=== PATIENT | male | born 1995 | race Caucasian/White ===

== ENCOUNTER → 2017-10-24 14:24 | Outpatient (CLI) | payer BC, SELFPAY ==
[2017-10-24 14:33] LABS: Bacteria 0 SEEN /hpf (None Seen); Mucous, Urine 0 SEEN /hpf (<or=2+); Red Blood Cells-Urine 0 SEEN /hpf (0-5); Squamous Epithelial Cells - UA 0 SEEN /hpf (0-5); White Blood Cells 0 SEEN /hpf (0-5)
[2017-10-24 17:11] LABS: Absolute Lymphocyte Count 1.43 X10^3/ul (0.83-4.51); Absolute Neutrophil Count 3.8 X10^3/uL (2.0-7.7); Basophil# 0.03 X10^3/uL; Basophil% 0.5 % (0-1); Eosinophils% 1.7 % (0-5); Hematocrit 48.6 % (40-54); Hemoglobin 16.6 g/dl (13.0-16.5); Lymphocyte # 1.43 X10^3/ul (4.0); Lymphocyte % 24.2 % (19-41); Mean Corp Hgb Conc 34.2 g/gl (32-36); Mean Corpuscular Hgb 29.8 pg (27.0-32.0); Mean Corpuscular Volume 87.3 fL (80-94); Mean Platelet Vol. 10.4 fl (6.2-12.0); Monocyte# 0.59 X10^3/uL; Neutrophil # 3.75 X10^3/uL (2.7-7.7); Neutrophil % 63.3 % (47-70); Platelet Count 262 K/mm3 (150-450); RBC Distribution Width CV 12.7 % (11.6-14.6); RBC Distribution Width SD 40.6 fl (35.1-43.9); Red Blood Count 5.57 M/mm3 (4.6-6.2); White Blood Count 5.9 K/mm3 (4.4-11.0)
[2017-10-24 17:15] LABS: POSITIVE COUNT NO; POSITIVE DIFFERENTIAL NO; POSITIVE MORPHOLOGY NO
[2017-10-24 17:33] LABS: Color, Urine Yellow (Yellow); Glucose, Dipstick Normal (Normal); Ketone-Dipstick Negative (Negative); Leukocyte Esterase-Dipstick Negative /ul (Negative); Nitrite-Dipstick Negative (Negative); Occult Blood-Urine Negative /ul (Negative); Protein-Dipstick Negative (Negative); Urine Bilirubin Dipstick Negative (Negative); Urine Clarity Clear (Clear); Urine Urobilinogen Normal (Normal); Urine pH 6.5 (5.0 - 8.0)
[2017-10-24 17:44] LABS: Urine Sodium 29 mmol/L (Not Establ.)
[2017-10-24 18:02] LABS: Anion Gap 8 (5-15); BUN 12 mg/dL (7-18); BUN/Creat Ratio 14.4 RATIO (10-20); Calcium,Total 8.9 mg/dL (8.5-10.1); Chloride 105 mmol/L (98-107); Creatinine, Serum 0.84 mg/dL (0.70-1.30); EST Glomerular Filtration Rate 125 mL/min (>60); Est Glom Filt Rate - Afr Amer 151 mL/min (>60); Glucose 103 mg/dL (74-106); Potassium 3.9 mmol/L (3.5-5.1); Sodium Level 141 mmol/L (136-145); Thyroid Stim Hormone (TSH) 1.31 uIU/mL (0.358-3.74)
[2017-10-24 18:09] LABS: Osmolality, Urine 181 mOsm/KG
== END ==
PROVIDERS: Family Provider Family Medicine; PCP Family Medicine; Visit Provider Family Medicine
DX: R35.8 Other polyuria (principal); R63.1 Polydipsia; R55 Syncope and collapse; R00.2 Palpitations
CPT/HCPCS: 36415; 80048; 81001; 83935; 84300; 84443; 85025

== ENCOUNTER 2018-03-03 18:08 | Emergency (ER) | payer BC, SELFPAY ==
[2018-03-03 18:09] VITALS: BP 108/72; PULSE 93; RESP 16; TEMP 36.4; O2SAT 99; BMI 25.2
--- NOTE | 2018-03-03 18:44 | ED.VISSUMM ---
- ER Visit Summary Date of Service: 03/03/18 Chief Complaint: Right index finger laceration History of Present Illness: The patient is a 22 M that is right hand dominant. Tetanus up-to-date. He was working on sheet metal and actually cut the dorsal side of his right index finger between his PIP and DIP joints. No other injuries. Physical Examination: Vital signs stable afebrile. Young male no acute distress. HEENT, heart, lungs, abdomen and neurologic exam normal. Right hand: Right index finger there is a 2 cm laceration between the DIP and PIP joints. He has full flexion-extension. Normal sensation. No foreign body. Clean wound. No bony deformity. Test Results: None Emergency Department Course and Treatment: Right index finger laceration with ER repair. Local anesthetic with lidocaine. Cleaned with Shur-Clens and irrigated. Explored. Closed using 2 5-0 Ethilon simple sutures. Proper hemostasis wound closure obtained. Patient instructed on wound care. Treatment Plan: Wound care and sutures out in 10 days. Disposition: Discharge Impression: Acute right index finger laceration with ER repair of 2 cm This note was generated with [employer] dictation software. It may contain incorrect words, spelling, and punctuation that were not noted in review of the chart prior to signing ED Disposition - Plan for ED Patient: Chief Complaint: Laceration Referrals: Joseluis Watson DO [Primary Care Provider] -
--- NOTE | 2018-03-03 18:47 | ED.DCSUM_ITS ---
- ER Visit Summary Date of Service: 03/03/18 Chief Complaint: Right index finger laceration History of Present Illness: The patient is a 22 M that is right hand dominant. Tetanus up-to-date. He was working on sheet metal and actually cut the dorsal side of his right index finger between his PIP and DIP joints. No other injuries. Physical Examination: Vital signs stable afebrile. Young male no acute distress. HEENT, heart, lungs, abdomen and neurologic exam normal. Right hand : Right index finger there is a 2 cm laceration between the DIP and PIP joints. He has full flexion-extension. Normal sensation. No foreign body. Clean wound. No bony deformity. Test Results: None Emergency Department Course and Treatment: Right index finger laceration with ER repair. Local anesthetic with lidocaine. Cleaned with Shur-Clens and irrigated. Explored. Closed using 2 5-0 Ethilon simple sutures. Proper hemostasis wound closure obtained. Patient instructed on wound care. Treatment Plan: Wound care and sutures out in 10 days. Disposition: Discharge Impression: Acute right index finger laceration with ER repair of 2 cm This note was generated with [employer] dictation software. It may contain incorrect words, spelling, and punctuation that were not noted in review of the chart prior to signing ED Disposition - Plan for ED Patient: Chief Complaint: Laceration Referrals: Joseluis Watson DO [Primary Care Provider] -
--- NOTE | 2018-03-03 18:47 | ED.DEP ---
ED Disposition - Plan for ED Patient: Disposition: Home or Assisted Living Chief Complaint: Laceration Instructions: ED Laceration Hand Referrals: Joseluis Watson DO [Primary Care Provider] - 10 Day for suture removal Additional Instructions: Keep wound clean. Dry thoroughly if gets wet. Apply antibiotic ointment daily. Tylenol and/or Motrin for pain. Stitches out in 10 days.
== END 2018-03-03 19:11 | disposition home or self-care (01) ==
PROVIDERS: Emergency Provider Emergency Medicine; Family Provider Family Medicine; PCP Family Medicine
DX: S61.210A Laceration without foreign body of right index finger without damage to nail, initial encounter (principal); W45.8XXA Other foreign body or object entering through skin, initial encounter; Y93.9 Activity, unspecified; Y92.89 Other specified places as the place of occurrence of the external cause; Y99.9 Unspecified external cause status
CPT/HCPCS: 12001; 99283

== ENCOUNTER → 2018-11-14 10:59 | Outpatient (CLI) | payer BC, SELFPAY ==
--- NOTE | 2018-11-14 11:11 | MRI_ITS ---
STUDY: MRI BRAIN WITH AND WITHOUT CONTRAST REASON FOR EXAM: Male, 23 years old. Migraine headaches with vision loss TECHNIQUE: Standardized multiplanar fat and water weighted pulse sequences were obtained. 18 IV Dotarem was administered for the contrast portion of the examination. COMPARISON: None. FINDINGS: The pituitary and pineal regions are normal. The brainstem is normal. The corpus callosum is normal. The 7th and 8th nerve complexes are normal. Both cerebellopontine angles are clear. The cerebellar vermis and lobes are normal. The ventricles, basal cisterns and cortical sulci are normal with no midline shift and no intra or extra-axial hemorrhage or tumor mass. There is no acute infarction. The calvarium is intact. There are no scalp swelling. The vessels at the base of the brain are normal. The orbits, paranasal sinuses and mastoid air cells are normal.. MRI/Brain W/WO Contrast IMPRESSION: Normal unenhanced and enhanced MRI of the brain. No evidence of a demyelinating disease. No acute findings Electronically Signed: Jeremy Jefferson MD at 5:34 EDT Tel , Service support ,
== END ==
PROVIDERS: Family Provider Family Medicine; PCP Family Medicine; Referring Provider Family Medicine; Visit Provider Family Medicine
DX: H53.129 Transient visual loss, unspecified eye (principal); R51 Headache
CPT/HCPCS: 70553; A9575

== ENCOUNTER → 2020-08-10 09:14 | Outpatient (CLI) | payer BC, SELFPAY ==
--- NOTE | 2020-08-10 09:18 | US_ITS ---
STUDY: SCROTUM ULTRASOUND REASON FOR EXAM: Male, 24 years old. TESTICULAR PAIN BILATERAL TECHNIQUE: Ultrasound evaluation of the scrotum was performed with color Doppler and static de la vega-scale imaging. COMPARISON: None. FINDINGS: RIGHT TESTICLE INTRATESTICULAR: There is a normal size of the right testicle. The right testicle measures 4.6 cm x 3.2 cm x 2.3 cm. There is a homogenous echotexture. There is normal arterial and normal venous vascularity. There is no demonstrated right testicular mass or cyst. EXTRATESTICULAR: The epididymis is normal in size. The epididymis head measures 0.9 cm x 1 cm x 0.9 cm. There is normal vascularity of the epididymis. There is no demonstrated epididymal cystic structure. There is no demonstrated hydrocele. There is no demonstrated varicocele. There is no demonstrated extratesticular mass or cyst. LEFT TESTICLE INTRATESTICULAR: There is a normal size of the left testicle. The left testicle measures 4.5 cm x 3.2 cm x 2.8 cm. There is a homogenous echotexture. There is normal arterial and normal venous vascularity. There is no demonstrated left testicular mass or cyst. EXTRATESTICULAR: The epididymis is normal in size. The epididymis head measures 1 cm x 1.2 cm x 0.8 cm. There is normal vascularity of the epididymis. There is no demonstrated epididymal cystic structure. There is no demonstrated hydrocele. There is no demonstrated varicocele. There is no demonstrated extratesticular mass or cyst. US/Testicular with Arterial Flow IMPRESSION: Normal bilateral testicles. Electronically Signed: Antony Rivero, at 11:01 EST , Service support ,
== END ==
PROVIDERS: PCP Family Medicine; Referring Provider Family Medicine; Visit Provider Family Medicine
DX: N50.82 Scrotal pain (principal)
CPT/HCPCS: 76870; 93976

== ENCOUNTER → 2021-01-15 15:34 | Outpatient (CLI) | payer BC, SELFPAY | PROVIDERS: PCP Family Medicine; Visit Provider Family Medicine | DX: Z20.828 Contact with and (suspected) exposure to other viral communicable diseases (principal) | CPT/HCPCS: 87635; U0005; U0003 ==

== ENCOUNTER → 2021-12-30 | Outpatient (CLI) | payer BC, SELFPAY | END | disposition home or self-care (01) | LOC: LABSPEC 15:10 | PROVIDERS: PCP Family Medicine; Visit Provider Family Medicine | DX: J02.9 Acute pharyngitis, unspecified (principal); R05.9 Cough, unspecified; J34.89 Other specified disorders of nose and nasal sinuses | CPT/HCPCS: 87635; U0003; U0005 ==

== ENCOUNTER 2024-12-21 16:01 | Emergency (ER) | payer BC, SELFPAY ==
[2024-12-21] VITALS (20 sets, daily range): BP systolic 122–176; BP diastolic 58–164; PULSE 61–76; RESP 9–26; TEMP 36.9; O2SAT 96–99; BMI 25.6
--- NOTE | 2024-12-21 16:12 | CT_ITS ---
PROCEDURE: ABDOMEN/PELVIS W IV CONT ONLY 12/21/2024 REASON FOR EXAM: LUQ PAIN TECHNIQUE: Abdomen and pelvis CT with intravenous contrast. Coronal and Sagittal reconstruction series were provided. PATIENT PREPARATION: Per protocol ORAL CONTRAST TYPE: None. AMOUNT: mL CONTRAST: Omnipaque 350 VOLUME: 100 mL Not Provided Gauge IV One or more dose reduction techniques were used (e.g., Automated exposure control, adjustment of the mA and/or kV according to patient size, use of iterative reconstruction technique. COMPARISON: None FINDINGS: Lung bases: Unremarkable. Liver: Normal size. No mass. Gallbladder: No ductal dilation. No cholelithiasis or abnormal wall thickening. Spleen: No splenomegaly. Diffuse multifocal wedge-shaped areas of hypoattenuation, concerning for sequela of splenic infarct. Pancreas: Normal size without evidence of mass surrounding inflammation or ductal dilation. Adrenals: Unremarkable. Kidneys: Normal renal sizes. No hydronephrosis. Bladder: Urinary bladder is unremarkable. Reproductive Organs: Normal uterine size and contour. Ovaries are unremarkable. Bowel: Stomach is unremarkable. No bowel dilation or significant wall thickening. Moderate colonic stool. Appendix: Normal appendix. Lymph nodes: No suspicious adenopathy. Vasculature: The abdominal aorta and IVC are normal. Peritoneum / Retroperitoneum: No pneumoperitoneum. No ascites. Bones: No suspicious osseous lesions. Soft tissues: Unremarkable. CT/Abdomen/Pelvis W IV Cont ONLY IMPRESSION: Multifocal hypoenhancing foci within the spleen, concerning for sequela of sple jaiden infarcts, especially given reported history of left upper quadrant pain. Although this appears quite similar to the tigroid t ype/inhomogeneous enhancement seen within the spleen on the arterial/early portal venous phase, sequela of splenic infarct is considered more likely. For confirmation, follow up CT of the abdomen and pelvis in 6-12 hours or MRI of the abdomen may be con sidered. Reading Location: [facility]
--- NOTE | 2024-12-21 16:18 | EDS_ITS ---
HPI History of Present Illness Chief Complaint: Flank Pain Informant: patient and spouse/S.O. Narrative Narrative: 29-year-old male presenting to the emergency room with left flank and left upper quadrant pain. Patient states that he went to [facility] this morning. He does not recall any particular injury. By time he got home this morning he noticed some discomfort left upper quadrant into the left flank. Nothing seems to make it better or worse. He states that it is intermittently more intense than others. He did eat lunch but notes that he was not feeling particularly hungry but still was able to eat. He denies any urinary or bowel symptoms. No rep orted fevers. He notes he is otherwise a very healthy individual. He denies any prior DVT or PE risk factors. He denies any IV drug use. He is not having any [facility] Home Medications ?Medication ?Instructions ?Recorded ?Last Taken ?Type hydrocodone-acetaminophen 5-325mg 1 tab PO Q6H PRN PRN Pain 3 days 12/21/24 Unknown Rx 5mg-325mg #10 TABLETS rivaroxaban 15 mg (42)-20 mg (9) See Rx Instructions P O .COMPLEX 12/21/24 Unknown Rx tablets in a starter pack (Xarelto #51 tabs DVT-PE Treatment 30-Day Starter) triamcinolone acetonide 0.1 % 1 applic topical BID PRN rash 12/21/24 12/20/24 History lotion Allergy/AdvReac Type Severity Reaction Status Date / Time sulfamethoxazole (From Allergy Hives Verified 12/21/24 16:02 Bactrim) trimethoprim (From Bactrim) Allergy Hives Verified 12/21/24 16:02 Surgical History S/P tonsillectomy and adenoidectomy Social History Smoking Status: Never smoker ROS ROS ED Constitutional Constitutional ED: Denies chills, fever(s) or weight loss Eyes Eyes: Denies change in vision or diplopia ENT ENT ED: Denies ear pain, rhinorrhea or sore throat Cardiovascular Cardiovascular: Denies chest pain, orthopnea, palpitations or racing heartbeat Respiratory/Chest Respiratory/Chest: Denies cough, dyspnea or orthopnea Gastrointestinal Gastrointestinal: Reports abdominal pain; Denies diarrhea, nausea or vomiting Genitourinary Genitourinary ED: Reports other Details: Patient denies testicular pain ; Denies dysuria, hematuria or urinary frequency Musculoskeletal Musculoskeletal: Reports back pain; Denies arthralgias, myalgias or neck pain Integumentary Denies abscess, Abrasions or rash Neurologic Neurologic: Denies headache(s), paresthesias or weakness Psychiatric Psychiatric: Denies anxiety, depression, suicidal ideation or suicidal thoughts Endocrine Endocrinology: Denies polydipsia, polyphagia or polyuria Allergic/Immunologic Allergic/Immunologic ED: Denies mouth swelling, tongue swelling or urticaria EXAM Physical Exam Const Vital Signs: 12/21/24 16:02 12/21/24 18:32 12/21/24 18:34 Temperature 98.4 F Temperature Source Oral Pulse Rate 74 61 67 Respiratory Rate 18 20 H 15 Blood Pressure 131/105 H 132/83 H 132/83 H Blood Pressure Mean 113 96 99 Pulse Ox 98 98 97 Oxygen Delivery Method Room Air Room Air 12/21/24 18:45 12/21/24 19:00 12/21/24 19:15 Temperature Temperature Source Pulse Rate 62 67 Respiratory Rate 13 9 L Blood Pressure 127/70 H 142/84 H 132/70 H Blood Pressure Mean 85 98 84 Pulse Ox 99 99 Oxygen Delivery Method 12/21/24 19:30 12/21/24 19:45 12/21/24 19:46 Temperature Temperature Source Pulse Rate 66 66 66 Respiratory Rate 17 26 H 10 L Blood Pressure 122/78 H 138/73 H Blood Pressure Mean 92 88 Pulse Ox 97 98 97 Oxygen Delivery Method 12/21/24 20:00 12/21/24 20:00 12/21/24 20:15 Temperature Temperature Source Pulse Rate 63 70 72 Respiratory Rate 11 L 16 15 Blood Pressure 142/67 H 142/67 H 133/91 H Blood Pressure Mean 92 89 101 Pulse Ox 97 96 97 Oxygen Delivery Method 12/21/24 20:33 12/21/24 20:45 12/21/24 21:00 Temperature Temperature Source Pulse Rate 65 69 66 Respiratory Rate 16 18 16 Blood Pressure 176/164 H 126/65 H Blood Pressure Mean 171 83 Pulse Ox 97 97 97 Oxygen Delivery Method 12/21/24 21:15 12/21/24 21:30 12/21/24 21:45 Temperature Temperature Source Pulse Rate 75 71 76 Respiratory Rate 17 18 17 Blood Pressure 131/67 H 134/67 H 128/58 H Blood Pressure Mean 82 83 73 Pulse Ox 97 98 96 Oxygen Delivery Method 12/21/24 22:00 12/21/24 22:01 Temperature Temperature Source Pulse Rate 76 74 Respiratory Rate 17 14 Blood Pressure 131/71 H Blood Pressure Mean 91 Pulse Ox 96 97 Oxygen Delivery Method Positive well nourished and well developed General Appearance ED: well developed and NAD HEENT Reports normocephalic, head/scalp atraumatic and moist mucous membranes Eyes PERRL and EOMs intact bilaterally Neck no lymphadenopathy, supple and no JVD Chest Wall Chest Narrative: Patient notes some tenderness to palpation along the lower posterior ear left ribs extending towards the mid axillary line. I do not appreciate any ecchymosis. Resp normal respiratory effort and clear to auscultation bilaterally Cardio regular rate, regular rhythm and no murmurs GI Inspection: Negative for abdominal distention Auscultation: normoactive bowel sounds Palpation: soft and tender LUQ; Negative for guarding or rebound tenderness present Back/Spine normal ROM Back/Spine Narrative: I do not appreciate any midline thoracic or lumbar tenderness. Extremity normal to inspection General Extremety ED: Negative for edema General Extremity: Negative for edema Neuro oriented x3 and CN's II-XII intact bilaterally Sensorium / Orientation: alert Motor Exam: strength 5/5 throughout Psych mental status grossly normal Mood & Affect: Negative for depressed or tearful Skin no rashes or lesions noted and no wounds MDM MDM MDM Narrative Medical decision making narrative: Differential diagnosis includes UTI kidney stone rib injury muscular strain splenic rupture splenic infarct renal infarct Patient is PERC negative. EKG shows a normal sinus rhythm at a rate of 66 bpm. White count is nonspecifically elevated 11.4 hemoglobin of 16.4 platelet count of 359. Normal coags. Glucose of 107 creatinine is 0.88 with a BUN of 21. Liver enzymes show an AST of 47 ALT of 47 lipase 22. Urinalysis shows no overt infection. There is 3+ bacteria noted 0 squamous cells 0 white cells or red cells. CT abdomen pelvis with IV contrast was obtained. This is concerning for areas of splenic infarct. A similar appearance can be seen with inhomogeneous mixing of the contrast however radiology feels that this is more consistent with splenic infarct. Last comparison film I would have to review this with his from 2006. I spoke with the patient and spouse at length. He has no familial history of clotting disorders or known malignancy. He denies any known trauma that he felt this morning while at [facility]. He has not had any recent infections sore throat fevers. I spoke with the patient regarding the possibility of splenic infarcts. I do not have a readily accessible MRI test to offer him. Using shared decision making we placed him on a heparin drip however going to repeat the CT at about the 6-hour simeon. After Toradol the patient states he is really not having any pain but will notify us if the pain returns. In speaking with the patient has his pain is controlled he is hemodynamically stable and his blood work is rather unremarkable. If the CT is consistent with chronic infarct we can start him on Xarelto And follow-up with hematology and primary care. History & Record Review Discussion w/independent historian: Patient Additional record(s) reviewed:: Prior ED visit Lab Data Attestation: I reviewed the patient's lab results. Labs: Laboratory Results - last 24 hr 12/21/24 12/21/24 16:09 16:35 WBC 11.4 H RBC 5.61 Hgb 16.4 Hct 45.9 MCV 81.8 MCH 29.2 MCHC 35.7 RDW Std Deviation 40.2 RDW Coeff of Mame 13.6 Plt Count 359 MPV 9.1 Immature Gran % (Auto) 0.300 Neut % (Auto) 74.8 H Lymph % (Auto) 14.7 L [place]ble % (Auto) 8.0 Eos % (Auto) 1.5 Baso % (Auto) 0.7 Absolute Neuts (auto) 8.5 H Absolute Lymphs (auto) 1.67 Nucleated RBC % 0 PT 14.0 INR 1.1 APTT 31.2 Sodium 139 Potassium 4.2 Chloride 103 Carbon Dioxide 25.0 Anion Gap 11 BUN 21 H Creatinine 0.88 Estim Creat Clear Calc 138.40 Est GFR (MDRD) Non-Af 121 BUN/Creatinine Ratio 24.2 H Glucose 107 H Calcium 9.6 Total Bilirubin 0.43 Direct Bilirubin 0.19 AST 47 H ALT 47 Alkaline Phosphatase 39 L Total Protein 7.5 Albumin 4.8 Globulin 2.8 Lipase 22 Urine Color Straw Urine Clarity Sl. Cloudy Urine pH 7.0 Ur Specific Vance 1.010 Urine Protein 15 H Urine Glucose (UA) Normal Urine Ketones Negative Urine Occult Blood Negative Urine Nitrite Negative Urine Bilirubin Negative Urine Urobilinogen Normal Ur Leukocyte Esterase Negative Urine RBC 0 SEEN Urine WBC 0 SEEN Ur Squamous Epith Cells 0 SEEN Amorphous Sediment 1+ Urine Bacteria 3+ Urine Mucus 0 SEEN Radiography Diagnostic Testing: Clinical Impression(s) from Imaging Studies Abdomen/Pelvis CT 12/21/24 16:12 IMPRESSION: Multifocal hypoenhancing foci within the spleen, concerning for sequela of splenic infarcts, especially given reported history of left upper quadrant pain. Although this appears quite similar to the tigroid type/inhomogeneous enhancement seen within the spleen on the arterial/early portal venous phase, sequela of splenic infarct is considered more likely. For confirmation, follow up CT of the abdomen and pelvis in 6-12 hours or MRI of the abdomen may be considered. Reading Location: [facility] EK Initial EKG: Attestation: I personally reviewed and interpreted this EKG as follows: Comments: Normal sinus rhythm ventricular to 66 bpm Management Discussion w/another healthcare provider: Hospitalist Discharge Plan Triage Chief Complaint: Flank Pain ED Provider: Michael Oakley Dx/Rx/DC Orders Clinical Impression: Abdominal pain, Splenic infarct Prescriptions: New Xarelto DVT-PE Treat 30d Start 15 mg (42)- 20 mg (9) tablets,dose pack See Rx Instructions .ROUTE .COMPLEX Qty: 51 0RF Rx Instructions: take one-15 mg tablet twice daily for 21 days, then one-20 mg tablet once daily; must take with meal/food hydrocodone-acetaminophen 5-325 mg tablet 1 tab PO Q6H PRN PRN (Reason: Pain) 3 Days Qty: 10 0RF No Action triamcinolone acetonide 0.1 % lotion 1 applic topical BID PRN (Reason: rash) Primary Care Provider: Simeon Watson Referrals: iSmeon Watson DO [Primary Care Provider] - As soon as possible Prabhu Metz DO [Med Staff - Active Staff] - As soon as possible (for hematology) Print Language: Amharic
[2024-12-21 16:29] LABS: White Blood Cells 0 SEEN /hpf (0-5)
[2024-12-21 16:30] LABS: Color, Urine Straw (Yellow); Glucose, Dipstick Normal (Normal); Ketone-Dipstick Negative (Negative); Leukocyte Esterase-Dipstick Negative /ul (Negative); Mucous, Urine 0 SEEN /hpf (<or=2+); Nitrite-Dipstick Negative (Negative); Occult Blood-Urine Negative /ul (Negative); Protein-Dipstick 15 mg/dl (Negative); Red Blood Cells-Urine 0 SEEN /hpf (0-5); Squamous Epithelial Cells - UA 0 SEEN /hpf (0-5); Urine Bilirubin Dipstick Negative (Negative); Urine Clarity Sl. Cloudy (Clear); Urine Urobilinogen Normal (Normal)
[2024-12-21] MEDS: Ketorolac 30 MG/ML Syringe IV (16:33)
[2024-12-21] MEDS: 0.9% Normal Saline (1000mL) 1,000 ML 999 ML IV (16:33)
[2024-12-21 16:37] LABS: Amorphous Sediment 1+; Bacteria 3+ /hpf (None Seen)
[2024-12-21 16:47] LABS: Absolute Lymphocyte Count 1.67 X10^3/uL (0.83-4.51); Absolute Neutrophil Count 8.5 X10^3/uL (2.0-7.7); Basophil# 0.08 X10^3/uL; Basophil% 0.7 % (0-1); Eosinophil# 0.17 X10^3/uL; Eosinophils% 1.5 % (0-5); Hematocrit 45.9 % (40-54); Hemoglobin 16.4 g/dL (13.0-16.5); Lymphocyte # 1.67 X10^3/ul (0.83-4.51); Lymphocyte % 14.7 % (19-41); Mean Corp Hgb Conc 35.7 g/dL (32-36); Mean Corpuscular Hgb 29.2 pg (27.0-32.0); Mean Corpuscular Volume 81.8 fL (80-94); Mean Platelet Vol. 9.1 fl (6.2-12.0); Monocyte# 0.91 X10^3/uL; NRBC Flagged by Analyzer 0 % (0-5); Neutrophil # 8.53 X10^3/uL (2.7-7.7); Neutrophil % 74.8 % (47-70); Platelet Count 359 K/mm3 (150-450); RBC Distribution Width CV 13.6 % (11.6-14.6); RBC Distribution Width SD 40.2 fl (35.1-43.9); Red Blood Count 5.61 M/mm3 (4.6-6.2); White Blood Count 11.4 K/mm3 (4.4-11.0)
[2024-12-21 17:23] LABS: AST(SGOT) 47 U/L (<=37); Alanine Aminotransfer ALT/SGPT 47 U/L (<=46); Albumin, Serum 4.8 g/dL (3.5-5.0); Alkaline Phosphatase 39 U/L (40-129); Anion Gap 11 (5-15); BUN 21 mg/dL (4-19); BUN/Creat Ratio 24.2 RATIO (10-20); Bilirubin, Direct 0.19 mg/dL (0.00-0.30); Calcium,Total 9.6 mg/dL (7.6-11.0); Chloride 103 mmol/L (98-108); Creatinine, Serum 0.88 mg/dL (0.70-1.20); EST Glomerular Filtration Rate 121 (>60); Globulin 2.8 g/dL (2.2-4.2); Glucose 107 mg/dL (70-99); Lipase 22 U/L (13-75); Potassium 4.2 mmol/L (3.3-5.1); Protein, Total 7.5 g/dL (5.9-8.4); Sodium Level 139 mmol/L (133-145); Total Bilirubin 0.43 mg/dL (0.00-1.30)
--- NOTE | 2024-12-21 18:19 | EKG12_ITS ---
Test Reason : DYSRHYTHMIA Blood Pressure : */* mmHG Vent. Rate : 66 BPM Atrial Rate : 66 BPM P-R Int : 146 ms QRS Dur : 102 ms QT Int : 406 ms P-R-T Axes : 60 93 28 degrees QTcB Int : 425 ms Normal sinus rhythm Rightward axis Probably normal Confirmed by Damian Hernandez ([id number]), photo editor DANYEL MONTGOMERY ([id number]) on 12/27/2024 1:00:32 PM Referred By: RADHA Confirmed By: Damian Hernandez
[2024-12-21 18:36] LABS: International Normalized Ratio 1.1
[2024-12-21 18:37] LABS: Partial Thromboplast Time 31.2 Seconds (24.1-36.2)
[2024-12-21] MEDS: HEPARIN/D5w 25,000 UNITS 25,000 UNITS/250 ML IV.SOLN. 12 UNITS CONT INF (18:42)
[2024-12-21] MEDS: Heparin Injection (Vial) 5,000 UNIT/ML VIAL 6000 UNIT IV (18:42)
--- NOTE | 2024-12-21 20:29 | CT_ITS ---
PROCEDURE: ABDOMEN/PELVIS W IV CONT ONLY 12/21/2024 REASON FOR EXAM: SPLENIC infarct TECHNIQUE: Abdomen and pelvis CT with intravenous contrast. Coronal and Sagittal reconstruction series were provided. PATIENT PREPARATION: Per protocol ORAL CONTRAST TYPE: None. AMOUNT: mL CONTRAST: Omnipaque 350 VOLUME: 100 mL Not Provided Gauge IV One or more dose reduction techniques were used (e.g., Automated exposure control, adjustment of the mA and/or kV according to patient size, use of iterative reconstruction technique. COMPARISON: CT abdomen and pelvis 12/21/2024 FINDINGS: Lung bases: Mild dependent atelectasis Liver: Normal size. No mass. Gallbladder: No ductal dilation. Gallbladder is collapsed. No cholelithiasis or wall thickening. Spleen: Redemonstration heterogenous enhancement with multifocal areas of hypoattenuation throughout the spleen compatible with splenic infarct, unchanged since the CT from earlier today. No splenomegaly. Pancreas: Normal size without evidence of mass surrounding inflammation or ductal dilation. Adrenals: Unremarkable Kidneys: Normal renal sizes. No hydronephrosis. Contrast within the collecting system, from recent CT. Bladder: Contrast filled urinary bladder. No abnormal wall thickening. Reproductive Organs: No pelvic mass. Bowel: Stomach is moderately distended. No bowel dilation or wall thickening. Large colonic stool. Appendix: Normal appendix. Lymph nodes: Unremarkable. Vasculature: The abdominal aorta and IVC are normal. Peritoneum / Retroperitoneum: No ascites. No pneumoperitoneum. Bones: Unremarkable. Soft tissue: Unremarkable. CT/Abdomen/Pelvis W IV Cont ONLY IMPRESSION: Redemonstration multifocal splenic hypoenhancing foci, compatible with sequela of splenic infarcts. Reading Location: [facility]
[2024-12-22 00:19] VITALS: BP 129/57; PULSE 68; RESP 18; TEMP 36.8; O2SAT 96
== END 2024-12-22 00:21 | disposition home or self-care (01) ==
PROVIDERS: Emergency Provider Emergency Medicine; PCP Family Medicine; Visit Provider Emergency Medicine
DX: R10.9 Unspecified abdominal pain (principal); D73.5 Infarction of spleen
CPT/HCPCS: 74177; 80048; 80076; 81001; 83690; 85025; 85610; 85730; 93005; 96361; 96365; 96366; 96375; 96376; 99285; Q9967; A4216

== ENCOUNTER → 2024-12-25 | Outpatient (CLI) | payer BC, SELFPAY ==
[2024-12-25 12:03] LABS: Erythrocyte Sedimentation Rate 3 mm/hr (0-20)
[2024-12-25 12:38] LABS: CRP < 3.00 mg/L (0.0-3.0)
[2024-12-31 18:08] LABS: CMV Acute Antibody IgM < 30.0 AU/mL (0.0-29.9); Cytoplasmic Ab (C-ANCA) <1:20 titer (Neg:<1:20); EBV Acute VCA IgM < 36.0 U/mL (0.0-35.9); Perinuclear Ab (P-ANCA) <1:20 titer (Neg:<1:20); Protein C, Functional 131 % (73-180); Protein S, Funtional 90 % (63-140)
== END | disposition home or self-care (01) ==
LOC: LAB 10:49
PROVIDERS: PCP Family Medicine; Referring Provider Family Medicine; Visit Provider Family Medicine
DX: D73.5 Infarction of spleen (principal); R21 Rash and other nonspecific skin eruption
CPT/HCPCS: 36415; 81240; 81241; 85303; 85306; 85652; 86037; 86140; 86645; 86665

== ENCOUNTER 2025-01-14 21:03 | Emergency (ER) | payer BC, SELFPAY ==
[2025-01-14 21:05] VITALS: BP 126/90; PULSE 67; RESP 18; TEMP 36.1; O2SAT 99; BMI 26.0
--- NOTE | 2025-01-14 22:19 | EDS_ITS ---
HPI History of Present Illness Chief Complaint: Other, Pain/Inj PFSH PFSH Medical History Splenic infarct Normal colonoscopy GERD (gastroesophageal reflux disease) IBS (irritable bowel syndrome) Migraines Seasonal allergies Home Medications ?Medication ?Instructions ?Recorded ?Last Taken ?Type apixaban 5 mg tablet (Eliquis) 5 mg PO BID 01/08/25 Un known History lactobacillus combination no.9 4 PO 01/08/25 Unknown H istory billion cell capsule (Adult 50 Plus Probiotic) magnesium 200 mg tablet 200 mg PO QDAY 01/08/25 Unkn own History multivitamin 1 tab PO QAM 01/08/25 Unknow n History psyllium husk 0.4 gram capsule 0.4 g PO ONCE 01/08/25 Unknown History (Daily Fiber) Allergy/AdvReac Type Severity Reaction Status Date / Time sulfamethoxazole (From Allergy Hives Verified 01/14/25 21:05 Bactrim) trimethoprim (From Bactrim) Allergy Hives Verified 01/14/25 21:05 Family History (Updated 01/08/25 @ 10:10 by Shreya Mcmillan) Grandfather Myocardial infarction, Onset Age: 50 Cancer Hypertension Hyperlipidemia Grandmother Breast cancer CVA (cerebral vascular accident) Father Mitral valve prolapse Surgical History Hx of wisdom tooth extraction S/P tonsillectomy and adenoidectomy Social History (Updated 01/08/25 @ 10:12 by Shreya Mcmillan) Smoking Status: Never smoker alcohol intake: current alcohol intake frequency: a few times a month Alcohol type: beer substance use type: does not use what type of physical activity do you participate in: running, weight training and other details: martial arts training frequency: daily EXAM Physical Exam Const Vital Signs: 01/14/25 21:05 01/14/25 22:11 01/14/25 23:26 Temperature 97 F L Temperature Source Temporal Pulse Rate 67 85 Respiratory Rate 18 18 Respiratory Pattern Normal Blood Pressure 126/90 H 120/87 H Blood Pressure Mean 102 98 Pulse Ox 99 98 Oxygen Delivery Method Room Air Room Air MDM MDM MDM Narrative Medical decision making narrative: HISTORY OF PRESENT ILLNESS: Chief complaint: Left flank pain/abdominal pain 29-year-old male history of splenic infarct presents with left flank and abdominal pain. States this began this morning the pain is mild described as discomfort in the left flank/left upper quadrant. No trauma. No vomiting. No fever. Notes compliance with Eliquis. Denies trouble with bowel movements. Denies any testicular pain or trouble urinating. Denies chest pain or palpitations. REVIEW OF SYSTEMS: Pertinent positives: Abdominal/flank pain Pertinent negatives: As per [facility] PHYSICAL EXAM: Nursing triage notes reviewed, Vital signs reviewed Constitutional: please see [facility] HENT: MMM Eyes: Pupils equal round and reactive to light, Extraocular muscles intact Neck: No stridor, no JVD, full neck ROM Lungs: Clear to auscultation, No wheezing or rales. No increased work of breathing, no conversational dyspnea, no accessory muscle use, no nasal flaring. No respiratory distress noted Heart: Regular rate and rhythm, No murmurs, No rubs and No gallops, 2+ distal pulses (radial, femoral, posterior tibial) in all extremities Abdomen: Soft, there is no tenderness, rigidity, rebound or guarding, no obvious peritoneal signs, no palpable pulsatile abdominal masses, no auscultated abdominal bruit : No CVAT Extremities: No edema Neuro: No new focal neurological deficits, cranial nerves II through XII intact, 5/5 strength in all present extremities. Intact sensation to light touch in all present extremities, 2+ reflexes bilateral patella tendons. Skin: No rash or lesions noted MEDICAL DECISION MAKING: Chief Complaint: please see HPI External records reviewed: Reviewed prior imaging studies: Reviewed CT scan Of the abdomen pelvis from 12/21/2024 which showed multifocal splenic hypoenhancing foci compatible with sequela of splenic infarct Factors affecting care: Splenic infarct Social determinants of health: Denies drug use History obtained from others: none Consults: Radiology (Dr. Casey) noted no significant abnormalities, no progression of infarct, no dissection arterial or venous abnormalities noted in the left upper quadrant spleen [facility] Narrative: The patient was initially hemodynamically stable, afebrile and nontoxic- appearing. Abdominal exam was overall benign with very mild subjective tenderness to the left upper extremity. No CVA tenderness. No peritoneal signs. I considered the following differential diagnosis: Sequela splenic infarct, recurrence with acute infarct, arrhythmia, anemia, nephrolithiasis, pyelonephritis. I obtained a broad lab and imaging workup to further elucidate etiology of the patient's complaints. ALL IMAGES (IF OBTAINED) HAVE BEEN PERSONALLY REVIEWED AND INTERPRETED BY MYSELF. CBC without leukocytosis, severe anemia, no thrombocytopenia. Lactate is wnl indicating no end-organ hypoperfusion and/or hypoxia. CMP without evidence of acute kidney injury, significant electrolyte abnormality, anion gap to suggest end organ hypo-perfusion, no evidence of metabolic acidosis with a normal bicarbonate, no evidence of hepatobiliary obstructive pathology. Lipase is wnl indicating no pancreatic inflammation. Urinalysis shows no evidence of urinary inflammation suggestive of UTI CTA of the abdomen pelvis showed no evidence of vessel normality or new splenic infarct The etiology of patient's complaint remains uncertain however it is unlikely be life-threatening. Will encourage continued anticoagulation follow-up with PCP/prescribing physician. The patient and/or family, caregivers express understanding. The patient and/or family, caregivers agrees with the plan. Shared decision making: I will have a discussion with the patient and or visitors regarding risk/benefits of further testing or admission. They will be made aware of of the risk/benefits inherent in this decision they will be given the opportunity to voice understanding. Total critical care time today provided was at least 0 minutes. This excludes separately billable procedures. Critical care time (if documented) is secondary to the patient having high probability of clinically significant/life threatening deterioration in the patient's condition which required my urgent intervention. Impression: 1. Acute left upper quad abdominal pain 2. Left leg pain Dispo: Discharge home This note was generated with Headplay dictation software. It may contain incorrect words, spelling, and punctuation that were not noted in review of the chart prior to signing. Lab Data Labs: Laboratory Results - last 24 hr 01/14/25 01/14/25 22:40 23:23 WBC 8.7 RBC 5.63 Hgb 16.3 Hct 46.1 MCV 81.9 MCH 29.0 MCHC 35.4 RDW Std Deviation 39.9 RDW Coeff of Mame 13.6 Plt Count 337 MPV 9.0 Immature Gran % (Auto) 0.300 Neut % (Auto) 62.7 Lymph % (Auto) 25.5 [place]er % (Auto) 7.2 Eos % (Auto) 3.6 Baso % (Auto) 0.7 Absolute Neuts (auto) 5.4 Absolute Lymphs (auto) 2.21 Nucleated RBC % 0 Sodium 139 Potassium 4.0 Chloride 101 Carbon Dioxide 24.7 Anion Gap 13 BUN 28 H Creatinine 1.13 Estim Creat Clear Calc 107.78 Est GFR (MDRD) Non-Af 91 BUN/Creatinine Ratio 25.1 H Glucose 90 Lactic Acid 1.0 Calcium 9.5 Total Bilirubin 0.39 AST 28 ALT 41 Alkaline Phosphatase 37 L Total Protein 7.3 Albumin 4.8 Globulin 2.5 Albumin/Globulin Ratio 1.9 Lipase 28 Urine Color Straw Urine Clarity Clear Urine pH 6.5 Ur Specific [place] 1.010 Urine Protein 15 H Urine Glucose (UA) Normal Urine Ketones Negative Urine Occult Blood Negative Urine Nitrite Negative Urine Bilirubin Negative Urine Urobilinogen Normal Ur Leukocyte Esterase Negative Urine RBC 0 SEEN Urine WBC 0 SEEN Ur Squamous Epith Cells 0-5 SEEN Urine Bacteria 0 SEEN Urine Mucus 0 SEEN Radiography Diagnostic Testing: Clinical Impression(s) from Imaging Studies Abdomen/Pelvis CTA 01/14/25 22:32 IMPRESSION: No abdominal aortic aneurysm or dissection. Heterogeneous appearance of the spleen due to phase of contrast, limiting evaluation. OVERALL FINAL ASSESSMENT: . LI-RADS is not meant to be used in patients <18 years or patients with cirrhosis due to congenital hepatic fibrosis or due to vascular disorders, because these patients have a lower chance of developing HC C. Reading Location: [facility] Discharge Plan Triage Chief Complaint: Other, Pain/Inj ED Provider: José Miguel Darby Dx/Rx/DC Orders Instructions: Abdominal Pain Prescriptions: No Action Eliquis 5 mg tablet 5 mg PO BID Adult 50 Plus Probiotic 4 billion cell capsule PO psyllium husk [Daily Fiber] 0.4 gram capsule 0.4 g PO ONCE magnesium 200 mg tablet 200 mg PO QDAY multivitamin Tablet 1 tab PO QAM Primary Care Provider: Joseluis Watson Referrals: Joseluis Watson DO [Primary Care Provider] - Activity Restrictions/Additional Instructions: Thank you for trusting us with your care today! Your CT showed no evidence of new or worsening spleen pathology. Your abdominal blood vessels are open and do not appear to be abnormal. Please take Tylenol (2 pills, 650 mg) every 6 hours as needed for pain and fever control. Please return to the emergency department if your symptoms change or worsen. Please follow with your primary care physician for further outpatient evaluation and management. Print Language: Ukrainian Disposition Disposition: Home, Self Care
--- NOTE | 2025-01-14 22:32 | CT_ITS ---
PROCEDURE: CTA ABD/PELVIS W/WO CONTRAST 01/14/2025 REASON FOR EXAM: LEFT FLANK PAIN, HX OF SPLENIC INFARCT TECHNIQUE: CTA imaging of the abdomen and pelvis with intravenous contrast. Multiplanar and multisequence images were obtained. 3D post processing was performed CONTRAST: Isovue 370 VOLUME: 100 mL Not Provided Gauge IV One or more dose reduction techniques were used (e.g., Automated exposure control, adjustment of the mA and/or kV according to patient size, use of iterative reconstruction technique). RADIATION DOSE SUMMARY: CTDlvol: 55 mGy DLP: 716 mGycm COMPARISON: CT of the abdomen and pelvis dated 12/21/2024 FINDINGS: Aorta: Abdominal aorta is normal in size. No significant atherosclerotic plaque. No evidence of aneurysm or dissection. Iliac Arteries: Iliac arteries are normal in size with no significant plaque or stenosis. Celiac: Normal. SMA: Normal. SHENG : Normal. Right Renal: Normal Left Renal: Normal. Other Findings: Heterogeneous appearance of the spleen secondary to phase of contrast. This limits evaluation. The gallbladder is decompressed. The liver, pancreas, adrenal glands, kidneys, urinary bladder and bowel loops are grossly unremarkable the osseous structures are grossly unremarkable. CT/CTA Abd/Pelvis W/WO Contrast IMPRESSION: No abdominal aortic aneurysm or dissection. Heterogeneous appearance of the spleen due to phase of contrast, limiting evalu ation. OVERALL FINAL ASSESSMENT: . LI-RADS is not meant to be used in patients <18 years or patients with cirrhosi s due to congenital hepatic fibrosis or due to vascular disorders, because these patients have a lower chance of developing HC C. Reading Location: [facility]
--- NOTE | 2025-01-14 22:33 | EKG12_ITS ---
Test Reason : Blood Pressure : */* mmHG Vent. Rate : 56 BPM Atrial Rate : 56 BPM P-R Int : 162 ms QRS Dur : 110 ms QT Int : 426 ms P-R-T Axes : 71 92 22 degrees QTcB Int : 411 ms Sinus bradycardia Rightward axis Borderline ECG Confirmed by JOSE GANN ([id number]), technical editor DANYEL MONTGOMERY ([id number]) on 01/20/2025 8:10:14 AM Referred By: Confirmed By: JOSE GANN
[2025-01-14 22:54] LABS: Absolute Lymphocyte Count 2.21 X10^3/uL (0.83-4.51); Absolute Neutrophil Count 5.4 X10^3/uL (2.0-7.7); Basophil# 0.06 X10^3/uL; Basophil% 0.7 % (0-1); Eosinophil# 0.31 X10^3/uL; Eosinophils% 3.6 % (0-5); Hematocrit 46.1 % (40-54); Hemoglobin 16.3 g/dL (13.0-16.5); Lymphocyte # 2.21 X10^3/ul (0.83-4.51); Lymphocyte % 25.5 % (19-41); Mean Corp Hgb Conc 35.4 g/dL (32-36); Mean Corpuscular Volume 81.9 fL (80-94); Monocyte# 0.62 X10^3/uL; Monocyte% 7.2 % (0-10); NRBC Flagged by Analyzer 0 % (0-5); Neutrophil # 5.42 X10^3/uL (2.7-7.7); Neutrophil % 62.7 % (47-70); Platelet Count 337 K/mm3 (150-450); RBC Distribution Width CV 13.6 % (11.6-14.6); RBC Distribution Width SD 39.9 fl (35.1-43.9); Red Blood Count 5.63 M/mm3 (4.6-6.2); White Blood Count 8.7 K/mm3 (4.4-11.0)
[2025-01-14 23:14] LABS: ALB/GLOB Ratio 1.9 RATIO (0.9-2.4); AST(SGOT) 28 U/L (<=37); Alanine Aminotransfer ALT/SGPT 41 U/L (<=46); Albumin, Serum 4.8 g/dL (3.5-5.0); Alkaline Phosphatase 37 U/L (40-129); Anion Gap 13 (5-15); BUN 28 mg/dL (4-19); BUN/Creat Ratio 25.1 RATIO (10-20); Calcium,Total 9.5 mg/dL (7.6-11.0); Carbon Dioxide 24.7 mmol/L (21.0-32.0); Chloride 101 mmol/L (98-108); Creatinine, Serum 1.13 mg/dL (0.70-1.20); EST Glomerular Filtration Rate 91 (>60); Estimated Creatinine Clearance 107.78 ml/min (50-250); Globulin 2.5 g/dL (2.2-4.2); Glucose 90 mg/dL (70-99); Lipase 28 U/L (13-75); Protein, Total 7.3 g/dL (5.9-8.4); Sodium Level 139 mmol/L (133-145); Total Bilirubin 0.39 mg/dL (0.00-1.30)
[2025-01-14 23:26] VITALS: BP 120/87; PULSE 85; RESP 18; O2SAT 98
[2025-01-14 23:31] LABS: Bacteria 0 SEEN /hpf (None Seen); Mucous, Urine 0 SEEN /hpf (<or=2+); Red Blood Cells-Urine 0 SEEN /hpf (0-5); White Blood Cells 0 SEEN /hpf (0-5)
[2025-01-14 23:33] LABS: Glucose, Dipstick Normal (Normal); Ketone-Dipstick Negative (Negative); Leukocyte Esterase-Dipstick Negative /ul (Negative); Nitrite-Dipstick Negative (Negative); Occult Blood-Urine Negative /ul (Negative); Protein-Dipstick 15 mg/dl (Negative); Urine Bilirubin Dipstick Negative (Negative); Urine Urobilinogen Normal (Normal); Urine pH 6.5 (5.0 - 8.0)
[2025-01-14 23:44] LABS: Color, Urine Straw (Yellow); Urine Clarity Clear (Clear)
[2025-01-15 00:02] LABS: Squamous Epithelial Cells - UA 0-5 SEEN /hpf (0-5)
[2025-01-15 00:52] VITALS: PULSE 78; RESP 18; O2SAT 98
== END 2025-01-15 00:52 | disposition home or self-care (01) ==
PROVIDERS: Emergency Provider Emergency Medicine; PCP Family Medicine; Visit Provider Emergency Medicine
DX: R10.12 Left upper quadrant pain (principal); M79.605 Pain in left leg; K21.9 Gastro-esophageal reflux disease without esophagitis
CPT/HCPCS: 74174; 80053; 81001; 83605; 83690; 85025; 93005; 99284; Q9967; A4216

== ENCOUNTER → 2025-02-04 | Outpatient (CLI) | payer BC, SELFPAY ==
--- OUTSIDE RECORDS SUMMARY | 2025-02-04 07:11 | XMS RPT_ITS | CCD ---
Author Organization [facility] Care Team Providers Care Columnist Name Role Phone TONY ARIAS Unavailable Unavailable TONY ARIAS Unavailable Unavailable SELF, REFERRED Unavailable Unavailable SELF, REFERRED Unavailable Unavailable Salud Watson Primary Care Provider MILKA CAMARILLO Attending Unavailable SALUD WATSON Primary Care Unavailable Dr. Salud Watson DO Primary Care Provider Dr. Michael Oakley DO Attending Provider Dr. Michael Oakley DO Emergency Provider Dr. Salud Watson DO Attending Provider Dr. Salud Watson DO Referring Provider Shreya Mcmillan Attending Provider Unavailable Dr. Patrice Patel MD Attending Provider Dr. Patrice Patel MD Referring Provider Dr. José Miguel Darby DO Emergency Provider Dr. Gabrielle Pérez MD Attending Provider Salud Watson Primary Care Unavailable BetoGabrielle Attending Unavailable Salud Watson Referring Unavailable Salud Watson Primary Care Unavailable BetoGabrielle Attending Unavailable BetoGabrielle Referring Unavailable Salud Watson Primary Care Unavailable BetoGabrielle Attending Unavailable Gabrielle Pérez Referring Unavailable Patrice Patel Attending Unavailable Patrice Patel Referring Unavailable Salud Watson Primary Care Unavailable Salud Watson Primary Care Unavailable Salud Watson Attending Unavailable Salud Watson Referring Unavailable Michael Oakley Attending Unavailable Salud Watson Primary Care Unavailable ShirleySalud núñez Primary Care Unavailable José Miguel Darby Attending Unavailable Gabrielle Pérez Attending Unavailable Gabrielle Pérez Referring Unavailable Shirley, Salud Primary Care Unavailable Shirley, Salud Primary Care Unavailable ShirleySalud Tate Referring Unavailable ShirleySalud núñez Attending Unavailable Shreya Mcmillan Attending Unavailable Salud Watson Primary Care Unavailable Patrice Patel Attending Unavailable Salud Watson Primary Care Unavailable Salud Watson Referring Unavailable Allergies Allergy Classification Reported Allergen(s) Allergy Type Date of Onset Reaction(s) Facility Sulfamethoxazole / Trimethoprim (1 source) Sulfamethoxazole / Trimethoprim Drug Allergy 1 [facility] (5 sources) Sulfamethoxazole Drug Allergy 5 [facility] (5 sources) Trimethoprim Drug Allergy 5 [facility] (1 source) Sulfamethoxazole Drug Allergy 5 [facility] (1 source) Trimethoprim Drug Allergy 5 [facility] Medications Current Medications Medication Drug Class(es) Dates Sig (Normalized) Sig (Original) apixaban 5 mg oral tablet (11 sources) Factor Xa Inhibitor Start: 12-22-2024 End: 01-08-2025 take 1 tablet by mouth twice daily Apixaban (Eliquis) 5 mg tablet Active 5 mg PO TWICE A DAY January 08, 2025 10:06am Start: 12-22-2024 End: 01-08-2025 take 2 tablets by mouth twice daily, then take 1 tablet by mouth twice daily Apixaban (Eliquis) 5 mg tablet Discontinued 10 mg PO TWICE A DAY 17 03December 22, 2024 12:00am January 08, 2025 10:08am 10 mg twice a day for the first week. Then 5 mg twice a day. Lactobacillus Combination No.9 (Adult 50 Plus Probiotic) 4 billion cell capsule (3 sources) Start: 01-08-2025 Lactobacillus Combination No.9 (Adult 50 Plus Probiotic) 4 billion cell capsule Active PO January 08, 2025 12:00am loratadine 10 mg oral capsule (1 source) take 1 capsule by mouth once daily loratadine (CLARITIN) 10 MG capsule Take 10 mg by mouth daily 0 Active Magnesium (3 sources) Start: 01-08-2025 take 1 tablet by mouth once daily Magnesium 200 mg tablet Active 200 mg PO daily January 08, 2025 12:00am Multivitamin tablet (3 sources) Start: 01-08-2025 Multivitamin t ablet Active 1 {tbl} PO EVERY MORNING January 08, 2025 12:00am psyllium 400 mg oral capsule (3 sources) Start: 01-08-2025 Psyllium Husk (Daily Fiber) 0.4 gram capsule Active 0.4 g PO ONCE January 08, 2025 12:00am Completed/Discontinued Medications Medication Drug Class(es) Dates Sig (Normalized) Sig (Original) acetaminophen 325 mg / HYDROcodone bitartrate 5 mg oral tablet (4 sources) Opioid Agonist Start: 12-21-2024 End: 01-08-2025 Hydrocodone-Acetam inophen 5-325 mg tablet Discontinued 1 {tbl} PO EVERY 6 HOURS NEEDED as needed for Pain 10 December 21, 2024 January 08, 2025 10:07am bacitracin zinc 0.5 unt/mg topical ointment (1 source) Start: 03-06-2021 End: 03-06-2021 bacitracin ointment cephalexin 500 mg oral capsule (2 sources) Cephalosporin Antibacterial Start: 03-06-2021 End: 03-11-2021 cephALEXin (KEFLEX) capsule 500 mg FIBER COMPLETE PO (1 source) take 1 tablet by mouth once daily FIBER COMPLETE PO Take 1 tablet by mouth daily 0 Active ibuprofen 200 mg oral tablet (1 source) Nonsteroidal Anti-inflammatory Drug Start: 03-06-2021 End: 03-06-2021 ibuprofen (ADVIL;MOTRIN) tablet 600 mg 10 ml lidocaine hydrochloride 10 mg/ml injection (1 source) Antiarrhythmic, Amide Local Anesthetic Start: 03-06-2021 End: 03-06-2021 lidocaine 1 % injection 10 mL rivaroxaban 20 mg oral tablet (4 sources) Factor Xa Inhibitor Start: 12-21-2024 End: 01-08-2025 take 1 tablet by mouth twice daily at mealtime Rivaroxaban (Xarelto Dvt-Pe Treat 30d Start) 15 mg (42)- 20 mg (9) tablets,dose pack Discontinued 0 PO .COMPLEX 51 December 21, 2024 12:00am January 08, 2025 10:07am take one-15 mg tablet twice daily for 21 days, then one-20 mg tablet once daily; must take with meal/food triamcinolone acetonide 1 mg/ml topical lotion (4 sources) Corticosteroid Start: 12-21-2024 End: 01-08-2025 Triamcinolone Acetonide 0.1 % lotion Discontinued 1 NMA TOPICAL TWICE A DAY as needed for rash December 21, 2024 12:00am January 08, 2025 10:07am Problems Active Problems Problem Classification Problem Date Documented Da te Episodic/Chronic Abdominal pain (6 sources) Abdominal pain; Translations: [Unspecified abdominal pain] Onset: 12-26-2024 12-30-2024 Episodic Cardiac dysrhythmias (1 source) Cardiac arrhythmia, unspecified; Translations: [Cardiac arrhythmia, unspecified] Onset: 01-30-2025 Chronic Cardiac dysrhythmias (3 sources) Palpitations; Translations: [Palpitations] Onset: 01-20-2025 01-20-2025 Episodic Essential hypertension (1 source) Essential hypertension; Translations: [Essential (primary) hypertension] Chronic Open wounds of extremities (1 source) Laceration of left foot; Translations: [Laceration without foreign body, left foot, initial encounter] Episodic Other gastrointestinal disorders (2 sources) History of irritable bowel syndrome; Translations: [Personal history of other diseases of the digestive system] 01-20-2025 Episodic Other gastrointestinal disorders (1 source) Personal history of other diseases of the digestive system; Translations: [Personal history of other diseases of the digestive system] Onset: 01-20-2025 Episodic Other hematologic conditions (7 sources) Splenic infarction; Translations: [Infarction of spleen] 12-30-2024 Episodic Other hematologic conditions (2 sources) Infarction of spleen; Translations: [Infarction of spleen] Onset: 01-20-2025 Episodic Residual codes; unclassified (2 sources) History of palpitations; Translations: [Personal history of other specified conditions] 01-20-2025 Episodic Residual codes; unclassified (2 sources) Personal history of other specified conditions; Translations: [Personal history of other specified conditions] Onset: 01-20-2025 Episodic Unclassified (4 sources) for hematology Past or Other Problems Problem Classification Problem Date Documented Da te Episodic/Chronic Unclassified (4 sources) Other general symptoms and signs; Translations: [OTHER GENERAL SYMPTOMS AND SIGNS] Onset: 09-08-2017 Episodic Results Test Name Value Interpretation Reference Range Facility [id number] 01-22-2025 [facility] [place] COM[place] Normal . [facility] Comment on above: Order Comment: [id number] 0ANTIPHOSPHOLIPID SYNDROME Result Comment: Test Ordered: [id number] Antiphospholipid Syndrome Comp Specimen Comment: A courtesy copy of this report has been sent to [phone] APTT 30.1 sec UY Reference Range: . This test has not been validated for monitoring unfractionated heparin therapy. aPTT-based therapeutic ranges for unfractionated heparin therapy have not been established. Consider ordering Heparin anti-Xa (unfractionated). Reference Range: 18 years and older: 22.9 - 30.2 APTT 1:1 LASER SYSTEMS ENGINEER sec UY Reference Range: . Testing Not Indicated This test was developed and its performance characteristics determined by [facility]. It has not been cleared or approved by the [place] Food and Drug Administration. APTT 1:1 Saline sec UY Reference Range: . Testing Not Indicated This test was developed and its performance characteristics determined by [facility]. It has not been cleared or approved by the [place] Food and Drug Administration. DRVVT Screen Seconds 37.4 sec UY Reference Range: . Reference Range: <= 47.0 DRVVT Confirm Seconds sec UY Reference Range: . Testing Not Indicated DRVVT Ratio ratio UY Reference Range: . Testing Not Indicated Hexagonal Phospholipid Neutral 5 sec UY Reference Range: . This value is NEGATIVE. This is a qualitative assay and is therefore reported as positive for lupus anticoagulant or negative. The quantitative value is provided as an aid in diagnosis. Reference Range: 0 - 11 Platelet Neutralization 1.6 sec UY Reference Range: . Reference Range: 0.0 - 3.0 This test was developed and its performance characteristics determined by [facility]. It has not been cleared or approved by the Food and Drug Administration. Anticardiolipin Ab, IgG <10 GPL UY Reference Range: . Reference Range: Negative: <15 Indeterminate: 15 - 20 Low to medium positive: >20 - 80 High positive: >80 Anticardiolipin Ab, IgM <10 MPL UY Reference Range: . Reference Range: Negative: <13 Indeterminate: 13 - 20 Low to medium positive: >20 - 80 High positive: >80 Anticardiolipin Ab, IgA <10 APL UY Reference Range: . Reference Range: Negative: <12 Indeterminate: 12 - 20 Low to medium positive: >20 - 80 High positive: >80 Beta-2 Glycoprotein I, IgG <10 SGU UY Reference Range: . The reference interval reflects a 3SD or 99th percentile interval. Reference Range: Negative: <21 Beta-2 Glycoprotein I, IgM <10 SMU UY Reference Range: . The reference interval reflects a 3SD or 99th percentile interval. Reference Range: Negative: <33 Beta-2 Glycoprotein I, IgA <10 UMA UY Reference Range: . The reference interval reflects a 3SD or 99th percentile interval. Reference Range: Negative: <26 Antiphosphatidylserine IgG 0 GPS UY Reference Range: . Reference Range: Negative: <16 Low Positive: 16 - 30 Moderate Positive: 31 - 50 High Positive: >50 Antiphosphatidylserine IgM 2 MPS UY Reference Range: . Reference Range: Negative: <22 Low Positive: 22 - 35 Moderate Positive: 36 - 50 High Positive: >50 Antiprothrombin Antibody, IgG 3 G units UY Reference Range: . Reference Range: Negative: <21 LAC Interpretation Comment UY Reference Range: . A lupus anticoagulant is not detected. All antiphospholipid antibodies evaluated are normal. As antibody titers may fluctuate with time, repeat testing may be indicated. Please contact [facility] if further clarification is needed. Performed at: [facility] [address] [id number] Ob/Gyn: Anthony Contreras MD, Phone: [phone] Performed at: [address] [id number] Ob/Gyn: Sudhir Gonzalez PhD, Phone: [phone] Performed By: #### L 101.9900, L4500.5000, L3100.7250, L3400.1500, L4500.2000, L3100.7325, L3100.5900, L501.6710, L3410.9992, L3300.1200 #### [facility] [address] [place], [place], [id number] Cardiology Visit Reporton Cardiology Visit Report [facility] [address] [place] [address] OFFICE VISIT Date of Service: 01/20/25 MR#: [id number] Acct: [id number] Name: JOSE M CORRAL Rep #: [id number] : 1995 Provider: Dr. Gabrielle Pérez MD Age/Sex: 29/M Location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 He was started on anticoagulation. Since, he has been evaluated by hematology for hypercoagulable workup. The workup has been negative. He has been referred to us for evaluation for cardiac source of emboli. Patient denies any previous history of heart disease. 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 At that time, workup was done which was all negative per him. Denies any chest pains or shortness of breath either at rest or with exertion. Occasional skipped beat. No orthopnea. No PND. No ankle edema. No syncope or presyncope. Father has history of mitral valve prolapse. Intake Vital Signs 01/08/25 10:16 01/08/25 16:04 01/14/25 21:05 01/20/25 08:06 Height 6 ft 6 ft 6 ft 6 ft Weight: 199 lb BMI 26.9 BP 119/70 Blood Pressure Location Lt brachial Position Sitting Respiration 16 Pulse 79 Pulse Source NIBP Intake Visit Reasons: SPLENIC INFRACTION Spiritual Care Coordinator Required: No Accompanied by: Is patient in pain?: No Allergies sulfamethoxazole (From Bactrim) Allergy (Verified 01/20/25 08:33) Hives trimethoprim (From Bactrim) Allergy (Verified 01/20/25 08:33) Hives Medications ???Medication ???Instructions ???Recorded ???Confirmed ???Type apixaban 5 mg tablet (Eliquis) 5 mg PO BID 01/08/25 01/20/25 Hist ory lactobacillus combination no.9 4 PO 01/08/25 01/20/25 History billion cell capsule (Adult 50 Plus Probiotic) magnesium 200 mg tablet 200 mg PO QDAY 01/08/25 01/20/25 H istory multivitamin 1 tab PO QAM 01/08/25 01/20/25 His tory psyllium husk 0.4 gram capsule 0.4 g PO ONCE 01/08/25 01/20/25 Hi story (Daily Fiber) Have you fallen in the past year?: No PFSH Medical History GERD (gastroesophageal reflux disease) IBS (irritable bowel syndrome) Migraines Normal colonoscopy Palpitations Seasonal allergies Splenic infarct Surgical History History of colonoscopy Hx of wisdom tooth extraction S/P tonsillectomy and adenoidectomy Family History Grandfather Myocardial infarction, Onset Age: 50 Cancer Hypertension Hyperlipidemia Grandmother Breast cancer CVA (cerebral vascular accident) Hypertension Father Mitral valve prolapse Social History Smoking Status: Never smoker alcohol intake: current alcohol intake frequency: a few times a month Alcohol type: beer substance use type: does not use what type of physical activity do you participate in: running, weight training and other details: martial arts training frequency: daily ROS Const Const: Positive for headache(s) (new; could be related to allergies per pt; posterior; peripheral vision los); Negative for fatigue, weakness or weight gain ENT ENT: Positive for headache(s) (new; could be related to allergies per pt; posterior; peripheral vision los) and dizziness (new onset s/p splenic infarct); Negative for Nosebleed/epistaxis or balance problems Cardio Chest Pain: No Palpitations: Yes (remote from HS; new recurrence in past 2 weeks) feels like its: fast and skipping Edema: None Muscle aches with walking: None Resp Respiratory: Negative for SOB with activity, SOB at rest or SOB orthopnea SOB lying down GI GI: Positive for nausea (with splenic infarct; occasional); Negative vomiting or heartburn Musc Musc: Negative for muscle aches/ myalgia, muscle weakness, joint pain or balance problems Neuro Neuro: Positive for dizziness (new onset s/p splenic infarct), lightheadedness and headache(s) (new; could be related to allergies per pt; posterior; peripheral vision los); Negative for near syncope, syncope or weakness Endo Endo: Negative for fatigue Cardiology Exam Const Appearance: comfortable and no acute distress Nutritional Appearance: well nourished Neck Neck: no JVD Carotids: Negative bruit Chest Auscultation: Bilateral: Clear to Auscultation Cardio Rate: regular rate Rhythm: regular rhythm Heart sounds: S1 normal and S2 normal Neuro General: patient alert, patient awake and patient oriented x3 Extremities Lower Extremity Edema: None: Bilateral Supplemental Info Supplem (more content not included)... Normal [facility] Urinalysis, Completeon 01-15 EPI,SQUAMOUS 0-5 SEEN Normal 0-5 [facility] Comment on above: Order Comment: CLEAN CATCH Performed By: #### L 101.9900, L4500.5000, L3100.7250, L3400.1500, L4500.2000, L3100.7325, L3100.5900, L501.6710, L3410.9992, L3300.1200 #### [facility] [address] [place], [address] 12 Lead EKGon 01-14-2025 [address] [facility] Services [address] [place] [address] 12 Lead EKG 01/14/25 2318 MR#: [id number] Acct: [id number] Name: JOSE M CORRAL Rep #: [id number] : 1995 29 From: Jose Bowling MD Attending Dr: Status: DEP ER Ordering Dr: José Miguel Darby DO Date: 01/14/25 Location: ED Sex: M C Admitted: Test Reason : Blood Pressure : */* mmHG Vent. Rate : 56 BPM Atrial Rate : 56 BPM P-R Int : 162 ms QRS Dur : 110 ms QT Int : 426 ms P-R-T Axes : 71 92 22 degrees QTcB Int : 411 ms Sinus bradycardia Rightward axis Borderline ECG Confirmed by JOSE BOWLING ([id number]), managing editor DANYEL MONTGOMERY ([id number]) on 01/20/2025 8:10:14 AM Referred By: Confirmed By: JOSE BOWLING 01/20/25 0810 Date Jose Bowling MD CC: Dr. Salud Watson, ; Dr. José Miguel Darby DO Signed Normal [facility] Absolute lymphocyte countOrd ered By: José Miguel Darby on 01-14-2025 Lymphocytes Auto (Unsp spec) [#/Vol] 2.21 10*3/uL 0.83-4.51 [facility] Absolute neutrophil countOrd ered By: José Miguel Darby on 01-14-2025 Neutrophils (Bld) [#/Vol] 5.4 10*3/uL 2.0-7.7 [facility] Anion gap in Serum or Plasma Ordered By: José Miguel Darby on 01-14-2025 Anion gap [Moles/Vol] 13 mmol/L 5-15 [facility] Automated lymphocyte count a s percentage of total leukocytesOrdered By: José Miguel Darby on 01-14-2025 Lymphocytes/100 WBC Auto (Unsp spec) 25.5 % 19-41 [facility] BUN/creatinine ratioOrdered By: José Miguel Darby on 01-14-2025 Urea nitrogen/Creatinine [Mass ratio] 25.1 mg/mg High 10-20 [facility] Basophil percentageOrdered B y: José Miguel Darby on 01-14-2025 Basophils/100 WBC (Bld) 0.7 % 0-1 [facility] Bilirubin Test strip Ql (U)O rdered By: José Miguel Darby on 01-14-2025 Bilirubin Ql (U) Negative Negative [facility] Bilirubin, totalOrdered By: José Miguel Darby on 01-14-2025 Bilirubin [Mass/Vol] 0.39 mg/dL 0.00-1.30 [facility] CBC W/Diff, Automatedon 12-20 Absolute Lymph 2.21 X10 3/uL Normal 0.83-4.51 [facility] Comment on above: Performed By: #### L 100.0100 ####[facility] [address] [place], [address] Absolute Neut 5.4 X10 3/uL Normal 2.0-7.7 [facility] Comment on above: Performed By: #### L 100.0100 ####[facility] [address] [place], [address] Basophils/100 WBC (Bld) 0.7 % Normal 0-1 [facility] Comment on above: Performed By: #### L 100.0100 ####[facility] [address] [place], [address] Eosinophils/100 WBC (Bld) 3.6 % Normal 0-5 [facility] Comment on above: Performed By: #### L 100.0100 ####[facility] [address] [place], [address] Erythrocyte distribution width (RBC) [Ratio] 13.6 % Normal 11.6-14.6 [facility] Comment on above: Performed By: #### L 100.0100 ####[facility] [address] [place], [address] Hematocrit (Bld) [Volume fraction] 46.1 % Normal 40-54 [facility] Comment on above: Performed By: #### L 100.0100 ####[facility] [address] [place], [address] Hemoglobin (Bld) [Mass/Vol] 16.3 g/dL Normal 13.0-16.5 [facility] Comment on above: Performed By: #### L 100.0100 ####[facility] [address] [place], [address] IG% 0.300 Normal 0.0-0.9 [facility] Comment on above: Result Comment: IG% - Immature Granulocytes (promyelocytes, myelocytes and metamyelocytes) > 1% indicates that a LEFT SHIFT is Present. Performed By: #### L 100.0100 ####[facility] [address] [place], [address] Lymphocytes/100 WBC (Bld) 25.5 % Normal 19-41 [facility] Comment on above: Performed By: #### L 100.0100 ####[facility] [address] [place], [address] MCH (RBC) [Entitic mass] 29.0 pg Normal 27.0-32.0 [facility] Comment on above: Performed By: #### L 100.0100 ####[facility] [address] [place], [address] MCHC (RBC) [Mass/Vol] 35.4 g/dL Normal 32-36 [facility] Comment on above: Performed By: #### L 100.0100 ####[facility] [address] [place], [address] MCV (RBC) [Entitic vol] 81.9 fL Normal 80-94 [facility] Comment on above: Performed By: #### L 100.0100 ####[facility] [address] [place], [address] Monocytes/100 WBC (Bld) 7.2 % Normal 0-10 [facility] Comment on above: Performed By: #### L 100.0100 ####[facility] [address] [place], [address] Neutrophils/100 WBC (Bld) 62.7 % Normal 47-70 [facility] Comment on above: Performed By: #### L 100.0100 ####[facility] [address] [place], [address] Nucleated RBC (Bld) [#/Vol] 0 10*3/uL Normal 0-5 [facility] Comment on above: Performed By: #### L 100.0100 ####[facility] [address] [place], [address] Platelet mean volume (Bld) [Entitic vol] 9.0 fL Normal 6.2-12.0 [facility] Comment on above: Performed By: #### L 100.0100 ####[facility] [address] [place], [address] Platelets (Bld) [#/Vol] 337 10*3/uL Normal 150-450 [facility] Comment on above: Performed By: #### L 100.0100 ####[facility] [address] [place], [address] RBC (Bld) [#/Vol] 5.63 10*6/uL Normal 4.6-6.2 [facility] Comment on above: Performed By: #### L 100.0100 ####[facility] [address] [place], [address] RDW SD 39.9 fl Normal 35.1-43.9 [facility] Comment on above: Performed By: #### L 100.0100 ####[facility] [address] [place], [address] WBC (Bld) [#/Vol] 8.7 10*3/uL Normal 4.4-11.0 [facility] Comment on above: Performed By: #### L 100.0100 ####[facility] [address] [place], [address] CTA Abd/Pelvis W/WO Contrast on 01-14-2025 CTA Abd/Pelvis W/WO Contrast [facility] Imaging Services [address] [place] [address] CTA Abd/Pelvis W/WO Contrast MR#: [id number] Acct: [id number] Name: JOSE M CORRAL Rep #: [id number] : 1995 M 29 From: Kel Dyer DO PCP: Dr. Salud Watson, DO Status: REG ER Study: CTA Abd/Pelvis W/WO Contrast Date of Exam: Exam# [id number] Ordering Dr: José Miguel Darby DO PROCEDURE: CTA ABD/PELVIS W/WO CONTRAST 01/14/2025 REASON FOR EXAM: LEFT FLANK PAIN, HX OF SPLENIC INFARCT TECHNIQUE: CTA imaging of the abdomen and pelvis with intravenous contrast. Multiplanar and multisequence images were obtained. 3D post processing was performed CONTRAST: Isovue 370 VOLUME: 100 mL Not Provided Gauge IV One or more dose reduction techniques were used (e.g., Automated exposure control, adjustment of the mA and/or kV according to patient size, use of iterative reconstruction technique). RADIATION DOSE SUMMARY: CTDlvol: 55 mGy DLP: 716 mGycm COMPARISON: CT of the abdomen and pelvis dated 12/21/2024 FINDINGS: Aorta: Abdominal aorta is normal in size. No significant atherosclerotic plaque. No evidence of aneurysm or dissection. Iliac Arteries: Iliac arteries are normal in size with no significant plaque or stenosis. Celiac: Normal. SMA: Normal. SHENG : Normal. Right Renal: Normal Left Renal: Normal. Other Findings: Heterogeneous appearance of the spleen secondary to phase of contrast. This limits evaluation. The gallbladder is decompressed. The liver, pancreas, adrenal glands, kidneys, urinary bladder and bowel loops are grossly unremarkable the osseous structures are grossly unremarkable. CT/CTA Abd/Pelvis W/WO Contrast IMPRESSION: No abdominal aortic aneurysm or dissection. Heterogeneous appearance of the spleen due to phase of contrast, limiting evaluation. OVERALL FINAL ASSESSMENT: . LI-RADS is not meant to be used in patients <18 years or patients with cirrhosis due to congenital hepatic fibrosis or due to vascular disorders, because these patients have a lower chance of developing HCC. Reading Location: [facility] CC: Dr. Salud Watson DO; Dr. 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 Normal [facility] Carbon dioxide, total [Moles /volume] in Central venous bloodOrdered By: José Miguel Darby on 01-14-2025 CO2 [Moles/Vol] 24.7 mmol/L 21.0-32.0 [facility] Chloride assayOrdered By: Anabel Darby on 01-14-2025 Chloride [Moles/Vol] 101 mmol/L 98-108 [facility] Comprehensive Metabolic Prof ilon 01-14-2025 Albumin [Mass/Vol] 4.8 g/dL Normal 3.5-5.0 [facility] Comment on above: Performed By: #### L 101.9900, L4500.5000, L3100.7250, L3400.1500, L4500.2000, L3100.7325, L3100.5900, L501.6710, L3410.9992, L3300.1200 #### [facility] [address] [place], [address] Albumin/Globulin [Mass ratio] 1.9 {ratio} Normal 0.9-2.4 [facility] Comment on above: Performed By: #### L 101.9900, L4500.5000, L3100.7250, L3400.1500, L4500.2000, L3100.7325, L3100.5900, L501.6710, L3410.9992, L3300.1200 #### [facility] [address] [place], [address] ALK PHOS 37 U/L Low 40-129 [facility] Comment on above: Performed By: #### L 101.9900, L4500.5000, L3100.7250, L3400.1500, L4500.2000, L3100.7325, L3100.5900, L501.6710, L3410.9992, L3300.1200 #### [facility] [address] [place], [address] ALT [Catalytic activity/Vol] 41 U/L Normal <=46 [facility] Comment on above: Performed By: #### L 101.9900, L4500.5000, L3100.7250, L3400.1500, L4500.2000, L3100.7325, L3100.5900, L501.6710, L3410.9992, L3300.1200 #### [facility] [address] [place], [address] AST [Catalytic activity/Vol] 28 U/L Normal <=37 [facility] Comment on above: Performed By: #### L 101.9900, L4500.5000, L3100.7250, L3400.1500, L4500.2000, L3100.7325, L3100.5900, L501.6710, L3410.9992, L3300.1200 #### [facility] [address] [place], [address] Bilirubin [Mass/Vol] 0.39 mg/dL Normal 0.00-1.30 [facility] Comment on above: Performed By: #### L 101.9900, L4500.5000, L3100.7250, L3400.1500, L4500.2000, L3100.7325, L3100.5900, L501.6710, L3410.9992, L3300.1200 #### [facility] [address] [place], [address] BUN/CRE 25.1 RATIO High 10-20 [facility] Comment on above: Performed By: #### L 101.9900, L4500.5000, L3100.7250, L3400.1500, L4500.2000, L3100.7325, L3100.5900, L501.6710, L3410.9992, L3300.1200 #### [facility] [address] [place], [address] Calcium [Mass/Vol] 9.5 mg/dL Normal 7.6-11.0 [facility] Comment on above: Performed By: #### L 101.9900, L4500.5000, L3100.7250, L3400.1500, L4500.2000, L3100.7325, L3100.5900, L501.6710, L3410.9992, L3300.1200 #### [facility] [address] [place], [address] Chloride [Moles/Vol] 101 mmol/L Normal 98-108 [facility] Comment on above: Performed By: #### L 101.9900, L4500.5000, L3100.7250, L3400.1500, L4500.2000, L3100.7325, L3100.5900, L501.6710, L3410.9992, L3300.1200 #### [facility] [address] [place], [address] CO2 [Moles/Vol] 24.7 mmol/L Normal 21.0-32.0 [facility] Comment on above: Performed By: #### L 101.9900, L4500.5000, L3100.7250, L3400.1500, L4500.2000, L3100.7325, L3100.5900, L501.6710, L3410.9992, L3300.1200 #### [facility] [address] [place], [place], [id number] (223) Creatinine [Mass/Vol] 1.13 mg/dL Normal 0.70-1.20 [facility] Comment on above: Performed By: #### L 101.9900, L4500.5000, L3100.7250, L3400.1500, L4500.2000, L3100.7325, L3100.5900, L501.6710, L3410.9992, L3300.1200 #### [facility] [address] [place], [place], [address] (324) ECRCL 107.78 ml/min Normal 50-250 [facility] Comment on above: Performed By: #### L 101.9900, L4500.5000, L3100.7250, L3400.1500, L4500.2000, L3100.7325, L3100.5900, L501.6710, L3410.9992, L3300.1200 #### [facility] [address] [place], [address] GAP 13 Normal 5-15 [facility] Comment on above: Performed By: #### L 101.9900, L4500.5000, L3100.7250, L3400.1500, L4500.2000, L3100.7325, L3100.5900, L501.6710, L3410.9992, L3300.1200 #### [facility] [address] [place], [address] GFR/1.73 sq M.predicted among non-blacks MDRD (S/P/Bld) [Vol rate/Area] 91 mL/min/{1.73_m2} Normal >60 [facility] Comment on above: Result Comment: mL/m in/1.73m2 CKD-EPI Creatinine Equation (2020) Performed By: #### L 101.9900, L4500.5000, L3100.7250, L3400.1500, L4500.2000, L3100.7325, L3100.5900, L501.6710, L3410.9992, L3300.1200 #### [facility] [address] [place], [address] Globulin (S) [Mass/Vol] 2.5 g/dL Normal 2.2-4.2 [facility] Comment on above: Performed By: #### L 101.9900, L4500.5000, L3100.7250, L3400.1500, L4500.2000, L3100.7325, L3100.5900, L501.6710, L3410.9992, L3300.1200 #### [facility] [address] [place], [address] Glucose [Mass/Vol] 90 mg/dL Normal 70-99 [facility] Comment on above: Performed By: #### L 101.9900, L4500.5000, L3100.7250, L3400.1500, L4500.2000, L3100.7325, L3100.5900, L501.6710, L3410.9992, L3300.1200 #### [facility] [address] [place], [address] Potassium [Moles/Vol] 4.0 mmol/L Normal 3.3-5.1 [facility] Comment on above: Performed By: #### L 101.9900, L4500.5000, L3100.7250, L3400.1500, L4500.2000, L3100.7325, L3100.5900, L501.6710, L3410.9992, L3300.1200 #### [facility] [address] [place], [address] Sodium [Moles/Vol] 139 mmol/L Normal 133-145 [facility] Comment on above: Performed By: #### L 101.9900, L4500.5000, L3100.7250, L3400.1500, L4500.2000, L3100.7325, L3100.5900, L501.6710, L3410.9992, L3300.1200 #### [facility] [address] [place], [place], [id number] T PROT 7.3 g/dL Normal 5.9-8.4 [facility] Comment on above: Performed By: #### L 101.9900, L4500.5000, L3100.7250, L3400.1500, L4500.2000, L3100.7325, L3100.5900, L501.6710, L3410.9992, L3300.1200 #### [facility] [address] [place], [address] Urea nitrogen [Mass/Vol] 28 mg/dL High 4-19 [facility] Comment on above: Performed By: #### L 101.9900, L4500.5000, L3100.7250, L3400.1500, L4500.2000, L3100.7325, L3100.5900, L501.6710, L3410.9992, L3300.1200 #### [facility] [address] [place], [address] Emergency Department Summary on 01-14-2025 Emergency Department Summary [facility] Medical Records Department [address] [place] [address] Emergency Department Summary 01/14/25 MR#: [id number] Acct: [id number] Name: JOSE M CORRAL Rep #: [id number] : 1995 29 From: José Miguel Darby DO PCP: Dr. Salud Watson, DO Status:REG ER Location: ED HPI History of Present Illness Chief Complaint: Other, Pain/Inj PFSH PFSH Medical History Splenic infarct Normal colonoscopy GERD (gastroesophageal reflux disease) IBS (irritable bowel syndrome) Migraines Seasonal allergies Home Medications ???Medication ???Instructions ???Recorded ???Last Taken ???Type apixaban 5 mg tablet (Eliquis) 5 mg PO BID 01/08/25 Unknown Histo ry lactobacillus combination no.9 4 PO 01/08/25 Unknown History billion cell capsule (Adult 50 Plus Probiotic) magnesium 200 mg tablet 200 mg PO QDAY 01/08/25 Unknown Hi story multivitamin 1 tab PO QAM 01/08/25 Unknown Hist ory psyllium husk 0.4 gram capsule 0.4 g PO ONCE 01/08/25 Unknown His tory (Daily Fiber) Allergy/AdvReac Type Severity Reaction Status Date / Time sulfamethoxazole (From Allergy Hives Verified 01/14/25 21:05 Bactrim) trimethoprim (From Bactrim) Allergy Hives Verified 01/14/25 21:05 Family History (Updated 01/08/25 @ 10:10 by Shreya Mcmillan) Grandfather Myocardial infarction, Onset Age: 50 Cancer Hypertension Hyperlipidemia Grandmother Breast cancer CVA (cerebral vascular accident) Father Mitral valve prolapse Surgical History Hx of wisdom tooth extraction S/P tonsillectomy and adenoidectomy Social History (Updated 01/08/25 @ 10:12 by Shreya Mcmillan) Smoking Status: Never smoker alcohol intake: current alcohol intake frequency: a few times a month Alcohol type: beer substance use type: does not use what type of physical activity do you participate in: running, weight training and other details: martial arts training frequency: daily EXAM Physical Exam Const Vital Signs: 01/14/25 21:05 01/14/25 22:11 01/14/25 23:26 Temperature 97 F L Temperature Source Temporal Pulse Rate 67 85 Respiratory Rate 18 18 Respiratory Pattern Normal Blood Pressure 126/90 H 120/87 H Blood Pressure Mean 102 98 Pulse Ox 99 98 Oxygen Delivery Method Room Air Room Air [facility] Narrative Medical decision making narrative: HISTORY OF PRESENT ILLNESS: Chief complaint: Left flank pain/abdominal pain 29-year-old male history of splenic infarct presents with left flank and abdominal pain. States this began this morning the pain is mild described as discomfort in the left flank/left upper quadrant. No trauma. No vomiting. No fever. Notes compliance with Eliquis. Denies trouble with bowel movements. Denies any testicular pain or trouble urinating. Denies chest pain or palpitations. REVIEW OF SYSTEMS: Pertinent positives: Abdominal/flank pain Pertinent negatives: As per HPI PHYSICAL EXAM: Nursing triage notes reviewed, Vital signs reviewed Constitutional: please see [facility] HENT: MMM Eyes: Pupils equal round and reactive to light, Extraocular muscles intact Neck: No stridor, no JVD, full neck ROM Lungs: Clear to auscultation, No wheezing or rales. No increased work of breathing, no conversational dyspnea, no accessory muscle use, no nasal flaring. No respiratory distress noted Heart: Regular rate and rhythm, No murmurs, No rubs and No gallops, 2+ distal pulses (radial, femoral, posterior tibial) in all extremities Abdomen: Soft, there is no tenderness, rigidity, rebound or guarding, no obvious peritoneal signs, no palpable pulsatile abdominal masses, no auscultated abdominal bruit : No CVAT Extremities: No edema Neuro: No new focal neurological deficits, cranial nerves II through XII intact, 5/5 strength in all present extremities. Intact sensation to light touch in all present extremities, 2+ reflexes bilateral patella tendons. Skin: No rash or lesions noted MEDICAL DECISION MAKING: Chief Complaint: please see [facility] External records reviewed: Reviewed prior imaging studies: Reviewed CT scan Of the abdomen pelvis from 12/21/2024 which showed multifocal splenic hypoenhancing foci compatible with sequela of splenic infarct Factors affecting care: Splenic infarct Social determinants of health: Denies drug use History obtained from others: none Consults: Radiology (Dr. Casey) noted no significant abnormalities, no progression of infarct, no dissection arterial or venous abnormalities noted in the left upper quadrant spleen [facility] Narrative: The patient was initially hemodynamically stable, afebrile and nontoxic-appearing. Abdominal exam was overall benign with very mild subjectiv (more content not included)... Normal [facility] Eosinophil percentageOrdered By: José Miguel Darby on 01-14-2025 Eosinophils/100 WBC (Bld) 3.6 % 0-5 [facility] Erythrocyte distribution wid th ratioOrdered By: José Miguel Darby on 01-14-2025 Erythrocyte distribution width (RBC) [Ratio] 13.6 % 11.6-14.6 [facility] Erythrocyte distribution wid th standard deviationOrdered By: José Miguel Darby on 01-14-2025 Erythrocyte distribution width (RBC) [Ratio] 39.9 fl 35.1-43.9 [facility] Glomerular filtration rate ( GFR) estimation/1.73 sq m using serum, plasma, or whole bOrdered By: José Miguel Darby on 01-14-2025 GFR/1.73 sq M.predicted among non-blacks MDRD (S/P/Bld) [Vol rate/Area] 91 mL/min/{1.73_m2} >60 [facility] Comment on above: mL/min/1.73m2 CKD-EP I Creatinine Equation (2020) Hematocrit Auto (Bld) [Volum e fraction]Ordered By: José Miguel Darby on 01-14-2025 Hematocrit (Bld) [Volume fraction] 46.1 % 40-54 [facility] Hemoglobin measurementOrdere d By: José Miguel Darby on 01-14-2025 Hemoglobin (Bld) [Mass/Vol] 16.3 g/dL 13.0-16.5 [facility] Immature granulocytes/100 WB C Auto (Bld)Ordered By: José Miguel Darby on 01-14-2025 Immature granulocytes/100 WBC (Bld) 0.300 % 0.0-0.9 [facility] Comment on above: IG% - Immature Granu locytes (promyelocytes, myelocytes and metamyelocytes) > 1% indicates that a LEFT SHIFT is Present. Ketones Test strip Ql (U)Ord ered By: José Miguel Darby on 01-14-2025 Ketones Ql (U) Negative Negative [facility] Laboratory - Chemistry and C hemistry - challengeOrdered By: José Miguel Darby on 01-14-2025 AST [Catalytic activity/Vol] 28 U/L <38 [facility] Lactic Acidon 01-14-2025 Lactate [Moles/Vol] 1.0 mmol/L Normal 0.0-2.0 [facility] Comment on above: Order Comment: Y Performed By: #### L 101.9900, L4500.5000, L3100.7250, L3400.1500, L4500.2000, L3100.7325, L3100.5900, L501.6710, L3410.9992, L3300.1200 #### [facility] [address] [place], [address] Lactic acid measurementOrder ed By: José Miguel Darby on 01-14-2025 Lactate [Moles/Vol] 1.0 mmol/L 0.0-2.0 [facility] Lipaseon 01-14-2025 Lipase [Catalytic activity/Vol] 28 U/L Normal - [facility] Comment on above: Result Comment: Eliu gutierrez note: LIPASE revised reference range effective 22. New Lipase methodology. Expected to produce lower values than the previous assay method. NEW Reference Range: 13 - 75 U/L Performed By: #### L 101.9900, L4500.5000, L3100.7250, L3400.1500, L4500.2000, L3100.7325, L3100.5900, L501.6710, L3410.9992, L3300.1200 #### [facility] [address] [place], [address] Lipase measurementOrdered By : José Miguel Darby on 01-14-2025 Lipase [Catalytic activity/Vol] 28 U/L 13-75 [facility] Comment on above: Please note:LIPASE r evised reference range effective 22. New Lipase methodology. Expected to produce lower values than the previous assay method. NEW Reference Range: 13 - 75 U/L MCV (mean corpuscular volume ) determinationOrdered By: José Miguel Darby on 01-14-2025 MCV (RBC) [Entitic vol] 81.9 fL 80-94 [facility] Mean corpuscular hemoglobin (MCH) determinationOrdered By: José Miguel Darby on 01-14-2025 MCH (RBC) [Entitic mass] 29.0 pg 27.0-32.0 [facility] Mean corpuscular hemoglobin concentration (MCHC) determinationOrdered By: José Miguel Darby on 01-14-2025 MCHC (RBC) [Mass/Vol] 35.4 g/dL 32-36 [facility] Mean platelet volume determi nationOrdered By: José Miguel Darby on 01-14-2025 Platelet mean volume (Bld) [Entitic vol] 9.0 fL 6.2-12.0 [facility] Microscopic analysis of urin e for red blood cells (RBC)Ordered By: José Miguel Darby on 01-14-2025 Microscopic analysis of urine for red blood cells (RBC) 0 SEEN /hpf 0-5 [facility] Monocyte percentageOrdered B y: José Miguel Darby on 01-14-2025 Monocytes/100 WBC (Bld) 7.2 % 0-10 [facility] Mucus LM Ql (Urine sed)Order ed By: José Miguel Darby on 01-14-2025 Mucus Ql (Urine sed) 0 SEEN /hpf [facility] Neutrophil percentageOrdered By: José Miguel Darby on 01-14-2025 Neutrophils/100 WBC (Bld) 62.7 % 47-70 [facility] Nitrite Test strip Ql (U)Ord ered By: José Miguel Darby on 01-14-2025 Nitrite Ql (U) Negative Negative [facility] Nucleated red blood cell per centageOrdered By: José Miguel Darby on 01-14-2025 Nucleated RBC/100 WBC (Bld) [Ratio] 0 % 0-5 [facility] Platelet countOrdered By: Anabel Darby on 01-14-2025 Platelets (Bld) [#/Vol] 337 10*3/uL 150-450 [facility] Potassium measurement (mass/ volume)Ordered By: José Miguel Darby on 01-14-2025 Potassium (Unsp spec) [Mass/Vol] 4.0 mmol/L 3.3-5.1 [facility] Protein Test strip Ql (U)Ord ered By: José Miguel Darby on 01-14-2025 Protein Ql (U) 15 mg/dl High Negative [facility] RBC Auto (Bld) [#/Vol]Ordere d By: José Miguel Darby on 01-14-2025 RBC (Bld) [#/Vol] 5.63 10*6/uL 4.6-6.2 [facility] Serum creatinine measurement (mass/volume)Ordered By: José Miguel aDrby on 01-14-2025 Creatinine [Mass/Vol] 1.13 mg/dL 0.70-1.20 [facility] Serum globulin measurementOr dered By: José Miguel Darby on 01-14-2025 Globulin (S) [Mass/Vol] 2.5 g/dL 2.2-4.2 [facility] Serum glucose measurement (m ass/volume)Ordered By: José Miguel Darby on 01-14-2025 Glucose [Mass/Vol] 90 mg/dL 70-99 [facility] Serum or plasma alanine real otransferase (ALT) measurementOrdered By: José Miguel Darby on 01-14-2025 ALT [Catalytic activity/Vol] 41 U/L <47 [facility] Serum or plasma albumin bimal urement (mass/volume)Ordered By: José Miguel Darby on 01-14-2025 Albumin [Mass/Vol] 4.8 g/dL 3.5-5.0 [facility] Serum or plasma albumin/glob ulin mass ratioOrdered By: José Miguel Darby on 01-14-2025 Albumin/Globulin [Mass ratio] 1.9 {ratio} 0.9-2.4 [facility] Serum or plasma alkaline amado sphatase measurementOrdered By: José Miguel Darby on 01-14-2025 ALP [Catalytic activity/Vol] 37 U/L Low 40-129 [facility] Serum or plasma calcium bimal urement (mass/volume)Ordered By: José Miguel Darby on 01-14-2025 Calcium [Mass/Vol] 9.5 mg/dL 7.6-11.0 [facility] Serum or plasma urea nitroge n measurement (mass/volume)Ordered By: José Miguel Darby on 01-14-2025 Urea nitrogen [Mass/Vol] 28 mg/dL High 4-19 [facility] Sodium levelOrdered By: Violeta lois Darby on 01-14-2025 Sodium [Moles/Vol] 139 mmol/L 133-145 [facility] Squamous epithelial cells de tection in urine sediment by light microscopyOrdered By: José Miguel Darby on 01-14-2025 Epithelial cells.squamous LM Ql (Urine sed) 0-5 SEEN /hpf 0-5 [facility] Total proteinOrdered By: Mario bonilla Wilner on 01-14-2025 Protein [Mass/Vol] 7.3 g/dL 5.9-8.4 [facility] Urinalysis, Completeon 01-14 Clarity (U) Clear Normal Clear [facility] Comment on above: Order Comment: CLEAN CATCH Performed By: #### L 101.9900, L4500.5000, L3100.7250, L3400.1500, L4500.2000, L3100.7325, L3100.5900, L501.6710, L3410.9992, L3300.1200 #### [facility] [address] [place], [place], [id number] Color (U) Straw Normal Yellow [facility] Comment on above: Order Comment: CLEAN CATCH Performed By: #### L 101.9900, L4500.5000, L3100.7250, L3400.1500, L4500.2000, L3100.7325, L3100.5900, L501.6710, L3410.9992, L3300.1200 #### [facility] [address] [place], [address] BILIRUBIN URINE Negative Normal Negative [facility] Comment on above: Order Comment: CLEAN CATCH Performed By: #### L 101.9900, L4500.5000, L3100.7250, L3400.1500, L4500.2000, L3100.7325, L3100.5900, L501.6710, L3410.9992, L3300.1200 #### [facility] [address] [place], [place], [id number] GLUCOSE, UR Normal Normal Normal [facility] Comment on above: Order Comment: CLEAN CATCH Performed By: #### L 101.9900, L4500.5000, L3100.7250, L3400.1500, L4500.2000, L3100.7325, L3100.5900, L501.6710, L3410.9992, L3300.1200 #### [facility] [address] [place], [place], [address] KETONE UR Negative Normal Negative [facility] Comment on above: Order Comment: CLEAN CATCH Performed By: #### L 101.9900, L4500.5000, L3100.7250, L3400.1500, L4500.2000, L3100.7325, L3100.5900, L501.6710, L3410.9992, L3300.1200 #### [facility] [address] [place], [place], [id number] LEUK ESTERASE Negative Normal Negative [facility] Comment on above: Order Comment: CLEAN CATCH Performed By: #### L 101.9900, L4500.5000, L3100.7250, L3400.1500, L4500.2000, L3100.7325, L3100.5900, L501.6710, L3410.9992, L3300.1200 #### [facility] [address] [facility] [place], [address] Nitrite Ql (U) Negative Normal Negative [facility] Comment on above: Order Comment: CLEAN CATCH Performed By: #### L 101.9900, L4500.5000, L3100.7250, L3400.1500, L4500.2000, L3100.7325, L3100.5900, L501.6710, L3410.9992, L3300.1200 #### [facility] [address] [place], [address] OCCULT BLOOD-UR Negative Normal Negative [facility] Comment on above: Order Comment: CLEAN CATCH Performed By: #### L 101.9900, L4500.5000, L3100.7250, L3400.1500, L4500.2000, L3100.7325, L3100.5900, L501.6710, L3410.9992, L3300.1200 #### [facility] [address] [place], [address] pH UR 6.5 Normal 5.0 - 8.0 [facility] Comment on above: Order Comment: CLEAN CATCH Performed By: #### L 101.9900, L4500.5000, L3100.7250, L3400.1500, L4500.2000, L3100.7325, L3100.5900, L501.6710, L3410.9992, L3300.1200 #### [facility] [address] [address] [place], [address] PROT DIPSTX 15 mg/dl Abnormal Negative [facility] Comment on above: Order Comment: CLEAN CATCH Performed By: #### L 101.9900, L4500.5000, L3100.7250, L3400.1500, L4500.2000, L3100.7325, L3100.5900, L501.6710, L3410.9992, L3300.1200 #### [facility] [address] [place], [address] SP.GR. DIPSTX 1.010 Normal 1.002-1.03 0 [facility] Comment on above: Order Comment: CLEAN CATCH Performed By: #### L 101.9900, L4500.5000, L3100.7250, L3400.1500, L4500.2000, L3100.7325, L3100.5900, L501.6710, L3410.9992, L3300.1200 #### [facility] [address] [place], [address] UROBILI Normal Normal Normal [facility] Comment on above: Order Comment: CLEAN CATCH Performed By: #### L 101.9900, L4500.5000, L3100.7250, L3400.1500, L4500.2000, L3100.7325, L3100.5900, L501.6710, L3410.9992, L3300.1200 #### [facility] [address] [place], [address] BACTERIA 0 SEEN Normal None Seen [facility] Comment on above: Order Comment: CLEAN CATCH Performed By: #### L 101.9900, L4500.5000, L3100.7250, L3400.1500, L4500.2000, L3100.7325, L3100.5900, L501.6710, L3410.9992, L3300.1200 #### [facility] [address] [place], [address] Mucus Ql (Urine sed) 0 SEEN Normal [facility] Comment on above: Order Comment: CLEAN CATCH Performed By: #### L 101.9900, L4500.5000, L3100.7250, L3400.1500, L4500.2000, L3100.7325, L3100.5900, L501.6710, L3410.9992, L3300.1200 #### [facility] [address] [place], [address] RBC 0 SEEN Normal 0-5 [facility] Comment on above: Order Comment: CLEAN CATCH Performed By: #### L 101.9900, L4500.5000, L3100.7250, L3400.1500, L4500.2000, L3100.7325, L3100.5900, L501.6710, L3410.9992, L3300.1200 #### [facility] [address] [place], [address] WBC 0 SEEN Normal 0-5 [facility] Comment on above: Order Comment: CLEAN CATCH Performed By: #### L 101.9900, L4500.5000, L3100.7250, L3400.1500, L4500.2000, L3100.7325, L3100.5900, L501.6710, L3410.9992, L3300.1200 #### [facility] [address] [place], [address] Urine clarityOrdered By: Naty Darby on 01-14-2025 Clarity (U) Clear Clear [facility] Urine color determinationOrd ered By: José Miguel Darby on 01-14-2025 Color (U) Straw Yellow [facility] Urine glucose detectionOrder ed By: José Miguel Darby on 01-14-2025 Glucose Ql (U) Normal mg/dl Normal [facility] Urine leukocyte esterase det ection by dipstickOrdered By: José Miguel Darby on 01-14-2025 Leukocyte esterase Test strip Ql (U) Negative Negative [facility] Urine pHOrdered By: José Miguel warren on 01-14-2025 pH (U) 6.5 [pH] 5.0 - 8.0 [facility] Urine sediment bacteria coun t by microscopy (number/high power field)Ordered By: José Miguel Darby on 01-14-2025 Bacteria LM.HPF (Urine sed) [#/Area] 0 /[HPF] None Seen [facility] Urine specific gravity measu rementOrdered By: José Miguel Darby on 01-14-2025 Specific gravity (U) [Rel density] 1.010 1.002-1.03 0 [facility] Urine urobilinogen measureme ntOrdered By: José Miguel Darby on 01-14-2025 Urobilinogen Ql (U) Normal mg/dl Normal [facility] White blood cell (WBC) count Ordered By: José Miguel Darby on 01-14-2025 WBC (Bld) [#/Vol] 8.7 10*3/uL 4.4-11.0 [facility] White blood cell countOrdere d By: José Miguel Darby on 01-14-2025 White blood cell count 0 SEEN /hpf 0-5 [facility] L3410.9992on 01-10-2025 [facility] Misc. COMMENT Normal . [facility] Comment on above: Order Comment: [id number] 0AT- PLASMA - BLUE TOP - FROZEN Result Comment: Test Ordered: [id number] Antithrombin Activity Antithrombin Activity 100 % Reference Range: 75-135 Direct Xa inhibitor anticoagulants such as rivaroxaban, apixaban and edoxaban will lead to spuriously elevated antithrombin activity levels possibly masking a deficiency. Performed at: - [facility] [id number] Ob/Gyn: Arie Murillo MD, Phone: [phone] Performed at: [facility] [id number] Ob/Gyn: Sudhir Gonzalez PhD, Phone: [phone] Performed By: #### L 3410.9992 ####[facility] [address] [place], [address] Oncology Visit Reporton 12-20 Oncology Visit Report [facility] [address] [place] [address] OFFICE VISIT Date of Service: 01/08/25 1005 MR#: [id number] Acct: [id number] Name: JOSE M CORRAL Rep #: [id number] : 1995 From: Patrice Patel MD Age/Sex: 29/M Location: [facility] [place] Status: Signed with Addenda ADDENDUM by Dr. Patrice Patel MD on 01/08/25 at 1043 Subjective Chief Complaint Splenic infarct History of Present Illness 29-year-old male, who presented with abdominal pain and was found to have splenic infarct. There is no family history of venous thromboembolic disease. He was started on oral anticoagulation which she has tolerated without bleeding complications. A hypercoagulability panel that included protein C, protein S, factor V Leiden gene mutation and prothrombin gene mutation came back normal. His CBC is unremarkable with minimal mature neutrophilic leukocytosis consistent with an acute phase reaction. Has a past history of migraine headaches with visual auras but these have become less frequent and history of palpitations when he was an child but he outgrew that. Interval History 29-year-old male, who presented with abdominal pain and was found to have splenic infarct. There is no family history of venous thromboembolic disease. He was started on oral anticoagulation which she has tolerated without bleeding complications. A hypercoagulability panel that included protein C, protein S, factor V Leiden gene mutation and prothrombin gene mutation came back normal. His CBC is unremarkable with minimal mature neutrophilic leukocytosis consistent with an acute phase reaction. Has a past history of migraine headaches with visual auras but these have become less frequent and history of palpitations when he was an child but he outgrew that. Assessment and Plan Assessment and Plan (1) Splenic infarct: Status: Acute Orders: Orders [facility] [place]. Today Medications: Discontinued rivaroxaban (Xarelto DVT-PE Treatment 30-Day Starter) Discontinued Reason: Pt no longer taking take one-15 mg tablet twice daily for 21 days, then one-20 mg tablet once daily; must take with meal/food 51 tabs 0RF hydrocodone-acetaminophen 5-325 mg Discontinued Reason: Pt no longer taking 1 TAB PO Q6H PRN 3 days PRN 10 TABLETS 0RF Pain D73.5 - Infarction of spleen apixaban (Eliquis) Discontinued Reason: Pt no longer taking 5 mg PO BID 21 days 42 tabs 0RF 01/08/25 1043 Date Patrice Patel MD cc: Dr. 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 There is no family history of venous thromboembolic disease. He was started on oral anticoagulation which she has tolerated without bleeding complications. A hypercoagulability panel that included protein C, protein S, factor V Leiden gene mutation and prothrombin gene mutation came back normal. His CBC is unremarkable with minimal mature neutrophilic leukocytosis consistent with an acute phase reaction. Has a past history of migraine headaches with visual auras but these have become less frequent and history of palpitations when he was an child but he outgrew that. [facility] Medical History (Updated 01/08/25 @ 10:[address] Patrice Patel MD) Splenic infarct Normal colonoscopy GERD (gastroesophageal reflux disease) IBS (irritable bowel syndrome) Migraines Seasonal allergies Surgical History Hx of wisdom tooth extraction S/P tonsillectomy and adenoidectomy Family History (Updated 01/08/25 @ 10:10 by Shreya Mcmillan) Grandfather Myocardial infarction, Onset Age: 50 Cancer Hypertension Hyperlipidemia Grandmother Breast cancer CVA (cerebral vascular accident) Father Mitral valve prolapse Social History (Updated 01/08/25 @ 10:12 by Shreya Mcmillan) Smoking Status: Never smoker alcohol intake: current alcohol intake frequency: a few times a month Alcohol type: beer substance use type: does not use what type of physical activity do you participate in: running, weight training and other details: [employer] training frequency: daily ROS Constitutional Constitutional: Reports systems reviewed and no addt'l complaints, except as documented Eyes Eyes: Reports systems reviewed and no addt'l complaints, except as documented ENT HEENT: Reports systems reviewed and no addt'l complaints, except as documented Cardiovascular Cardiovascular: Reports systems reviewed and no addt'l complaints, except as documented; Denies chest pain with activity, edema or palpitations Respiratory/Chest Respiratory/ (more content not included)... Normal [facility] ANCAon 12-31-2024 Atypical pANCA <1:20 Normal Neg:<1:20 [facility] Comment on above: Result Comment: The atypical pANCA pattern has been observed in a significant percentage of patients with ulcerative colitis, primary sclerosing cholangitis and autoimmune hepatitis. Performed By: #### L 101.9900, L4500.5000, L3100.7250, L3400.1500, L4500.2000, L3100.7325, L3100.5900, L501.6710, L3410.9992, L3300.1200 #### [facility] [address] [place], [place], [id number] Cytoplasmic Ab <1:20 Normal Neg:<1:20 [facility] Comment on above: Performed By: #### L 101.9900, L4500.5000, L3100.7250, L3400.1500, L4500.2000, L3100.7325, L3100.5900, L501.6710, L3410.9992, L3300.1200 #### [facility] [address] [place], [place], [id number] Perinuclear Ab. <1:20 Normal Neg:<1:20 [facility] Comment on above: Result Comment: The presence of positive fluorescence exhibiting P-ANCA or C-ANCA patterns alone is not specific for the diagnosis of Anamaria's Granulomatosis (WG) or microscopic polyangiitis. Decisions about treatment should not be based solely on ANCA IFA results. The International ANCA [employer] Consensus recommends follow up testing of positive sera with both FL- 3 and MPO-ANCA enzyme immunoassays. As many as 5% serum samples are positive only by EIA. Ref. AM J Clin Pathol 1999;111:507-513. Performed By: #### L 101.9900, L4500.5000, L3100.7250, L3400.1500, L4500.2000, L3100.7325, L3100.5900, L501.6710, L3410.9992, L3300.1200 #### [facility] [address] [place], [address] CMV Acute Antibody IgMon CMV Ab, IgM < 30.0 Normal 0.0-29.9 [facility] Comment on above: Result Comment: Nega tive <30.0 Equivocal 30.0 - 34.9 Positive >34.9 A positive result is generally indicative of acute infection, reactivation or persistent IgM production. Performed By: #### L 101.9900, L4500.5000, L3100.7250, L3400.1500, L4500.2000, L3100.7325, L3100.5900, L501.6710, L3410.9992, L3300.1200 #### [facility] [address] [place], [address] EBV Acute VCA IgMon 01-01-20 EBV Ab VCA, IgM < 36.0 Normal 0.0-35.9 [facility] Comment on above: Result Comment: Nega tive <36.0 Equivocal 36.0 - 43.9 Positive >43.9 Performed By: #### L 101.9900, L4500.5000, L3100.7250, L3400.1500, L4500.2000, L3100.7325, L3100.5900, L501.6710, L3410.9992, L3300.1200 #### [facility] [address] [place], [address] Fact V Leiden Mutationon FACTOR V LEIDEN Comment Normal . [facility] Comment on above: Result Comment: Resu lt: c.1601G>A (p.Fni408Out) - Not Detected This result is not associated with an increased risk for venous thromboembolism. See Additional Clinical Information and Comments. Additional Clinical Information: Venous thromboembolism is a multifactorial disease influenced by genetic, environmental, and circumstantial risk factors. The c.1601G>A (p. [id number]) variant in the F5 gene, commonly referred to as Factor V Leiden, is a genetic risk factor for venous thromboembolism. Heterozygous carriers of this variant have a 6- to 8-fold increased risk for venous thromboembolism. Individuals homozygous for this variant (ie, with a copy of the variant on each chromosome) have an approximately 80-fold increased risk for venous thromboembolism. Individuals who carry both a c.*97G>A variant in the F2 gene and Factor V Leiden have an approximately 20-fold increased risk for venous thromboembolism. Risks are likely to be even higher in more complex genotype combinations involving the F2 c.*97G>A variant and Factor V Leiden (PMID: 14496317). Additional risk factors include but are not limited to: deficiency of protein C, protein S, or antithrombin III, age, male sex, personal or family history of deep vein thromboembolism, smoking, surgery, prolonged immobilization, malignant neoplasm, tamoxifen treatment, raloxifene treatment, oral contraceptive use, hormone replacement therapy, and . Management of thrombotic risk and thrombotic events should follow established guidelines and fit the clinical circumstance. This result cannot predict the occurrence or recurrence of a thrombotic event. Comment: Genetic counseling is recommended to discuss the potential clinical implications of positive results, as well as recommendations for testing family members. Genetic Coordinators are available for health care providers to discuss results at [phone] Test Details: Variant Analyzed: c.1601G>A (p. [id number]), referred to as Factor V Leiden Methods/Limitations: DNA analysis of the F5 gene (NM_000130.5) was performed by PCR amplification followed by restriction enzyme analysis. The diagnostic sensitivity is >99%. Results must be combined with clinical information for the most accurate interpretation. Molecular-based testing is highly accurate, but as in any laboratory test, diagnostic errors may occur. False positive or false negative results may occur for reasons that include genetic variants, blood transfusions, bone marrow transplantation, somatic or tissue-specific mosaicism, mislabeled samples, or erroneous representation of family relationships. This test was developed and its performance characteristics determined by [employer]. It has not been cleared or approved by the Food and Drug Administration. References: Savage S, Cecelia PEDRO, Galen R, Vanita WW, Aaron JH; [employer] Professional Practice and Guidelines Committee. Addendum: [employer] consensus statement on factor V Leiden mutation testing. [employer]. 2020Oct 23. doi: 10.1038/a86844-988-68134-d. PMID: 82928345. Hannah CONTRERAS. Factor V Leiden Thrombophilia. 1998January 01 (Updated 2017Aug 24). In: Carlitos MP, Vipin HH, Jake RA, et al., editors. George(R) (Internet). [place] ([place]): [facility]; 8424-6404. Available from: https://www.ncbi.nlm.nih.gov/books/JOV9466/ Chris S, Cecelia PEDRO, Kole X, Price B, Cresencio EB, Aleah P, Abimbola CS; [employer] Laboratory Vocational Rehab Consultant Committee. Venous thromboembolism laboratory testing (factor V Leiden and factor II c.*97G>A), 2018 update: a technical standard of the [employer] and [employer] (ACMG). [employer]. 2018 Jul;20(12):6607-8573. doi: 10.1038/[id number]-v. Epub 2017May 25. PMID: 97735003. Performed By: #### L 101.9900, L4500.5000, L3100.7250, L3400.1500, L4500.2000, L3100.7325, L3100.5900, L501.6710, L3410.9992, L3300.1200 ####[facility] [address] [place], [place], [address] Reviewed By Comment Normal . [facility] Comment on above: Result Comment: Tech nical Component performed at [facility] [place] Professional Component performed by: Blade Alves, PhD, [facility] BPTGD4, [facility], [address] [place] [address] Performed By: #### L 101.9900, L4500.5000, L3100.7250, L3400.1500, L4500.2000, L3100.7325, L3100.5900, L501.6710, L3410.9992, L3300.1200 ####[facility] [address] [place], [address] Factor II, DNA Analysison FACTOR II, DNA Comment Normal . [facility] Comment on above: Result Comment: Resu lt: c.*97G>A - Not Detected This result is not associated with an increased risk for venous thromboembolism. See Additional Clinical Information and Comments. Additional Clinical Information: Venous thromboembolism is a multifactorial disease influenced by genetic, environmental, and circumstantial risk factors. The c.*97G>A variant in the F2 gene is a genetic risk factor for venous thromboembolism. Heterozygous carriers have a 2- to 4-fold increased risk for venous thromboembolism. Homozygotes for the c.*97G>A variant are rare. The annual risk of VTE in homozygotes has been reported to be 1.1%/year. Individuals who carry both a c.*97G>A variant in the F2 gene and a c.1601G>A (p. [id number]) variant in the F5 gene (commonly referred to as Factor V Leiden) have an approximately 20- fold increased risk for venous thromboembolism. Risks are likely to be even higher in more complex genotype combinations involving the F2 c.*97G>A variant and Factor V Leiden (PMID: 42879421). Additional risk factors include but are not limited to: deficiency of protein C, protein S, or antithrombin III, age, male sex, personal or family history of deep vein thromboembolism, smoking, surgery, prolonged immobilization, malignant neoplasm, tamoxifen treatment, raloxifene treatment, oral contraceptive use, hormone replacement therapy, and . Management of thrombotic risk and thrombotic events should follow established guidelines and fit the clinical circumstance. This result cannot predict the occurrence or recurrence of a thrombotic event. Comments: Genetic counseling is recommended to discuss the potential clinical implications of positive results, as well as recommendations for testing family members. Genetic Coordinators are available for health care providers to discuss results at [phone] ([phone]). Test Details: Variant analyzed: c.*97G>A, previously referred to as [id number] Methods/Limitations: DNA analysis of the F2 gene (NM_000506.5) was performed by PCR amplification followed by restriction enzyme analysis. The diagnostic sensitivity is >99%. Results must be combined with clinical information for the most accurate interpretation. Molecular-based testing is highly accurate, but as in any laboratory test, diagnostic errors may occur. False positive or false negative results may occur for reasons that include genetic variants, blood transfusions, bone marrow transplantation, somatic or tissue-specific mosaicism, mislabeled samples, or erroneous representation of family relationships. This test was developed and its performance characteristics determined by [employer]. It has not been cleared or approved by the Food and Drug Administration. References: Savage Bennett, Cecelia PEDRO, Galen R, Vanita WW, Aaron JH; [employer] Professional Practice and Guidelines Committee. Addendum: [employer] consensus statement on factor V Leiden mutation testing. [employer]. 2020Oct 23. doi: 10.1038/[id number]-x. PMID: 27285847. Hannah CONTRERAS. Prothrombin Thrombophilia. 2005Mar 14 [Updated 2020Sep 24]. In: Carlitos MP, Vipin HH, Jake RA, et al., editors. George(R) [Internet]. [place] ([place]): [facility]; 6443-1811. Available from: https://www.ncbi.nlm.nih.gov/books/DGR2478/ Chris Bennett, Cecelia PEDRO, Kole X, Price B, Cresencio EB, Aleah P, Abimbola CS; [employer] Laboratory Vocational Rehab Consultant Committee. Venous thromboembolism laboratory testing (factor V Leiden and factor II c.*97G>A), 2018 update: a technical standard of the [employer] (ACMG). [employer]. 2018 Jul;20(12):2508-2759. doi: 10.1038/[id number]-g. Epub 2017May 25. PMID: 66592855. Performed By: #### L 101.9900, L4500.5000, L3100.7250, L3400.1500, L4500.2000, L3100.7325, L3100.5900, L501.6710, L3410.9992, L3300.1200 #### [facility] [address] [place], [address] L3410.9992on 12-31-2024 [facility] Normal . [facility] Comment on above: Order Comment: [id number] 5SERUM RF TICKBORNE AB Result Comment: Test Ordered: [id number] Tick-borne Disease Ab Profile Test(s) 429235-Czepbln microti IgG was developed and its performance characteristics determined by [facility]. It has not been cleared or approved by the Food and Drug Administration. Lyme Total Antibody TERRIE Negative CB Reference Range: Negative Lyme antibodies not detected. Reflex testing is not indicated. No laboratory evidence of infection with B. burgdorferi (Lyme disease). Negative results may occur in patients recently infected (less than or equal to 14 days) with B. burgdorferi. If recent infection is suspected, repeat testing on a new sample collected in 7 to 14 days is recommended. Babesia microti IgG <1:10 Reference Range: Neg:<1:10 E. chaffeensis IgG Negative BN Reference Range: Neg:<1:64 A. phagocytophilum IgG Negative BN Reference Range: Neg:<1:64 Result Comments: Comment BN Reference Range: . Antibody titers may be negative in the first 7-10 days of illness. A four-fold rise in IgG antibody titers for Babesia microti, Anaplasma phagocytophilum, and/or Ehrlichia chaffeensis in paired samples (acute and convalescent) supports the diagnosis of babesiosis, anaplasmosis, and/or ehrlichiosis, respectively. Performed at: [address] [id number] Ob/Gyn: Sudhir Gonzalez PhD, Phone: [phone] Performed at: [address] [id number] Ob/Gyn: Arie Murillo MD, Phone: [phone] Performed By: #### L 101.9900, L4500.5000, L3100.7250, L3400.1500, L4500.2000, L3100.7325, L3100.5900, L501.6710, L3410.9992, L3300.1200 ####[facility] [address] [place], [place], [phone]) Protein C, Functionalon 12-19 PROTEIN C,FUNC 131 Normal 73-180 [facility] Comment on above: Result Comment: Perf ormed at: CB - [facility] [address] [place], [place] [id number] Ob/Gyn: Sudhir Gonzalez PhD, Phone: [phone] Performed at: - [facility] [address] [place], [place] [id number] Ob/Gyn: Monie Riddle [facility], Phone: [phone] Performed at: - [facility] [address] [id number] Ob/Gyn: Arie Murillo MD, Phone: [phone] Performed By: #### L 101.9900, L4500.5000, L3100.7250, L3400.1500, L4500.2000, L3100.7325, L3100.5900, L501.6710, L3410.9992, L3300.1200 #### [facility] [address] [place], [place], [phone] ([phone]) Protein S, Functionalon 12-19 PROTEIN S, FUNC 90 Normal 63-140 [facility] Comment on above: Result Comment: Prot ein S activity may be falsely increased (masking an abnormal, low result) in patients receiving direct Xa inhibitor (e.g., rivaroxaban, apixaban, edoxaban) or a direct thrombin inhibitor (e.g., dabigatran) anticoagulant treatment due to assay interference by these drugs. Performed By: #### L 101.9900, L4500.5000, L3100.7250, L3400.1500, L4500.2000, L3100.7325, L3100.5900, L501.6710, L3410.9992, L3300.1200 #### [facility] [place], [address] Blood or tissue coagulation factor II targeted mutation analysis by molecular geneticOrdered By: Salud Watson on 12-25-2024 F2 gene targeted mutation analysis [employer] (Bld/Tiss) Comment . [facility] Comment on above: Result: c.*97G>A - N ot DetectedThis result is not associated with an increased risk for venousthromboembolism. See Additional Clinical Information andComments.Additional Clinical Information:Venous thromboembolism is a multifactorial disease influenced bygenetic, environmental, and circumstantial risk factors. The c.*97G>Avariant in the F2 gene is a genetic risk factor for venousthromboembolism. Heterozygous carriers have a 2- to 4-fold increasedrisk for venous thromboembolism. Homozygotes for the c.*97G>A variantare rare. The annual risk of VTE in homozygotes has been reported keith 1.1%/year. Individuals who carry both a c.*97G>A variant in theF2 gene and a c.1601G>A (p. [id number]) variant in the F5 gene(commonly referred to as Factor V Leiden) have an approximately 20-fold increased risk for venous thromboembolism. Risks are likely keith even higher in more complex genotype combinations involving theF2 c.*97G>A variant and Factor V Leiden (PMID: 37094529). Additionalrisk factors include but are not limited to: deficiency of protein C,protein S, or antithrombin III, age, male sex, personal or familyhistory of deep vein thromboembolism, smoking, surgery, prolongedimmobilization, malignant neoplasm, tamoxifen treatment, raloxifenetreatment, oral contraceptive use, hormone replacement therapy, andpregnancy. Management of thrombotic risk and thrombotic events shouldfollow established guidelines and fit the clinical circumstance. Thisresult cannot predict the occurrence or recurrence of a thromboticevent.Comments:Genetic counseling is recommended to discuss the potential clinicalimplications of positive results, as well as recommendations fortesting family members.Genetic Coordinators are available for health care providers to discussresults at [phone] Details:Variant analyzed: c.*97G>A, previously referred to as [id number]/Limitations:DNA analysis of the F2 gene (NM_000506.5) was performed by PCRamplification followed by restriction enzyme analysis. The diagnosticsensitivity is >99%. Results must be combined with clinicalinformation for the most accurate interpretation. Molecular-basedtesting is highly accurate, but as in any laboratory test, diagnosticerrors may occur. False positive or false negative results may occurfor reasons that include genetic variants, blood transfusions, bonemarrow transplantation, somatic or tissue-specific mosaicism,mislabeled samples, or erroneous representation of familyrelationships.This test was developed and its performance characteristics determinedby [employer]. It has not been cleared or approved by the Food and DrugAdministration.References:Savage S, Cecelia PEDRO, Galen R, Vanita WW, Aaron JH; [facility] ProfessionalPractice and Guidelines Committee. Addendum: [employer] consensus statement on factor V Leiden mutationtesting. [employer]. 2020Oct 23. doi: 10.1038/k47451-466-91004-m.PMID: 48250687.Hannah CONTRERAS. Prothrombin Thrombophilia. 2005Mar 14[Updated 2020Sep 24]. In: Carlitos MP, Vipin HH, Jake RA, et al.,editors. George(R) [Internet]. [place] ([place]): [facility]; 3498-6878. Available from:https://www.ncbi.nlm.nih.gov/books/SRR7875/Chris Bennett, Cecelia PEDRO, Kole X, Price B, Cresencio EB, Aleah P, Abimbola CS;[facility] Laboratory Vocational Rehab Consultant Committee. Venous thromboembolismlaboratory testing (factor V Leiden and factor II c.*97G>A),2018 update: a technical standard of the [employer] and [employer] ([employer]). [employer]. 2017;20(12):0913-0005.doi: 10.1038/c61819-031-3492-q. Epub 2017May 25. PMID: 23374269. CRPon 12-25-2024 C-REACTIVE PROT < 3.00 Normal 0.0-3.0 [facility] Comment on above: Performed By: #### L 101.9900, L4500.5000, L3100.7250, L3400.1500, L4500.2000, L3100.7325, L3100.5900, L501.6710, L3410.9992, L3300.1200 #### [facility] Laboratory [address] [place], [place], [id number] Erythrocyte Sed Rateon 12-25 SED RATE 3 mm/hr Normal 0-20 [facility] Comment on above: Performed By: #### L 101.9900, L4500.5000, L3100.7250, L3400.1500, L4500.2000, L3100.7325, L3100.5900, L501.6710, L3410.9992, L3300.1200 #### [facility] [address] [place], [place], [id number] Erythrocyte sedimentation ra teOrdered By: Salud Watson on 12-25-2024 ESR (Bld) [Velocity] 3 mm/h 0-20 [facility] Functional protein C measure mentOrdered By: Salud Watson on 12-25-2024 Protein C actual/normal Chromogenic method (PPP) [Rel catalytic activity/Vol] 131 % 73-180 [facility] Comment on above: Performed at: [address] [id number] Director: Sudhir Gonzalez PhD, Phone: [phone] at: TG - [facility] [id number] [place], [place] [id number] Director: Monie Riddle [facility], Phone: [phone] at: BN - [facility] [address] [id number] Director: Arie Murillo MD, Phone: [phone] Platelet poor plasma protein S actual/normal ratio (relative time)Ordered By: Salud Watson on 12-25-2024 Protein S actual/normal Coag (PPP) [Relative time] 90 % 63-140 [facility] Comment on above: Protein S activity m ay be falsely increased (masking anabnormal, low result) in patients receiving direct Xainhibitor (e.g., rivaroxaban, apixaban, edoxaban) or adirect thrombin inhibitor (e.g., dabigatran) anticoagulanttreatment due to assay interference by these drugs. Serum Conrado Chauhan virus cap luann IgM antibody assay (units/volume)Ordered By: Salud Watson on 12-25-2024 EBV capsid IgM Qn (S) [arb'U]/mL 0.0-35.9 [facility] Comment on above: Negative <36.0 Equiv ocal 36.0 - 43.9 Positive >43.9 Serum classic neutrophil cyt oplasmic antibody assay (units/volume)Ordered By: Salud Watson on 12-25-2024 Neutrophil cytoplasmic Ab.classic Qn (S) <1:20 titer Neg:<1:20 [facility] Serum or plasma C reactive p rotein measurement (mass/volume)Ordered By: Salud Watson on 12-25-2024 CRP [Mass/Vol] mg/L 0.0-3.0 [facility] Serum or plasma cytomegalovi sophie (CMV) IgM antibody assay (units/volume)Ordered By: Salud Watson on 12-25-2024 CMV IgM Qn < 30.0 AU/mL 0.0-29.9 [facility] Comment on above: Negative <30.0 Equiv ocal 30.0 - 34.9 Positive >34.9A positive result is generally indicative of acuteinfection, reactivation or persistent IgM production. Serum perinuclear neutrophil cytoplasmic antibody titer by immunofluorescenceOrdered By: Salud Watson on 12-25-2024 Neutrophil cytoplasmic Ab.perinuclear IF (S) [Titer] <1:20 titer Neg:<1:20 [facility] Comment on above: The presence of posi tive fluorescence exhibiting P-ANCA orC-ANCA patterns alone is not specific for the diagnosis ofWegener's Granulomatosis (WG) or microscopic polyangiitis.Decisions about treatment should not be based solely onANCA IFA results. The International ANCA Group Consensusrecommends follow up testing of positive sera with both FL-3 and MPO-ANCA enzyme immunoassays. As many as 5% serumsamples are positive only by EIA. Ref. AM J Clin Pobnic3159;111:507-513. 12 Lead EKGon 12-21-[address] [facility] Cardiovascular Services [address] [place] [address] 12 Lead EKG 12/21/24 1850 MR#: [id number] Acct: [id number] Name: JOSE M CORRAL Rep #: [id number] : 1995 29 From: Damian Hernandez MD Attending Dr: Dr. Michael Oakley DO Status: DEP ER Ordering Dr: Michael Oakley DO Date: 12/21/24 Location: ED Sex: M C Admitted: Test Reason : DYSRHYTHMIA Blood Pressure : */* mmHG Vent. Rate : 66 BPM Atrial Rate : 66 BPM P-R Int : 146 ms QRS Dur : 102 ms QT Int : 406 ms P-R-T Axes : 60 93 28 degrees QTcB Int : 425 ms Normal sinus rhythm Rightward axis Probably normal Confirmed by Daiman Hernandez ([id number]), managing editor DANYEL MONTGOMERY ([id number]) on 12/27/2024 1:00:32 PM Referred By: RADHA Confirmed By: Damian Hernandez 12/27/24 1300 Date Damian Hernandez MD CC: Dr. Michael Oakley DO; Dr. Salud Watson DO Signed Normal [facility] Abdomen/Pelvis W IV Cont ONL Yon 12-21-2024 Abdomen/Pelvis W IV Cont ONLY [facility] Imaging Services [address] [place] [address] Abdomen/Pelvis W IV Cont ONLY MR#: [id number] Acct: [id number] Name: JOSE M CORRAL Rep #: [id number] : 1995 M 29 From: Meño antonio MD PCP: Dr. Salud Watson DO Status: REG ER Study: Abdomen/Pelvis W IV Cont ONLY Date of Exam: Exam# [id number] Ordering Dr: Michael Oakley DO PROCEDURE: ABDOMEN/PELVIS W IV CONT ONLY 12/21/2024 REASON FOR EXAM: SPLENIC infarct TECHNIQUE: Abdomen and pelvis CT with intravenous contrast. Coronal and Sagittal reconstruction series were provided. PATIENT PREPARATION: Per protocol ORAL CONTRAST TYPE: None. AMOUNT: mL CONTRAST: Omnipaque 350 VOLUME: 100 mL Not Provided Gauge IV One or more dose reduction techniques were used (e.g., Automated exposure control, adjustment of the mA and/or kV according to patient size, use of iterative reconstruction technique. COMPARISON: CT abdomen and pelvis 12/21/2024 FINDINGS: Lung bases: Mild dependent atelectasis Liver: Normal size. No mass. Gallbladder: No ductal dilation. Gallbladder is collapsed. No cholelithiasis or wall thickening. Spleen: Redemonstration heterogenous enhancement with multifocal areas of hypoattenuation throughout the spleen compatible with splenic infarct, unchanged since the CT from earlier today. No splenomegaly. Pancreas: Normal size without evidence of mass surrounding inflammation or ductal dilation. Adrenals: Unremarkable Kidneys: Normal renal sizes. No hydronephrosis. Contrast within the collecting system, from recent CT. Bladder: Contrast filled urinary bladder. No abnormal wall thickening. Reproductive Organs: No pelvic mass. Bowel: Stomach is moderately distended. No bowel dilation or wall thickening. Large colonic stool. Appendix: Normal appendix. Lymph nodes: Unremarkable. Vasculature: The abdominal aorta and IVC are normal. Peritoneum / Retroperitoneum: No ascites. No pneumoperitoneum. Bones: Unremarkable. Soft tissue: Unremarkable. CT/Abdomen/Pelvis W IV Cont ONLY IMPRESSION: Redemonstration multifocal splenic hypoenhancing foci, compatible with sequela of splenic infarcts. [facility] CC: Dr. Michael Oakley DO; Dr. Salud Watson DO Cooling Tower Operator: Signed Normal [facility] Abdomen/Pelvis W IV Cont ONLY [facility] Imaging Services [address] [place] [address] Abdomen/Pelvis W IV Cont ONLY MR#: [id number] Acct: [id number] Name: JOSE M CORRAL Rep #: [id number] : 1995 M 29 From: Meño antonio MD PCP: Dr. Salud Watson DO Status: REG ER Study: Abdomen/Pelvis W IV Cont ONLY Date of Exam: Exam# [id number] Ordering Dr: Michael Oakley DO PROCEDURE: ABDOMEN/PELVIS W IV CONT ONLY 12/21/2024 REASON FOR EXAM: LUQ PAIN TECHNIQUE: Abdomen and pelvis CT with intravenous contrast. Coronal and Sagittal reconstruction series were provided. PATIENT PREPARATION: Per protocol ORAL CONTRAST TYPE: None. AMOUNT: mL CONTRAST: Omnipaque 350 VOLUME: 100 mL Not Provided Gauge IV One or more dose reduction techniques were used (e.g., Automated exposure control, adjustment of the mA and/or kV according to patient size, use of iterative reconstruction technique. COMPARISON: None FINDINGS: Lung bases: Unremarkable. Liver: Normal size. No mass. Gallbladder: No ductal dilation. No cholelithiasis or abnormal wall thickening. Spleen: No splenomegaly. Diffuse multifocal wedge-shaped areas of hypoattenuation, concerning for sequela of splenic infarct. Pancreas: Normal size without evidence of mass surrounding inflammation or ductal dilation. Adrenals: Unremarkable. Kidneys: Normal renal sizes. No hydronephrosis. Bladder: Urinary bladder is unremarkable. Reproductive Organs: Normal uterine size and contour. Ovaries are unremarkable. Bowel: Stomach is unremarkable. No bowel dilation or significant wall thickening. Moderate colonic stool. Appendix: Normal appendix. Lymph nodes: No suspicious adenopathy. Vasculature: The abdominal aorta and IVC are normal. Peritoneum / Retroperitoneum: No pneumoperitoneum. No ascites. Bones: No suspicious osseous lesions. Soft tissues: Unremarkable. CT/Abdomen/Pelvis W IV Cont ONLY IMPRESSION: Multifocal hypoenhancing foci within the spleen, concerning for sequela of splenic infarcts, especially given reported history of left upper quadrant pain. Although this appears quite similar to the tigroid type/inhomogeneous enhancement seen within the spleen on the arterial/early portal venous phase, sequela of splenic infarct is considered more likely. For confirmation, follow up CT of the abdomen and pelvis in 6-12 hours or MRI of the abdomen may be considered. Reading [facility] CC: Dr. Michael Oakley DO; Dr. Salud Watson DO Cooling Tower Operator: Signed Normal [facility] Absolute lymphocyte countOrd ered By: Michael Oakley on 12-21-2024 Lymphocytes Auto (Unsp spec) [#/Vol] 1.67 10*3/uL 0.83-4.51 [facility] Absolute neutrophil countOrd ered By: Michael Oakley on 12-21-2024 Neutrophils (Bld) [#/Vol] 8.5 10*3/uL High 2.0-7.7 [facility] Activated partial thrombopla stin time (aPTT) in platelet poor plasma by coagulation aOrdered By: Michael Oakley on 12-21-2024 aPTT Coag (PPP) [Time] 31.2 s 24.1-36.2 [facility] Amorphous sediment detection in urine sediment by light microscopyOrdered By: Michael Oakley on 12-21-2024 Amorphous sediment LM Ql (Urine sed) 1+ [facility] Anion gap in Serum or Plasma Ordered By: Michael Oakley on 12-21-2024 Anion gap [Moles/Vol] 11 mmol/L 5-15 [facility] Automated lymphocyte count a s percentage of total leukocytesOrdered By: Michael Oakley on 12-21-2024 Lymphocytes/100 WBC Auto (Unsp spec) 14.7 % Low 19-41 [facility] BUN/creatinine ratioOrdered By: Michael Oakley on 12-21-2024 Urea nitrogen/Creatinine [Mass ratio] 24.2 mg/mg High 10-20 [facility] Basic Metabolic Profile (BMP )on 12-21-2024 BUN/CRE 24.2 RATIO High 10-20 [facility] Comment on above: Performed By: #### L 501.2450, L500.3400, L500.2500, L100.0100 ####[facility] [address] [place], [address] Calcium [Mass/Vol] 9.6 mg/dL Normal 7.6-11.0 [facility] Comment on above: Performed By: #### L 501.2450, L500.3400, L500.2500, L100.0100 ####[facility] [address] [place], [address] Chloride [Moles/Vol] 103 mmol/L Normal 98-108 [facility] Comment on above: Performed By: #### L 501.2450, L500.3400, L500.2500, L100.0100 ####[facility] [address] [place], [address] CO2 [Moles/Vol] 25.0 mmol/L Normal 21.0-32.0 [facility] Comment on above: Performed By: #### L 501.2450, L500.3400, L500.2500, L100.0100 ####[facility] [address] [place], [address] Creatinine [Mass/Vol] 0.88 mg/dL Normal 0.70-1.20 [facility] Comment on above: Performed By: #### L 501.2450, L500.3400, L500.2500, L100.0100 ####[facility] [address] [place], [address] ECRCL 138.40 ml/min Normal 50-250 [facility] Comment on above: Performed By: #### L 501.2450, L500.3400, L500.2500, L100.0100 ####[facility] [address] [place], [address] GAP 11 Normal 5-15 [facility] Comment on above: Performed By: #### L 501.2450, L500.3400, L500.2500, L100.0100 ####[facility] [address] [place], [address] GFR/1.73 sq M.predicted among non-blacks MDRD (S/P/Bld) [Vol rate/Area] 121 mL/min/{1.73_m2} Normal >60 [facility] Comment on above: Result Comment: mL/m in/1.73m2 CKD-EPI Creatinine Equation (2020) Performed By: #### L 501.2450, L500.3400, L500.2500, L100.0100 ####[facility] [address] [place], [address] Glucose [Mass/Vol] 107 mg/dL High 70-99 [facility] Comment on above: Performed By: #### L 501.2450, L500.3400, L500.2500, L100.0100 ####[facility] [address] [place], [address] Potassium [Moles/Vol] 4.2 mmol/L Normal 3.3-5.1 [facility] Comment on above: Performed By: #### L 501.2450, L500.3400, L500.2500, L100.0100 ####[facility] [address] [place], [address] Sodium [Moles/Vol] 139 mmol/L Normal 133-145 [facility] Comment on above: Performed By: #### L 501.2450, L500.3400, L500.2500, L100.0100 ####[facility] [address] [place], [address] Urea nitrogen [Mass/Vol] 21 mg/dL High 4-19 [facility] Comment on above: Performed By: #### L 501.2450, L500.3400, L500.2500, L100.0100 ####[facility] [address] [place], [address] Basophil percentageOrdered B y: Michael Oakley on 12-21-2024 Basophils/100 WBC (Bld) 0.7 % 0-1 [facility] Bilirubin Test strip Ql (U)O rdered By: Michael Oakley on 12-21-2024 Bilirubin Ql (U) Negative Negative [facility] Bilirubin directOrdered By: Michael Oakley on 12-21-2024 Bilirubin.direct [Mass/Vol] 0.19 mg/dL 0.00-0.30 [facility] Bilirubin, totalOrdered By: Michael Oakley on 12-21-2024 Bilirubin [Mass/Vol] 0.43 mg/dL 0.00-1.30 [facility] CBC W/Diff, Automatedon Absolute Lymph 1.67 X10 3/uL Normal 0.83-4.51 [facility] Comment on above: Performed By: #### L 501.2450, L500.3400, L500.2500, L100.0100 ####[facility] [address] [place], [address] Absolute Neut 8.5 X10 3/uL High 2.0-7.7 [facility] Comment on above: Performed By: #### L 501.2450, L500.3400, L500.2500, L100.0100 ####[facility] [address] [place], [address] Basophils/100 WBC (Bld) 0.7 % Normal 0-1 [facility] Comment on above: Performed By: #### L 501.2450, L500.3400, L500.2500, L100.0100 ####[facility] [address] [place], [address] Eosinophils/100 WBC (Bld) 1.5 % Normal 0-5 [facility] Comment on above: Performed By: #### L 501.2450, L500.3400, L500.2500, L100.0100 ####[facility] [address] [place], [address] Erythrocyte distribution width (RBC) [Ratio] 13.6 % Normal 11.6-14.6 [facility] Comment on above: Performed By: #### L 501.2450, L500.3400, L500.2500, L100.0100 ####[facility] [address] [place], [address] Hematocrit (Bld) [Volume fraction] 45.9 % Normal 40-54 [facility] Comment on above: Performed By: #### L 501.2450, L500.3400, L500.2500, L100.0100 ####[facility] [address] [place], [address] Hemoglobin (Bld) [Mass/Vol] 16.4 g/dL Normal 13.0-16.5 [facility] Comment on above: Performed By: #### L 501.2450, L500.3400, L500.2500, L100.0100 ####[facility] [address] [place], [address] IG% 0.300 Normal 0.0-0.9 [facility] Comment on above: Result Comment: IG% - Immature Granulocytes (promyelocytes, myelocytes and metamyelocytes) > 1% indicates that a LEFT SHIFT is Present. Performed By: #### L 501.2450, L500.3400, L500.2500, L100.0100 ####[facility] [address] [place], [address] Lymphocytes/100 WBC (Bld) 14.7 % Low 19-41 [facility] Comment on above: Performed By: #### L 501.2450, L500.3400, L500.2500, L100.0100 ####[facility] [address] [place], [address] MCH (RBC) [Entitic mass] 29.2 pg Normal 27.0-32.0 [facility] Comment on above: Performed By: #### L 501.2450, L500.3400, L500.2500, L100.0100 ####[facility] [address] [place], [address] MCHC (RBC) [Mass/Vol] 35.7 g/dL Normal 32-36 [facility] Comment on above: Performed By: #### L 501.2450, L500.3400, L500.2500, L100.0100 ####[facility] [address] [place], [address] MCV (RBC) [Entitic vol] 81.8 fL Normal 80-94 [facility] Comment on above: Performed By: #### L 501.2450, L500.3400, L500.2500, L100.0100 ####[facility] [address] [place], [address] Monocytes/100 WBC (Bld) 8.0 % Normal 0-10 [facility] Comment on above: Performed By: #### L 501.2450, L500.3400, L500.2500, L100.0100 ####[facility] [address] [place], [address] Neutrophils/100 WBC (Bld) 74.8 % High 47-70 [facility] Comment on above: Performed By: #### L 501.2450, L500.3400, L500.2500, L100.0100 ####[facility] [address] [place], [address] Nucleated RBC (Bld) [#/Vol] 0 10*3/uL Normal 0-5 [facility] Comment on above: Performed By: #### L 501.2450, L500.3400, L500.2500, L100.0100 ####[facility] [address] [place], [address] Platelet mean volume (Bld) [Entitic vol] 9.1 fL Normal 6.2-12.0 [facility] Comment on above: Performed By: #### L 501.2450, L500.3400, L500.2500, L100.0100 ####[facility] [address] [place], [address] Platelets (Bld) [#/Vol] 359 10*3/uL Normal 150-450 [facility] Comment on above: Performed By: #### L 501.2450, L500.3400, L500.2500, L100.0100 ####[facility] [address] [place], [address] RBC (Bld) [#/Vol] 5.61 10*6/uL Normal 4.6-6.2 [facility] Comment on above: Performed By: #### L 501.2450, L500.3400, L500.2500, L100.0100 ####[facility] [address] [place], [address] RDW SD 40.2 fl Normal 35.1-43.9 [facility] Comment on above: Performed By: #### L 501.2450, L500.3400, L500.2500, L100.0100 ####[facility] [address] [place], [address] WBC (Bld) [#/Vol] 11.4 10*3/uL High 4.4-11.0 [facility] Comment on above: Performed By: #### L 501.2450, L500.3400, L500.2500, L100.0100 ####[facility] [address] [place], [address] Carbon dioxide, total [Moles /volume] in Central venous bloodOrdered By: Michael Oakley on 12-21-2024 CO2 [Moles/Vol] 25.0 mmol/L 21.0-32.0 [facility] Chloride assayOrdered By: Remington Oakley on 12-21-2024 Chloride [Moles/Vol] 103 mmol/L 98-108 [facility] Emergency Department Summary on 12-21-2024 Emergency Department Summary [facility] Medical Records Department [address] [place] [address] Emergency Department Summary 12/21/24 MR#: [id number] Acct: [id number] Name: JOSE M CORRAL Rep #: [id number] : 1995 29 From: Michael Oakley DO PCP: Dr. Salud Watson DO Status:REG ER Location: ED ADDENDUM by Dr. Ted Ramirez DO on 12/22/24 at 0010 Patient was signed out to me by day provider. At the time of signout his CT abdomen pelvis results were pending. CT abdomen pelvis showed redemonstration of multifocal splenic hypoenhancing foci, compatible with sequelae of splenic infarcts. Per previous provider, plan was to discharge the patient home on Xarelto with follow-up with hematology and PCP. Given these findings, I did call general surgery Dr. Ortez, states this is not something he is familiar with treating and therefore recommended discussion with the medical service. I spoke with Dr. Serrano, she states that she agrees with the plan for discharge home and follow-up outpatient on blood thinner. Patient was updated about the results and the plan. He confirmed understanding. He was given precautions with blood thinners. Return precautions explained. 12/22/24 0010 Cosigner Signature (if applicable): cc: Dr. Salud Watson, * Signed HPI History of Present Illness Chief Complaint: Flank Pain Informant: patient and spouse/S.O. Narrative Narrative: 29-year-old male presenting to the emergency room with left flank and left upper quadrant pain. Patient states that he went to [facility] this morning. He does not recall any particular injury. By time he got home this morning he noticed some discomfort left upper quadrant into the left flank. Nothing seems to make it better or worse. He states that it is intermittently more intense than others. He did eat lunch but notes that he was not feeling particularly hungry but still was able to eat. He denies any urinary or bowel symptoms. No reported fevers. He notes he is otherwise a very healthy individual. He denies any prior DVT or PE risk factors. He denies any IV drug use. He is not having any PFSH PFS Home Medications ???Medication ???Instructions ???Recorded ???Last Taken ???Type hydrocodone-acetaminophen 5-325mg 1 tab PO Q6H PRN PRN Pain 3 days 12/21/24 Unknown Rx 5mg-325mg #10 TABLETS rivaroxaban 15 mg (42)-20 mg (9) See Rx Instructions PO .COMPLEX Unknown Rx tablets in a starter pack (Xarelto #51 tabs DVT-PE Treatment 30-Day Starter) triamcinolone acetonide 0.1 % 1 applic topical BID PRN rash 11/1212/20/24 History lotion Allergy/AdvReac Type Severity Reaction Status Date / Time sulfamethoxazole (From Allergy Hives Verified 12/21/24 16:02 Bactrim) trimethoprim (From Bactrim) Allergy Hives Verified 12/21/24 16:02 Surgical History S/P tonsillectomy and adenoidectomy Social History Smoking Status: Never smoker ROS ROS ED Constitutional Constitutional ED: Denies chills, fever(s) or weight loss Eyes Eyes: Denies change in vision or diplopia ENT ENT ED: Denies ear pain, rhinorrhea or sore throat Cardiovascular Cardiovascular: Denies chest pain, orthopnea, palpitations or racing heartbeat Respiratory/Chest Respiratory/Chest: Denies cough, dyspnea or orthopnea Gastrointestinal Gastrointestinal: Reports abdominal pain; Denies diarrhea, nausea or vomiting Genitourinary Genitourinary ED: Reports other Details: Patient denies testicular pain ; Denies dysuria, hematuria or urinary frequency Musculoskeletal Musculoskeletal: Reports back pain; Denies arthralgias, myalgias or neck pain Integumentary Denies abscess, Abrasions or rash Neurologic Neurologic: Denies headache(s), paresthesias or weakness Psychiatric Psychiatric: Denies anxiety, depression, suicidal ideation or suicidal thoughts Endocrine Endocrinology: Denies polydipsia, polyphagia or polyuria Allergic/Immunologic Allergic/Immunologic ED: Denies mouth swelling, tongue swelling or urticaria EXAM Physical Exam Const Vital Signs: 12/21/24 16:02 12/21/24 18:32 12/21/24 18:34 Temperature 98.4 F Temperature Source Oral Pulse Rate 74 61 67 Respiratory Rate 18 20 H 15 Blood Pressure 131/105 H 132/83 H 132/83 H Blood Pressure Mean 113 96 99 Pulse Ox 98 98 97 Oxygen Delivery Method Room Air Room Air 12/21/24 18:45 12/21/24 19:00 12/21/24 19:15 Temperature Temperature Source Pulse Rate 62 67 Respiratory Rate 13 9 L Blood Pressure 127/70 H 142/84 H 132/70 H Blood Pressure Mean 85 98 84 Pulse Ox 99 99 Oxygen Delivery Method 12/21/24 19:30 12/21/24 19:45 12/21/24 19:46 Temperature Temperature Sharla (more content not included)... Normal [facility] Eosinophil percentageOrdered By: Michael Oakley on 12-21-2024 Eosinophils/100 WBC (Bld) 1.5 % 0-5 [facility] Erythrocyte distribution wid th ratioOrdered By: Michael Oakley on 12-21-2024 Erythrocyte distribution width (RBC) [Ratio] 13.6 % 11.6-14.6 [facility] Erythrocyte distribution wid th standard deviationOrdered By: Michael Oakley on 12-21-2024 Erythrocyte distribution width (RBC) [Ratio] 40.2 fl 35.1-43.9 [facility] Glomerular filtration rate ( GFR) estimation/1.73 sq m using serum, plasma, or whole bOrdered By: Michael Oakley on 12-21-2024 GFR/1.73 sq M.predicted among non-blacks MDRD (S/P/Bld) [Vol rate/Area] 121 mL/min/{1.73_m2} >60 [facility] Comment on above: mL/min/1.73m2 CKD-EP I Creatinine Equation (2020) Hematocrit Auto (Bld) [Volum e fraction]Ordered By: Michael Oakley on 12-21-2024 Hematocrit (Bld) [Volume fraction] 45.9 % 40-54 [facility] Hemoglobin measurementOrdere d By: Michael Oakley on 12-21-2024 Hemoglobin (Bld) [Mass/Vol] 16.4 g/dL 13.0-16.5 [facility] Immature granulocytes/100 WB C Auto (Bld)Ordered By: Michael Oakley on 12-21-2024 Immature granulocytes/100 WBC (Bld) 0.300 % 0.0-0.9 [facility] Comment on above: IG% - Immature Granu locytes (promyelocytes, myelocytes and metamyelocytes) > 1% indicates that a LEFT SHIFT is Present. International normalized rat io (INR) calculationOrdered By: Michael Oakley on 12-21-2024 INR Coag (Bld) [Relative time] 1.1 {INR} [facility] Ketones Test strip Ql (U)Ord ered By: Michael Oakley on 12-21-2024 Ketones Ql (U) Negative Negative [facility] Laboratory - Chemistry and C hemistry - challengeOrdered By: Michael Oakley on 12-21-2024 AST [Catalytic activity/Vol] 47 U/L High <38 [facility] Lipaseon 12-21-2024 Lipase [Catalytic activity/Vol] 22 U/L Normal 13-75 [facility] Comment on above: Result Comment: Eliu gutierrez note: LIPASE revised reference range effective 22. New Lipase methodology. Expected to produce lower values than the previous assay method. NEW Reference Range: 13 - 75 U/L Performed By: #### L 501.2450, L500.3400, L500.2500, L100.0100 ####[facility] [address] [place], [place], [id number] Lipase measurementOrdered By : Michael Oakley on 12-21-2024 Lipase [Catalytic activity/Vol] 22 U/L 13-75 [facility] Comment on above: Please note:LIPASE r evised reference range effective 22. New Lipase methodology. Expected to produce lower values than the previous assay method. NEW Reference Range: 13 - 75 U/L Liver Profileon 12-21-2024 Albumin [Mass/Vol] 4.8 g/dL Normal 3.5-5.0 [facility] Comment on above: Performed By: #### L 501.2450, L500.3400, L500.2500, L100.0100 ####[facility] [address] [place], [place], [id number] ALK PHOS 39 U/L Low 40-129 [facility] Comment on above: Performed By: #### L 501.2450, L500.3400, L500.2500, L100.0100 ####[facility] [address] [place], [address] ALT [Catalytic activity/Vol] 47 U/L Normal <=46 [facility] Comment on above: Performed By: #### L 501.2450, L500.3400, L500.2500, L100.0100 ####[facility] [address] [place], [address] AST [Catalytic activity/Vol] 47 U/L High <=37 [facility] Comment on above: Performed By: #### L 501.2450, L500.3400, L500.2500, L100.0100 ####[facility] [address] [place], [address] Bilirubin [Mass/Vol] 0.43 mg/dL Normal 0.00-1.30 [facility] Comment on above: Performed By: #### L 501.2450, L500.3400, L500.2500, L100.0100 ####[facility] [address] [place], [address] Bilirubin.direct [Mass/Vol] 0.19 mg/dL Normal 0.00-0.30 [facility] Comment on above: Performed By: #### L 501.2450, L500.3400, L500.2500, L100.0100 ####[facility] [address] [place], [address] Globulin (S) [Mass/Vol] 2.8 g/dL Normal 2.2-4.2 [facility] Comment on above: Performed By: #### L 501.2450, L500.3400, L500.2500, L100.0100 ####[facility] [address] [place], [address] T PROT 7.5 g/dL Normal 5.9-8.4 [facility] Comment on above: Performed By: #### L 501.2450, L500.3400, L500.2500, L100.0100 ####[facility] [address] [place], [address] MCV (mean corpuscular volume ) determinationOrdered By: Michael Oakley on 12-21-2024 MCV (RBC) [Entitic vol] 81.8 fL 80-94 [facility] Mean corpuscular hemoglobin (MCH) determinationOrdered By: Michael Oakley on 12-21-2024 MCH (RBC) [Entitic mass] 29.2 pg 27.0-32.0 [facility] Mean corpuscular hemoglobin concentration (MCHC) determinationOrdered By: Michael Oakley on 12-21-2024 MCHC (RBC) [Mass/Vol] 35.7 g/dL 32-36 [facility] Mean platelet volume determi nationOrdered By: Michael Oakley on 12-21-2024 Platelet mean volume (Bld) [Entitic vol] 9.1 fL 6.2-12.0 [facility] Microscopic analysis of urin e for red blood cells (RBC)Ordered By: Michael Oakley on 12-21-2024 Microscopic analysis of urine for red blood cells (RBC) 0 SEEN /hpf 0-5 [facility] Monocyte percentageOrdered B y: Michael Oakley on 12-21-2024 Monocytes/100 WBC (Bld) 8.0 % 0-10 [facility] Mucus LM Ql (Urine sed)Order ed By: Michael Oakley on 12-21-2024 Mucus Ql (Urine sed) 0 SEEN /hpf [facility] Neutrophil percentageOrdered By: Michael Oakley on 12-21-2024 Neutrophils/100 WBC (Bld) 74.8 % High 47-70 [facility] Nitrite Test strip Ql (U)Ord ered By: Michael Oakley on 12-21-2024 Nitrite Ql (U) Negative Negative [facility] Nucleated red blood cell per centageOrdered By: Michael Oakley on 12-21-2024 Nucleated RBC/100 WBC (Bld) [Ratio] 0 % 0-5 [facility] Partial Thromboplast Timeon 12-21-2024 aPTT Coag (Bld) [Time] 31.2 s Normal 24.1-36.2 [facility] Comment on above: Performed By: #### L 101.9900, L4500.5000, L3100.7250, L3400.1500, L4500.2000, L3100.7325, L3100.5900, L501.6710, L3410.9992, L3300.1200 #### [facility] [address] [place], [address] Platelet countOrdered By: Remington Oakley on 12-21-2024 Platelets (Bld) [#/Vol] 359 10*3/uL 150-450 [facility] Potassium measurement (mass/ volume)Ordered By: Michael Oakley on 12-21-2024 Potassium (Unsp spec) [Mass/Vol] 4.2 mmol/L 3.3-5.1 [facility] Protein Test strip Ql (U)Ord ered By: Michael Oakley on 12-21-2024 Protein Ql (U) 15 mg/dl High Negative [facility] Prothrombin Time w/INRon INR Coag (PPP) [Relative time] 1.1 {INR} Normal [facility] Comment on above: Performed By: #### L 101.9900, L4500.5000, L3100.7250, L3400.1500, L4500.2000, L3100.7325, L3100.5900, L501.6710, L3410.9992, L3300.1200 #### [facility] [address] [place], [address] PT Coag (PPP) [Time] 14.0 s Normal 11.7-14.9 [facility] Comment on above: Performed By: #### L 101.9900, L4500.5000, L3100.7250, L3400.1500, L4500.2000, L3100.7325, L3100.5900, L501.6710, L3410.9992, L3300.1200 #### [facility] [address] [place], [address] INR Normal [facility] Comment on above: Result Comment: PER TERESSA DUPLICATE Performed By: #### L 300.3900 ####[facility] [address] [place], [address] PROTIME Normal 11.7-14.9 [facility] Comment on above: Result Comment: PER TERESSA DUPLICATE Performed By: #### L 300.3900 ####[facility] [address] [place], [address] Prothrombin timeOrdered By: Michael Oakley on 12-21-2024 PT Coag (PPP) [Time] 14.0 s 11.7-14.9 [facility] RBC Auto (Bld) [#/Vol]Ordere d By: Michael Oakley on 12-21-2024 RBC (Bld) [#/Vol] 5.61 10*6/uL 4.6-6.2 [facility] Serum creatinine measurement (mass/volume)Ordered By: Michael Oakley on 12-21-2024 Creatinine [Mass/Vol] 0.88 mg/dL 0.70-1.20 [facility] Serum globulin measurementOr dered By: Michael Oakley on 12-21-2024 Globulin (S) [Mass/Vol] 2.8 g/dL 2.2-4.2 [facility] Serum glucose measurement (m ass/volume)Ordered By: Michael Oakley on 12-21-2024 Glucose [Mass/Vol] 107 mg/dL High 70-99 [facility] Serum or plasma alanine real otransferase (ALT) measurementOrdered By: Michael Oakley on 12-21-2024 ALT [Catalytic activity/Vol] 47 U/L <47 [facility] Serum or plasma albumin bimal urement (mass/volume)Ordered By: Michael Oakley on 12-21-2024 Albumin [Mass/Vol] 4.8 g/dL 3.5-5.0 [facility] Serum or plasma alkaline amado sphatase measurementOrdered By: Michael Oakley on 12-21-2024 ALP [Catalytic activity/Vol] 39 U/L Low 40-129 [facility] Serum or plasma calcium bimal urement (mass/volume)Ordered By: Michael Oakley on 12-21-2024 Calcium [Mass/Vol] 9.6 mg/dL 7.6-11.0 [facility] Serum or plasma urea nitroge n measurement (mass/volume)Ordered By: Michael Oakley on 12-21-2024 Urea nitrogen [Mass/Vol] 21 mg/dL High 4-19 [facility] Sodium levelOrdered By: Keith Oakley on 12-21-2024 Sodium [Moles/Vol] 139 mmol/L 133-145 [facility] Squamous epithelial cells de tection in urine sediment by light microscopyOrdered By: Michael Oakley on 12-21-2024 Epithelial cells.squamous LM Ql (Urine sed) 0 SEEN /hpf 0-5 [facility] Total proteinOrdered By: Yuan Oakley on 12-21-2024 Protein [Mass/Vol] 7.5 g/dL 5.9-8.4 [facility] Urinalysis, Completeon 12-21 AMORPHOUS 1+ Normal [facility] Comment on above: Order Comment: CLEAN CATCH Performed By: #### L 400.0001 ####[facility] [address] [place], [place], [id number] BACTERIA 3+ /hpf Normal None Seen [facility] Comment on above: Order Comment: CLEAN CATCH Performed By: #### L 400.0001 ####[facility] [address] [place], [address] EPI,SQUAMOUS 0 SEEN Normal 0-5 [facility] Comment on above: Order Comment: CLEAN CATCH Performed By: #### L 400.0001 ####[facility] [address] [place], [address] Mucus Ql (Urine sed) 0 SEEN Normal [facility] Comment on above: Order Comment: CLEAN CATCH Performed By: #### L 400.0001 ####[facility] [address] [place], [address] RBC 0 SEEN Normal 0-5 [facility] Comment on above: Order Comment: CLEAN CATCH Performed By: #### L 400.0001 ####[facility] [address] [place], [address] WBC 0 SEEN Normal 0-5 [facility] Comment on above: Order Comment: CLEAN CATCH Performed By: #### L 400.0001 ####[facility] [address] [place], [address] Urine clarityOrdered By: Yuan Oakley on 12-21-2024 Clarity (U) Sl. Cloudy Clear [facility] Urine color determinationOrd ered By: Michael Oakley on 12-21-2024 Color (U) Straw Yellow [facility] Urine glucose detectionOrder ed By: Michael Oakley on 12-21-2024 Glucose Ql (U) Normal mg/dl Normal [facility] Urine leukocyte esterase det ection by dipstickOrdered By: Michael Oakley on 12-21-2024 Leukocyte esterase Test strip Ql (U) Negative Negative [facility] Urine pHOrdered By: Michael rincon on 12-21-2024 pH (U) 7.0 [pH] 5.0 - 8.0 [facility] Urine sediment bacteria coun t by microscopy (number/high power field)Ordered By: Michael Oakley on 12-21-2024 Bacteria LM.HPF (Urine sed) [#/Area] 3 /[HPF] None Seen [facility] Urine specific gravity measu rementOrdered By: Michael Oakley on 12-21-2024 Specific gravity (U) [Rel density] 1.010 1.002-1.03 0 [facility] Urine urobilinogen measureme ntOrdered By: Michael Oakley on 12-21-2024 Urobilinogen Ql (U) Normal mg/dl Normal [facility] White blood cell (WBC) count Ordered By: Michael Oakley on 12-21-2024 WBC (Bld) [#/Vol] 11.4 10*3/uL High 4.4-11.0 [facility] White blood cell countOrdere d By: Michael Oakley on 12-21-2024 White blood cell count 0 SEEN /hpf 0-5 [facility] - Microbiology an d Antimicrobial susceptibilityon 12-30-2021 SARS-CoV-2 (COVID-19) RNA SOY+probe Ql (Unsp spec) Not detected Not Detect [facility] Work Phone: Comment on above: Normal Reference Ran ge: Not DetectedMethod:(RT-PCR) real-time reverse transcriptase PCRLuminex NASEEM Instrument*The Food and Drug Administration (FDA) has issued an Emergency Use Authorization (EAU) for the NASEEM SARS-CoV-2 Assay for the rapid detection of the virus that causes COVID-19. This test has been validated, but the FDAs independent review of this validation is pending.*Negative results do not preclude infection and should not be used as the sole basis for treatment or patient management. Optimum specimen types and timing for peak viral levels during infections caused by SARS-CoV-2 have not been determined. Collection of multiple specimens from the same patient may be necessary to detect the virus. The possibility of a false negative result should be considered if the patient has clinical presentation or has had recent exposure. XR FOOT LEFT (MIN 3 VIEWS)on 03-06-2021 XR FOOT LEFT (MIN 3 VIEWS) LEFT FOOT X-RAY THREE VIEWS HISTORY: Pain. COMPARISON: None. FINDINGS: There is a chip fracture off of the base of the first distal phalanx which appears well-corticated. The there is no evidence of dislocation. There are no degenerative changes. IMPRESSION: Chip fracture off the base of the first distal phalanx which appears nonacute. Interpreted by: Sandro Rascon MD Signed by: Sandro Rascon MD 03/06/21 Final result Normal [facility] XR FOOT LEFT (MIN 3 VIEWS)Or dered By: Milka Camarillo on 03-06-2021 Chip fracture off th e base of the first distal phalanx which appears nonacute. [employer] Work Phone: LEFT FOOT X-RAY THRE E VIEWS HISTORY: Pain. COMPARISON: None. FINDINGS: There is a chip fracture off of the base of the first distal phalanx which appears well-corticated. The there is no evidence of dislocation. There are no degenerative changes. [employer] Phone: Matti, [employer] Incoming Radiant Results From [employer] - 03/06/2021 3:12 PM EDT LEFT FOOT X-RAY THREE VIEWS HISTORY: Pain. COMPARISON: None. FINDINGS: There is a chip fracture off of the base of the first distal phalanx which appears well-corticated. The there is no evidence of dislocation. There are no degenerative changes. IMPRESSION: Chip fracture off the base of the first distal phalanx which appears nonacute. [employer] Phone: [employer] Phone: *RAPID FLU AANDB BY YOHANA Bonilla 09-08-2017 *RAPID FLU AANDB BY MOLECULAR Clinical Report: (C) Specimen: NASAL SWAB Collected: 09/08/2017 17:16 Status: Final Last Updated: 09/08/2017 20:02 FLUA RNA (Final) Negative FLUB RNA (Final) Positive for Influenza B > No physician on-call for 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 This result added by HARLEY on 09/08/2017 20:02. The previous result was: FLUB RNA (Final) Positive for Influenza B Normal [facility] Comment on above: Performed By: #### 3 1018 ####[place] [id number] [address] Vital Signs Date Time Vital Sign Value Performing Clinician Facility 01-20-2025 08:06-0400 Body height 182.[address] Salud Watson DO Work Phone: [facility] 01-20-2025 08:06-0400 Body mass index (BMI) [Ratio] 26.9 kg/m2 Dr. Salud Watson DO Work Phone: [facility] 01-20-2025 08:06-0400 Body weight 90.[address] Salud Watson DO Work Phone: [facility] 01-20-2025 08:06-0400 Diastolic blood pressure 70 mm[Hg] Dr. Salud Watson DO Work Phone: [facility] 01-20-2025 08:06-0400 Heart rate 79 /min Dr. Salud Watson DO Work Phone: [facility] 01-20-2025 08:06-0400 Respiratory rate 16 /min Dr. Salud Watson DO Work Phone: [facility] 01-20-2025 08:06-0400 Systolic blood pressure 119 mm[Hg] Dr. Salud Watson DO Work Phone: [facility] 01-15-2025 00:52-0400 Heart rate 78 /min Dr. Salud Watson DO Work Phone: [facility] 01-15-2025 00:52-0400 Respiratory rate 18 /min Dr. Salud Watson DO Work Phone: [facility] 01-15-2025 00:52-0400 SaO2% (BldA) [Mass fraction] 98 % Dr. Salud Watson DO Work Phone: [facility] 01-14-2025 23:26-0400 Diastolic blood pressure 87 mm[Hg] Dr. Salud Watson DO Work Phone: [facility] 01-14-2025 23:26-0400 Systolic blood pressure 120 mm[Hg] Dr. Salud Watson DO Work Phone: [facility] 01-14-2025 21:05-0400 Body height 182.[address] Salud Watson DO Work Phone: [facility] 01-14-2025 21:05-0400 Body mass index (BMI) [Ratio] 26 kg/m2 Dr. Salud Watson DO Work Phone: [facility] 01-14-2025 21:05-0400 Body temperature 97 [degF] Dr. Salud Watson DO Work Phone: [facility] 01-14-2025 21:05-0400 Body weight 87.[address] Salud Watson DO Work Phone: [facility] 01-08-2025 10:16-0400 Body height 182.[address] Salud Watson DO Work Phone: [facility] 01-08-2025 10:12-0400 Body mass index (BMI) [Ratio] 26.3 kg/m2 Dr. Salud Watson DO Work Phone: [facility] 01-08-2025 10:12-0400 Body temperature 97.6 [degF] Dr. Salud Watson DO Work Phone: [facility] 01-08-2025 10:12-0400 Body weight 88.[address] Salud Watson DO Work Phone: [facility] 01-08-2025 10:12-0400 Diastolic blood pressure 79 mm[Hg] Dr. Salud Watson DO Work Phone: [facility] 01-08-2025 10:12-0400 Heart rate 77 /min Dr. Salud Watson DO Work Phone: [facility] 01-08-2025 10:12-0400 Respiratory rate 16 /min Dr. Salud Watson DO Work Phone: [facility] 01-08-2025 10:12-0400 SaO2% (BldA) [Mass fraction] 96 % Dr. Salud Watson DO Work Phone: [facility] 01-08-2025 10:12-0400 Systolic blood pressure 129 mm[Hg] Dr. Salud Watson DO Work Phone: [facility] 12-22-2024 00:19-0400 Body temperature 98.2 [degF] Dr. Salud Watson DO Work Phone: [facility] 12-22-2024 00:19-0400 Diastolic blood pressure 57 mm[Hg] Dr. Salud Watson DO Work Phone: [facility] 12-22-2024 00:19-0400 Heart rate 68 /min Dr. Salud Watson DO Work Phone: [facility] 12-22-2024 00:19-0400 Respiratory rate 18 /min Dr. Salud Watson DO Work Phone: [facility] 12-22-2024 00:19-0400 SaO2% (BldA) [Mass fraction] 96 % Dr. Salud Watson DO Work Phone: [facility] 12-22-2024 00:19-0400 Systolic blood pressure 129 mm[Hg] Dr. Salud Watson DO Work Phone: [facility] 12-21-2024 16:02-0400 Body height 182.[address] Salud Watson DO Work Phone: [facility] 12-21-2024 16:02-0400 Body mass index (BMI) [Ratio] 25.6 kg/m2 Dr. Salud Watson DO Work Phone: [facility] [facility] 12-21-2024 16:02-0400 Body weight 85.[address] Salud Watson DO Work Phone: [facility] 03-06-2021 13:17-0400 Body temperature 98.91 [degF] Milka Camarillo MD Work Phone: [employer] Work Phone: 03-06-2021 13:17-0400 Diastolic blood pressure 83 mm[Hg] Milka Camarillo MD Work Phone: [employer] Work Phone: 03-06-2021 13:17-0400 Heart rate 61 /min Milka Camarillo MD Work Phone: [employer] Work Phone: 03-06-2021 13:17-0400 Respiratory rate 18 /min Milka Camarillo MD Work Phone: [employer] Work Phone: 03-06-2021 13:17-0400 SaO2% (BldA) [Mass fraction] 99 % Milka Camarillo MD Work Phone: [employer] Work Phone: 03-06-2021 13:17-0400 Systolic blood pressure 145 mm[Hg] Milka Camarillo MD Work Phone: [employer] Work Phone: Encounters Encounter Date Encounter Type Care Provider Facility Start: 02-26-2025 ambulatory [facility] Facility: [facility] Start: 02-04-2025 ambulatory [facility] Facility: [facility] Start: 01-31-2025 ambulatory [facility] Facility: [facility] Start: 01-28-2025 ambulatory Gabrielle Pérez Facility:[facility] Start: 01-20-2025 End: 01-20-[address] Gabrielle Pérez MD -[facility] Work Phone: Start: 01-20-2025 End: 01-20-[address] Salud Watson DO Work Phone: [employer] [facility] Work Phone: Start: 01-14-2025 End: 01-15-2025 Emergency department patient visit Dr. Salud Watson DO Work Phone: -Emergency Department Work Phone: Start: 01-08-[address] Aren Patel MD -[facility] Start: 01-08-2025 End: 01-08-[address] Patrice Patel MD -[facility] Work Phone: Start: 01-08-2025 End: 01-08-[address] Salud Watson DO Work Phone: [facility] Work Phone: Start: 01-06-2025 Non-patient / Non-visit Shreya Maher er -[facility] Work Phone: Start: 01-06-2025 ambulatory Shreya Mcmillan [facility] Start: 12-25-2024 End: 12-25-[address] Salud Watson DO Work Phone: [facility] Work Phone: Start: 12-25-2024 End: 12-25-[address] Salud Watson DO -Laboratory Work Phone: Start: 12-25-2024 End: 12-25-2024 ambulatory Salud Watson Facility:[facility] Start: 12-21-2024 End: 12-22-2024 Emergency department patient visit Dr. Michael Oakley DO -Emergency Department Work Phone: Start: 12-30-2021 End: 12-30-2021 Patient encounter procedure [facility]-Laboratory, Specimen Start: 03-06-2021 End: 03-06-2021 Emergency department patient visit MILKA CAMARILLO [facility] Start: 03-06-2021 End: 03-06-2021 Emergency department patient visit ComfortEren Camarillo MD Work Phone: [facility] ED Comment on above: Laceration of left f oot, initial encounter (Primary Dx); Essential hypertension Start: 09-08-2017 End: 09-09-2017 Ambulatory TONY ARIAS Facility:[facility] Procedures Date Procedure Procedure Detail Performing Clinician Start: 01-14-2025 Urnls dip stick/tablet reagent auto microscopy Dr. Salud Watson DO Work Phone: Start: 01-14-[address] Salud Watson DO Work Phone: Start: 01-14-2025 Computed tomography of abdomen and pelvis with contrast Dr. Salud Watson DO Work Phone: Start: 01-08-[address] Salud Watson DO Work Phone: Comment on above: Test Ordered: [id number] Antithrombin Activi tyAntithrombin Activity 100 % Reference Range: 75-135Direct Xa inhibitor anticoagulants such as rivaroxaban,apixaban and edoxaban will lead to spuriously elevatedantithrombin activity levels possibly masking a deficiency.Performed at: - [facility] [address] [place], [place] [id number] Director: Arie Murillo MD, Phone: [phone] at: - [facility] [id number] Director: Sudhir Gonzalez PhD, Phone: [phone] Start: 12-25-[address] Salud Watson DO Work Phone: Comment on above: The atypical pANCA pattern has been obse rved in asignificant percentage of patients with ulcerative colitis,primary sclerosing cholangitis and autoimmune hepatitis. Start: 12-25-[address] Salud matt DO Work Phone: Comment on above: Result: c.1601G>A (p.Utb151Lvv) - Not De tectedThis result is not associated with an increased risk for venousthromboembolism. See Additional Clinical Information andComments.Additional Clinical Information:Venous thromboembolism is a multifactorial diseaseinfluenced by genetic, environmental, and circumstantialrisk factors. The c.1601G>A (p. Qef215Vdr) variant in theF5 gene, commonly referred to as Factor V Leiden, is agenetic risk factor for venous thromboembolism.Heterozygous carriers of this variant have a 6- to 8-foldincreased risk for venous thromboembolism. Individualshomozygous for this variant (ie, with a copy of the varianton each chromosome) have an approximately 80-fold increasedrisk for venous thromboembolism. Individuals who carry delmy c.*97G>A variant in the F2 gene and Factor V Leiden havean approximately 20-fold increased risk for venousthromboembolism. Risks are likely to be even higher in morecomplex genotype combinations involving the F2 c.*97G>Avariant and Factor V Leiden (PMID: 37111631). Additionalrisk factors include but are not limited to: deficiency ofprotein C, protein S, or antithrombin III, age, male sex,personal or family history of deep vein thromboembolism,smoking, surgery, prolonged immobilization, malignantneoplasm, tamoxifen treatment, raloxifene treatment, oralcontraceptive use, hormone replacement therapy, andpregnancy. Management of thrombotic risk and thromboticevents should follow established guidelines and fit theclinical circumstance. This result cannot predict theoccurrence or recurrence of a thrombotic event.Comment:Genetic counseling is recommended to discuss thepotential clinical implications of positive results, aswell as recommendations for testing family members.Genetic Coordinators are available for health careproviders to discuss results at [phone] Details:Variant Analyzed: c.1601G>A (p. Bfx446Tga), referred toas Factor V LeidenMethods/Limitations:DNA analysis of the F5 gene (NM_000130.5) was performedby PCR amplification followed by restriction enzymeanalysis. The diagnostic sensitivity is >99%. Results mustbe combined with clinical information for the most accurateinterpretation. Molecular-based testing is highly accurate,but as in any laboratory test, diagnostic errors may occur.False positive or false negative results may occur forreasons that include genetic variants, blood transfusions,bone marrow transplantation, somatic or tissue-specificmosaicism, mislabeled samples, or erroneous representationof family relationships.This test was developed and its performance characteristicsdetermined by [employer]. It has not been cleared orapproved by the Food and Drug Administration.References:Savage S, Cecelia AK, Galen R, Vanita WW, Aaron JH; ACMGProfessional Practice and Guidelines Committee. Addendum:[employer] consensus statement onfactor V Leiden mutation testing. [employer]. 2020Oct 23.doi: 10.1038/q03786-013-55023-p. PMID: 34978609.Hannah CONTRERAS. Factor V Leiden Thrombophilia. 1998January 01(Updated 2017Aug 24). In: Carlitos MP, Vipin HH, Jake RA,et al., editors. George(R) (Internet). [place] ([place]):[facility]; 4283-7433. Availablefrom: https://www.ncbi.nlm.nih.gov/books/RUP6443/Chris Bennett Cecelia AK, Kole X, Price B, Cresencio EB, Aleah P,Abimbola CS; AC Laboratory Vocational Rehab Consultant Committee.Venous thromboembolism laboratory testing (factor V Leidenand factor II c.*97G>A), 2018 update: a technical standardof the [employer] and Genomics(ACMG). [employer]. 2018 Jul;20(12):7602-7908. doi:10.1038/b92998-861-0457-v. Epub 2017May 25. PMID: 22858012. Start: 12-25-[address] Salud Watson DO Work Phone: Comment on above: Test Ordered: [id number] Tick-borne Disease Ab ProfileTest(s) 206975-Yfvpigd microti IgGwas developed and its performance characteristicsdetermined by [employer]. It has not been cleared or approvedby the Food and Drug Administration.Lyme Total Antibody TERRIE Negative CB Reference Range: NegativeLyme antibodies not detected. Reflex testing is notindicated.No laboratory evidence of infection with B. burgdorferi(Lyme disease). Negative results may occur in patientsrecently infected (less than or equal to 14 days) with B.burgdorferi. If recent infection is suspected, repeattesting on a new sample collected in 7 to 14 days isrecommended.Babesia microti IgG <1:10 BN Reference Range: Neg:<1:10E. chaffeensis IgG Negative BN Reference Range: Neg:<1:64A. phagocytophilum IgG Negative BN Reference Range: Neg:<1:64Result Comments: Comment BN Reference Range: .Antibody titers may be negative in the first 7-10 days ofillness. A four-fold rise in IgG antibody titers forBabesia microti, Anaplasma phagocytophilum, and/orEhrlichia chaffeensis in paired samples (acute andconvalescent) supports the diagnosis of babesiosis,anaplasmosis, and/or ehrlichiosis, respectively.Performed at: [address] [id number] Director: Sudhir Gonzalez PhD, Phone: [phone] at: [address] [id number] Director: Arie Murillo MD, Phone: [phone] Start: 12-21-2024 Computed tomography of abdomen and pelvis with intravenous contrast Dr. Salud Watson DO Work Phone: Start: 12-21-[address] Salud Watson DO Work Phone: Start: 12-21-2024 Computed tomography of abdomen and pelvis with intravenous contrast Dr. Salud Watson DO Work Phone: Start: 12-21-2024 Urnls dip stick/tablet reagent auto microscopy Dr. Salud Watson DO Work Phone: Start: 03-06-2021 Radex foot complete minimum 3 views Milka Camarillo MD Work Phone: Plan of Treatment Date Care Activity Detail Author Start: 01-20-2025 Evaluation of diagnostic study results [facility] Start: 01-08-2025 End: 01-08-2025 Procedure [facility] Start: 12-25-2024 Cytomegalovirus IgM antibody assay [facility] Start: 12-25-2024 Factor V Leiden genotype [facility] Start: 12-25-2024 Procedure [facility] Start: 12-25-2024 Protein S function estimate [facility] Start: 12-25-2024 Targeted analysis for gene mutation [facility] Start: 12-25-2024 [facility] Start: 04-21-2021 Influenza vaccination Flu vaccine (#1) [facility] Phone: Start: 03-12-2017 Hepatitis A vaccine (2 of 2 - 2-dose series) Hepatitis A vaccine (2 of 2 - 2-dose series) [employer] Phone: Start: 2016 DTaP/Tdap/Td vaccine (1 - Tdap) DTaP/Tdap/Td vaccine (1 - Tdap) [employer] Phone: Start: 2012 HIV screening [facility] screen [facility] Phone: Start: 2009 COVID-19 Vaccine (1) COVID-19 Vaccine (1) [facility] [employer] Phone: Start: 2008 HPV vaccine (1 - Male 2-dose series) HPV vaccine (1 - Male 2-dose series) [facility] [employer] Phone: Start: 1998 Varicella vaccine (1 of 2 - 2-dose childhood series) Varicella vaccine (1 of 2 - 2-dose childhood series) [facility] Phone: Start: 1997 Hepatitis C screening Hepatitis C screen [facility] [employer] Phone: Conrado Chauhan virus c apsid IgM Ab [Units/volume] in Serum [facility] F5 gene mutations fo und [Identifier] in Blood or Tissue by Molecular genetics method Nominal [facility] Neutrophil cytoplasm ic Ab.classic [Units/volume] in Serum [facility] P-ANCA measurement [facility] Patient Education Abdominal Pain [facility] Work Phone: Patient referral [facility] Work Phone: Protein C [Units/vol ume] in Platelet poor plasma by Coagulation assay [facility] Protein S, functional assay [facility] Payers Date Payer Category Payer Self-pay [id number] 2016 [facility] [id number] 2016 Unknown [id number] 2014 Unknown [id number] 1997 Unknown [id number] 2.16.84 [id number] Unknown [id number] 2.16.8 [id number] Unknown [id number] 2.16.8 [id number] Unknown [id number] 2.16.8 [id number] Unknown [id number] 2.16.8 [id number] Unknown [id number] 2.16.8 [id number] Unknown [id number] 2.16.8 [id number] Unknown [id number] 2.16.8 [id number] Unknown [id number] 2.16.8 [id number] Unknown [id number] 2.16.8 [id number] Unknown [id number] 2.16.8 [id number] Unknown [id number] 2.16.8 [id number] Social History Date Type Detail [facility] [employer] Phone: Start: 1995 Sex Assigned At Not on file M [facility] Work Phone: Exposure to SARS-CoV -2 (event) Not sure [employer] Start: 03-03-2018 [facility] ever smoked [facility] Work Phone: Start: 1995 Sex Assigned At Male [facility] Start: 12-21-2024 End: 01-14-2025 Tobacco smoking status NHIS Never smoked tobacco (finding) [facility] Mental Status Date Assessment Result Facility 01-14-2025 Cognitive function Level Of Cons ciousness Awake;Alert;Appropriate;Follow s Commands [facility] Work Phone: Clinical Notes 01-08-2025 to 01-20-2025 Note Date & Type Note Facility 01-20-2025 Progress note [facility] 01-20-2025 Progress note Note Date/Time January 20, 2025 9:04am [facility] [address] [place] [address] OFFICE VISIT Date of Service: 01/20/25 MR#: [id number] Acct: [id number] Name: JOSE M CORRAL Rep #: [id number] : 1995 Provider: Dr. Florentin Pérez MD Age/Sex: 29/M [place] [facility] [place]: Signed HPI HPI History of Present Illness Details: This young gentleman was diagnosed with multiple splenic infarcts earlier last month when he had presented with abdominal pain. He was started on anticoagulation. Since, he has been evaluated by hematology for hypercoagulableworkup. The workup has been negative. He has been referred to us for evaluation for cardiac source of emboli. Patient denies any previous history of heart disease. 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 At that time, workup was done which was all negative per him. Denies any chest pains or shortness of breath either at rest or with exertion. Occasional skipped beat. No orthopnea. No PND. No ankle edema. No syncope orpresyncope. Father has history of mitral valve prolapse. Intake Vital Signs 01/08/25 10:16 01/08/25 16:04 01/14/25 21:05 01/20/25 08:06 Height 6 ft 6 ft 6 ft 6 ft Weight: 199 lb BMI 26.9 BP 119/70 Blood Pressure Location Lt brachial Position Sitting Respiration 16 Pulse 79 Pulse Source NIBP Intake Visit Reasons: SPLENIC INFRACTION Spiritual Care Coordinator Required: No Accompanied by: Is patient in pain?: No Allergies sulfamethoxazole (From Bactrim) Allergy (Verified 01/20/25 08:33) Hives trimethoprim (From Bactrim) Allergy (Verified 01/20/25 08:33) Hives Medications ?Medication ?Instructions ?Recorded ?Confirmed ?Type apixaban 5 mg tablet (Eliquis) 5 mg PO BID 01/08/25 History lactobacillus combination no.9 4 PO 01/08/25 01/20/25 History billion cell capsule (Adult 50 Plus Probiotic) magnesium 200 mg tablet 200 mg PO QDAY 01/08/2510/15 History multivitamin 1 tab PO QAM 01/08/25 History psyllium husk 0.4 gram capsule 0.4 g PO ONCE 01/08/25 01/20/25 History (Daily Fiber) Have you fallen in the past year?: No PFSH Medical History GERD (gastroesophageal reflux disease) IBS (irritable bowel syndrome) Migraines Normal colonoscopy Palpitations Seasonal allergies Splenic infarct Surgical History History of colonoscopy Hx of wisdom tooth extraction S/P tonsillectomy and adenoidectomy Family History Grandfather Myocardial infarction, Onset Age: 50 Cancer Hypertension Hyperlipidemia Grandmother Breast cancer CVA (cerebral vascular accident) Hypertension Father Mitral valve prolapse Social History Smoking Status: Never smoker alcohol intake: current alcohol intake frequency: a few times a month Alcohol type: beer substance use type: does not use what type of physical activity do you participate in: running, weight training and other details: martial arts training frequency: daily ROS Const Const: Positive for headache(s) (new; could be related to allergies per pt; posterior; peripheral vision los); Negative for fatigue, weakness or weight gain ENT ENT: Positive for headache(s) (new; could be related to allergies per pt; posterior; peripheral vision los) and dizziness (new onset s/p splenic infarct); Negative for Nosebleed/epistaxis or balance problems Cardio Chest Pain: No Palpitations: Yes (remote from HS; new recurrence in past 2 weeks) feels like its: fast and skipping Edema: None Muscle aches with walking: None Resp Respiratory: Negative for SOB with activity, SOB at rest or SOB orthopneaundefinedSOB lying down GI GI: Positive for nausea (with splenic infarct; occasional); Negative vomiting or heartburn Musc Musc: Negative for muscle aches/ myalgia, muscle weakness, joint pain or balanceproblems Neuro Neuro: Positive for dizziness (new onset s/p splenic infarct), lightheadedness and headache(s) (new; could be related to allergies per pt; posterior; peripheral vision los); Negative for near syncope, syncope or weakness Endo Endo: Negative for fatigue Cardiology Exam Const Appearance: comfortable and no acute distress Nutritional Appearance: well nourished Neck Neck: no JVD Carotids: Negative bruit Chest Auscultation: Bilateral: Clear to Auscultation Cardio Rate: regular rate Rhythm: regular rhythm Heart sounds: S1 normal and S2 normal Neuro General: patient alert, patient awake and patient oriented x3 Extremities Lower Extremity Edema: None: Bilateral Supplemental Info Supplemental Information CTA Abdomen/Pelvis 01/14/2025 IMPRESSION: No abdominal aortic aneurysm or dissection. Heterogeneous appearance of the spleen due to phase of contrast, limiting evaluation. Assessment and Plan Assessment and Plan (1) Splenic infarct: Status: Chronic Plan: On anticoagulation as per hematology. Will check echocardiogram with bubble study to evaluate for any shunts. Also check 14-day event monitor. Check CT of thoracic aorta. (2) History of palpitations: Status: Chronic Plan: Check 14-day event monitor. (3) History of IBS: Status: Chronic Plan: As per internal medicine. Orders: Orders 12 Lead EKG performed by [facility] Today D73.5 - Infarction of spleen, R00.2 - Palpitations Plan Check lipid profile. Plan Details Follow Up: 3 Months Coding Level of Care Code Off vis,new,level 4 Diagnoses Splenic infarct D73.5 History of palpitations Z87.898 History of IBS Z87.19 Coding Level of Care Code Off vis,new,level 4 Diagnoses Splenic infarct D73.5 History of palpitations Z87.898 History of IBS Z87.19 Clinical Quality Measures Falls Risk Screening/Assistive Devices Have you fallen in the past year?: No 01/20/25 0904 <Electronically signed by Gabrielle Pérez MD> Date _ Gabrielle Pérez MD Cosigner Signature: Date (if applicable) CC: Dr. Salud Watson, DO ~ [facility] Work Phone: 1(193) 333-827905-28-2025 Discharge summary [facility] Medical Records Department [address] [place] [address] Emergency Department Summary 01/14/25 MR#: [id number] Acct: [id number] Name: JOSE M CORRAL Rep #:[id number] : 1995 29 From: José Miguel Driver PCP: Dr. Salud Watson, DO Status:REG ER Location: ED HPI History of Present Illness Chief Complaint: Other, Pain/Inj PFSH PFSH Medical History Splenic infarct Normal colonoscopy GERD (gastroesophageal reflux disease) IBS (irritable bowel syndrome) Migraines Seasonal allergies Home Medications ?Medication ?Instructions ?Recorded ?Last Taken ?Type apixaban 5 mg tablet (Eliquis) 5 mg PO BID 01/08/25 Un known History lactobacillus combination no.9 4 PO 01/08/25 Unknown H istory billion cell capsule (Adult 50 Plus Probiotic) magnesium 200 mg tablet 200 mg PO QDAY 01/08/25 Unkn own History multivitamin 1 tab PO QAM 01/08/25 Unknow n History psyllium husk 0.4 gram capsule 0.4 g PO ONCE 01/08/25 Unknown History (Daily Fiber) Allergy/AdvReac Type Severity Reaction Status Date / Time sulfamethoxazole (From Allergy Hives Verified 01/14/25 21:05 Bactrim) trimethoprim (From Bactrim) Allergy Hives Verified 01/14/25 21:05 Family History (Updated 01/08/25 @ 10:10 by Shreya Mcmillan) Grandfather Myocardial infarction, Onset Age: 50 Cancer Hypertension Hyperlipidemia Grandmother Breast cancer CVA (cerebral vascular accident) Father Mitral valve prolapse Surgical History Hx of wisdom tooth extraction S/P tonsillectomy and adenoidectomy Social History (Updated 01/08/25 @ 10:12 by Shreya Mcmillan) Smoking Status: Never smoker alcohol intake: current alcohol intake frequency: a few times a month Alcohol type: beer substance use type: does not use what type of physical activity do you participate in: running, weight training and other details: [employer] training frequency: daily EXAM Physical Exam Const Vital Signs: 01/14/25 21:05 01/14/25 22:11 01/14/25 23:26 Temperature 97 F L Temperature Source Temporal Pulse Rate 67 85 Respiratory Rate 18 18 Respiratory Pattern Normal Blood Pressure 126/90 H 120/87 H Blood Pressure Mean 102 98 Pulse Ox 99 98 Oxygen Delivery Method Room Air Room Air [facility] Narrative Medical decision making narrative: HISTORY OF PRESENT ILLNESS: Chief complaint: Left flank pain/abdominal pain 29-year-old male history of splenic infarct presents with left flank and abdominal pain. States this began this morning the pain is mild described as discomfort in the left flank/left upper quadrant.No trauma. No vomiting. No fever. Notes compliance with Eliquis. Denies trouble with bowel movements. Denies any testicular pain or trouble urinating. Denies chest pain or palpitations. REVIEW OF SYSTEMS: Pertinent positives: Abdominal/flank pain Pertinent negatives: As per [facility] PHYSICAL EXAM: Nursing triage notes reviewed, Vital signs reviewed Constitutional: please see [facility] HENT: MMM Eyes: Pupils equal round and reactive to light, Extraocular muscles intact Neck: No stridor, no JVD, full neck ROM Lungs: Clear to auscultation, No wheezing or rales. No increased work of breathing, no conversational dyspnea, no accessory muscle use, no nasal flaring. No respiratory distress noted Heart: Regular rate and rhythm, No murmurs, No rubs and No gallops, 2+ distal pulses (radial, femoral, posterior tibial) in all extremities Abdomen: Soft, there is no tenderness, rigidity, rebound or guarding, no obviousperitoneal signs, no palpable pulsatile abdominal masses, no auscultated abdominal bruit : No CVAT Extremities: No edema Neuro: No new focal neurological deficits, cranial nerves II through XII intact,5/5 strength in allpresent extremities. Intact sensation to light touch in all present extremities, 2+ reflexes bilateral patella tendons. Skin: No rash or lesions noted MEDICAL DECISION MAKING: Chief Complaint: please see [facility] External records reviewed: Reviewed prior imaging studies: Reviewed CT scan Of the abdomen pelvis from 12/21/2024 which showed multifocal splenic hypoenhancing foci compatible with sequela of splenic infarct Factors affecting care: Splenic infarct Social determinants of health: Denies drug use History obtained from others: none Consults: Radiology (Dr. Casey) noted no significant abnormalities, no progression of infarct, nodissection arterial or venous abnormalities noted in the left upper quadrant spleen MDM Narrative: The patient was initially hemodynamically stable, afebrile and nontoxic- appearing. Abdominal exam was overall benign with very mild subjective tenderness to the left upper extremity. No CVA tenderness. No peritoneal signs. I considered the following differential diagnosis: Sequela splenic infarct, recurrence with acute infarct, arrhythmia, anemia, nephrolithiasis, pyelonephritis. I obtained a broad lab and imaging workup to further elucidate etiology of the patient's complaints. ALL IMAGES (IF OBTAINED) HAVE BEEN PERSONALLY REVIEWED AND INTERPRETED BY MYSELF. CBC without leukocytosis, severe anemia, no thrombocytopenia. Lactate is wnl indicating no end-organ hypoperfusion and/or hypoxia. CMP without evidence of acute kidney injury, significant electrolyte abnormality, anion gap to suggest end organ hypo-perfusion, no evidence of metabolic acidosis with a normal bicarbonate, no evidence of hepatobiliary obstructive pathology. Lipase is wnl indicating no pancreatic inflammation. Urinalysis shows no evidence of urinary inflammation suggestive of UTI CTA of the abdomen pelvis showed no evidence of vessel normality or new splenic infarct The etiology of patient's complaint remains uncertain however it is unlikely be life-threatening. Will encourage continued anticoagulation follow-up with PCP/prescribing physician. The patient and/or family, caregivers express understanding. The patient and/orfamily, caregivers agrees with the plan. Shared decision making: I will have a discussion with the patient and or visitors regarding risk/benefits of further testing or admission. They will be made aware of of the risk/benefits inherent in this decision they will be given the opportunity to voice understanding. Total critical care time today provided was at least 0 minutes. This excludes separately billable procedures. Critical care time (if documented) is secondary to the patient having high probability ofclinically significant/life threatening deterioration in the patient's condition which required my urgent intervention. Impression: 1. Acute left upper quad abdominal pain 2. Left leg pain Dispo: Discharge home This note was generated with [employer] dictation software. It may contain incorrectwords, spelling, and punctuation that were not noted in review of the chart prior to signing. Lab Data Labs: Laboratory Results - last 24 hr 01/14/25 01/14/25 22:40 23:23 WBC 8.7 RBC 5.63 Hgb 16.3 Hct 46.1 MCV 81.9 MCH 29.0 MCHC 35.4 RDW Std Deviation 39.9 RDW Coeff of Mame 13.6 Plt Count 337 MPV 9.0 Immature Gran % (Auto) 0.300 Neut % (Auto) 62.7 Lymph % (Auto) 25.5 [place] % (Auto) 7.2 Eos % (Auto) 3.6 Baso % (Auto) 0.7 Absolute Neuts (auto) 5.4 Absolute Lymphs (auto) 2.21 Nucleated RBC % 0 Sodium 139 Potassium 4.0 Chloride 101 Carbon Dioxide 24.7 Anion Gap 13 BUN 28 H Creatinine 1.13 Estim Creat Clear Calc 107.78 Est GFR (MDRD) Non-Af 91 BUN/Creatinine Ratio 25.1 H Glucose 90 Lactic Acid 1.0 Calcium 9.5 Total Bilirubin 0.39 AST 28 ALT 41 Alkaline Phosphatase 37 L Total Protein 7.3 Albumin 4.8 Globulin 2.5 Albumin/Globulin Ratio 1.9 Lipase 28 Urine Color Straw Urine Clarity Clear Urine pH 6.5 Ur Specific [place] 1.010 Urine Protein 15 H Urine Glucose (UA) Normal Urine Ketones Negative Urine Occult Blood Negative Urine Nitrite Negative Urine Bilirubin Negative Urine Urobilinogen Normal Ur Leukocyte Esterase Negative Urine RBC 0 SEEN Urine WBC 0 SEEN Ur Squamous Epith Cells 0-5 SEEN Urine Bacteria 0 SEEN Urine Mucus 0 SEEN Radiography Diagnostic Testing: Clinical Impression(s) from Imaging Studies Abdomen/Pelvis CTA 01/14/25 22:32 IMPRESSION: No abdominal aortic aneurysm or dissection. Heterogeneous appearance of the spleen due to phase of contrast, limiting evaluation. OVERALL FINAL ASSESSMENT: . LI-RADS is not meant to be used in patients <18 years or patients with cirrhosisdue to congenital hepatic fibrosis or due to vascular disorders, because these patients have a lower chance of developing HCC. Reading Location: [facility] Discharge Plan Triage Chief Complaint: Other, Pain/Inj ED Provider: José Miguel Darby Dx/Rx/DC Orders Instructions: Abdominal Pain Prescriptions: No Action Eliquis 5 mg tablet 5 mg PO BID Adult 50 Plus Probiotic 4 billion cell capsule PO psyllium husk [Daily Fiber] 0.4 gram capsule 0.4 g PO ONCE magnesium 200 mg tablet 200 mg PO QDAY multivitamin Tablet 1 tab PO QAM Primary Care Provider: Salud Watson Referrals: Salud Watson DO [Primary Care Provider] - Activity Restrictions/Additional Instructions: Thank you for trusting us with your care today! Your CT showed no evidence of new or worsening spleen pathology. Your abdominal blood vessels are open and do not appear to be abnormal. Please take Tylenol (2 pills, 650 mg) every 6 hours as needed for pain and fevercontrol. Please return to the emergency department if your symptoms change or worsen. Please follow with your primary care physician for further outpatient evaluationand management. Print Language: Bermudian Disposition Disposition: Home, Self Care What to do if you have Problems For any increased pain, shortness of breath, bleeding, nausea or vomiting, chestpain, or any unexpected problems, contact your Primary Care Provider. Call [facility] ([phone]) or report tothe closest Emergency Room. Call 911 if necessary. 01/15/25 0044 Cosigner Signature (if applicable): CC: Dr. Salud Watson DO ~ Signed [facility]05-27-2025 Radiology Diagnostic study note [facility] Imaging Services [address] [place] [address] CTA Abd/Pelvis W/WO Contrast MR#: [id number] Acct: [id number] Name: JOSE M CORRAL Rep #: [id number] : 1995 M 29 From: Billy Dyer DO PCP: Dr. Salud Watson DO Status: REG ER Study:CTA Abd/Pelvis W/WO Contrast Date of Ex am: 01/14/25 Exam# [id number] Ordering Dr: Lon Darby DO PROCEDURE: CTA ABD/PELVIS W/WO CONTRAST 01/14/2025 REASON FOR EXAM: LEFT FLANK PAIN, HX OF SPLENIC INFARCT TECHNIQUE: CTA imaging of the abdomen and pelvis with intravenous contrast. Multiplanar andmultisequence images were obtained. 3D post processing was performed CONTRAST: Isovue 370 VOLUME: 100 mL Not Provided Gauge IV One or more dose reduction techniques were used (e.g., Automated exposure control, adjustment of the mA and/or kV according to patient size, use of iterative reconstruction technique). RADIATION DOSE SUMMARY: CTDlvol: 55 mGy DLP: 716 mGycm COMPARISON: CT of the abdomen and pelvis dated 12/21/2024 FINDINGS: Aorta: Abdominal aorta is normal in size. No significant atherosclerotic plaque.No evidence of aneurysm or dissection. Iliac Arteries: Iliac arteries are normal in size with no significant plaque or stenosis. Celiac: Normal. SMA: Normal. SHENG : Normal. Right Renal: Normal Left Renal: Normal. Other Findings: Heterogeneous appearance of the spleen secondary to phase of contrast. This limits evaluation. The gallbladder is decompressed. The liver, pancreas, adrenal glands, kidneys, urinary bladder and bowel loops are grossly unremarkable the osseous structures are grossly unremarkable. CT/CTA Abd/Pelvis W/WO Contrast IMPRESSION: No abdominal aortic aneurysm or dissection. Heterogeneous appearance of the spleen due to phase of contrast, limiting evaluation. OVERALL FINAL ASSESSMENT: . LI-RADS is not meant to be used in patients <18 years or patients with cirrhosisdue to congenital hepatic fibrosis or due to vascular disorders, because these patients have a lower chance of developing HCC. Reading Location: [facility] CC: Dr. Salud Watson DO; Dr. José Miguel Darby DO ~ Cooling Tower Operator: Signed [facility]05-27-2025 Discharge summary Author José Miguel Darby [facility] Note Date/Time January 15, 2025 12:44 am [facility] Medical Records Department [address] [place] [id number] Emergency Department Summary 01/14/25 MR#: [id number] Acct: [id number] Name: JOSE M CORRALT Rep #:[id number] : 1995 29 From: José Miguel Driver PCP: Dr. Salud Watson DO Status:REG ER Location: ED HPI History of Present Illness Chief Complaint: Other, Pain/Inj PFSH PFSH Medical History Splenic infarct Normal colonoscopy GERD (gastroesophageal reflux disease) IBS (irritable bowel syndrome) Migraines Seasonal allergies Home Medications ?Medication ?Instructions ?Recorded ?Last Taken ?Type apixaban 5 mg tablet (Eliquis) 5 mg PO BID 01/08/25 Un known History lactobacillus combination no.9 4 PO 01/08/25 Unknown H istory billion cell capsule (Adult 50 Plus Probiotic) magnesium 200 mg tablet 200 mg PO QDAY 01/08/25 Unkn own History multivitamin 1 tab PO QAM 01/08/25 Unknow n History psyllium husk 0.4 gram capsule 0.4 g PO ONCE 01/08/25 Unknown History (Daily Fiber) Allergy/AdvReac Type Severity Reaction Status Date / Time sulfamethoxazole (From Allergy Hives Verified 01/14/25 21:05 Bactrim) trimethoprim (From Bactrim) Allergy Hives Verified 01/14/25 21:05 Family History (Updated 01/08/25 @ 10:10 by Shreya Mcmillan) Grandfather Myocardial infarction, Onset Age: 50 Cancer Hypertension Hyperlipidemia Grandmother Breast cancer CVA (cerebral vascular accident) Father Mitral valve prolapse Surgical History Hx of wisdom tooth extraction S/P tonsillectomy and adenoidectomy Social History (Updated 01/08/25 @ 10:12 by Shreya Mcmillan) Smoking Status: Never smoker alcohol intake: current alcohol intake frequency: a few times a month Alcohol type: beer substance use type: does not use what type of physical activity do you participate in: running, weight training and other details: martial arts training frequency: daily EXAM Physical Exam Const Vital Signs: 01/14/25 21:05 01/14/25 22:11 01/14/25 23:26 Temperature 97 F L Temperature Source Temporal Pulse Rate 67 85 Respiratory Rate 18 18 Respiratory Pattern Normal Blood Pressure 126/90 H 120/87 H Blood Pressure Mean 102 98 Pulse Ox 99 98 Oxygen Delivery Method Room Air Room Air MDM MDM MDM Narrative Medical decision making narrative: HISTORY OF PRESENT ILLNESS: Chief complaint: Left flank pain/abdominal pain 29-year-old male history of splenic infarct presents with left flank and abdominal pain. States this began this morning the pain is mild described as discomfort in the left flank/left upper quadrant. No trauma. No vomiting. No fever. Notes compliance with Eliquis. Denies trouble with bowel movements. Denies any testicular pain or trouble urinating. Denies chest pain or palpitations. REVIEW OF SYSTEMS: Pertinent positives: Abdominal/flank pain Pertinent negatives: As per HPI PHYSICAL EXAM: Nursing triage notes reviewed, Vital signs reviewed Constitutional: please see [facility] HENT: MMM Eyes: Pupils equal round and reactive to light, Extraocular muscles intact Neck: No stridor, no JVD, full neck ROM Lungs: Clear to auscultation, No wheezing or rales. No increased work of breathing, no conversational dyspnea, no accessory muscle use, no nasal flaring. No respiratory distress noted Heart: Regular rate and rhythm, No murmurs, No rubs and No gallops, 2+ distal pulses (radial, femoral, posterior tibial) in all extremities Abdomen: Soft, there is no tenderness, rigidity, rebound or guarding, no obviousperitoneal signs, no palpable pulsatile abdominal masses, no auscultated abdominal bruit : No CVAT Extremities: No edema Neuro: No new focal neurological deficits, cranial nerves II through XII intact,5/5 strength in all present extremities. Intact sensation to light touch in all present extremities, 2+ reflexes bilateral patella tendons. Skin: No rash or lesions noted MEDICAL DECISION MAKING: Chief Complaint: please see [facility] External records reviewed: Reviewed prior imaging studies: Reviewed CT scan Of the abdomen pelvis from 12/21/2024 which showed multifocal splenic hypoenhancing foci compatible with sequela of splenic infarct Factors affecting care: Splenic infarct Social determinants of health: Denies drug use History obtained from others: none Consults: Radiology (Dr. Casey) noted no significant abnormalities, no progression of infarct, no dissection arterial or venous abnormalities noted in the left upper quadrant spleen [facility] Narrative: The patient was initially hemodynamically stable, afebrile and nontoxic- appearing. Abdominal exam was overall benign with very mild subjective tenderness to the left upper extremity. No CVA tenderness. No peritoneal signs. I considered the following differential diagnosis: Sequela splenic infarct, recurrence with acute infarct, arrhythmia, anemia, nephrolithiasis, pyelonephritis. I obtained a broad lab and imaging workup to further elucidate etiology of the patient's complaints. ALL IMAGES (IF OBTAINED) HAVE BEEN PERSONALLY REVIEWED AND INTERPRETED BY MYSELF. CBC without leukocytosis, severe anemia, no thrombocytopenia. Lactate is wnl indicating no end-organ hypoperfusion and/or hypoxia. CMP without evidence of acute kidney injury, significant electrolyte abnormality, anion gap to suggest end organ hypo-perfusion, no evidence of metabolic acidosis with a normal bicarbonate, no evidence of hepatobiliary obstructive pathology. Lipase is wnl indicating no pancreatic inflammation. Urinalysis shows no evidence of urinary inflammation suggestive of UTI CTA of the abdomen pelvis showed no evidence of vessel normality or new splenic infarct The etiology of patient's complaint remains uncertain however it is unlikely be life-threatening. Will encourage continued anticoagulation follow-up with PCP/prescribing physician. The patient and/or family, caregivers express understanding. The patient and/orfamily, caregivers agrees with the plan. Shared decision making: I will have a discussion with the patient and or visitors regarding risk/benefits of further testing or admission. They will be made aware of of the risk/benefits inherent in this decision they will be given the opportunity to voice understanding. Total critical care time today provided was at least 0 minutes. This excludes separately billable procedures. Critical care time (if documented) is secondary to the patient having high probability of clinically significant/life threatening deterioration in the patient's condition which required my urgent intervention. Impression: 1. Acute left upper quad abdominal pain 2. Left leg pain Dispo: Discharge home This note was generated with [employer] dictation software. It may contain incorrectwords, spelling, and punctuation that were not noted in review of the chart prior to signing. Lab Data Labs: Laboratory Results - last 24 hr 01/14/25 01/14/25 22:40 23:23 WBC 8.7 RBC 5.63 Hgb 16.3 Hct 46.1 MCV 81.9 MCH 29.0 MCHC 35.4 RDW Std Deviation 39.9 RDW Coeff of Mame 13.6 Plt Count 337 MPV 9.0 Immature Gran % (Auto) 0.300 Neut % (Auto) 62.7 Lymph % (Auto) 25.5 [place] % (Auto) 7.2 Eos % (Auto) 3.6 Baso % (Auto) 0.7 Absolute Neuts (auto) 5.4 Absolute Lymphs (auto) 2.21 Nucleated RBC % 0 Sodium 139 Potassium 4.0 Chloride 101 Carbon Dioxide 24.7 Anion Gap 13 BUN 28 H Creatinine 1.13 Estim Creat Clear Calc 107.78 Est GFR (MDRD) Non-Af 91 BUN/Creatinine Ratio 25.1 H Glucose 90 Lactic Acid 1.0 Calcium 9.5 Total Bilirubin 0.39 AST 28 ALT 41 Alkaline Phosphatase 37 L Total Protein 7.3 Albumin 4.8 Globulin 2.5 Albumin/Globulin Ratio 1.9 Lipase 28 Urine Color Straw Urine Clarity Clear Urine pH 6.5 Ur Specific [place] 1.010 Urine Protein 15 H Urine Glucose (UA) Normal Urine Ketones Negative Urine Occult Blood Negative Urine Nitrite Negative Urine Bilirubin Negative Urine Urobilinogen Normal Ur Leukocyte Esterase Negative Urine RBC 0 SEEN Urine WBC 0 SEEN Ur Squamous Epith Cells 0-5 SEEN Urine Bacteria 0 SEEN Urine Mucus 0 SEEN Radiography Diagnostic Testing: Clinical Impression(s) from Imaging Studies Abdomen/Pelvis CTA 01/14/25 22:32 IMPRESSION: No abdominal aortic aneurysm or dissection. Heterogeneous appearance of the spleen due to phase of contrast, limiting evaluation. OVERALL FINAL ASSESSMENT: . LI-RADS is not meant to be used in patients <18 years or patients with cirrhosisdue to congenital hepatic fibrosis or due to vascular disorders, because these patients have a lower chance of developing HCC. Reading Location: [facility] Discharge Plan Triage Chief Complaint: Other, Pain/Inj ED Provider: José Miguel Darby Dx/Rx/DC Orders Instructions: Abdominal Pain Prescriptions: No Action Eliquis 5 mg tablet 5 mg PO BID Adult 50 Plus Probiotic 4 billion cell capsule PO psyllium husk [Daily Fiber] 0.4 gram capsule 0.4 g PO ONCE magnesium 200 mg tablet 200 mg PO QDAY multivitamin Tablet 1 tab PO QAM Primary Care Provider: Salud Watson Referrals: Slaud Watson DO [Primary Care Provider] - Activity Restrictions/Additional Instructions: Thank you for trusting us with your care today! Your CT showed no evidence of new or worsening spleen pathology. Your abdominal blood vessels are open and do not appear to be abnormal. Please take Tylenol (2 pills, 650 mg) every 6 hours as needed for pain and fevercontrol. Please return to the emergency department if your symptoms change or worsen. Please follow with your primary care physician for further outpatient evaluationand management. Print Language: Bermudian Disposition Disposition: Home, Self Care What to do if you have Problems For any increased pain, shortness of breath, bleeding, nausea or vomiting, chestpain, or any unexpected problems, contact your Primary Care Provider. Call [employer] [facility] ([phone]) or report to the closest Emergency Room. Call 911 if necessary. 01/15/25 0044 <Electronically signed by José Miguel Darby DO> Cosigner Signature (if applicable): CC: Dr. 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 History of IBS chronic January 20, 2025 8:20am History of palpitations chronic J 2024 8:20am Splenic infarct chronic January 20, 2025 8:20am [facility] [email or web address] Work Phone: Evaluation note* Diagnosis Laceration of left foot, initial encounter- Primary Essential hypertension Unspecified essential hypertension [facility]: evaluation noteNo assessment information available [facility] Work Phone: Hospital Discharge instructions* Attachments The following attachments cannot be sent through Care Everywhere. * Crutch Instructions: General Info (Bermudian) * Lacerations: Stitches (Bermudian) * RICE: General Info (Bermudian) [facility] Phone: Hospital Discharge instructions Additional Instructions Thank you for trusting us with your care today! Your CT showed no evidence of new or worsening spleen pathology. Your abdominal blood vessels are open and do not appear to be abnormal. Please take Tylenol (2 pills, 650 mg) every 6 hours as needed for pain and fever control. Please return to the emergency department if your symptoms change or worsen. Please follow with your primary care physician for further outpatient evaluation and management.[facility] Work Phone: Summary Purpose Family History No Family History Records Found Relationship Condition Age at Onset Recorded Date/T [place] grandfather Myocardial infarction 50 Malignant neoplasm Unknown Hypertension Unknown Hyperlipidemia Unknown grandmother Malignant neoplasm of breast Unknown Cerebrovascular accident (CVA) Unknown father Mitral valve prolapse Unknown Advance Directives No Advanced Directives Records Found Advance Directive Response Recorded Date/ Time Living Will No March 03, 2018 6:18pm Power of Regulatory Affairs Intern No March 03 8 6:18pm Advance Directive Response Recorded Date/ Time Do you have a Healthcare Power of Regulatory Affairs Intern? No December 21, 2024 4:40pm Advance Directive Response Recorded Date/ Time Do you have a Healthcare Power of Regulatory Affairs Intern? No December 21, 2024 4:40pm Do you have a Healthcare Power of Regulatory Affairs Intern? Yes January 14, 2025 10:11pm Chief Complaint and Reason for Visit Chief Complaint Admit Date flank pain December 21, 2024 4:01pm Chief Complaint Admit Date flank pain December 21, 2024 4:01pm Amb Documentation January 06, 2025 3:01p m SPLENIC INFARCT January 08, 2025 9:54a m Chief Complaint Admit Date flank pain December 21, 2024 4:01pm Amb Documentation January 06, 2025 3:01p m SPLENIC INFARCT January 08, 2025 9:54a m pain other January 14, 2025 9:03p m Reason for Visit Admit Date Splenic infarct January 08, 2025 9:54a m Chief Complaint Admit Date flank pain December 21, 2024 4:01pm Amb Documentation January 06, 2025 3:01p m SPLENIC INFARCT January 08, 2025 9:54a m pain other January 14, 2025 9:03p m SPLENIC INFRACTION January 20, 2025 8:20a m Reason for Visit Admit Date Splenic infarct January 08, 2025 9:54a m History of IBS January 20, 2025 8:20a m History of palpitations January 20, 2025 8 :20am Splenic infarct January 20, 2025 8:20a m Additional Source Comments (unrecognized sect ion and content) No Status Records FoundNo Status Records FoundNo Status Records Found INFORMATION SOURCE (unrecogn ized section and content) DATE CREATED AUTHOR 02/12/2018 [facility] DATE CREATED AUTHOR AUTHOR'S ORGANIZ ATION 03/07/2021 Isidra scruggs DATE CREATED AUTHOR AUTHOR'S ORGANIZ ATION 02/02/2025 [facility] Reason for Visit (unrecogniz ed section and content) Reason Comments Laceration was playing soccer [place] without shoes on and someone elses foot slipped onto his and cut him between 2nd and 3rd toe Ordered Prescriptions (unrec ognized section and content) Prescription Sig Dispensed Refills Start Date End Da te cephALEXin (KEFLEX) 500 MG capsule Take 1 capsule by mouth 4 times daily for 5 days 20 capsule 0 03/06/2021 03/11/2021 Scheduled Active and Recently Administ ered Medications (unrecognized section and content) Medication Order 03/04/2021 03/05/2021 03/06/2021 bacitracin ointment (COMPLETED) Topical, ONCE, On 03/06/21 at 1700, For 1 dose, Apply to foot laceration, left 1715 (Due)1716 (Give n - Provider: Camille Sánchez RN) cephALEXin (KEFLEX) capsule 500 mg (COMPLETED) 500 mg, Oral, ONCE, On 03/06/21 at 1700, For 1 dose 1712 (Given - Provid er: Camille Sánchez RN) ibuprofen (ADVIL;MOTRIN) tablet 600 mg (COMPLETED) 600 mg, Oral, ONCE, On 03/06/21 at 1700, For 1 dose, Do not crush or chew. 1712 (Given - Provid er: Camille Sánchez RN) lidocaine 1 % injection 10 mL (COMPLETED) 10 mL, Intradermal, ONCE, On 03/06/21 at 1330, For 1 dose, To bedside 1716 (Given - Provid er: Camille Sánchez, REX) Goals (unrecognized section and content) Goals may be documented in a n alternate sectionGoals may be documented in an alternate sectionGoals may be documented in an alternate sectionGoals may be documented in an alternate sectionGoals may be documented in an alternate section Care Teams (unrecognized sec tion and content) Team Status: Active Member Role Status Dates Dr. Salud Watson DO Primary Care Provider Active Team Status: Inactive Member Role Status Dates Dr. Salud Watson DO Primary Care Provider Active Start: December 21, 2024 End: December 22, 2024 Dr. Michael Oakley DO Attending Provider Active Start: December 21, 2024 End: December 22, 2024 Dr. Michael Oakley DO Emergency Provider Active Start: December 21, 2024 End: December 22, 2024 Team Status: Inactive Member Role Status Dates Dr. Salud Watson DO Primary Care Provider Active Start: December 25, 2024 End: December 25, 2024 Dr. Salud Watson DO Attending Provider Active Start: December 25, 2024 End: December 25, 2024 Dr. Salud Watson DO Referring Provider Active Start: December 25, 2024 End: December 25, 2024 Team Status: Active Member Role Status Dates Dr. Salud Watson DO Primary Care Provider Active Start: January 06, 2025 Shreya Mcmillan Attending Provider Active Start: January 06, 2025 Team Status: Inactive Member Role Status Dates Dr. Salud Watson DO Primary Care Provider Active Start: January 08, 2025 End: January 08, 2025 Dr. Salud Watson DO Referring Provider Active Start: January 08, 2025 End: January 08, 2025 Dr. Patrice Patel MD Attending Provider Active Start: January 08, 2025 End: January 08, 2025 Team Status: Active Member Role Status Dates Dr. Salud Watson DO Primary Care Provider Active Start: January 08, 2025 Dr. Patrice Patel MD Attending Provider Active Start: January 08, 2025 Dr. Patrice Patel MD Referring Provider Active Start: January 08, 2025 Team Status: Inactive Member Role Status Dates Dr. Salud Watson DO Primary Care Provider Active Start: January 14, 2025 End: January 15, 2025 Dr. José Miguel Darby DO Emergency Provider Active Start: January 14, 2025 End: January 15, 2025 Team Status: Inactive Member Role Status Dates Dr. Salud Watson DO Primary Care Provider Active Start: January 20, 2025 End: January 20, 2025 Dr. Salud Watson DO Referring Provider Active Start: January 20, 2025 End: January 20, 2025 Dr. Gabrielle Pérez MD Attending Provider Active Start: January 20, 2025 End: January 20, 2025 FOR RECORDS PERTAINING TO PATIENTS WHO ARE OR HAVE BEEN ENROLLED IN A CHEMICAL DEPENDENCY/SUBSTANCEABUSE PROGRAM, SOME INFORMATION MAY BE OMITTED. This clinical summary was aggregated from multiple sources. Caution should be exercised in using it in the provision of clinical care. This summary normalizes information from multiple sources, and as a consequence, information in this document may materially change the coding, format and clinical context of patient data. In addition, data may be omitted in some cases. CLINICAL DECISIONS SHOULD BE BASED ON THE PRIMARY CLINICAL RECORDS. [facility] [employer] [facility]. provides no warranty or guarantee of the accuracy or completeness of information in this document.
[2025-02-04 08:14] LABS: Cholesterol 225 mg/dL (<=200); High Density Lipoprotein 87 mg/dL; Low Density Lipoprotein Calc. 122 mg/dL; Triglycerides 77 mg/dL; Very Low Density Lipoprotein 15 mg/dL (5-40); cholesterol:hdl ratio screen 2.58
[2025-02-04 08:17] LABS: D-Dimer Quantitative (DVT/PE) 0.27 FEU/ug/m (0.27-0.49)
== END | disposition home or self-care (01) ==
LOC: LAB 07:09
PROVIDERS: Internal Medicine Cardiovascular Disease; PCP Family Medicine; Referring Provider Nurse Practitioner Family; Visit Provider Nurse Practitioner Family
DX: R00.2 Palpitations (principal); D73.5 Infarction of spleen
CPT/HCPCS: 36415; 80061; 85379

== ENCOUNTER → 2025-02-26 | Outpatient (CLI) | payer BC, SELFPAY ==
--- NOTE | 2025-02-26 07:41 | ECHOD_ITS ---
Reason For Study Reason For Study: PALPITATIONS Procedure This was a 2D Doppler, Color Flow transthoracic echocardiogram. Exam performed in department. Left Ventricle Normal size and thickness. The LV ejection fraction is 55 %. Normal diastololic function. Right Ventricle Normal right ventricle. Atria The left and right atria are normal. Mitral Valve Trivial mitral valve insufficiency. Tricuspid Valve Trivial tricuspid valve insufficiency. Unable to estimate RV systolic pressure due to insufficient tricuspid regurgitant envelope. Aortic Valve Trisinus/trileaflet aortic valve. Pulmonic Valve The pulmonic valve is not well visualized. Trivial pulmonic valve insufficiency. Great Vessels Normal sized aortic root. Pericardium/Pleural No pericardial effusion. MMode/2D Measurements & Calculations LVIDd: 5.4 cm IVSd: 0.81 cm Ao root diam: 3.1 cm LVIDs: 3.7 cm LVPWd: 0.81 cm RVDd: 4.0 cm FS: 31.7 % LAV(MOD-bp): 49.2 ml LVAd ap4: 37.7 cm2 LVAd ap2: 38.3 cm2 LAV(MOD-bp) Indexed: 23.1 ml/m2 LVLd ap4: 9.3 cm LVLd ap2: 9.2 cm LAV(MOD-sp2): 48.8 ml EDV(MOD-sp4): 129.0 ml EDV(MOD-sp2): 134.1 ml LAV(MOD-sp4): 48.8 ml EDV(sp4-el): 129.9 ml EDV(sp2-el): 135.7 ml LVAs ap4: 24.1 cm2 LVAs ap2: 22.4 cm2 LVLs ap4: 8.2 cm LVLs ap2: 7.9 cm ESV(MOD-sp4): 61.8 ml ESV(MOD-sp2): 53.5 ml ESV(sp4-el): 60.1 ml ESV(sp2-el): 53.8 ml EF(MOD-sp4): 52.1 % EF(MOD-sp2): 60.1 % EF(sp4-el): 53.8 % SV(MOD-sp4): 67.2 ml SV(MOD-sp2): 80.5 ml SV(sp4-el): 69.8 ml SI(MOD-sp4): 31.6 ml/m2 SI(MOD-sp2): 37.9 ml/m2 LA A4 area: 18.0 cm2 LA dimension(2D): 4.0 cm RA A4 area: 15.5 cm2 TAPSE: 2.5 cm Time Measurements MV dec time: 0.19 sec Doppler Measurements & Calculations MV E max devin: 92.0 cm/sec Lat Peak E' Devin: 13.7 cm/sec Med Peak E' Devin: 14.8 cm/sec MV A max devin: 48.1 cm/sec E/E' lat: 6.7 E/E' med: 6.2 MV E/A: 1.9 MV V2 max: 92.7 cm/sec MV P1/2t max devin: 92.7 cm/sec Ao V2 max: 117.9 cm/sec MV max P.4 mmHg MV P1/2t: 65.6 msec Ao max P.6 mmHg MV V2 mean: 53.2 cm/sec Ao V2 mean: 84.2 cm/sec MV mean P.3 mmHg MV dec slope: 414.1 cm/sec2 Ao mean P.2 mmHg MV V2 VTI: 25.5 cm MVA(P1/2t): 3.4 cm2 Ao V2 VTI: 25.5 cm AV (velocity ratio): 0.93 LV V1 max: 113.4 cm/sec PA V2 max: 110.3 cm/sec LV V1 max P.1 mmHg PA V2 mean: 80.3 cm/sec PI dec slope: 187.1 cm/sec2 LV V1 mean P.9 mmHg LV V1 mean: 79.8 cm/sec LV V1 VTI: 23.8 cm ECHO/Echo Complete Interpretation Summary The LV ejection fraction is 55 %. No major valvular abnormalities. Ordering Physician: Gabrielle Pérez Referring Physician: Joseluis Watson Performed By: Alida Sampson RDCS, RVT
== END | disposition home or self-care (01) ==
PROVIDERS: PCP Family Medicine; Referring Provider Internal Medicine Cardiovascular Disease; Visit Provider Internal Medicine Cardiovascular Disease
DX: R00.2 Palpitations (principal)
CPT/HCPCS: 93306

== ENCOUNTER 2025-06-28 09:01 | Emergency (ER) | payer BC, SELFPAY ==
[2025-06-28 09:02] VITALS: BP 125/85; PULSE 75; RESP 18; TEMP 36.6; O2SAT 100; BMI 25.7
--- OUTSIDE RECORDS SUMMARY | 2025-06-28 09:19 | XMS RPT_ITS | CCD ---
Author Organization [facility] Care Team Providers Care Recruitment Assistant Name Role Phone TONY ARIAS Unavailable Unavailable [...] Provider Dr. Gabrielle Pérez MD Attending Provider Dr. José Miguel Darby DO Attending Provider Dr. Gabrielle Pérez MD Referring Provider Corky Patel Attending Provider Corky Patel Referring Provider Dr. Gabrielle Pérez MD Other Provider Dr. Gabrielle Pérez MD Referring Provider Karon Duarte Attending Provider Dr. Salud Watson DO Primary Care Provider [phone] Dr. Salud Watson DO Referring Provider ShirleySalud núñez Primary Care Unavailable Beto, Gabrielle Attending Unavailable Beto, Gabrielle Referring Unavailable Shirley, Salud Primary Care Unavailable Beto, Gabrielle Attending Unavailable Beto, Gabrielle Referring Unavailable Shirley, Salud Primary Care Unavailable ShirleySalud núñez Attending Unavailable Shirley OLSSalud Referring Unavailable Shirley, Salud Primary Care Unavailable Beto, Gabrielle Referring Unavailable Beto, Gabrielle Attending Unavailable Shirley, Salud Primary Care Unavailable IsckarusPatrice Referring Unavailable Patrice Patel Attending Unavailable Shirley, Salud Primary Care Unavailable Karon Manley NP Attending Unavailable Shirley, Salud Primary Care Unavailable Shreya Mcmillan Attending Unavailable Shirley, Salud Primary Care Unavailable Beto, Gabrielle Attending Unavailable Shirley, Salud Primary Care Unavailable ShirleySalud Referring Unavailable Beto, Gabrielle Attending Unavailable Shirley, Salud Primary Care Unavailable Shirley, Salud Referring Unavailable Beto, Gabrielle Attending Unavailable Shirley, Salud Primary Care Unavailable Shirley, Salud Referring Unavailable IsckarusPatrice Attending Unavailable Shirley, Salud Primary Care Unavailable Beto, Gabrielle Referring Unavailable Beto, Gabrielle Attending Unavailable Shirley, Salud Primary Care Unavailable Beto, Gabrielle Consulting Unavailable Roof FILM WAXER, Corky H Referring Unavailable Roof FILM WAXER, Corky H Attending Unavailable Shirley, Salud Primary Care Unavailable ShirleySalud núñez Referring Unavailable ShirleySalud núñez Attending Unavailable Shirley, Salud Primary Care Unavailable Michael Oakley Attending Unavailable Shirley, Salud Primary Care Unavailable José Miguel Darby Attending Unavailable Allergies Allergy Classification Reported Allergen(s) Allergy Type Date of Onset Reaction(s) Facility Sulfamethoxazole / Trimethoprim (1 source) Sulfamethoxazole / Trimethoprim Drug Allergy 1 [facility] (8 sources) Sulfamethoxazole Drug Allergy 5 [facility] (8 sources) Trimethoprim Drug Allergy 5 [facility] (1 source) Sulfamethoxazole Drug Allergy 5 [facility] (1 source) Trimethoprim Drug Allergy [facility] Medications Current Medications Medication Drug Class(es) Dates Sig (Normalized) Sig (Original) Lactobacillus Combination No.9 (Adult 50 Plus Probiotic) 4 billion cell capsule (6 sources) Start: 01-08-2025 Lactobacillus Combination No.9 (Adult 50 Plus Probiotic) 4 billion cell capsule Active PO January 08, 2025 12:00am loratadine 10 mg oral capsule (1 source) take 1 capsule by mouth once daily loratadine (CLARITIN) 10 MG capsule Take 10 mg by mouth daily 0 Active Magnesium (6 sources) Start: 01-08-2025 take 1 tablet by mouth once daily Magnesium 200 mg tablet Active 200 mg PO daily January 08, 2025 12:00am Multivitamin tablet (6 sources) Start: 01-08-2025 Multivitamin tablet Active 1 {tbl} PO EVERY MORNING January 08, 2025 12:00am psyllium 400 mg oral capsule (6 sources) Start: 01-08-2025 Psyllium Husk (Daily Fiber) 0.4 gram capsule Active 0.4 g PO ONCE January 08, 2025 12:00am Completed/Discontinued Medications Medication Drug Class(es) Dates Sig (Normalized) Sig (Original) acetaminophen 325 mg / HYDROcodone bitartrate 5 mg oral tablet (7 sources) Opioid Agonist Start: 12-21-2024 End: 01-08-2025 Hydrocodone-Acetam inophen 5-325 mg tablet Discontinued 1 {tbl} PO EVERY 6 HOURS NEEDED as needed for Pain 10 3 0 December 21, 2024 January 08, 2025 10:07am Infarction of spleen Infarction of spleen apixaban 5 mg oral tablet (20 sources) Factor Xa Inhibitor Start: 12-22-2024 End: 05-05-2025 take 1 tablet by mouth twice daily Apixaban (Eliquis) 5 mg tablet Discontinued 5 mg PO TWICE A DAY January 08, 2025 10:06am May 05, 2025 2:10pm Start: 12-22-2024 End: 01-08-2025 take 2 tablets by mouth twice daily, then take 1 tablet by mouth twice daily Apixaban (Eliquis) 5 mg tablet Discontinued 10 mg PO TWICE A DAY 28 7 0 December 22, 2024 12:00am January 08, 2025 10:08am 10 mg twice a day for the first week. Then 5 mg twice a day. bacitracin zinc 0.5 unt/mg topical ointment (1 [...] 10 mL rivaroxaban 20 mg oral tablet (7 sources) Factor Xa Inhibitor Start: 12-21-2024 End: 01-08-2025 take 1 tablet by mouth twice daily at mealtime Rivaroxaban (Xarelto Dvt-Pe Treat 30d Start) 15 mg (42)- 20 mg (9) tablets,dose pack Discontinued 0 PO .COMPLEX 51 0 December 21, 2024 12:00am January 08, 2025 10:07am take one-15 mg tablet twice daily for 21 days, then one-20 mg tablet once daily; must take with meal/food triamcinolone acetonide 1 mg/ml topical lotion (7 sources) Corticosteroid Start: 12-21-2024 End: 01-08-2025 Triamcinolone Acetonide 0.1 % lotion Discontinued 1 NMA TOPICAL TWICE A DAY as needed for rash December 21, 2024 12:00am January 08, 2025 10:07am Problems Active Problems Problem Classification Problem Date Documented Da te Episodic/Chronic Cardiac dysrhythmias (1 source) Cardiac arrhythmia, unspecified; Translations: [Cardiac arrhythmia, unspecified] Onset: 02-26-2025 Chronic Cardiac dysrhythmias (6 sources) Palpitations; Translations: [Palpitations] Onset: 01-28-2025 01-20-2025 Episodic Essential hypertension (1 source) Essential hypertension; Translations: [Essential (primary) hypertension] Chronic Open wounds of extremities (1 source) Laceration of left foot; Translations: [Laceration without foreign body, left foot, initial encounter] Episodic Other gastrointestinal disorders (8 sources) History of irritable bowel syndrome; Translations: [Personal history of other diseases of the digestive system] 01-20-2025 Episodic Other hematologic conditions (16 sources) Splenic infarction; Translations: [Infarction of spleen] 12-30-2024 Episodic Other hematologic conditions (2 sources) Infarction of spleen; Translations: [Infarction of spleen] Onset: 01-20-2025 Episodic Residual codes; unclassified (8 sources) History of palpitations; Translations: [Personal history of other specified conditions] 01-20-2025 Episodic Unclassified (6 sources) for hematology Past or Other Problems Problem Classification Problem Date Documented Da te Episodic/Chronic Abdominal pain (9 sources) Abdominal pain; Translations: [Unspecified abdominal pain] Onset: 12-26-2024 12-30-2024 Episodic Other gastrointestinal disorders (1 source) Personal history of other diseases of the digestive system; Translations: [Personal history of other diseases of the digestive system] Onset: 01-20-2025 Episodic Residual codes; unclassified (2 sources) Personal history of other specified conditions; Translations: [Personal history of other specified conditions] Onset: 01-20-2025 Episodic Unclassified (4 sources) Other general symptoms and signs; Translations: [OTHER GENERAL SYMPTOMS AND SIGNS] Onset: 09-08-2017 Episodic Results Test Name Value Interpretation Reference Range Facility Cardiology Visit Reporton Cardiology Visit Report [facility] [place] [address] [facility] [place] [address] OFFICE VISIT Date of Service: 05/05/25 MR#: [id number] Acct: [id number] Name: JOSE M CORRAL Rep #: [id number] : 1995 Provider: Dr. Gabrielle Pérez MD Age/Sex: 29/M [place] [facility] [place] Status: Signed HPI HPI History of Present Illness Details: This gentleman with history of splenic infarct is here for follow-up visit. He has had an echocardiogram done which was normal. Cardiac event monitoring was also unremarkable. Denies any complaints today. Per patient, his apixaban was recently discontinued by his primary care physician. Per him, his hypercoagulable workup has all been negative. Intake Vital Signs 01/20/25 08:06 05/05/25 14:09 Height 6 ft 6 ft Weight: 193 lb BMI 26.2 BP 121/76 H Blood Pressure Location Lt brachial Position Sitting Respiration 16 Pulse 77 Pulse Source Monitor Intake Visit Reasons: 3 M Care Information Associate Required: No Accompanied by: Self Allergies sulfamethoxazole (From Bactrim) Allergy (Verified 05/05/25 14:11) Hives trimethoprim (From Bactrim) Allergy (Verified 05/05/25 14:11) Hives Medications ???Medication ???Instructions ???Recorded ???Confirmed ???Type lactobacillus combination no.9 4 PO 01/08/25 04/14/25 History billion cell capsule (Adult 50 Plus Probiotic) magnesium 200 mg tablet 200 mg PO QDAY 01/08/25 04/14/25 H istory multivitamin 1 tab PO QAM 01/08/25 04/14/25 His tory psyllium husk 0.4 gram capsule 0.4 g PO ONCE 01/08/25 04/14/25 Hi story (Daily Fiber) Ejection fraction %: 55 Have you fallen in the past year?: Yes (r/t rogers) [facility] Medical History Palpitations Splenic infarct Normal colonoscopy GERD (gastroesophageal reflux disease) IBS (irritable bowel syndrome) Migraines Seasonal allergies Surgical History History of colonoscopy Hx of [...] arts training frequency: daily ROS Const Const: Negative for fatigue or weakness Eyes Eyes: Negative for change in vision ENT ENT: Negative for dizziness or balance problems Cardio Chest Pain: No Palpitations: No Edema: None Resp Respiratory: Negative for SOB with activity, SOB at rest or SOB orthopnea SOB lying down GI GI: Positive for other (pain in left side below ribs at times); Negative nausea or heartburn Musc Musc: Negative for balance problems Neuro Neuro: Negative for dizziness, lightheadedness, near syncope, syncope or weakness Endo Endo: [...] Edema: None: Bilateral Supplemental Info Supplemental Information Labs: HDL Cholesterol 87 mg/dL (40-) Cholesterol 225 mg/dL (<=200) H Triglycerides 77 mg/dL (-199) Diagnostics: Electrocardiogram Echocardiogram Pulmonary: No Data to Display Past Visits: Cardiology Visit 05/05/25 Assessment and Plan Assessment and Plan (1) Splenic infarct: Status: Chronic Plan: Negative cardiac workup with echocardiogram. 14-day event monitoring unremarkable. (2) History of palpitations: Status: Chronic Plan: Resolved. Unremarkable 14-day event monitor. (3) History of IBS: Status: Chronic Plan: As per internal medicine. Plan Details Follow Up: PRN Coding Level of Care Code Off vis,new,level 3 Diagnoses Splenic infarct D73.5 History of palpitations Z87.898 History of IBS Z87.19 Coding Level of Care Code Off vis,new,level 3 Diagnoses Splenic infarct D73.5 History of palpitations Z87.898 History of IBS Z87.19 Clinical Quality Measures Falls Risk Screening/Assistive Devices Hav (more content not included)... Normal [facility] Echo Completeon 02-26-2025 Echo Complete [facility] [address] [place] [address] Echo Complete 02/26/25 0744 MR#: [id number] Acct: [id number] Name: JOSE M CORRAL Rep #: [id number] : 1995 29 From: Gabrielle Pérez MD Attending Dr: Dr. Gabrielle Pérez MD Status: REG CLI Ordering Dr: Gabrielle Pérez MD Date: 02/26/25 Location: [facility] Sex: M C Admitted: Reason For Study Reason For Study: PALPITATIONS Procedure This was a 2D Doppler, Color Flow transthoracic echocardiogram. Exam performed in department. Left Ventricle Normal size and thickness. The LV ejection fraction is 55 %. Normal diastololic function. Right Ventricle Normal right ventricle. Atria The left and right atria are normal. Mitral Valve Trivial mitral valve insufficiency. Tricuspid Valve Trivial tricuspid valve insufficiency. Unable to estimate RV systolic pressure due to insufficient tricuspid regurgitant envelope. Aortic Valve Trisinus/trileaflet aortic valve. Pulmonic Valve The pulmonic valve is not well visualized. Trivial pulmonic valve insufficiency. Great Vessels Normal sized aortic root. Pericardium/Pleural No pericardial effusion. MMode/2D Measurements Calculations LVIDd: 5.4 cm IVSd: 0.81 cm Ao root diam: 3.1 cm LVIDs: 3.7 cm LVPWd: 0.81 cm RVDd: 4.0 cm FS: 31.7 % LAV(MOD-bp): 49.2 ml LVAd ap4: 37.7 cm2 LVAd ap2: 38.3 cm2 LAV(MOD-bp) Indexed: 23.1 ml/m2 LVLd ap4: 9.3 cm LVLd ap2: 9.2 cm LAV(MOD-sp2): 48.8 ml EDV(MOD-sp4): 129.0 ml EDV(MOD-sp2): 134.1 ml LAV(MOD-sp4): 48.8 ml EDV(sp4-el): 129.9 ml EDV(sp2-el): 135.7 ml LVAs ap4: 24.1 cm2 LVAs ap2: 22.4 cm2 LVLs ap4: 8.2 cm LVLs ap2: 7.9 cm ESV(MOD-sp4): 61.8 ml ESV(MOD-sp2): 53.5 ml ESV(sp4-el): 60.1 ml ESV(sp2-el): 53.8 ml EF(MOD-sp4): 52.1 % EF(MOD-sp2): 60.1 % EF(sp4-el): 53.8 % SV(MOD-sp4): 67.2 ml SV(MOD-sp2): 80.5 ml SV(sp4-el): 69.8 ml SI(MOD-sp4): 31.6 ml/m2 SI(MOD-sp2): 37.9 ml/m2 LA A4 area: 18.0 cm2 LA dimension(2D): 4.0 cm RA A4 area: 15.5 cm2 TAPSE: 2.5 cm Time Measurements MV dec time: 0.19 sec Doppler Measurements Calculations MV E max musa: 92.0 cm/sec Lat Peak E' Musa: 13.7 cm/sec Med Peak E' Musa: 14.8 cm/sec MV A max musa: 48.1 cm/sec E/E' lat: 6.7 E/E' med: 6.2 MV E/A: 1.9 MV V2 max: 92.7 cm/sec MV P1/2t max musa: 92.7 cm/sec Ao V2 max: 117.9 cm/sec MV max P.4 mmHg MV P1/2t: 65.6 msec Ao max P.6 mmHg MV V2 mean: 53.2 cm/sec Ao V2 mean: 84.2 cm/sec MV mean P.3 mmHg MV dec slope: 414.1 cm/sec2 Ao mean P.2 mmHg MV V2 VTI: 25.5 cm MVA(P1/2t): 3.4 cm2 Ao V2 VTI: 25.5 cm AV (velocity ratio): 0.93 LV V1 max: 113.4 cm/sec PA V2 max: 110.3 cm/sec LV V1 max P.1 mmHg PA V2 mean: 80.3 cm/sec PI dec slope: 187.1 cm/sec2 LV V1 mean P.9 mmHg LV V1 mean: 79.8 cm/sec LV V1 VTI: 23.8 cm ECHO/Echo Complete Interpretation Summary The LV ejection fraction is 55 %. No major valvular abnormalities. ___ Ordering Physician: Gabrielle Pérez Referring Physician: Salud Watson Performed By: Alida Sampson, RDCS, RVT 02/26/25924 Date Gabrielle Pérez MD CC: Dr. Gabrielle Pérez MD; Dr. Salud Watson DO Date Dictated: 02/26/25743 Date Transcribed: 02/26/25924 Cook Fry: Signed Normal [facility] Echocardiogram study reportO rdered By: Gabrielle Pérez on 02-26-2025 Study report [facility] Services [address] [facility] [place] [address] Echo Complete 02/26/25743 MR#: [id number] Acct: [id number] Name: JOSE M CORRAL Rep #:[id number] : 1995 29 From: Gabrielle Pérez MD Attending Dr: Dr. Gabrielle Pérez MD Status: REG CLI Ordering Dr: Gabrielle Pérez MD Date: Location: [facility] Sex: M C Admitted: Reason For Study Reason For Study: PALPITATIONS Procedure This was a 2D Doppler, Color Flow transthoracic echocardiogram. Exam performed in department. Left Ventricle Normal size and thickness. The LV ejection fraction is 55 %. Normal diastololic function. Right Ventricle Normal right ventricle. Atria The left and right atria are normal. Mitral Valve Trivial mitral valve insufficiency. Tricuspid Valve Trivial tricuspid valve insufficiency. Unable to estimate RV systolic pressure due to insufficient tricuspid regurgitant envelope. Aortic Valve Trisinus/trileaflet aortic valve. Pulmonic Valve The pulmonic valve is not well visualized. Trivial pulmonic valve insufficiency. Great Vessels Normal sized aortic root. Pericardium/Pleural No pericardial effusion. MMode/2D Measurements & Calculations LVIDd: 5.4 cm IVSd: 0.81 cm Ao root diam: 3.1 cm LVIDs: 3.7 cm LVPWd: 0.81 cm RVDd: 4.0 cm FS: 31.7 % LAV(MOD-bp): 49.2 ml LVAd ap4: 37.7 cm2 LVAd ap2: 38.3 cm2 LAV(MOD-bp) Indexed: 23.1 ml/m2 LVLd ap4: 9.3 cm LVLd ap2: 9.2 cm LAV(MOD-sp2): 48.8 ml EDV(MOD-sp4): 129.0 ml EDV(MOD-sp2): 134.1 ml LAV(MOD-sp4): 48.8 ml EDV(sp4-el): 129.9 ml EDV(sp2-el): 135.7 ml LVAs ap4: 24.1 cm2 LVAs ap2: 22.4 cm2 LVLs ap4: 8.2 cm LVLs ap2: 7.9 cm ESV(MOD-sp4): 61.8 ml ESV(MOD-sp2): 53.5 ml ESV(sp4-el): 60.1 ml ESV(sp2-el): 53.8 ml EF(MOD-sp4): 52.1 % EF(MOD-sp2): 60.1 % EF(sp4-el): 53.8 % SV(MOD-sp4): 67.2 ml SV(MOD-sp2): 80.5 ml SV(sp4-el): 69.8 ml SI(MOD-sp4): 31.6 ml/m2 SI(MOD-sp2): 37.9 ml/m2 LA A4 area: 18.0 cm2 LA dimension(2D): 4.0 cm RA A4 area: 15.5 cm2 TAPSE: 2.5 cm Time Measurements MV dec time: 0.19 sec Doppler Measurements & Calculations MV E max musa: 92.0 cm/sec Lat Peak E' Musa: 13.7 cm/sec Med Peak E' Musa: 14.8 cm/sec MV A max musa: 48.1 cm/sec E/E' lat: 6.7 E/E' med: 6.2 MV E/A: 1.9 MV V2 max: 92.7 cm/sec MV P1/2t max musa: 92.7 cm/sec Ao V2 max: 117.9 cm/sec MV max P.4 mmHg MV P1/2t: 65.6 msec Ao max P.6 mmHg MV V2 mean: 53.2 cm/sec Ao V2 mean: 84.2 cm/sec MV mean P.3 mmHg MV dec slope: 414.1 cm/sec2 Ao mean P.2 mmHg MV V2 VTI: 25.5 cm MVA(P1/2t): 3.4 cm2 Ao V2 VTI: 25.5 cm AV (velocity ratio): 0.93 LV V1 max: 113.4 cm/sec PA V2 max: 110.3 cm/sec LV V1 max P.1 mmHg PA V2 mean: 80.3 cm/sec PI dec slope: 187.1 cm/sec2 LV V1 mean P.9 mmHg LV V1 mean: 79.8 cm/sec LV V1 VTI: 23.8 cm ECHO/Echo Complete Interpretation Summary The LV ejection fraction is 55 %. No major valvular abnormalities. ___ Ordering Physician: Gabrielle Pérez Referring Physician: Salud Watson Performed By: Alida Sampson, EVELYNCS, RVT 02/26/25924 Date _ Gabrielle Pérez MD CC: Dr. Gabrielle Pérez MD; Dr. Salud Watson, DO ~ Date Dictated: 02/26/25743 Date Transcribed: 02/26/25924 Cook Fry: Signed [facility] Work Phone: Calculated very low density lipoprotein (VLDL) cholesterol measurementOrdered By: Gabrielle Pérez on 02-04-2025 Calculated very low density lipoprotein (VLDL) cholesterol measurement 15 mg/dL 5-40 [facility] D-Dimer Quantitative (DVT/PE )on 02-04-2025 D-DIMER QUANT 0.27 FEU/ug/m Normal 0.27-0.49 [facility] Comment on above: Result Comment: NORM AL D-Dimer level (<0.50) indicates no DVT or PE. Performed By: #### L 300.8000 #### [facility] [address] [place], [place], [id number] LDL calc ser/plasOrdered By: Gabrielle Pérez on 02-04-2025 Cholesterol in LDL [Mass/Vol] 122 mg/dL [facility] Comment on above: Pafmtcoglr=830-903 m g/dL & Higher Sptu=048 mg/dL or greater Lipid Profileon 02-04-2025 CHOL:HDL 2.58 Normal [facility] Comment on above: Performed By: #### L 500.4100 #### [facility] [address] [place], [place], [id number] Cholesterol [Mass/Vol] 225 mg/dL High <=200 [facility] Comment on above: Result Comment: Chol esterol level, Desirable <200 mg/dL Borderline high cholesterol 200-239 mg/dL High cholesterol >=240 mg/dL Recommendations of the NCEP Adult Treatment Panel for the following risk-cutoff thresholds for the [place] population. Performed By: #### L 500.4100 #### [facility] [address] [place], [address] Cholesterol in HDL [Mass/Vol] 87 mg/dL Normal [facility] Comment on above: Result Comment: Ya onal Cholesterol Education Program (NCEP) guidelines: <40 mg/dL: Low HDL-cholesterol (major risk factor for CHD) >= 60 mg/dL: High HDL-cholesterol (negative risk factor for CHD) HDL-cholesterol is affected by a number of factors, e.g. smoking, exercise, hormones, sex and age. Performed By: #### L 500.4100 #### [facility] [address] [place], [address] Cholesterol in LDL [Mass/Vol] 122 mg/dL Normal [facility] Comment on above: Result Comment: Bord qbqhgg=872-484 mg/dL Higher Wgsy=635 mg/dL or greater Performed By: #### L 500.4100 #### [facility] [address] [place], [address] Cholesterol in VLDL [Mass/Vol] 15 mg/dL Normal 5-40 [facility] Comment on above: Performed By: #### L 500.4100 #### [facility] [address] [place], [address] Triglyceride [Mass/Vol] 77 mg/dL Normal [facility] Comment on above: Result Comment: The drugs N-Acetylcysteine and Metamizole may falsely depress this assay. Normal range: <150 mg/dL Borderline High: 150-199 mg/dL High: 200-499 mg/dL Very High: >500 mg/dL Performed By: #### L 500.4100 #### [facility] [address] [place], [address] Screening total cholesterol/ high density lipoprotein (HDL) cholesterol ratioOrdered By: Gabrielle Pérez on 02-04-2025 Cholesterol.total/Choles terol in HDL [Mass ratio] 2.58 {ratio} [facility] Serum or plasma cholesterol in HDL measurement (mass/volume)Ordered By: Gabrielle Pérez on 02-04-2025 Cholesterol in HDL [Mass/Vol] 87 mg/dL >40 [facility] Comment on above: National Cholesterol Education Program (NCEP) guidelines:<40 mg/dL: Low HDL-cholesterol (major risk factor for CHD)>= 60 mg/dL: High HDL-cholesterol (negative risk factor for CHD)HDL-cholesterol is affected by a number of factors, e.g. smoking, exercise, hormones, sex and age. Serum or plasma cholesterol measurement (mass/volume)Ordered By: Gabrielle Pérez on 02-04-2025 Cholesterol [Mass/Vol] 225 mg/dL High <201 [facility] Comment on above: Cholesterol level, D esirable <200 mg/dLBorderline high cholesterol 200-239 mg/dLHigh cholesterol >=240 mg/dLRecommendations of the NCEP Adult Treatment Panel for the following risk-cutoff thresholds for the [place] population. Triglycerides measurementOrd ered By: Gabrielle Pérez on 02-04-2025 Triglyceride [Mass/Vol] 77 mg/dL <199 [facility] Comment on above: The drugs N-Acetylcy steine and Metamizole may falsely depress this assay. Normal range: <150 mg/dLBorderline High: 150-199 mg/dLHigh: 200-499 mg/dLVery High: >500 mg/dL L3410.9992on 01-22-2025 [facility] Misc. COMMENT Normal . [facility] Comment on above: Order Comment: [id number] 0ANTIPHOSPHOLIPID SYNDROME Result Comment: Test Ordered: [id number] Antiphospholipid Syndrome Comp Specimen Comment: A courtesy copy of this report has been sent to [phone] APTT 30.1 sec UY Reference Range: . This test has not been validated for monitoring unfractionated heparin therapy. aPTT-based therapeutic ranges for unfractionated heparin therapy have not been established. Consider ordering Heparin anti-Xa (unfractionated). Reference Range: 18 years and older: 22.9 - 30.2 APTT 1:1 FILM WAXER sec UY Reference Range: . Testing Not Indicated This test was developed and its performance characteristics determined by [facility]. It has not been cleared or approved by the [place] Food and Drug Administration. APTT 1:1 Saline sec UY Reference Range: . Testing Not Indicated This test was developed and its performance characteristics determined by [facility]. It has not been cleared or approved [...] developed and its performance characteristics determined by [facility]. It has not been cleared or approved [...] repeat testing may be indicated. Please contact [facility] if further clarification is needed. Performed at: [id number] [id number] [facility] [address] [id number] Vehicle Check In Clerk: Anhtony Contreras MD, Phone: [phone] Performed at: [facility] [id number] Vehicle Check In Clerk: Sudhir Gonzalez PhD, Phone: [phone] Performed By: #### L 501.6150, L5003400, L500.2500, L100.010 #### [facility] [address] [place], [address] Cardiology Visit Reporton Cardiology Visit Report [facility] [address] [place] [address] OFFICE VISIT Date of Service: 01/20/25 MR#: [id number] Acct: [id number] Name: JOSE M CORRAL Rep #: [id number] : 1995 Provider: Dr. Gabrielle Pérez MD Age/Sex: 29/M Location: [facility] Status: Signed HPI HPI History of Present [...] heart disease. 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 At that [...] Source NIBP Intake Visit Reasons: SPLENIC INFRACTION Care Information Associate Required: No Accompanied by: Is patient in [...] Info Supplem (more content not included)... Normal [facility] Urinalysis, Completeon 01-15 EPI,SQUAMOUS 0-5 SEEN Normal 0-5 [facility] Comment on above: Order Comment: CLEAN CATCH Performed By: #### L 501.2450, L500.3400, L500.2500, L100.0100 #### [facility] [address] [place], [place], [id number] 12 Lead EKGon 01-14-2025 12 Lead EKG [facility] Cardiovascular Services [address] [place] [address] 12 Lead EKG 01/14/25 2318 MR#: [id number] Acct: [id number] Name: JOSE M CORRAL Rep #: [id number] : 1995 From: Jose Bowling MD Attending Dr: Status: [...] Borderline ECG Confirmed by JOSE BOWLING ([id number]), news editor DANYEL MONTGOMERY ([id number]) on 01/20/2025 8:10:14 AM Referred By: Confirmed By: JOSE BOWLING 01/20/25 0810 Date Jose Bowling MD CC: Dr. Salud Watson DO; Dr. José Miguel Darby DO Signed Normal [facility] Absolute lymphocyte countOrd ered By: José Miguel Darby on 01-14-2025 Lymphocytes Auto (Unsp spec) [#/Vol] 2.21 10*3/uL 0.83-4.51 [facility] Absolute neutrophil countOrd ered By: José Miguel Darby on 01-14-2025 Neutrophils (Bld) [#/Vol] 5.4 10*3/uL 2.0-7.7 [facility] Anion gap in Serum or Plasma Ordered By: José Miguel Darby on 01-14-2025 Anion gap [Moles/Vol] 13 mmol/L 5-15 [facility] Automated lymphocyte count a s percentage of total leukocytesOrdered By: José Miguel Darby on 01-14-2025 Lymphocytes/100 WBC Auto (Unsp spec) 25.5 % 19-41 [facility] BUN/creatinine ratioOrdered By: José Miguel Darby on 01-14-2025 Urea nitrogen/Creatinine [Mass ratio] 25.1 mg/mg High 10-20 [facility] Basophil percentageOrdered B y: José Miguel Santiagos on 01-14-2025 Basophils/100 WBC (Bld) 0.7 % 0-1 [facility] Bilirubin Test strip Ql (U)O rdered By: José Miguel Darby on 01-14-2025 Bilirubin Ql (U) Negative Negative [facility] Bilirubin, totalOrdered By: José Miguel Santiagos on 01-14-2025 Bilirubin [Mass/Vol] 0.39 mg/dL 0.00-1.30 [facility] CBC W/Diff, Automatedon 12-20 Absolute Lymph 2.21 X10 3/uL Normal 0.83-4.51 [facility] Comment on above: Performed By: #### L 100.0100 #### [facility] [address] [place], [address] Absolute Neut 5.4 X10 3/uL Normal 2.0-7.7 [facility] Comment on above: Performed By: #### L 100.0100 #### [facility] [address] [place], [address] Basophils/100 WBC (Bld) 0.7 % Normal 0-1 [facility] Comment on above: Performed By: #### L 100.0100 #### [facility] [address] [place], [address] Eosinophils/100 WBC (Bld) 3.6 % Normal 0-5 [facility] Comment on above: Performed By: #### L 100.0100 #### [facility] [address] [place], [address] Erythrocyte distribution width (RBC) [Ratio] 13.6 % Normal 11.6-14.6 [facility] Comment on above: Performed By: #### L 100.0100 #### [facility] [address] [place], [address] Hematocrit (Bld) [Volume fraction] 46.1 % Normal 40-54 [facility] Comment on above: Performed By: #### L 100.0100 #### [facility] [address] [place], [address] Hemoglobin (Bld) [Mass/Vol] 16.3 g/dL Normal 13.0-16.5 [facility] Comment on above: Performed By: #### L 100.0100 #### [facility] [address] [place], [address] IG% 0.300 Normal 0.0-0.9 [facility] Comment on above: Result Comment: IG% - Immature Granulocytes (promyelocytes, myelocytes and metamyelocytes) > 1% indicates that a LEFT SHIFT is Present. Performed By: #### L 100.0100 #### [facility] [address] [place], [address] Lymphocytes/100 WBC (Bld) 25.5 % Normal 19-41 [facility] Comment on above: Performed By: #### L 100.0100 #### [facility] [address] [place], [address] MCH (RBC) [Entitic mass] 29.0 pg Normal 27.0-32.0 [facility] Comment on above: Performed By: #### L 100.0100 #### [facility] [address] [place], [address] MCHC (RBC) [Mass/Vol] 35.4 g/dL Normal 32-36 [facility] Comment on above: Performed By: #### L 100.0100 #### [facility] [address] [place], [address] MCV (RBC) [Entitic vol] 81.9 fL Normal 80-94 [facility] Comment on above: Performed By: #### L 100.0100 #### [facility] [address] [place], [address] Monocytes/100 WBC (Bld) 7.2 % Normal 0-10 [facility] Comment on above: Performed By: #### L 100.0100 #### [facility] [address] [place], [address] Neutrophils/100 WBC (Bld) 62.7 % Normal 47-70 [facility] Comment on above: Performed By: #### L 100.0100 #### [facility] [address] [place], [address] Nucleated RBC (Bld) [#/Vol] 0 10*3/uL Normal 0-5 [facility] Comment on above: Performed By: #### L 100.0100 #### [facility] [address] [place], [address] Platelet mean volume (Bld) [Entitic vol] 9.0 fL Normal 6.2-12.0 [facility] Comment on above: Performed By: #### L 100.0100 #### [facility] [address] [place], [address] Platelets (Bld) [#/Vol] 337 10*3/uL Normal 150-450 [facility] Comment on above: Performed By: #### L 100.0100 #### [facility] [address] [place], [address] RBC (Bld) [#/Vol] 5.63 10*6/uL Normal 4.6-6.2 [facility] Comment on above: Performed By: #### L 100.0100 #### [facility] [address] [place], [address] RDW SD 39.9 fl Normal 35.1-43.9 [facility] Comment on above: Performed By: #### L 100.0100 #### [facility] [address] [place], [address] WBC (Bld) [#/Vol] 8.7 10*3/uL Normal 4.4-11.[address] [facility] Comment on above: Performed By: #### L 100.0100 #### [facility] [address] [place], [address] CTA Abd/Pelvis W/WO Contrast on 01-14-2025 CTA Abd/Pelvis W/WO Contrast [facility] Imaging Services [address] [place], [place] [address] CTA Abd/Pelvis W/WO Contrast MR#: [id number] Acct: [id number] Name: JOSE M CORRAL Rep #: [id number] : 1995 M 29 From: Kel Dyer DO PCP: Dr. Salud Watson, Status: REG ER Study: CTA Abd/Pelvis W/WO Contrast Date of Exam: Exam# [id number] Ordering Dr: José Miguel Darby DO PROCEDURE: [...] Watson DO; Dr. José Miguel Darby DO Cook Fry: Signed Normal [facility] Carbon dioxide, total [Moles /volume] in Central venous bloodOrdered By: José Miguel Darby on 01-14-2025 CO2 [Moles/Vol] 24.7 mmol/L 21.0-32.0 [facility] Chloride assayOrdered By: Anabel Darby on 01-14-2025 Chloride [Moles/Vol] 101 mmol/L 98-108 [facility] Comprehensive Metabolic Prof ilon 01-14-2025 Albumin [Mass/Vol] 4.8 g/dL Normal 3.5-5.[address] [facility] Comment on above: Performed By: #### L 501.2450, L500.3400, L500.2500, L100.0100 #### [facility] [address] [place], [address] Albumin/Globulin [Mass ratio] 1.9 {ratio} Normal 0.9-2.4 [facility] Comment on above: Performed By: #### L 501.2450, L500.3400, L500.2500, L100.0100 #### [facility] [address] [place], [address] ALK PHOS 37 U/L Low 40-129 [facility] Comment on above: Performed By: #### L 501.2450, L500.3400, L500.2500, L100.0100 #### [facility] [address] [place], [address] ALT [Catalytic activity/Vol] 41 U/L Normal <=46 [facility] Comment on above: Performed By: #### L 501.2450, L500.3400, L500.2500, L100.0100 #### [facility] [address] [place], [address] AST [Catalytic activity/Vol] 28 U/L Normal <=37 [facility] Comment on above: Performed By: #### L 501.2450, L500.3400, L500.2500, L100.0100 #### [facility] [address] [place], [address] Bilirubin [Mass/Vol] 0.39 mg/dL Normal 0.00-1.30 [facility] Comment on above: Performed By: #### L 501.2450, L500.3400, L500.2500, L100.0100 #### [facility] [address] [place], [address] BUN/CRE 25.1 RATIO High 10-20 [facility] Comment on above: Performed By: #### L 501.2450, L500.3400, L500.2500, L100.0100 #### [facility] [address] [place], [address] Calcium [Mass/Vol] 9.5 mg/dL Normal 7.6-11.[address] [facility] Comment on above: Performed By: #### L 501.2450, L500.3400, L500.2500, L100.0100 #### [facility] [address] [place], [address] Chloride [Moles/Vol] 101 mmol/L Normal 98-108 [facility] Comment on above: Performed By: #### L 501.2450, L500.3400, L500.2500, L100.0100 #### [facility] [address] [place], [address] CO2 [Moles/Vol] 24.7 mmol/L Normal 21.0-32.0 [facility] Comment on above: Performed By: #### L 501.2450, L500.3400, L500.2500, L100.0100 #### [facility] [address] [place], [address] Creatinine [Mass/Vol] 1.13 mg/dL Normal 0.70-1.20 [facility] Comment on above: Performed By: #### L 501.2450, L500.3400, L500.2500, L100.0100 #### [facility] [address] [place], [address] ECRCL 107.78 ml/min Normal 50-250 [facility] Comment on above: Performed By: #### L 501.2450, L500.3400, L500.2500, L100.0100 #### [facility] [address] [place], [address] GAP 13 Normal 5-15 [facility] Comment on above: Performed By: #### L 501.2450, L500.3400, L500.2500, L100.0100 #### [facility] [address] [place], [address] GFR/1.73 sq M.predicted among non-blacks MDRD (S/P/Bld) [Vol rate/Area] 91 mL/min/{1.73_m2} Normal >60 [facility] Comment on above: Result Comment: mL/m in/1.73m2 CKD-EPI Creatinine Equation (2020) Performed By: #### L 501.2450, L500.3400, L500.2500, L100.0100 #### [facility] [address] [place], [address] Globulin (S) [Mass/Vol] 2.5 g/dL Normal 2.2-4.2 [facility] Comment on above: Performed By: #### L 501.2450, L500.3400, L500.2500, L100.0100 #### [facility] [address] [place], [address] Glucose [Mass/Vol] 90 mg/dL Normal 70-[address] [facility] Comment on above: Performed By: #### L 501.2450, L500.3400, L500.2500, L100.0100 #### [facility] [address] [place], [address] Potassium [Moles/Vol] 4.0 mmol/L Normal 3.3-5.1 [facility] Comment on above: Performed By: #### L 501.2450, L500.3400, L500.2500, L100.0100 #### [facility] [address] [place], [address] Sodium [Moles/Vol] 139 mmol/L Normal 133-[address] [facility] Comment on above: Performed By: #### L 501.2450, L500.3400, L500.2500, L100.0100 #### [facility] [address] [place], [address] T PROT 7.3 g/dL Normal 5.9-8.4 [facility] Comment on above: Performed By: #### L 501.2450, L500.3400, L500.2500, L100.0100 #### [facility] [address] [place], [address] Urea nitrogen [Mass/Vol] 28 mg/dL High 4-19 [facility] Comment on above: Performed By: #### L 501.2450, L500.3400, L500.2500, L100.0100 #### [facility] [address] [place], [address] Emergency Department Summary on 01-14-2025 Emergency Department Summary [facility] Medical Records Department [address] [place] [address] Emergency Department Summary 01/14/25 MR#: [id number] Acct: [id number] Name: JOSE M CORRAL Rep #: [id number] : 1995 29 From: José Miguel Darby [...] Oxygen Delivery Method Room Air [place] [facility] [place] Medical decision making narrative: HISTORY OF [...] positives: Abdominal/flank pain Pertinent negatives: As per [facility] PHYSICAL EXAM: Nursing triage notes reviewed, Vital signs reviewed Constitutional: please see [facility] HENT: MMM Eyes: Pupils equal round and [...] MEDICAL DECISION MAKING: Chief Complaint: please see HPI External records reviewed: Reviewed prior imaging studies: [...] mild subjectiv (more content not included)... Normal [facility] Eosinophil percentageOrdered By: José Miguel Darby on 01-14-2025 Eosinophils/100 WBC (Bld) 3.6 % 0-5 [facility] Erythrocyte distribution wid th ratioOrdered By: José Miguel Darby on 01-14-2025 Erythrocyte distribution width (RBC) [Ratio] 13.6 % 11.6-14.6 [facility] Erythrocyte distribution wid th standard deviationOrdered By: José Miguel Darby on 01-14-2025 Erythrocyte distribution width (RBC) [Ratio] 39.9 fl 35.1-43.9 [facility] Glomerular filtration rate ( GFR) estimation/1.73 sq m using serum, plasma, or whole bOrdered By: José Miguel Darby on 01-14-2025 GFR/1.73 sq M.predicted among non-blacks MDRD (S/P/Bld) [Vol rate/Area] 91 mL/min/{1.73_m2} >60 [facility] Comment on above: mL/min/1.73m2 CKD-EP I Creatinine Equation (2020) Hematocrit Auto (Bld) [Volum e fraction]Ordered By: José Miguel Darby on 01-14-2025 Hematocrit (Bld) [Volume fraction] 46.1 % 40-54 [facility] Hemoglobin measurementOrdere d By: José Miguel Darby on 01-14-2025 Hemoglobin (Bld) [Mass/Vol] 16.3 g/dL 13.0-16.5 [facility] Immature granulocytes/100 WB C Auto (Bld)Ordered By: José Miguel Darby on 01-14-2025 Immature granulocytes/100 WBC (Bld) 0.300 % 0.0-0.9 [facility] Comment on above: IG% - Immature Granu locytes (promyelocytes, myelocytes and metamyelocytes) > 1% indicates that a LEFT SHIFT is Present. Ketones Test strip Ql (U)Ord ered By: José Miguel Darby on 01-14-2025 Ketones Ql (U) Negative Negative [facility] - Chemistry and C hemistry - challengeOrdered By: José Miguel Darby on 01-14-2025 AST [Catalytic activity/Vol] 28 U/L <38 [facility] Lactic Acidon 01-14-2025 Lactate [Moles/Vol] 1.0 mmol/L Normal 0.0-2.0 [facility] Comment on above: Order Comment: Y Performed By: #### L 501.2450, L500.3400, L500.2500, L100.0100 #### [facility] [address] [place], [address] Lactic acid measurementOrder ed By: José Miguel Dabry on 01-14-2025 Lactate [Moles/Vol] 1.0 mmol/L 0.0-2.0 [facility] Lipaseon 01-14-2025 Lipase [Catalytic activity/Vol] 28 U/L Normal 13-75 [facility] Comment on above: Result Comment: Plea se note: LIPASE revised reference range effective 22. New Lipase methodology. Expected to produce lower values than the previous assay method. NEW Reference Range: 13 - 75 U/L Performed By: #### L 501.2450, L500.3400, L500.2500, L100.0100 #### [facility] [address] [place], [address] Lipase measurementOrdered By : José Miguel Darby on 01-14-2025 Lipase [Catalytic activity/Vol] 28 U/L 13-75 [facility] Comment on above: Please note:LIPASE r evised reference range effective 22. New Lipase methodology. Expected to produce lower values than the previous assay method. NEW Reference Range: 13 - 75 U/L MCV (mean corpuscular volume ) determinationOrdered By: José Miguel Darby on 01-14-2025 MCV (RBC) [Entitic vol] 81.9 fL 80-94 [facility] Mean corpuscular hemoglobin (MCH) determinationOrdered By: José Miguel Darby on 01-14-2025 MCH (RBC) [Entitic mass] 29.0 pg 27.0-32.0 [facility] Mean corpuscular hemoglobin concentration (MCHC) determinationOrdered By: José Miguel Darby on 01-14-2025 MCHC (RBC) [Mass/Vol] 35.4 g/dL 32-36 [facility] Mean platelet volume determi nationOrdered By: José Miguel Darby on 01-14-2025 Platelet mean volume (Bld) [Entitic vol] 9.0 fL 6.2-12.0 [facility] Microscopic analysis of urin e for red blood cells (RBC)Ordered By: José Miguel Darby on 01-14-2025 Microscopic analysis of urine for red blood cells (RBC) 0 SEEN /hpf 0-5 [facility] Monocyte percentageOrdered B y: José Miguel Darby on 01-14-2025 Monocytes/100 WBC (Bld) 7.2 % 0-10 [facility] Mucus LM Ql (Urine sed)Order ed By: José Miguel Darby on 01-14-2025 Mucus Ql (Urine sed) 0 SEEN /hpf [facility] Neutrophil percentageOrdered By: José Miguel Darby on 01-14-2025 Neutrophils/100 WBC (Bld) 62.7 % 47-70 [facility] Nitrite Test strip Ql (U)Ord ered By: José Miguel Darby on 01-14-2025 Nitrite Ql (U) Negative Negative [facility] Nucleated red blood cell per centageOrdered By: José Miguel Darby on 01-14-2025 Nucleated RBC/100 WBC (Bld) [Ratio] 0 % 0-5 [facility] Platelet countOrdered By: Anabel Darby on 01-14-2025 Platelets (Bld) [#/Vol] 337 10*3/uL 150-450 [facility] Potassium measurement (mass/ volume)Ordered By: José Miguel Darby on 01-14-2025 Potassium (Unsp spec) [Mass/Vol] 4.0 mmol/L 3.3-5.1 [facility] Protein Test strip Ql (U)Ord ered By: José Miguel Darby on 01-14-2025 Protein Ql (U) 15 mg/dl High Negative [facility] RBC Auto (Bld) [#/Vol]Ordere d By: José Miugel Darby on 01-14-2025 RBC (Bld) [#/Vol] 5.63 10*6/uL 4.6-6.2 [facility] Serum creatinine measurement (mass/volume)Ordered By: José Miguel Darby on 01-14-2025 Creatinine [Mass/Vol] 1.13 mg/dL 0.70-1.20 [facility] Serum globulin measurementOr dered By: José Miguel Darby on 01-14-2025 Globulin (S) [Mass/Vol] 2.5 g/dL 2.2-4.2 [facility] Serum glucose measurement (m ass/volume)Ordered By: José Miguel Darby on 01-14-2025 Glucose [Mass/Vol] 90 mg/dL 70-[address] [facility] Serum or plasma alanine real otransferase (ALT) measurementOrdered By: José Miguel Darby on 01-14-2025 ALT [Catalytic activity/Vol] 41 U/L <47 [facility] Serum or plasma albumin bimal urement (mass/volume)Ordered By: José Miguel Darby on 01-14-2025 Albumin [Mass/Vol] 4.8 g/dL 3.5-5.[address] [facility] Serum or plasma albumin/glob ulin mass ratioOrdered By: José Miguel Darby on 01-14-2025 Albumin/Globulin [Mass ratio] 1.9 {ratio} 0.9-2.4 [facility] Serum or plasma alkaline amado sphatase measurementOrdered By: José Miguel Darby on 01-14-2025 ALP [Catalytic activity/Vol] 37 U/L Low 40-129 [facility] Serum or plasma calcium bimal urement (mass/volume)Ordered By: Joés Miguel Darby on 01-14-2025 Calcium [Mass/Vol] 9.5 mg/dL 7.6-11.[address] [facility] Serum or plasma urea nitroge n measurement (mass/volume)Ordered By: José Miguel Darby on 01-14-2025 Urea nitrogen [Mass/Vol] 28 mg/dL High 4-19 [facility] Sodium levelOrdered By: Violeta Darby on 01-14-2025 Sodium [Moles/Vol] 139 mmol/L 133-[address] [facility] Squamous epithelial cells de tection in urine sediment by light microscopyOrdered By: José Miguel Wilner on 01-14-2025 Epithelial cells.squamous LM Ql (Urine sed) 0-5 SEEN /hpf 0-5 [facility] Total proteinOrdered By: Mario bonilla Wilner on 01-14-2025 Protein [Mass/Vol] 7.3 g/dL 5.9-8.[address] [facility] Urinalysis, Completeon 01-14 Clarity (U) Clear Normal Clear [facility] Comment on above: Order Comment: CLEAN CATCH Performed By: #### L 501.2450, L500.3400, L500.2500, L100.0100 #### [facility] [address] [place], [address] Color (U) Straw Normal Yellow [facility] Comment on above: Order Comment: CLEAN CATCH Performed By: #### L 501.2450, L500.3400, L500.2500, L100.0100 #### [facility] [address] [place], [address] BILIRUBIN URINE Negative Normal Negative [facility] Comment on above: Order Comment: CLEAN CATCH Performed By: #### L 501.2450, L500.3400, L500.2500, L100.0100 #### [facility] [address] [place], [address] GLUCOSE, UR Normal Normal Normal [facility] Comment on above: Order Comment: CLEAN CATCH Performed By: #### L 501.2450, L500.3400, L500.2500, L100.0100 #### [facility] [address] [place], [address] KETONE UR Negative Normal Negative [facility] Comment on above: Order Comment: CLEAN CATCH Performed By: #### L 501.2450, L500.3400, L500.2500, L100.0100 #### [facility] [address] [place], [address] LEUK ESTERASE Negative Normal Negative [facility] Comment on above: Order Comment: CLEAN CATCH Performed By: #### L 501.2450, L500.3400, L500.2500, L100.0100 #### [facility] [address] [place], [address] Nitrite Ql (U) Negative Normal Negative [facility] Comment on above: Order Comment: CLEAN CATCH Performed By: #### L 501.2450, L500.3400, L500.2500, L100.0100 #### [facility] [address] [place], [address] OCCULT BLOOD-UR Negative Normal Negative [facility] Comment on above: Order Comment: CLEAN CATCH Performed By: #### L 501.2450, L500.3400, L500.2500, L100.0100 #### [facility] [address] [place], [address] pH UR 6.5 Normal 5.0 - 8.0 [facility] Comment on above: Order Comment: CLEAN CATCH Performed By: #### L 501.2450, L500.3400, L500.2500, L100.0100 #### [facility] [address] [place], [address] PROT DIPSTX 15 mg/dl Abnormal Negative [facility] Comment on above: Order Comment: CLEAN CATCH Performed By: #### L 501.2450, L500.3400, L500.2500, L100.0100 #### [facility] [address] [place], [address] SP.GR. DIPSTX 1.010 Normal 1.002-1.03 0 [facility] Comment on above: Order Comment: CLEAN CATCH Performed By: #### L 501.2450, L500.3400, L500.2500, L100.0100 #### [facility] [address] [place], [address] UROBILI Normal Normal Normal [facility] Comment on above: Order Comment: CLEAN CATCH Performed By: #### L 501.2450, L500.3400, L500.2500, L100.0100 #### [facility] [address] [place], [address] BACTERIA 0 SEEN Normal None Seen [facility] Comment on above: Order Comment: CLEAN CATCH Performed By: #### L 501.2450, L500.3400, L500.2500, L100.0100 #### [facility] [address] [place], [address] Mucus Ql (Urine sed) 0 SEEN Normal [facility] Comment on above: Order Comment: CLEAN CATCH Performed By: #### L 501.2450, L500.3400, L500.2500, L100.0100 #### [facility] [address] [place], [address] RBC 0 SEEN Normal 0-5 [facility] Comment on above: Order Comment: CLEAN CATCH Performed By: #### L 501.2450, L500.3400, L500.2500, L100.0100 #### [facility] [address] [place], [address] WBC 0 SEEN Normal 0-5 [facility] Comment on above: Order Comment: CLEAN CATCH Performed By: #### L 501.2450, L500.3400, L500.2500, L100.0100 #### [facility] [address] [place], [address] Urine clarityOrdered By: Naty Darby on 01-14-2025 Clarity (U) Clear Clear [facility] Urine color determinationOrd ered By: José Miguel Darby on 01-14-2025 Color (U) Straw Yellow [facility] Urine glucose detectionOrder ed By: José Miguel Darby on 01-14-2025 Glucose Ql (U) Normal mg/dl Normal [facility] Urine leukocyte esterase det ection by dipstickOrdered By: José Miguel Darby on 01-14-2025 Leukocyte esterase Test strip Ql (U) Negative Negative [facility] Urine pHOrdered By: José Miguel warren on 01-14-2025 pH (U) 6.5 [pH] 5.0 - 8.0 [facility] Urine sediment bacteria coun t by microscopy (number/high power field)Ordered By: José Miguel Darby on 01-14-2025 Bacteria LM.HPF (Urine sed) [#/Area] 0 /[HPF] None Seen [facility] Urine specific gravity measu rementOrdered By: José Miguel Darby on 01-14-2025 Specific gravity (U) [Rel density] 1.010 1.002-1.03 0 [facility] Urine urobilinogen measureme ntOrdered By: José Miguel Darby on 01-14-2025 Urobilinogen Ql (U) Normal mg/dl Normal [facility] White blood cell (WBC) count Ordered By: José Miguel Darby on 01-14-2025 WBC (Bld) [#/Vol] 8.7 10*3/uL 4.4-11.[address] [facility] White blood cell countOrdere d By: José Miguel Darby on 01-14-2025 White blood cell count 0 SEEN /hpf 0-5 [facility] L3410.9992on 01-10-2025 [facility] Misc. COMMENT Normal . [facility] Comment on above: Order Comment: [id number] AT- PLASMA - BLUE TOP - FROZEN Result Comment: Test Ordered: [id number] Antithrombin Activity Antithrombin Activity 100 % Reference Range: 75-135 Direct Xa inhibitor anticoagulants such as rivaroxaban, apixaban and edoxaban will lead to spuriously elevated antithrombin activity levels possibly masking a deficiency. Performed at: - [address] [id number] Vehicle Check In Clerk: Arie Murillo MD, Phone: [phone] Performed at: [facility] [address] [id number] Vehicle Check In Clerk: Sudhir Gonzalez PhD, Phone: [phone] Performed By: #### L 3410.9992 #### [facility] [address] [place], [address] Oncology Visit Reporton 12-20 Oncology Visit Report [facility] [address] [place] [address] OFFICE VISIT Date of Service: 01/08/25 1005 MR#: [id number] Acct: [id number] Name: JOSE M CORRAL Rep #: [id number] : 1995 From: Patrice Patel MD Age/Sex: 29/M Location: [facility] Status: Signed with Addenda ADDENDUM by [...] Splenic infarct: Status: Acute Orders: Orders [facility] Misc. Today Medications: Discontinued rivaroxaban (Xarelto DVT-PE Treatment [...] Date Patrice Patel MD cc: Dr. Salud Watson DO * Signed HPI Subjective Date of [...] was an child but he outgrew that. [facility] Medical History (Updated 01/08/25 @ 10:42 by [...] details: martial arts training frequency: daily ROS Constitutional Constitutional: [...] Respiratory/Chest Respiratory/ (more content not included)... Normal [facility] ANCAon 12-31-2024 Atypical pANCA <1:20 Normal Neg:<1:20 [facility] Comment on above: Result Comment: The atypical pANCA pattern has been observed in a significant percentage of patients with ulcerative colitis, primary sclerosing cholangitis and autoimmune hepatitis. Performed By: #### L 501.2450, L500.3400, L500.2500, L100.0100 #### [facility] [address] [place], [place], [id number] Cytoplasmic Ab <1:20 Normal Neg:<1:20 [facility] Comment on above: Performed By: #### L 501.2450, L500.3400, L500.2500, L100.0100 #### [facility] [address] [place], [address] Perinuclear Ab. <1:20 Normal Neg:<1:20 [facility] Comment on above: Result Comment: The presence of positive fluorescence exhibiting P-ANCA or C-ANCA patterns alone is not specific for the diagnosis of Anamaria's Granulomatosis (WG) or microscopic polyangiitis. Decisions about treatment should not be based solely on ANCA IFA results. The International ANCA Group Consensus recommends follow up testing of positive sera with both MS- 3 and MPO-ANCA enzyme immunoassays. As many as 5% serum samples are positive only by EIA. Ref. AM J Clin Pathol 1999;111:507-513. Performed By: #### L 501.2450, L500.3400, L500.2500, L100.0100 #### [facility] [address] [place], [place], [address] CMV Acute Antibody IgMon CMV Ab, IgM < 30.0 Normal 0.0-29.9 [facility] Comment on above: Result Comment: Nega tive <30.0 Equivocal 30.0 - 34.9 Positive >34.9 A positive result is generally indicative of acute infection, reactivation or persistent IgM production. Performed By: #### L 501.2450, L500.3400, L500.2500, L100.0100 #### [facility] [address] [place], [address] EBV Acute VCA IgMon 01-01-20 EBV Ab VCA, IgM < 36.0 Normal 0.0-35.9 [facility] Comment on above: Result Comment: Nega tive <36.0 Equivocal 36.0 - 43.9 Positive >43.9 Performed By: #### L 501.2450, L500.3400, L500.2500, L100.0100 #### [facility] [address] [place], [place], [id number] Fact V Leiden Mutationon FACTOR V LEIDEN Comment Normal . [facility] Comment on above: Result Comment: Resu lt: c.1601G>A (p.Tgf199Lia) - Not Detected This result is not associated with an increased risk for venous thromboembolism. See Additional Clinical Information and Comments. Additional Clinical Information: Venous thromboembolism is a multifactorial disease influenced by genetic, environmental, and circumstantial risk factors. The c.1601G>A (p. Dze554Ljx) variant in the F5 gene, commonly referred [...] c.*97G>A variant and Factor V Leiden (PMID: 86601356). Additional risk factors include but are not [...] health care providers to discuss results at [phone] ([phone]). Test Details: Variant Analyzed: c.1601G>A (p. Pup936Hao), referred to as Factor V Leiden Methods/Limitations: [...] developed and its performance characteristics determined by SPO. It has not been cleared or approved by the Food and Drug Administration. References: Savage S, Cecelia AK, Galen R, Vanita WW, Aaron JH; ACMG Professional Practice and Guidelines Committee. Addendum: [employer] [employer] consensus statement on factor V Leiden mutation testing. [employer]. 2020Oct 23. doi: 10.1038/[id number]-e. PMID: 89099975. Hannah CONTRERAS. Factor V Leiden Thrombophilia. 1998January 01 (Updated 2017Aug 24). In: Carlitos MP, Vipin HH, Jake RA, et al., editors. George(R) (Internet). [place] ([place]): [facility]; 9985-8934. Available from: https://www.ncbi.nlm.nih.gov/books/NCS4491/ Chris S, Cecelia AK, Kole X, Price B, Cresencio EB, Aleah P, Abimbola CS; [facility] Laboratory Retort [employer] Bone Committee. Venous thromboembolism laboratory testing (factor V Leiden and factor II c.*97G>A), 2018 update: a technical standard of the [employer] [employer] and [employer]omics (ACMG). [employer]. 2018 Jul;20(12):2619-5751. doi: 10.1038/[id number]-t. Epub 2017May 25. PMID: 50999796. Performed By: #### L 501.2450, L500.3400, L500.2500, L100.0100 #### [facility] [address] [place], [place], [address] Reviewed By Comment Normal . [facility] Comment on above: Result Comment: Tech nical Component performed at [facility] RTP Professional Component performed by: Blade Alves, PhD, [facility] BPTGD4, [facility], [address] [facility] [address] Performed By: #### L 501.2450, L500.3400, L500.2500, L100.0100 #### [facility] [address] [place], [place], [address] Factor II, DNA Analysison FACTOR II, DNA Comment Normal . [facility] Comment on above: Result Comment: Resu lt: [...] the F2 gene and a c.1601G>A (p. Ckm716Yaw) variant in the F5 gene (commonly referred to as Factor V Leiden) have an approximately 20- fold increased risk for venous thromboembolism. Risks are likely to be even higher in more complex genotype combinations involving the F2 c.*97G>A variant and Factor V Leiden (PMID: 45176648). Additional risk factors include but are not [...] health care providers to discuss results at [phone] ([phone]). Test Details: Variant analyzed: c.*97G>A, previously referred to as [id number] Methods/Limitations: DNA analysis of the F2 gene [...] developed and its performance characteristics determined by SPO. It has not been cleared or approved by the Food and Drug Administration. References: Savage S, Cecelia AK, Galen R, Vanita WW, Aaron QUINN; [employer]G Professional Practice and Guidelines Committee. Addendum: [place] [employer] consensus statement on factor V Leiden mutation testing. [employer]. 2020Oct 23. doi: 10.1038/[id number]-k. PMID: 09139563. Hannah CONTRERAS. Prothrombin Thrombophilia. 2005Mar 14 [Updated 2020Sep 24]. In: Carlitos MP, Vipin HH, Jake RA, et al., editors. George(Cabrera) [Internet]. [place] ([place]): [facility]; 8172-3205. Available from: https://www.ncbi.nlm.nih.gov/books/PEL1839/ Chris S, Cecelia AK, Sharif X, Price B, Cresencio EB, Aleah P, Abimbola CS; [facility] [employer] Committee. Venous thromboembolism laboratory testing (factor V Leiden and factor II c.*97G>A), 2018 update: a technical standard of the [employer] [employer] (ACMG). [employer]. 2018 Jul;20(12):1596-9897. doi: 10.1038/[id number]-q. Epub 2017May 25. PMID: 45275685. Performed By: #### L 501.2450, L500.3400, L500.2500, L100.0100 #### [facility] [address] [place], [address] L3410.9992on 12-31-2024 [facility] Misc. COMMENT Normal . [facility] Comment on above: Order Comment: 35315 5SERUM RF TICKBORNE AB Result Comment: Test Ordered: 105208 Tick-borne Disease Ab Profile Test(s) 467778-Rqcjqll microti IgG was developed and its performance [...] days is recommended. Babesia microti IgG <1:10 BN Reference Range: Neg:<1:10 E. chaffeensis IgG Negative [...] anaplasmosis, and/or ehrlichiosis, respectively. Performed at: [address] [id number] Vehicle Check In Clerk: Sudhir Gonzalez PhD, Phone: [phone] Performed at: [address] [id number] Vehicle Check In Clerk: Arie Murillo MD, Phone: [phone] Performed By: #### L 501.2450, L500.3400, L500.2500, L100.0100 #### [facility] [address] [place], [address] Protein C, Functionalon 05 PROTEIN C,FUNC 131 Normal 73-180 [facility] Comment on above: Result Comment: Perf ormed at: [address] [id number] Vehicle Check In Clerk: Sudhir Gonzalez PhD, Phone: [phone] Performed at: [place] [address] [place], [place] [id number] Vehicle Check In Clerk: Monie Riddle [facility], Phone: [phone] Performed at: [address] [id number] Vehicle Check In Clerk: Arie Murillo MD, Phone: [phone] Performed By: #### L 501.2450, L500.3400, L500.2500, L100.0100 #### [facility] [address] [place], [place], [id number] ([address]) Protein S, Functionalon 051 PROTEIN S, FUNC 90 Normal 63-140 [facility] Comment on above: Result Comment: Prot ein S activity may be falsely increased (masking an abnormal, low result) in patients receiving direct Xa inhibitor (e.g., rivaroxaban, apixaban, edoxaban) or a direct thrombin inhibitor (e.g., dabigatran) anticoagulant treatment due to assay interference by these drugs. Performed By: #### L 501.2450, L500.3400, L500.2500, L100.0100 #### [facility] [address] [place], [address] Blood or tissue coagulation factor II targeted mutation analysis by molecular geneticOrdered By: Salud Watson on 12-25-2024 F2 gene targeted mutation analysis [facility] (Bld/Tiss) Comment . [facility] Comment on above: Result: c.*97G>A - N [...] in theF2 gene and a c.1601G>A (p. Hnr968Zlb) variant in the F5 gene(commonly referred to as Factor V Leiden) have an approximately 20-fold increased risk for venous thromboembolism. Risks are likely keith even higher in more complex genotype combinations involving theF2 c.*97G>A variant and Factor V Leiden (PMID: 40986539). Additionalrisk factors include but are not limited [...] for health care providers to discussresults at [phone] ([phone]).Test Details:Variant analyzed: c.*97G>A, previously referred to as [id number]/Limitations:DNA analysis of the F2 gene (NM_000506.5) was [...] was developed and its performance characteristics determinedby SPO. It has not been cleared or approved by the Food and DrugAdministration.References:Savage Bennett, Cecelia PEDRO, Galen R, Vanita WW, Aaron QUINN; ACMG ProfessionalPractice and Guidelines Committee. Addendum: [employer] [employer] consensus statement on factor V Leiden mutationtesting. [employer] Med. 2020Oct 23. doi: 10.1038/[id number]-z.PMID: 68516902.Hannah CONTRERAS. Prothrombin Thrombophilia. 2005Mar 14[Updated 2020Sep 24]. In: Carlitos MP, Vipin HH, Jake RA, et al.,editors. George(R) [Internet]. [place] ([place]): [facility]; 5815-0326. Available from:https://www.ncbi.nlm.nih.gov/books/DVL6384/Chris Bennett, Cecelia PEDRO, Kole X, Price B, Cresencio EB, Aleah P, Abimbola CS;[employer] Laboratory [employer] Committee. Venous thromboembolismlaboratory testing (factor V Leiden and factor II c.*97G>A),2018 update: a technical standard of the [employer] [employer] and Gen[employer] (ACMG). [employer] Med. 2017;20(12):3642-3701.doi: 10.1038/[id number]-r. Epub 2017May 25. PMID: 94209824. CRPon 12-25-2024 C-REACTIVE PROT < 3.00 Normal 0.0-3.0 [facility] Comment on above: Performed By: #### L 501.2450, L500.3400, L500.2500, L100.0100 #### [facility] [address] [place], [place], [address] Erythrocyte Sed Rateon 12-25 SED RATE 3 mm/hr Normal 0-20 [facility] Comment on above: Performed By: #### L 501.2450, L500.3400, L500.2500, L100.0100 #### [facility] [address] [place], [place], [id number] Erythrocyte sedimentation ra teOrdered By: Salud Watson on 12-25-2024 ESR (Bld) [Velocity] 3 mm/h 0-20 [facility] Functional protein C measure mentOrdered By: Salud Watson on 12-25-2024 Protein C actual/normal Chromogenic method (PPP) [Rel catalytic activity/Vol] 131 % 73-180 [facility] Comment on above: Performed at: [facility]ED[facility] Eren danielle [address] [id number] Director: Sudhir Gonzalez PhD, Phone: [phone] at: TG - [facility] [id number] [place], [place] [id number] Director: Monie Riddle [facility], Phone: [phone] at: BN - [facility] [address] [id number] Director: Arie Murillo MD, Phone: [phone] Platelet poor plasma protein S actual/normal ratio (relative time)Ordered By: Salud Watson on 12-25-2024 Protein S actual/normal Coag (PPP) [Relative time] 90 % 63-140 [facility] Comment on above: Protein S activity m ay be falsely increased (masking anabnormal, low result) in patients receiving direct Xainhibitor (e.g., rivaroxaban, apixaban, edoxaban) or adirect thrombin inhibitor (e.g., dabigatran) anticoagulanttreatment due to assay interference by these drugs. Serum Conrado Chauhan virus cap luann IgM antibody assay (units/volume)Ordered By: Salud Watson on 12-25-2024 EBV capsid IgM Qn (S) [arb'U]/mL 0.0-35.9 [facility] Comment on above: Negative <36.0 Equiv ocal 36.0 - 43.9 Positive >43.9 Serum classic neutrophil cyt oplasmic antibody assay (units/volume)Ordered By: Salud Watson on 12-25-2024 Neutrophil cytoplasmic Ab.classic Qn (S) <1:20 titer Neg:<1:20 [facility] Serum or plasma C reactive p rotein measurement (mass/volume)Ordered By: Salud Watson on 12-25-2024 CRP [Mass/Vol] mg/L 0.0-3.0 [facility] Serum or plasma cytomegalovi sophie (CMV) IgM antibody assay (units/volume)Ordered By: aSlud Watson on 12-25-2024 CMV IgM Qn < 30.0 AU/mL 0.0-29.9 [facility] Comment on above: Negative <30.0 Equiv ocal 30.0 - 34.9 Positive >34.9A positive result is generally indicative of acuteinfection, reactivation or persistent IgM production. Serum perinuclear neutrophil cytoplasmic antibody titer by immunofluorescenceOrdered By: Salud Watson on 12-25-2024 Neutrophil cytoplasmic Ab.perinuclear IF (S) [Titer] <1:20 titer Neg:<1:20 [facility] Comment on above: The presence of posi tive fluorescence exhibiting P-ANCA orC-ANCA patterns alone is not specific for the diagnosis ofWegener's Granulomatosis (WG) or microscopic polyangiitis.Decisions about treatment should not be based solely onANCA IFA results. The International ANCA Group Consensusrecommends follow up testing of positive sera with both MS-3 and MPO-ANCA enzyme immunoassays. As many as 5% serumsamples are positive only by EIA. Ref. AM J Clin Uzkamd4983;111:507-513. 12 Lead EKGon 12-21-2024 12 [facility] [address] [place] [address] 12 Lead EKG 12/21/24 1850 MR#: [id number] Acct: [id number] Name: JOSE M CORRAL Rep #: [id number] : 1995 29 From: Damian Hernandez MD [...] rhythm Rightward axis Probably normal Confirmed by Damian Hernandez ([id number]), news editor DANYEL MONTGOMERY ([id number]) on 12/27/2024 1:00:32 PM Referred By: RADHA Confirmed By: Damian Hernandez 12/27/24 1300 Date Damian Hernandez MD CC: Dr. Michael Oakley DO; Dr. Salud Watson DO Signed Normal [facility] Abdomen/Pelvis W IV Cont ONL Yon 12-21-2024 Abdomen/Pelvis W IV Cont ONLY [facility] Imaging Services [address] [place] [address] Abdomen/Pelvis W IV Cont ONLY MR#: [id number] Acct: [id number] Name: JOSE M CORRAL Rep #: [id number] : 1995 M 29 From: Meño antonio MD PCP: Dr. Salud Watson DO Status: REG ER Study: Abdomen/Pelvis W IV Cont ONLY Date of Exam: Exam# [id number] Ordering Dr: Michael Oakley DO PROCEDURE: ABDOMEN/PELVIS [...] with sequela of splenic infarcts. Reading Location: [facility] CC: Dr. Michael Oakley DO; Dr. Salud Watson DO Cook Fry: Signed Normal [facility] Abdomen/Pelvis W IV Cont ONLY [facility] Imaging Services [address] [place] [address] Abdomen/Pelvis W IV Cont ONLY MR#: [id number] Acct: [id number] Name: JOSE M CORRAL Rep #: [id number] : 1995 M 29 From: Meño antonio MD PCP: Dr. Salud Watson DO Status: [facility] ER Study: Abdomen/Pelvis W IV Cont ONLY Date of Exam: Exam# [id number] Ordering Dr: Michael Oakley DO PROCEDURE: ABDOMEN/PELVIS [...] the abdomen may be considered. Reading Location: [facility] CC: Dr. Michael Oakley DO; Dr. Salud Watson DO Cook Fry: Signed Normal [facility] Absolute lymphocyte countOrd ered By: Michael Oakley on 12-21-2024 Lymphocytes Auto (Unsp spec) [#/Vol] 1.67 10*3/uL 0.83-4.51 [facility] Absolute neutrophil countOrd ered By: Michael Oakley on 12-21-2024 Neutrophils (Bld) [#/Vol] 8.5 10*3/uL High 2.0-7.7 [facility] Activated partial thrombopla stin time (aPTT) in platelet poor plasma by coagulation aOrdered By: Michael Oakley on 12-21-2024 aPTT Coag (PPP) [Time] 31.2 s 24.1-36.2 [facility] Amorphous sediment detection in urine sediment by light microscopyOrdered By: Michael Oakley on 12-21-2024 Amorphous sediment LM Ql (Urine sed) 1+ [facility] Anion gap in Serum or Plasma Ordered By: Michael Oakley on 12-21-2024 Anion gap [Moles/Vol] 11 mmol/L 5-15 [facility] Automated lymphocyte count a s percentage of total leukocytesOrdered By: Michael Oakley on 12-21-2024 Lymphocytes/100 WBC Auto (Unsp spec) 14.7 % Low 19-41 [facility] BUN/creatinine ratioOrdered By: Michael Oakley on 12-21-2024 Urea nitrogen/Creatinine [Mass ratio] 24.2 mg/mg High 10-20 [facility] Basic Metabolic Profile (BMP )on 12-21-2024 BUN/CRE 24.2 RATIO High 10-20 [facility] Comment on above: Performed By: #### L 501.2450, L500.3400, L500.2500, L100.0100 #### [facility] [address] [place], [address] Calcium [Mass/Vol] 9.6 mg/dL Normal 7.6-11.[address] [facility] Comment on above: Performed By: #### L 501.2450, L500.3400, L500.2500, L100.0100 #### [facility] [address] [place], [address] Chloride [Moles/Vol] 103 mmol/L Normal 98-108 [facility] Comment on above: Performed By: #### L 501.2450, L500.3400, L500.2500, L100.0100 #### [facility] [address] [place], [address] CO2 [Moles/Vol] 25.0 mmol/L Normal 21.0-32.0 [facility] Comment on above: Performed By: #### L 501.2450, L500.3400, L500.2500, L100.0100 #### [facility] [address] [place], [address] Creatinine [Mass/Vol] 0.88 mg/dL Normal 0.70-1.20 [facility] Comment on above: Performed By: #### L 501.2450, L500.3400, L500.2500, L100.0100 #### [facility] [address] [place], [address] ECRCL 138.40 ml/min Normal 50-250 [facility] Comment on above: Performed By: #### L 501.2450, L500.3400, L500.2500, L100.0100 #### [facility] [address] [place], [address] GAP 11 Normal 5-15 [facility] Comment on above: Performed By: #### L 501.2450, L500.3400, L500.2500, L100.0100 #### [facility] [address] [place], [address] GFR/1.73 sq M.predicted among non-blacks MDRD (S/P/Bld) [Vol rate/Area] 121 mL/min/{1.73_m2} Normal >60 [facility] Comment on above: Result Comment: mL/m in/1.73m2 CKD-EPI Creatinine Equation (2020) Performed By: #### L 501.2450, L500.3400, L500.2500, L100.0100 #### [facility] [address] [place], [address] Glucose [Mass/Vol] 107 mg/dL High 70-[address] [facility] Comment on above: Performed By: #### L 501.2450, L500.3400, L500.2500, L100.0100 #### [facility] [address] [place], [address] Potassium [Moles/Vol] 4.2 mmol/L Normal 3.3-5.1 [facility] Comment on above: Performed By: #### L 501.2450, L500.3400, L500.2500, L100.0100 #### [facility] [address] [place], [address] Sodium [Moles/Vol] 139 mmol/L Normal 133-[address] [facility] Comment on above: Performed By: #### L 501.2450, L500.3400, L500.2500, L100.0100 #### [facility] [address] [place], [address] Urea nitrogen [Mass/Vol] 21 mg/dL High 4-19 [facility] Comment on above: Performed By: #### L 501.2450, L500.3400, L500.2500, L100.0100 #### [facility] [address] [place], [address] Basophil percentageOrdered B y: Michael Oakley on 12-21-2024 Basophils/100 WBC (Bld) 0.7 % 0-1 [facility] Bilirubin Test strip Ql (U)O rdered By: Michael Oakley on 12-21-2024 Bilirubin Ql (U) Negative Negative [facility] Bilirubin directOrdered By: Michael Oakley on 12-21-2024 Bilirubin.direct [Mass/Vol] 0.19 mg/dL 0.00-0.30 [facility] Bilirubin, totalOrdered By: Michael Oakley on 12-21-2024 Bilirubin [Mass/Vol] 0.43 mg/dL 0.00-1.30 [facility] CBC W/Diff, Automatedon Absolute Lymph 1.67 X10 3/uL Normal 0.83-4.51 [facility] Comment on above: Performed By: #### L 501.2450, L500.3400, L500.2500, L100.0100 #### [facility] [address] [place], [address] Absolute Neut 8.5 X10 3/uL High 2.0-7.7 [facility] Comment on above: Performed By: #### L 501.2450, L500.3400, L500.2500, L100.0100 #### [facility] [address] [place], [address] Basophils/100 WBC (Bld) 0.7 % Normal 0-1 [facility] Comment on above: Performed By: #### L 501.2450, L500.3400, L500.2500, L100.0100 #### [facility] [address] [place], [address] Eosinophils/100 WBC (Bld) 1.5 % Normal 0-5 [facility] Comment on above: Performed By: #### L 501.2450, L500.3400, L500.2500, L100.0100 #### [facility] [address] [place], [address] Erythrocyte distribution width (RBC) [Ratio] 13.6 % Normal 11.6-14.6 [facility] Comment on above: Performed By: #### L 501.2450, L500.3400, L500.2500, L100.0100 #### [facility] [address] [place], [address] Hematocrit (Bld) [Volume fraction] 45.9 % Normal 40-54 [facility] Comment on above: Performed By: #### L 501.2450, L500.3400, L500.2500, L100.0100 #### [facility] [address] [place], [address] Hemoglobin (Bld) [Mass/Vol] 16.4 g/dL Normal 13.0-16.5 [facility] Comment on above: Performed By: #### L 501.2450, L500.3400, L500.2500, L100.0100 #### [facility] [address] [place], [address] IG% 0.300 Normal 0.0-0.9 [facility] Comment on above: Result Comment: IG% - Immature Granulocytes (promyelocytes, myelocytes and metamyelocytes) > 1% indicates that a LEFT SHIFT is Present. Performed By: #### L 501.2450, L500.3400, L500.2500, L100.0100 #### [facility] [address] [place], [address] Lymphocytes/100 WBC (Bld) 14.7 % Low 19-41 [facility] Comment on above: Performed By: #### L 501.2450, L500.3400, L500.2500, L100.0100 #### [facility] [address] [place], [address] MCH (RBC) [Entitic mass] 29.2 pg Normal 27.0-32.0 [facility] Comment on above: Performed By: #### L 501.2450, L500.3400, L500.2500, L100.0100 #### [facility] [address] [place], [address] MCHC (RBC) [Mass/Vol] 35.7 g/dL Normal 32-36 [facility] Comment on above: Performed By: #### L 501.2450, L500.3400, L500.2500, L100.0100 #### [facility] [address] [place], [address] MCV (RBC) [Entitic vol] 81.8 fL Normal 80-94 [facility] Comment on above: Performed By: #### L 501.2450, L500.3400, L500.2500, L100.0100 #### [facility] [address] [place], [address] Monocytes/100 WBC (Bld) 8.0 % Normal 0-10 [facility] Comment on above: Performed By: #### L 501.2450, L500.3400, L500.2500, L100.0100 #### [facility] [address] [place], [address] Neutrophils/100 WBC (Bld) 74.8 % High 47-70 [facility] Comment on above: Performed By: #### L 501.2450, L500.3400, L500.2500, L100.0100 #### [facility] [address] [place], [address] Nucleated RBC (Bld) [#/Vol] 0 10*3/uL Normal 0-5 [facility] Comment on above: Performed By: #### L 501.2450, L500.3400, L500.2500, L100.0100 #### [facility] [address] [place], [address] Platelet mean volume (Bld) [Entitic vol] 9.1 fL Normal 6.2-12.0 [facility] Comment on above: Performed By: #### L 501.2450, L500.3400, L500.2500, L100.0100 #### [facility] [address] [place], [address] Platelets (Bld) [#/Vol] 359 10*3/uL Normal 150-450 [facility] Comment on above: Performed By: #### L 501.2450, L500.3400, L500.2500, L100.0100 #### [facility] [address] [place], [address] RBC (Bld) [#/Vol] 5.61 10*6/uL Normal 4.6-6.2 [facility] Comment on above: Performed By: #### L 501.2450, L500.3400, L500.2500, L100.0100 #### [facility] [address] [place], [address] RDW SD 40.2 fl Normal 35.1-43.9 [facility] Comment on above: Performed By: #### L 501.2450, L500.3400, L500.2500, L100.0100 #### [facility] [address] [place], [address] WBC (Bld) [#/Vol] 11.4 10*3/uL High 4.4-11.0 [facility] Comment on above: Performed By: #### L 501.2450, L500.3400, L500.2500, L100.0100 #### [facility] [address] [place], [address] Carbon dioxide, total [Moles /volume] in Central venous bloodOrdered By: Michael Oakley on 12-21-2024 CO2 [Moles/Vol] 25.0 mmol/L 21.0-32.0 [facility] Chloride assayOrdered By: Remington Oakley on 12-21-2024 Chloride [Moles/Vol] 103 mmol/L 98-108 [facility] Emergency Department Summary on 12-21-2024 Emergency Department Summary [facility] Medical Records Department [address] [place] [address] Emergency Department Summary 12/21/24 MR#: [id number] Acct: [id number] Name: JOSE M CORRAL Rep #: [id number] : 1995 29 From: Michael Oakley DO [...] [id number] Cosigner Signature (if applicable): cc: Dr. aSlud Watson DO * Signed HPI History of Present Illness Chief Complaint: Flank Pain Informant: patient and spouse/S.O. Narrative Narrative: 29-year-old male presenting to the emergency room with left flank and left upper quadrant pain. Patient states that he went to [facility] this morning. He does not recall any [...] drug use. He is not having any [facility] Home Medications ???Medication ???Instructions ???Recorded ???Last Taken [...] Temperature Sharla (more content not included)... Normal [facility] Eosinophil percentageOrdered By: Michael Oakley on 12-21-2024 Eosinophils/100 WBC (Bld) 1.5 % 0-5 [facility] Erythrocyte distribution wid th ratioOrdered By: Michael Oakley on 12-21-2024 Erythrocyte distribution width (RBC) [Ratio] 13.6 % 11.6-14.6 [facility] Erythrocyte distribution wid th standard deviationOrdered By: Michael Oakley on 12-21-2024 Erythrocyte distribution width (RBC) [Ratio] 40.2 fl 35.1-43.9 [facility] Glomerular filtration rate ( GFR) estimation/1.73 sq m using serum, plasma, or whole bOrdered By: Michael Oakley on 12-21-2024 GFR/1.73 sq M.predicted among non-blacks MDRD (S/P/Bld) [Vol rate/Area] 121 mL/min/{1.73_m2} >60 [facility] Comment on above: mL/min/1.73m2 CKD-EP I Creatinine Equation (2020) Hematocrit Auto (Bld) [Volum e fraction]Ordered By: Michael Oakley on 12-21-2024 Hematocrit (Bld) [Volume fraction] 45.9 % 40-54 [facility] Hemoglobin measurementOrdere d By: Michael Oakley on 12-21-2024 Hemoglobin (Bld) [Mass/Vol] 16.4 g/dL 13.0-16.5 [facility] Immature granulocytes/100 WB C Auto (Bld)Ordered By: Michael Oakley on 12-21-2024 Immature granulocytes/100 WBC (Bld) 0.300 % 0.0-0.9 [facility] Comment on above: IG% - Immature Granu locytes (promyelocytes, myelocytes and metamyelocytes) > 1% indicates that a LEFT SHIFT is Present. International normalized rat io (INR) calculationOrdered By: Michael Oakley on 12-21-2024 INR Coag (Bld) [Relative time] 1.1 {INR} [facility] Ketones Test strip Ql (U)Ord ered By: Michael Oakley on 12-21-2024 Ketones Ql (U) Negative Negative [facility] - Chemistry and C hemistry - challengeOrdered By: Michael Oakley on 12-21-2024 AST [Catalytic activity/Vol] 47 U/L High <38 [facility] Lipaseon 12-21-2024 Lipase [Catalytic activity/Vol] 22 U/L Normal 13-75 [facility] Comment on above: Result Comment: Eliu gutierrez note: LIPASE revised reference range effective 22. New Lipase methodology. Expected to produce lower values than the previous assay method. NEW Reference Range: 13 - 75 U/L Performed By: #### L 501.2450, L500.3400, L500.2500, L100.0100 #### [facility] [address] [place], [address] Lipase measurementOrdered By : Michael Mcdowellehne on 12-21-2024 Lipase [Catalytic activity/Vol] 22 U/L 13-75 [facility] Comment on above: Please note:LIPASE r evised reference range effective 22. New Lipase methodology. Expected to produce lower values than the previous assay method. NEW Reference Range: 13 - 75 U/L Liver Profileon 12-21-2024 Albumin [Mass/Vol] 4.8 g/dL Normal 3.5-5.[address] [facility] Comment on above: Performed By: #### L 501.2450, L500.3400, L500.2500, L100.0100 #### [facility] [address] [place], [address] ALK PHOS 39 U/L Low 40-129 [facility] Comment on above: Performed By: #### L 501.2450, L500.3400, L500.2500, L100.0100 #### [facility] [address] [place], [address] ALT [Catalytic activity/Vol] 47 U/L Normal <=46 [facility] Comment on above: Performed By: #### L 501.2450, L500.3400, L500.2500, L100.0100 #### [facility] [address] [place], [address] AST [Catalytic activity/Vol] 47 U/L High <=37 [facility] Comment on above: Performed By: #### L 501.2450, L500.3400, L500.2500, L100.0100 #### [facility] [address] [place], [address] Bilirubin [Mass/Vol] 0.43 mg/dL Normal 0.00-1.30 [facility] Comment on above: Performed By: #### L 501.2450, L500.3400, L500.2500, L100.0100 #### [facility] [address] [place], [address] Bilirubin.direct [Mass/Vol] 0.19 mg/dL Normal 0.00-0.30 [facility] Comment on above: Performed By: #### L 501.2450, L500.3400, L500.2500, L100.0100 #### [facility] [address] [place], [address] Globulin (S) [Mass/Vol] 2.8 g/dL Normal 2.2-4.2 [facility] Comment on above: Performed By: #### L 501.2450, L500.3400, L500.2500, L100.0100 #### [facility] [address] [place], [address] T PROT 7.5 g/dL Normal 5.9-8.4 [facility] Comment on above: Performed By: #### L 501.2450, L500.3400, L500.2500, L100.0100 #### [facility] [address] [place], [address] MCV (mean corpuscular volume ) determinationOrdered By: Michael Oakley on 12-21-2024 MCV (RBC) [Entitic vol] 81.8 fL 80-94 [facility] Mean corpuscular hemoglobin (MCH) determinationOrdered By: Michael Oakley on 12-21-2024 MCH (RBC) [Entitic mass] 29.2 pg 27.0-32.0 [facility] Mean corpuscular hemoglobin concentration (MCHC) determinationOrdered By: Michael Oakley on 12-21-2024 MCHC (RBC) [Mass/Vol] 35.7 g/dL 32-36 [facility] Mean platelet volume determi nationOrdered By: Michael Oakley on 12-21-2024 Platelet mean volume (Bld) [Entitic vol] 9.1 fL 6.2-12.0 [facility] Microscopic analysis of urin e for red blood cells (RBC)Ordered By: Michael Oakley on 12-21-2024 Microscopic analysis of urine for red blood cells (RBC) 0 SEEN /hpf 0-5 [facility] Monocyte percentageOrdered B y: Michael Oakley on 12-21-2024 Monocytes/100 WBC (Bld) 8.0 % 0-10 [facility] Mucus LM Ql (Urine sed)Order ed By: Michael Oakley on 12-21-2024 Mucus Ql (Urine sed) 0 SEEN /hpf [facility] Neutrophil percentageOrdered By: Michael Oakley on 12-21-2024 Neutrophils/100 WBC (Bld) 74.8 % High 47-70 [facility] Nitrite Test strip Ql (U)Ord ered By: Michael Oakley on 12-21-2024 Nitrite Ql (U) Negative Negative [facility] Nucleated red blood cell per centageOrdered By: Michael Oakley on 12-21-2024 Nucleated RBC/100 WBC (Bld) [Ratio] 0 % 0-5 [facility] Partial Thromboplast Timeon 12-21-2024 aPTT Coag (Bld) [Time] 31.2 s Normal 24.1-36.2 [facility] Comment on above: Performed By: #### L 501.2450, L500.3400, L500.2500, L100.0100 #### [facility] [address] [place], [address] Platelet countOrdered By: Remington Oakley on 12-21-2024 Platelets (Bld) [#/Vol] 359 10*3/uL 150-450 [facility] Potassium measurement (mass/ volume)Ordered By: Michael Oakley on 12-21-2024 Potassium (Unsp spec) [Mass/Vol] 4.2 mmol/L 3.3-5.1 [facility] Protein Test strip Ql (U)Ord ered By: Michael Oakley on 12-21-2024 Protein Ql (U) 15 mg/dl High Negative [facility] Prothrombin Time w/INRon INR Coag (PPP) [Relative time] 1.1 {INR} Normal [facility] Comment on above: Performed By: #### L 501.2450, L500.3400, L500.2500, L100.0100 #### [facility] [address] [place], [address] PT Coag (PPP) [Time] 14.0 s Normal 11.7-14.9 [facility] Comment on above: Performed By: #### L 501.2450, L500.3400, L500.2500, L100.0100 #### [facility] [address] [place], [address] INR Normal [facility] Comment on above: Result Comment: PER TERESSA DUPLICATE Performed By: #### L 300.3900 #### [facility] [address] [place], [address] PROTIME Normal 11.7-14.9 [facility] Comment on above: Result Comment: PER TERESSA DUPLICATE Performed By: #### L 300.3900 #### [facility] [address] [place], [address] Prothrombin timeOrdered By: Michael Oakley on 12-21-2024 PT Coag (PPP) [Time] 14.0 s 11.7-14.9 [facility] RBC Auto (Bld) [#/Vol]Ordere d By: Michael Oakley on 12-21-2024 RBC (Bld) [#/Vol] 5.61 10*6/uL 4.6-6.2 [facility] Serum creatinine measurement (mass/volume)Ordered By: Michael Oakley on 12-21-2024 Creatinine [Mass/Vol] 0.88 mg/dL 0.70-1.20 [facility] Serum globulin measurementOr dered By: Michael Oakley on 12-21-2024 Globulin (S) [Mass/Vol] 2.8 g/dL 2.2-4.2 [facility] Serum glucose measurement (m ass/volume)Ordered By: Michael Oakley on 12-21-2024 Glucose [Mass/Vol] 107 mg/dL High 70-[address] [facility] Serum or plasma alanine real otransferase (ALT) measurementOrdered By: Michael Oakley on 12-21-2024 ALT [Catalytic activity/Vol] 47 U/L <47 [facility] Serum or plasma albumin bimal urement (mass/volume)Ordered By: Michael Oakley on 12-21-2024 Albumin [Mass/Vol] 4.8 g/dL 3.5-5.[address] [facility] Serum or plasma alkaline amado sphatase measurementOrdered By: Michael Oakely on 12-21-2024 ALP [Catalytic activity/Vol] 39 U/L Low 40-129 [facility] Serum or plasma calcium bimal urement (mass/volume)Ordered By: Michael Oakley on 12-21-2024 Calcium [Mass/Vol] 9.6 mg/dL 7.6-11.[address] [facility] Serum or plasma urea nitroge n measurement (mass/volume)Ordered By: Michael Oakley on 12-21-2024 Urea nitrogen [Mass/Vol] 21 mg/dL High 4-19 [facility] Sodium levelOrdered By: Keith Oakley on 12-21-2024 Sodium [Moles/Vol] 139 mmol/L 133-[address] [facility] Squamous epithelial cells de tection in urine sediment by light microscopyOrdered By: Michael Oakley on 12-21-2024 Epithelial cells.squamous LM Ql (Urine sed) 0 SEEN /hpf 0-5 [facility] Total proteinOrdered By: Yuan colbert Radha on 12-21-2024 Protein [Mass/Vol] 7.5 g/dL 5.9-8.[address] [facility] Urinalysis, Completeon 12-21 AMORPHOUS 1+ Normal [facility] Comment on above: Order Comment: CLEAN CATCH Performed By: #### L 400.0001 #### [facility] [address] [place], [address] BACTERIA 3+ /hpf Normal None Seen [facility] Comment on above: Order Comment: CLEAN CATCH Performed By: #### L 400.0001 #### [facility] [address] [place], [address] EPI,SQUAMOUS 0 SEEN Normal 0-5 [facility] Comment on above: Order Comment: CLEAN CATCH Performed By: #### L 400.0001 #### [facility] [address] [place], [address] Mucus Ql (Urine sed) 0 SEEN Normal [facility] Comment on above: Order Comment: CLEAN CATCH Performed By: #### L 400.0001 #### [facility] [address] [place], [address] RBC 0 SEEN Normal 0-5 [facility] Comment on above: Order Comment: CLEAN CATCH Performed By: #### L 400.0001 #### [facility] [address] [place], [address] WBC 0 SEEN Normal 0-5 [facility] Comment on above: Order Comment: CLEAN CATCH Performed By: #### L 400.0001 #### [facility] [address] [place], [address] Urine clarityOrdered By: Yuan Oakley on 12-21-2024 Clarity (U) Sl. Cloudy Clear [facility] Urine color determinationOrd ered By: Michael Oakley on 12-21-2024 Color (U) Straw Yellow [facility] Urine glucose detectionOrder ed By: Michael Oakley on 12-21-2024 Glucose Ql (U) Normal mg/dl Normal [facility] Urine leukocyte esterase det ection by dipstickOrdered By: Michael Oakley on 12-21-2024 Leukocyte esterase Test strip Ql (U) Negative Negative [facility] Urine pHOrdered By: Michael rincon on 12-21-2024 pH (U) 7.0 [pH] 5.0 - 8.0 [facility] Urine sediment bacteria coun t by microscopy (number/high power field)Ordered By: Michael Oakley on 12-21-2024 Bacteria LM.HPF (Urine sed) [#/Area] 3 /[HPF] None Seen [facility] Urine specific gravity measu rementOrdered By: Michael Oakley on 12-21-2024 Specific gravity (U) [Rel density] 1.010 1.002-1.03 0 [facility] Urine urobilinogen measureme ntOrdered By: Michael Oakley on 12-21-2024 Urobilinogen Ql (U) Normal mg/dl Normal [facility] White blood cell (WBC) count Ordered By: Michael Oakley on 12-21-2024 WBC (Bld) [#/Vol] 11.4 10*3/uL High 4.4-11.0 [facility] White blood cell countOrdere d By: Michael Oakley on 12-21-2024 White blood cell count 0 SEEN /hpf 0-5 [facility] - Microbiology an d Antimicrobial susceptibilityon 12-30-2021 SARS-CoV-2 (COVID-19) RNA SOY+probe Ql (Unsp spec) Not detected Not Detect [facility] Work Phone: Comment on above: Normal Reference [...] Sandro Rascon MD 03/06/21 Final result Normal [facility] [place] XR FOOT LEFT (MIN 3 VIEWS)Or dered By: Milka Camarillo on 03-06-2021 Chip fracture off th e base of the first distal phalanx which appears nonacute. [employer] Phone: LEFT FOOT X-RAY THRE E VIEWS HISTORY: Pain. COMPARISON: None. FINDINGS: There is a chip fracture off of the base of the first distal phalanx which appears well-corticated. The there is no evidence of dislocation. There are no degenerative changes. [employer] Phone: Matti, [employer] Incoming Radiant Results From [employer] - 03/06/2021 3:12 PM EDT LEFT FOOT X-RAY THREE VIEWS HISTORY: Pain. COMPARISON: None. FINDINGS: There is a chip fracture off of the base of the first distal phalanx which appears well-corticated. The there is no evidence of dislocation. There are no degenerative changes. IMPRESSION: Chip fracture off the base of the first distal phalanx which appears nonacute. 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 This result added by HARLEY on 09/08/2017 20:02. The previous result was: FLUB RNA (Final) Positive for Influenza B Normal [facility] Comment on above: Performed By: #### 3 1018 ####[place] [id number] [address] H[address] Vital Signs Date Time Vital Sign Value Performing Clinician Facility 05-05-2025 14:09-0400 Body height 182.[address] Salud Watson DO Work Phone: [facility] 05-05-2025 14:09-0400 Body mass index (BMI) [Ratio] 26.2 kg/m2 Dr. Salud Watson DO Work Phone: [facility] 05-05-2025 14:09-0400 Body weight 87.[address] Salud Watson DO Work Phone: [facility] 05-05-2025 14:09-0400 Diastolic blood pressure 76 mm[Hg] Dr. Salud Watson DO Work Phone: [facility] 05-05-2025 14:09-0400 Heart rate 77 /min Dr. Salud Watson DO Work Phone: [facility] 05-05-2025 14:09-0400 Respiratory rate 16 /min Dr. Salud Watson DO Work Phone: [facility] 05-05-2025 14:09-0400 Systolic blood pressure 121 mm[Hg] Dr. Salud Watson DO Work Phone: [facility] 01-20-2025 08:06-0400 Body height 182.[address] Salud Watson DO Work Phone: [facility] 01-20-2025 08:06-0400 Body mass index (BMI) [Ratio] 26.9 kg/m2 Dr. Salud Watson DO Work Phone: [facility] 01-20-2025 08:06-0400 Body weight 90.[address] Salud Watson DO Work Phone: [facility] 01-20-2025 08:06-0400 Diastolic blood pressure 70 mm[Hg] Dr. Salud Watson DO Work Phone: [facility] 01-20-2025 08:06-0400 Heart rate 79 /min Dr. Salud Watson DO Work Phone: [facility] 01-20-2025 08:06-0400 Respiratory rate 16 /min Dr. Salud Watson DO Work Phone: [facility] 01-20-2025 08:06-0400 Systolic blood pressure 119 mm[Hg] Dr. Salud Watson DO Work Phone: [facility] 01-15-2025 00:52-0400 Heart rate 78 /min Dr. Salud Watson DO Work Phone: [facility] 01-15-2025 00:52-0400 Respiratory rate 18 /min Dr. Salud Watson DO Work Phone: [facility] 01-15-2025 00:52-0400 SaO2% (BldA) [Mass fraction] 98 % Dr. Salud Watson DO Work Phone: [facility] 01-14-2025 23:26-0400 Diastolic blood pressure 87 mm[Hg] Dr. Salud Watson DO Work Phone: [facility] 01-14-2025 23:26-0400 Systolic blood pressure 120 mm[Hg] Dr. Salud Watson DO Work Phone: [facility] 01-14-2025 21:05-0400 Body height 182.[address] Salud Watson DO Work Phone: [facility] 01-14-2025 21:05-0400 Body mass index (BMI) [Ratio] 26 kg/m2 Dr. Salud Watson DO Work Phone: [facility] 01-14-2025 21:05-0400 Body temperature 97 [degF] Dr. Salud Watson DO Work Phone: [facility] 01-14-2025 21:05-0400 Body weight 87.[address] Salud Watson DO Work Phone: [facility] 01-08-2025 10:16-0400 Body height 182.[address] Salud Watson DO Work Phone: [facility] 01-08-2025 10:12-0400 Body mass index (BMI) [Ratio] 26.3 kg/m2 Dr. Salud Watson DO Work Phone: [facility] 01-08-2025 10:12-0400 Body temperature 97.6 [degF] Dr. Salud Watson DO Work Phone: [facility] 01-08-2025 10:12-0400 Body weight 88.[address] Salud Watson DO Work Phone: [facility] 01-08-2025 10:12-0400 Diastolic blood pressure 79 mm[Hg] Dr. Salud Watson DO Work Phone: [facility] 01-08-2025 10:12-0400 Heart rate 77 /min Dr. Salud Watson DO Work Phone: [facility] 01-08-2025 10:12-0400 Respiratory rate 16 /min Dr. Salud Watson DO Work Phone: [facility] 01-08-2025 10:12-0400 SaO2% (BldA) [Mass fraction] 96 % Dr. Salud Watson DO Work Phone: [facility] 01-08-2025 10:12-0400 Systolic blood pressure 129 mm[Hg] Dr. Salud Watson DO Work Phone: [facility] 12-22-2024 00:19-0400 Body temperature 98.2 [degF] Dr. Salud Watson DO Work Phone: [facility] 12-22-2024 00:19-0400 Diastolic blood pressure 57 mm[Hg] Dr. Salud Watson DO Work Phone: [facility] 12-22-2024 00:19-0400 Heart rate 68 /min Dr. Salud Watson DO Work Phone: [facility] 12-22-2024 00:19-0400 Respiratory rate 18 /min Dr. Salud Watson DO Work Phone: [facility] 12-22-2024 00:19-0400 SaO2% (BldA) [Mass fraction] 96 % Dr. Salud Watson DO Work Phone: [facility] 12-22-2024 00:19-0400 Systolic blood pressure 129 mm[Hg] Dr. Salud Watson DO Work Phone: [facility] 12-21-2024 16:02-0400 Body height 182.[address] Salud Watson DO Work Phone: [facility] 12-21-2024 16:02-0400 Body mass index (BMI) [Ratio] 25.6 kg/m2 Dr. Salud Watson DO Work Phone: [facility] 12-21-2024 16:02-0400 Body weight 85.[address] Salud Watson DO Work Phone: [facility] 03-06-2021 13:17-0400 Body temperature 98.91 [degF] Milka Camarillo MD Work Phone: [employer] Work Phone: 03-06-2021 13:17-0400 Diastolic blood pressure 83 mm[Hg] Milka Camarillo MD Work Phone: [employer] Work Phone: 03-06-2021 13:17-0400 Heart rate 61 /min Milka Camarillo MD Work Phone: [employer] Work Phone: 03-06-2021 13:17-0400 Respiratory rate 18 /min Milka Camarillo MD Work Phone: [employer] Work Phone: 03-06-2021 13:17-0400 SaO2% (BldA) [Mass fraction] 99 % Milka Camarillo MD Work Phone: [employer] Work Phone: 03-06-2021 13:17-0400 Systolic blood pressure 145 mm[Hg] Milka Camarillo MD Work Phone: [employer] Work Phone: Encounters Encounter Date Encounter Type Care Provider Facility Start: 05-05-2025 End: 05-05-[address] Gabrielle Pérez MD -[facility] Work Phone: Start: 05-05-2025 End: 05-05-[address] Salud Watson DO Work Phone: -[facility] Start: 02-27-2025 Non-patient / Non-visit Karon PURCELL -[facility] Work Phone: Start: 02-27-2025 ambulatory Salud Watson Facility: [facility] Start: 02-26-2025 Non-patient / Non-visit Dr. Gabrielle jon MD -[facility] Start: 02-26-2025 End: 02-26-[address] Salud Watson DO Work Phone: -[facility] Services Start: 02-26-2025 End: 02-26-[address] Gabrielle Pérez MD -[facility] Services Work Phone: Start: 02-26-2025 End: 02-26-2025 ambulatory [facility] Facility:[facility] Start: 02-04-2025 End: 02-04-2025 Patient encounter procedure Corky PURCELL -Laboratory Work Phone: Start: 02-04-2025 End: 02-04-[address] Salud Watson DO Work Phone: [facility] Work Phone: Start: 02-04-2025 End: 02-04-2025 ambulatory [facility] Facility:[facility] Start: 01-31-2025 ambulatory [facility] Facility: [facility] Start: 01-28-[address] Gabrielle Péerz MD -Cardi[facility] Services Work Phone: Start: 01-28-2025 ambulatory [facility] Facility: [facility] Start: 01-28-2025 Non-patient / Non-visit Dr. Gabrielle jon MD -[facility] Work Phone: Start: 01-20-2025 End: 01-20-[address] Gabrielle Pérez MD -[facility] Work Phone: Start: 01-20-2025 End: 01-20-[address] Salud Watson DO Work Phone: [facility] Work Phone: Start: 01-14-2025 End: 01-15-2025 Emergency department patient visit Dr. Salud Watson DO Work Phone: -Emergency Department Work Phone: Start: 01-08-[address] Aren Patel MD -[facility] Start: 01-08-2025 End: 01-08-[address] Patrice Patel MD [facility] Work Phone: Start: 01-08-2025 End: 01-08-[address] Salud Watson DO Work Phone: [facility] Work Phone: Start: 01-06-2025 Non-patient / Non-visit Shreya Maher er -[facility] Work Phone: Start: 01-06-2025 ambulatory Salud [facility] Facility: [facility] Start: 12-25-2024 End: 12-25-[address] Salud Watson DO Work Phone: [facility] Work Phone: Start: 12-25-2024 End: 12-25-[address] Salud Watson DO -Laboratory Work Phone: Start: 12-25-2024 End: 12-25-2024 ambulatory Salud Watson Facility:[facility] Start: 12-21-2024 End: 12-22-2024 Emergency department patient visit Dr. Michael Oakley DO -Emergency Department Work Phone: Start: 12-30-2021 End: 12-30-2021 Patient encounter procedure [facility]-Laboratory, Specimen Start: 03-06-2021 End: 03-06-2021 Emergency department patient visit MILKA CAMARILLO [facility] Start: 03-06-2021 End: 03-06-2021 Emergency department patient visit Milka Camarillo MD Work Phone: [facility] ED Comment on above: Laceration of left f oot, initial encounter (Primary Dx); Essential hypertension Start: 09-08-2017 End: 09-09-2017 Ambulatory [facility] Facility:[facility] Procedures Date Procedure Procedure Detail Performing Clinician Start: 02-04-2025 D-dimer assay, quantitative Dr. Salud gaspar DO Work Phone: Comment on above: NORMAL D-Dimer level (<0.50) indicates n o DVT or PE. Start: 01-14-2025 Urnls dip stick/tablet reagent auto microscopy Dr. Salud Watson DO Work Phone: Start: 01-14-[address] Salud Watson DO Work Phone: Start: 01-14-2025 Computed tomography of abdomen and pelvis with contrast Dr. Salud Watson DO Work Phone: Start: 01-08-[address] Salud Watson DO Work Phone: Comment on above: Test Ordered: [id number] Antithrombin Activi tyAntithrombin Activity 100 % Reference Range: 75-135Direct Xa inhibitor anticoagulants such as rivaroxaban,apixaban and edoxaban will lead to spuriously elevatedantithrombin activity levels possibly masking a deficiency.Performed at: [facility] [id number] Director: Arie Murillo MD, Phone: [phone] at: [address] [id number] Director: Sudhir Gonzalez PhD, Phone: [phone] Test Ordered: [id number] Antiphospholipid Syndrome CompSpecimen Comment: A courtesy copy of this report has been sent to [phone] 30.1 sec UY Reference Range: .This test has not been validated for monitoringunfractionated heparin therapy. aPTT-based therapeuticranges for unfractionated heparin therapy have not beenestablished. Consider ordering Heparin anti-Xa(unfractionated).Reference Range:18 years and older: 22.9 - 30.2APTT 1:1 FILM WAXER sec UY Reference Range: .Testing Not IndicatedThis test was developed and its performance characteristicsdetermined by SPO. It has not been cleared or approvedby the US Food and Drug Administration.APTT 1:1 Saline sec UY Reference Range: .Testing Not IndicatedThis test was developed and its performance characteristicsdetermined by SPO. It has not been cleared or approvedby the [place] Food and Drug Administration.DRVVT Screen Seconds 37.4 sec UY Reference Range: .Reference Range:<= 47.0DRVVT Confirm Seconds sec UY Reference Range: .Testing Not IndicatedDRVVT Ratio ratio UY Reference Range: .Testing Not IndicatedHexagonal Phospholipid Neutral 5 sec UY Reference Range: .This value is NEGATIVE.This is a qualitative assay and is therefore reported aspositive for lupus anticoagulant or negative. Thequantitative value is provided as an aid in diagnosis.Reference Range:0 - 11Platelet Neutralization 1.6 sec UY Reference Range: .Reference Range:0.0 - 3.0This test was developed and its performance characteristicsdetermined by SPO. It has not been cleared or approvedby the Food and Drug Administration.Anticardiolipin Ab, IgG <10 GPL UY Reference Range: .Reference Range:Negative: <15Indeterminate: 15 - 20Low to medium positive: >20 - 80High positive: >80Anticardiolipin Ab, IgM <10 MPL UY Reference Range: .Reference Range:Negative: <13Indeterminate: 13 - 20Low to medium positive: >20 - 80High positive: >80Anticardiolipin Ab, IgA <10 APL UY Reference Range: .Reference Range:Negative: <12Indeterminate: 12 - 20Low to medium positive: >20 - 80High positive: >80Beta-2 Glycoprotein I, IgG <10 SGU UY Reference Range: .The reference interval reflects a 3SD or 99th percentileinterval.Reference Range:Negative: <21Beta-2 Glycoprotein I, IgM <10 SMU UY Reference Range: .The reference interval reflects a 3SD or 99th percentileinterval.Reference Range:Negative: <33Beta-2 Glycoprotein I, IgA <10 UMA UY Reference Range: .The reference interval reflects a 3SD or 99th percentileinterval.Reference Range:Negative: <26Antiphosphatidylserine IgG 0 GPS UY Reference Range: .Reference Range:Negative: <16Low Positive: 16 - 30Moderate Positive: 31 - 50High Positive: >50Antiphosphatidylserine IgM 2 MPS UY Reference Range: .Reference Range:Negative: <22Low Positive: 22 - 35Moderate Positive: 36 - 50High Positive: >50Antiprothrombin Antibody, IgG 3 G units UY Reference Range: .Reference Range:Negative: <21LAC Interpretation Comment UY Reference Range: .A lupus anticoagulant is not detected. All antiphospholipidantibodies evaluated are normal. As antibody titers mayfluctuate with time, repeat testing may be indicated.Please contact [facility] if furtherclarification is needed.Performed at: [facility] [id number] Director: Anthony Contreras MD, Phone: [phone] at: [facility] [id number] Director: Sudhir Gonzalez PhD, Phone: [phone] Start: 12-25-[address] Salud Watson DO Work Phone: Comment on above: The atypical pANCA pattern has been obse rved in asignificant percentage of patients with ulcerative colitis,primary sclerosing cholangitis and autoimmune hepatitis. Start: 12-25-[address] Salud matt DO Work Phone: Comment on above: Result: c.1601G>A (p.Ilm965Jpr) - Not De tectedThis result is not associated with an increased risk for venousthromboembolism. See Additional Clinical Information andComments.Additional Clinical Information:Venous thromboembolism is a multifactorial diseaseinfluenced by genetic, environmental, and circumstantialrisk factors. The c.1601G>A (p. Ivd825Dxm) variant in theF5 gene, commonly referred to [...] F2 c.*97G>Avariant and Factor V Leiden (PMID: 38770778). Additionalrisk factors include but are not limited [...] for health careproviders to discuss results at [phone] ([phone]).Test Details:Variant Analyzed: c.1601G>A (p. Qok142Dkh), referred toas Factor V LeidenMethods/Limitations:DNA analysis of [...] was developed and its performance characteristicsdetermined by SPO. It has not been cleared orapproved by the Food and Drug Administration.References:Savage S, Cecelia AK, Galen R, Vanita WW, Aaron JH; ACMGProfessional Practice and Guidelines Committee. Addendum:[employer] [employer] consensus statement onfactor V Leiden mutation testing. [employer]. 2020Oct 23.doi: 10.1038/r45179-117-04075-b. PMID: 47762427.Hannah CONTRERAS. Factor V Leiden Thrombophilia. 1998January 01(Updated 2017Aug 24). In: Carlitos MP, Vipin HH, Jake RA,et al., editors. George(R) (Internet). [place] ([place]):[facility]; 0320-1895. Availablefrom: https://www.ncbi.nlm.nih.gov/books/OIS6811/Chris S, Cecelia AK, Kole X, Price B, Cresencio EB, Aleah P,Abimbola CS; [facility] [employer]ort Fe[employer] Ground Bone Committee.Venous thromboembolism laboratory testing (factor V Leidenand factor II c.*97G>A), 2018 update: a technical standardof the [place] [employer] and Genomics(ACMG). [employer]. 2018 Jul;20(12):6263-1632. doi:10.1038/a43046-133-5979-q. Epub 2017May 25. PMID: 39338997. Start: 12-25-[address] Salud Watson DO Work Phone: Comment on above: Test Ordered: [id number] Tick-borne Disease Ab ProfileTest(s) 639213-Soyglav microti IgGwas developed and its performance characteristicsdetermined by SPO. It has not been cleared or approvedby the Food and Drug Administration.Lyme Total Antibody TERRIE Negative Reference Range: NegativeLyme antibodies not detected. Reflex [...] diagnosis of babesiosis,anaplasmosis, and/or ehrlichiosis, respectively.Performed at: [address] [id number] Director: Sudhir Gonzalez PhD, Phone: [phone] at: [address] [id number] Director: Arie Murillo MD, Phone: [phone] Start: 12-21-2024 Computed tomography of abdomen and [...] Start: 01-20-2025 Evaluation of diagnostic study results [facility] Start: 01-08-2025 End: 01-08-2025 Procedure [facility] Start: 12-25-2024 Cytomegalovirus IgM antibody assay [facility] Start: 12-25-2024 Factor V Leiden genotype [facility] Start: 12-25-2024 Procedure [facility] Start: 12-25-2024 Protein S function estimate [facility] Start: 12-25-2024 Targeted analysis for gene mutation [facility] Start: 12-25-2024 [facility] Start: 04-21-2021 Influenza vaccination Flu vaccine (#1) [employer] Phone: Start: 03-12-2017 Hepatitis A vaccine (2 of 2 - 2-dose series) Hepatitis A vaccine (2 of 2 - 2-dose series) [employer] Phone: Start: 2016 DTaP/Tdap/Td vaccine (1 - Tdap) DTaP/Tdap/Td vaccine (1 - Tdap) [employer] Phone: Start: 2012 [facility] Start: 2009 COVID-19 Vaccine (1) COVID-19 Vaccine (1) [facility]: Start: 2008 HPV vaccine (1 - Male 2-dose series) HPV vaccine (1 - Male 2-dose series) [facility] Phone: Start: 1998 Varicella vaccine (1 of 2 - 2-dose childhood series) Varicella vaccine (1 of 2 - 2-dose childhood series) [facility] Phone: Start: 1997 Hepatitis C screening Hepatitis C screen [facility] [employer] Phone: Conrado Chauhan virus c apsid IgM Ab [Units/volume] in Serum [facility] F5 gene mutations fo und [Identifier] in Blood or Tissue by Molecular genetics method Nominal [facility] Neutrophil cytoplasm ic Ab.classic [Units/volume] in Serum [facility] P-ANCA measurement [facility] Patient Education Abdominal Pain [facility] Work Phone: Patient referral [facility] Work Phone: Protein C [Units/vol ume] in Platelet poor plasma by Coagulation assay [facility] Protein S, functional assay [facility] Payers Date Payer Category Payer Self-pay [id number] 2016 [facility] [[email or web address] [id number] 2016 Unknown [id number] 2014 Unknown [id number] 1997 Unknown [id number] 2.16.84 0.1.749507.3.579.2.174 Unknown [id number] 2.16.8 40.1.877129.3.579.2.462 Unknown [id number] 2.16.8 40.1.398930.3.579.2.462 Unknown [id number] 2.16.8 40.1.874396.3.579.2.462 Unknown [id number] 2.16.8 40.1.795180.3.579.2.462 Unknown [id number] 2.16.8 40.1.373688.3.579.2.462 Unknown [id number] 2.16.8 40.1.384438.3.579.2.462 Unknown [id number] 2.16.8 40.1.321090.3.579.2.462 Unknown [id number] 2.16.8 40.1.593825.3.579.2.462 Unknown [id number] 2.16.8 40.1.604886.3.579.2.462 Unknown [id number] 2.16.8 40.1.488561.3.579.2.462 Unknown [id number] 2.16.8 40.1.893181.3.579.2.462 Unknown [id number] 2.16.8 40.1.728827.3.579.2.462 Unknown [id number] 2.16.8 40.1.838040.3.579.2.462 Unknown [id number] 2.16.8 40.1.003648.3.579.2.462 Unknown [id number] 2.16.8 40.1.682111.3.579.2.462 Unknown [id number] 2.16.8 40.1.467664.3.579.2.462 Social History Date Type Detail Facility [facility] [employer] Phone: Start: 1995 Sex Assigned At Not on file [facility] Phone: Exposure to SARS-CoV -2 (event) Not sure [employer] Start: 03-03-2018 [facility] if ever smoked [facility] Work Phone: Start: 1995 Sex Assigned At Male [facility] Start: 12-21-2024 End: 01-14-2025 Tobacco smoking status NHIS Never smoked tobacco (finding) [facility] Mental Status Date Assessment Result Facility 01-14-2025 Cognitive function Level Of Cons ciousness Awake;Alert;Appropriate;Follow s Commands [facility] Work Phone: Clinical Notes 01-08-2025 to 01-20-2025 Note Date & Type Note Facility 01-20-2025 Progress note [facility] Services 01-20-2025 Progress note Note Date/Time January 20, 2025 9:04am [facility] [address] [place] [address] OFFICE VISIT Date of Service: 01/20/25 MR#: [id number] Acct: [id number] Name: JOSE M CORRAL Rep #: [id number] : 1995 Provider: Dr. Florentin Pérez MD Age/Sex: 29/M Location: [facility] Status: Signed HPI HPI History of Present [...] heart disease. 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 At that [...] Source NIBP Intake Visit Reasons: SPLENIC INFRACTION Care Information Associate Required: No Accompanied by: Is patient in [...] applicable) CC: Dr. Salud Watson, DO ~ [facility] Work Phone: 1(731) 928-603205-28-2025 Discharge summary [facility] Medical Records Department [address] [facility] [place] [address] Emergency Department Summary 01/14/25 MR#: [id number] Acct: [id number] Name: JOSE M CORRAL ADRIEL Rep #:[id number] : 1995 29 From: José Miguel Driver [...] reviewed, Vital signs reviewed Constitutional: please see mdm HENT: MMM Eyes: Pupils equal round and [...] MEDICAL DECISION MAKING: Chief Complaint: please see HPI External records reviewed: Reviewed prior imaging studies: [...] Discharge home This note was generated with JCD dictation software. It may contain incorrectwords, spelling, [...] % (Auto) 62.7 Lymph % (Auto) 25.5 Randolph % (Auto) 7.2 Eos % (Auto) 3.6 [...] Clarity Clear Urine pH 6.5 Ur Specific Bruno 1.010 Urine Protein 15 H Urine Glucose [...] for further outpatient evaluationand management. Print Language: Ethiopian Disposition Disposition: Home, Self Care What to do if you have Problems For any increased pain, shortness of breath, bleeding, nausea or vomiting, chestpain, or any unexpected problems, contact your Primary Care Provider. Call [facility] ([phone]) or report tothe closest Emergency Room. Call 911 if necessary. 01/15/25 0044 Cosigner Signature (if applicable): CC: Dr. Salud Watson DO ~ Signed [facility]05-27-2025 Radiology Diagnostic study note [facility] Imaging Services [address] [place], [place] [address] CTA Abd/Pelvis W/WO Contrast MR#: [id number] Acct: [id number] Name: JOSE M CORRAL Rep #: [id number] : 1995 M 29 From: Billy Dyer DO PCP: Dr. Salud Watson DO Status: REG ER Study:CTA Abd/Pelvis W/WO Contrast Date of Ex am: 01/14/25 Exam# [id number] Ordering Dr: Lon Darby DO PROCEDURE: CTA [...] DO; Dr. José Miguel Darby DO ~ Cook Fry: Signed [facility]05-27-2025 Discharge summary Author José Miguel Darby [facility] Note Date/Time January 15, 2025 12:44 am [facility] Medical Records Department [address] [place] [address] Emergency Department Summary 01/14/25 MR#: [id number] Acct: [id number] Name: JOSE M CORRAL Rep #:[id number] : 1995 29 From: José Miguel Driver [...] Oxygen Delivery Method Room Air Room Air [facility] Narr[place] Medical decision making narrative: HISTORY OF [...] reviewed, Vital signs reviewed Constitutional: please see [facility] HENT: MMM Eyes: Pupils equal round and [...] MEDICAL DECISION MAKING: Chief Complaint: please see HPI External records reviewed: Reviewed prior imaging studies: [...] noted in the left upper quadrant spleen [facility] Narrative: The patient was initially hemodynamically stable, [...] Discharge home This note was generated with JCD dictation software. It may contain incorrectwords, spelling, [...] % (Auto) 62.7 Lymph % (Auto) 25.5 Randolph % (Auto) 7.2 Eos % (Auto) 3.6 [...] Clarity Clear Urine pH 6.5 Ur Specific Bruno 1.010 Urine Protein 15 H Urine Glucose [...] for further outpatient evaluationand management. Print Language: Ethiopian Disposition Disposition: Home, Self Care What to do if you have Problems For any increased pain, shortness of breath, bleeding, nausea or vomiting, chestpain, or any unexpected problems, contact your Primary Care Provider. Call [facility] ([phone]) or report to the closest Emergency Room. Call 911 if necessary. 01/15/25 0044 <Electronically signed by José Miguel Darby DO> Cosigner Signature (if applicable): CC: Dr. 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 [employer] Phone: evaluation noteNo assessment information available [facility] Work Phone: Hospital Discharge instructions* Attachments The following attachments cannot be sent through Care Everywhere. * Crutch Instructions: General Info (Ethiopian) * Lacerations: Stitches (Ethiopian) * RICE: General Info (Ethiopian) [facility] Phone: Hospital Discharge instructions Additional Instructions Thank [...] care physician for further outpatient evaluation and management.[facility] Work Phone: Reason for referral (narrative)No reason for referral [facility] Work Phone: Summary Purpose Family History No [...] No March 03, 2018 6:18pm Power of Lithographer Helper No March 03 6:18pm Advance Directive Response Recorded Date/ Time Do you have a Healthcare Power of Lithographer Helper? No December 21, 2024 4:40pm Advance Directive Response Recorded Date/ Time Do you have a Healthcare Power of Lithographer Helper? No December 21, 2024 4:40pm Do you have a Healthcare Power of Lithographer Helper? Yes January 14, 2025 10:11pm Advance Directive Response Recorded Date/ Time Do you have a Healthcare Power of Lithographer Helper? Yes January 14, 2025 10:11pm Chief Complaint [...] Splenic infarct January 20, 2025 8:20a m Chief Complaint Admit Date flank pain December 21, 2024 4:01pm Amb Documentation January 06, 2025 3:01p m SPLENIC INFARCT January 08, 2025 9:54a m pain other January 14, 2025 9:03p m SPLENIC INFRACTION January 20, 2025 8:20a m Palpitations January 28, 2025 1:10 pm 2 ORDERING DRS/BOTH E ORDERS February 04, 2025 7:08am Chief Complaint Admit Date flank pain December 21, 2024 4:01pm Amb Documentation January 06, 2025 3:01p m SPLENIC INFARCT January 08, 2025 9:54a m pain other January 14, 2025 9:03p m SPLENIC INFRACTION January 20, 2025 8:20a m 30 DAY MONITOR January 28, 2025 9:00 am Palpitations January 28, 2025 1:10 pm 2 ORDERING DRS/BOTH E ORDERS February 04, 2025 7:08am PALPITATIONS February 26, 2025 7:37a m Amb Documentation February 27, 2025 1:13 pm Chief Complaint Admit Date Amb Documentation January 06, 2025 3:01p m SPLENIC INFARCT January 08, 2025 9:54a m pain other January 14, 2025 9:03p m SPLENIC INFRACTION January 20, 2025 8:20a m 30 DAY MONITOR January 28, 2025 9:00 am Palpitations January 28, 2025 1:10 pm 2 ORDERING DRS/BOTH E ORDERS February 04, 2025 7:08am PALPITATIONS February 26, 2025 7:37a m Amb Documentation February 27, 2025 1:13 pm 3 M FU May 05, 2025 1:37pm Additional Source Comments (unrecognized sect ion and content) No Status Records FoundNo Status Records FoundNo Status Records Found INFORMATION SOURCE (unrecogn ized section and content) DATE CREATED AUTHOR 02/12/2018 [facility] DATE CREATED AUTHOR AUTHOR'S ORGANIZ ATION 03/07/2021 Isidra scruggs DATE CREATED AUTHOR AUTHOR'S ORGANIZ ATION 05/06/2025 [facility] Reason for Visit (unrecogniz ed section and [...] 1 dose, Apply to foot laceration, left 171 (Due)171 (Give n - Provider: Camille Sánchez RN) cephALEXin (KEFLEX) capsule 500 mg (COMPLETED) 500 mg, Oral, ONCE, On 03/06/21 at 1700, For 1 dose 171 (Given - Provid er: Camille Sánchez RN) ibuprofen (ADVIL;MOTRIN) tablet 600 mg (COMPLETED) 600 mg, Oral, ONCE, On 03/06/21 at 1700, For 1 dose, Do not crush or chew. 1712 (Given - Provid er: Camille Sánchez RN) lidocaine 1 % injection 10 mL (COMPLETED) 10 mL, Intradermal, ONCE, On 03/06/21 at 1330, For 1 dose, To bedside 1716 (Given - Provid er: Camille Sánchez RN) Goals (unrecognized section and content) Goals may [...] January 20, 2025 End: January 20, 2025 Team Status: Inactive Member Role Status Dates Dr. Salud Watson DO Primary Care Provider Active Start: January 14, 2025 End: January 15, 2025 Dr. José Miguel Darby DO Attending Provider Active Start: January 14, 2025 End: January 15, 2025 Dr. José Miguel Darby , DO Emergency Provider Active Start: January 14, 2025 End: January 15, 2025 Team Status: Active Member Role Status Dates Dr. Gabrielle Pérez MD Attending Provider Active Start: January 28, 2025 Dr. Gabrielle Pérez MD Referring Provider Active Start: January 28, 2025 Dr. Salud Watson DO Primary Care Provider Active Start: January 28, 2025 Team Status: Inactive Member Role Status Dates Dr. Salud Watson DO Primary Care Provider Active Start: February 04, 2025 End: February 04, 2025 Corky Gandara FILM WAXER, FILM WAXER-C Attending Provider Active S tart: February 04, 2025 End: February 04, 2025 Corky Gandara FILM WAXER, FILM WAXER-C Referring Provider Active S tart: February 04, 2025 End: February 04, 2025 Dr. Gabrielle Pérez MD Other Provider Active Star t: February 04, 2025 End: February 04, 2025 Team Status: Active Member Role/Relationship Status Dates Dr. Salud Watson DO Primary Care Provider Active Team Status: Inactive Member Role/Relationship Status Dates Dr. Salud Watson DO Primary Care Provider Active Start: December 21, 2024 End: December 22, 2024 Dr. Michael Oakley DO Attending Provider Active Start: December 21, 2024 End: December 22, 2024 Dr. Michael Oakley DO Emergency Provider Active Start: December 21, 2024 End: December 22, 2024 Team Status: Inactive Member Role/Relationship Status Dates Dr. Salud Watson DO Primary Care Provider Active Start: December 25, 2024 End: December 25, 2024 Dr. Salud Watson DO Attending Provider Active Start: December 25, 2024 End: December 25, 2024 Dr. Salud Watson DO Referring Provider Active Start: December 25, 2024 End: December 25, 2024 Team Status: Active Member Role/Relationship Status Dates Dr. Salud Watson DO Primary Care Provider Active Start: January 06, 2025 Shreya Mcmillan Attending Provider Active Start: January 06, 2025 Team Status: Inactive Member Role/Relationship Status Dates Dr. Salud Watson DO Primary Care Provider Active Start: January 08, 2025 End: January 08, 2025 Dr. Salud Watson DO Referring Provider Active Start: January 08, 2025 End: January 08, 2025 Dr. Patrice Patel MD Attending Provider Active Start: January 08, 2025 End: January 08, 2025 Team Status: Active Member Role/Relationship Status Dates Dr. Salud Watson DO Primary Care Provider Active Start: January 08, 2025 Dr. Patrice Patel MD Attending Provider Active Start: January 08, 2025 Dr. Patrice Patel MD Referring Provider Active Start: January 08, 2025 Team Status: Inactive Member Role/Relationship Status Dates Dr. Salud Watson DO Primary Care Provider Active Start: January 14, 2025 End: January 15, 2025 Dr. José Miguel Darby DO Attending Provider Active Start: January 14, 2025 End: January 15, 2025 Dr. José Miguel Darby DO Emergency Provider Active Start: January 14, 2025 End: January 15, 2025 Team Status: Inactive Member Role/Relationship Status Dates Dr. Salud Watson DO Primary Care Provider Active Start: January 20, 2025 End: January 20, 2025 Dr. Salud Watson DO Referring Provider Active Start: January 20, 2025 End: January 20, 2025 Dr. Gabrielle Pérez MD Attending Provider Active Start: January 20, 2025 End: January 20, 2025 Team Status: Active Member Role/Relationship Status Dates Dr. Salud Watson DO Primary Care Provider Active Start: January 28, 2025 Dr. Gabrielle Pérez MD Attending Provider Active Start: January 28, 2025 Dr. Gabrielle Pérez MD Referring Provider Active Start: January 28, 2025 Team Status: Active Member Role/Relationship Status Dates Dr. Gabrielle Pérez MD Attending Provider Active Start: January 28, 2025 Dr. Gabrielle Pérez MD Referring Provider Active Start: January 28, 2025 Dr. Salud Watson DO Primary Care Provider Active Start: January 28, 2025 Team Status: Inactive Member Role/Relationship Status Dates Dr. Salud Watson DO Primary Care Provider Active Start: February 04, 2025 End: February 04, 2025 Croky Gandara FILM WAXER, FILM WAXER-C Attending Provider Active S tart: February 04, 2025 End: February 04, 2025 Corky Gandara FILM WAXER, FILM WAXER-C Referring Provider Active S tart: February 04, 2025 End: February 04, 2025 Dr. Gabrielle Pérez MD Other Provider Active Star t: February 04, 2025 End: February 04, 2025 Team Status: Inactive Member Role/Relationship Status Dates Dr. Salud Watson DO Primary Care Provider Active Start: February 26, 2025 End: February 26, 2025 Dr. Gabrielle Pérez MD Attending Provider Active Start: February 26, 2025 End: February 26, 2025 Dr. Gabrielle Pérez MD Referring Provider Active Start: February 26, 2025 End: February 26, 2025 Team Status: Active Member Role/Relationship Status Dates Dr. Saldu Watson DO Primary Care Provider Active Start: February 26, 2025 Dr. Gabrielle Pérez MD Attending Provider Active Start: February 26, 2025 Team Status: Active Member Role/Relationship Status Dates Dr. Salud Watson DO Primary Care Provider Active Start: February 27, 2025 Karon Manley FILM WAXER, FILM WAXER-C Attending Provider Active Start: February 27, 2025 Team Status: Active Member Role/Relationship Status Dates Dr. Salud Watson DO Primary Care Provider Active Start: January 06, 2025 Shreya Mcmillan Attending Provider Active Start: January 06, 2025 Team Status: Inactive Member Role/Relationship Status Dates Dr. Salud Watson DO Primary Care Provider Active Start: January 08, 2025 End: January 08, 2025 Dr. Salud Watson DO Referring Provider Active Start: January 08, 2025 End: January 08, 2025 Dr. Patrice Patel MD Attending Provider Active Start: January 08, 2025 End: January 08, 2025 Team Status: Active Member Role/Relationship Status Dates Dr. Salud Watson DO Primary Care Provider Active Start: January 08, 2025 Dr. Patrice Patel MD Attending Provider Active Start: January 08, 2025 Dr. Patrice Patel MD Referring Provider Active Start: January 08, 2025 Team Status: Inactive Member Role/Relationship Status Dates Dr. Salud Watson DO Primary Care Provider Active Start: January 14, 2025 End: January 15, 2025 Dr. José Miguel Darby DO Attending Provider Active Start: January 14, 2025 End: January 15, 2025 Dr. José Miguel Darby DO Emergency Provider Active Start: January 14, 2025 End: January 15, 2025 Team Status: Inactive Member Role/Relationship Status Dates Dr. Salud Watson DO Primary Care Provider Active Start: January 20, 2025 End: January 20, 2025 Dr. Salud Watson DO Referring Provider Active Start: January 20, 2025 End: January 20, 2025 Dr. Gabrielle Pérez MD Attending Provider Active Start: January 20, 2025 End: January 20, 2025 Team Status: Active Member Role/Relationship Status Dates Dr. Salud Watson DO Primary Care Provider Active Start: January 28, 2025 Dr. Gabrielle Pérez MD Attending Provider Active Start: January 28, 2025 Dr. Gabrielle Pérez MD Referring Provider Active Start: January 28, 2025 Team Status: Active Member Role/Relationship Status Dates Dr. Gabrielle Pérez MD Attending Provider Active Start: January 28, 2025 Dr. Gabrielle Pérez MD Referring Provider Active Start: January 28, 2025 Dr. Salud Watson DO Primary Care Provider Active Start: January 28, 2025 Team Status: Inactive Member Role/Relationship Status Dates Dr. Salud Watson DO Primary Care Provider Active Start: February 04, 2025 End: February 04, 2025 Corky Gandara FILM WAXER, FILM WAXER-C Attending Provider Active S tart: February 04, 2025 End: February 04, 2025 Corky Gandara FILM WAXER, FILM WAXER-C Referring Provider Active S tart: February 04, 2025 End: February 04, 2025 Dr. Gabrielle Pérez MD Other Provider Active Star t: February 04, 2025 End: February 04, 2025 Team Status: Inactive Member Role/Relationship Status Dates Dr. Salud Watson DO Primary Care Provider Active Start: February 26, 2025 End: February 26, 2025 Dr. Gabrielle Pérez MD Attending Provider Active Start: February 26, 2025 End: February 26, 2025 Dr. Gabrielle Pérez MD Referring Provider Active Start: February 26, 2025 End: February 26, 2025 Team Status: Active Member Role/Relationship Status Dates Dr. Salud Watson DO Primary Care Provider Active Start: February 26, 2025 Dr. Gabrielle Pérez MD Attending Provider Active Start: February 26, 2025 Team Status: Active Member Role/Relationship Status Dates Dr. Salud Watson DO Primary Care Provider Active Start: February 27, 2025 Karon Manley NP, FILM WAXER-C Attending Provider Active Start: February 27, 2025 Team Status: Inactive Member Role/Relationship Status Dates Dr. Salud Watson DO Primary Care Provider Active Start: May 05, 2025 End: May 05, 2025 Dr. Salud Watson DO Referring Provider Active Start: May 05, 2025 End: May 05, 2025 Dr. Gabrielle Pérez MD Attending Provider Active Start: May 05, 2025 End: May 05, 2025 FOR RECORDS PERTAINING TO PATIENTS WHO [...] BE BASED ON THE PRIMARY CLINICAL RECORDS. [facility]. provides no warranty or guarantee of the accuracy or completeness of information in this document.
--- NOTE | 2025-06-28 09:24 | EX.ED.DYSGE1 ---
HPI History of Present Illness Chief Complaint: Abd Pain Informant: patient and parent Narrative Narrative: 29-year-old male presenting to the emergency room with sudden onset of left upper quadrant abdominal pain. Patient had a diagnosis of idiopathic splenic infarct about 6 months ago. He was on 3 months of anticoagulants. No obvious cause was found. The patient states that he will occasionally have twinges of pain since then that has been able to go on about his daily activities including running and [email or web address]. Today he went to [email or web address] and returned home. He does not experience any pain. He was in the process of making pancakes for his daughter when he had sudden onset of left upper quadrant pain. He notes he has not had a bowel movement today. Had a normal bowel movement yesterday. Denies any fevers. He states that it feels mostly left upper quadrant left lower chest and radiates slightly to the flank. He denies urinary symptoms. No vomiting. He states the pain seems to take his breath away is hard for him to speak because of the pain. PFSH [facility] Medical History Palpitations Splenic infarct Normal colonoscopy GERD (gastroesophageal reflux disease) IBS (irritable bowel syndrome) Migraines Seasonal allergies Home Medications Medication Instructions Recorded Last Taken Type lactobacillus combination no.9 4 PO 01/08/25 Unknown History billion cell capsule (Adult 50 Plus Probiotic) magnesium 200 mg tablet 200 mg PO QDAY 01/08/25 Unknown History multivitamin 1 tab PO QAM 01/08/25 Unknown History psyllium husk 0.4 gram capsule 0.4 g PO ONCE 01/08/25 Unknown History (Daily Fiber) ketorolac 10 mg tablet 10 mg PO Q8H PRN pain #15 tabs 06/28/25 Unknown Rx Allergy/AdvReac Type Severity Reaction Status Date / Time sulfamethoxazole (From Allergy Hives Verified 06/28/25 09:02 Bactrim) trimethoprim (From Bactrim) Allergy Hives Verified 06/28/25 09:02 Family History Grandfather Myocardial infarction, Onset Age: 50 Cancer Hypertension Hyperlipidemia Grandmother Breast cancer CVA (cerebral vascular accident) Hypertension Father Mitral valve prolapse Surgical History History of colonoscopy Hx of wisdom tooth extraction S/P tonsillectomy and adenoidectomy Social History Smoking Status: Never smoker alcohol intake: current alcohol intake frequency: a few times a month Alcohol type: beer substance use type: does not use what type of physical activity do you participate in: running, weight training and other details: [employer] training frequency: daily ROS ROS ED Constitutional Constitutional ED: Denies chills, fever(s) or weight loss Eyes Eyes: Denies change in vision or diplopia ENT ENT ED: Denies ear pain, rhinorrhea or sore throat Cardiovascular Cardiovascular: Denies chest pain, orthopnea, palpitations or racing heartbeat Respiratory/Chest Respiratory/Chest: Denies cough, dyspnea or orthopnea Gastrointestinal Gastrointestinal: Reports abdominal pain; Denies diarrhea, nausea or vomiting Genitourinary Genitourinary ED: Denies dysuria, hematuria or urinary frequency Musculoskeletal Musculoskeletal: Denies arthralgias or myalgias Integumentary Denies abscess or rash Neurologic Neurologic: Denies headache(s) or weakness Psychiatric Psychiatric: Denies anxiety, depression, suicidal ideation or suicidal thoughts Endocrine Endocrinology: Denies polydipsia, polyphagia or polyuria Allergic/Immunologic Allergic/Immunologic ED: Denies mouth swelling, tongue swelling or urticaria EXAM Physical Exam Narrative Exam Narrative: Patient appears uncomfortable holding the left upper quadrant left lower chest Const Vital Signs: 06/28/25 09:02 06/28/25 10:03 06/28/25 11:00 Temperature 97.8 F 99 F 99 F Temperature Source Oral Oral Oral Pulse Rate 75 74 72 Respiratory Rate 18 18 18 Blood Pressure 125/85 H 146/73 H 150/90 H Blood Pressure Mean 98 97 110 Pulse Ox 100 98 98 Oxygen Delivery Method Room Air 06/28/25 12:00 06/28/25 12:17 Temperature 99 F 97.5 F L Temperature Source Oral Pulse Rate 75 75 Respiratory Rate 18 18 Blood Pressure 112/52 L 112/52 L Blood Pressure Mean 72 72 Pulse Ox 98 98 Oxygen Delivery Method Room Air Positive well nourished and well developed General Appearance ED: well developed HEENT Reports normocephalic, head/scalp atraumatic and moist mucous membranes Eyes PERRL and EOMs intact bilaterally Neck no lymphadenopathy, supple and no JVD Resp normal respiratory effort and clear to auscultation bilaterally Cardio regular rate, regular rhythm and no murmurs GI Palpation: soft and tender LUQ; Negative for guarding or rebound tenderness present Back/Spine no CVA tenderness and normal ROM Extremity normal to inspection General Extremety ED: Negative for edema General Extremity: Negative for edema Neuro oriented x3 and CN's II-XII intact bilaterally Sensorium / Orientation: alert Motor Exam: strength 5/5 throughout Psych mental status grossly normal Mood & Affect: Negative for depressed or tearful Skin no rashes or lesions noted and no wounds MDM MDM MDM Narrative Medical decision making narrative: Differential diagnosis includes but not limited to kidney stone UTI/pyelonephritis splenic infarct other renal thromboembolism pancreatitis gastric ulcer gastritis colitis perforated bowel diverticulitis Basic blood work obtained shows white count 15.6 of unknown determine significance. Hemoglobin 16.6 platelet count is 529. Creatinine normal at 0.90 anion gap 10 BUN 17 CO2 26.3. Normal AST. ALT minimally elevated at 49 alk phos 32 lipase 24 urinalysis with no overt infection or hematuria. Because of his history of splenic infarcts and location of his pain a CTA of the chest abdomen pelvis was obtained. I do not see an obvious thromboembolism. Please see radiologist read for full details. Patient initially received a dose of Dilaudid and later was dosed with Toradol. Patient is doing better but he is concerned that his pain is coming back. I did notice on the CT there is some colon in this area particularly at the splenic flexure with prominent stool. He does have a long history of constipation. Perhaps this pain is related to stool at that flexure. Talked about maybe trying doing a bottle of magnesium citrate to see if several good bowel movements might relieve it. I can write for some Toradol. Of asked that he follow-up with his doctor if not improving return if worsening may also wish to see gastroenterology. History & Record Review Discussion w/independent historian: Patient and Family (Father and mother) Lab Data Attestation: I reviewed the patient's lab results. Labs: Laboratory Results - last 24 hr 06/28/25 06/28/25 09:12 10:28 WBC 15.6 H RBC 5.89 Hgb 16.6 H Hct 48.4 MCV 82.2 MCH 28.2 MCHC 34.3 RDW Std Deviation 41.3 RDW Coeff of Mame 13.9 Plt Count 529 H MPV 9.3 Immature Gran % (Auto) 0.800 Neut % (Auto) 75.3 H Lymph % (Auto) 13.2 L [place] % (Auto) 9.3 Eos % (Auto) 1.0 Baso % (Auto) 0.4 Absolute Neuts (auto) 11.7 H Absolute Lymphs (auto) 2.06 Nucleated RBC % 0 Sodium 138 Potassium 4.4 Chloride 101 Carbon Dioxide 26.3 Anion Gap 10 BUN 17 Creatinine 0.90 Estim Creat Clear Calc 135.32 Est GFR (MDRD) Non-Af 120 BUN/Creatinine Ratio 19.4 Glucose 93 Calcium 9.6 Total Bilirubin 0.54 Direct Bilirubin 0.23 AST 31 ALT 49 H Alkaline Phosphatase 32 L Total Protein 7.5 Albumin 4.8 Globulin 2.7 Lipase 24 Urine Color Yellow Urine Clarity Clear Urine pH 8.0 Ur Specific [place] 1.015 Urine Protein 15 H Urine Glucose (UA) Normal Urine Ketones 15 H Urine Occult Blood Negative Urine Nitrite Negative Urine Bilirubin Negative Urine Urobilinogen Normal Ur Leukocyte Esterase Negative Urine RBC 0 SEEN Urine WBC 0 SEEN Ur Squamous Epith Cells 0 SEEN Urine Bacteria 0 SEEN Urine Mucus 0 SEEN Radiography Diagnostic Testing: Clinical Impression(s) from Imaging Studies Chest/Abdomen/Pelvis CTA 06/28/25 09:50 IMPRESSION: Unremarkable CTA of the chest abdomen and pelvis without aneurysm or dissection. Geographic enhancement of the spleen which can be due to early arterial phase. Further evaluation with ultrasound may be performed if clinically warranted. Otherwise, no acute abdominopelvic abnormalities. Reading Location: [facility] Discharge Plan Triage Chief Complaint: Abd Pain ED Provider: Michael Oakley Dx/Rx/DC Orders Clinical Impression: Abdominal pain Instructions: Abdominal Pain Prescriptions: New ketorolac 10 mg tablet 10 mg PO Q8H PRN (Reason: pain) Qty: 15 0RF Rx Instructions: maximum total duration of 5 days from all oral, intranasal, or parenteral formulations No Action Adult 50 Plus Probiotic 4 billion cell capsule PO psyllium husk [Daily Fiber] 0.4 gram capsule 0.4 g PO ONCE magnesium 200 mg tablet 200 mg PO QDAY multivitamin Tablet 1 tab PO QAM Primary Care Provider: Joseluis Watson Referrals: Joseluis Watson DO [Primary Care Provider, Family Practice] - 3-5 Days if not improving Friend,DO Navarro [Med Staff - Active Staff, Gastroenterology] Referral Note: For gastroenterology evaluation Activity Restrictions/Additional Instructions: You may wish to try drinking a entire bottle of magnesium citrate to see if that movement of stool that we talked about improves her symptoms. Print Language: Beninese Disposition Disposition: Home, Self Care Discharge Date/Time: 06/28/25 12:26
[2025-06-28 09:38] LABS: Hematocrit 48.4 % (40-54); Hemoglobin 16.6 g/dL (13.0-16.5); Immature Granulocytes Count 0.120 X10^3/uL (0.0-0.0); Mean Corp Hgb Conc 34.3 g/dL (32-36); Mean Corpuscular Volume 82.2 fL (80-94); Mean Platelet Vol. 9.3 fl (6.2-12.0); NRBC Flagged by Analyzer 0 % (0-5); Platelet Count 529 K/mm3 (150-450); RBC Distribution Width CV 13.9 % (11.6-14.6); RBC Distribution Width SD 41.3 fl (35.1-43.9); Red Blood Count 5.89 M/mm3 (4.6-6.2); White Blood Count 15.6 K/mm3 (4.4-11.0)
--- NOTE | 2025-06-28 09:50 | CT_ITS ---
PROCEDURE: CTA CHST, ABD, PEL W AND/OR WO 06/28/2025 REASON FOR EXAM: RECENT SPLENIC INFARCT LUQ LLL PAIN TECHNIQUE: Procedure Code: CTCTA.CHAP.2 Modality: CT Procedure: CTA CHST, ABD, PEL W AND/OR WO Coronal and Sagittal reconstruction series were provided. One or more dose reduction techniques were used (e.g., Automated exposure control, adjustment of the mA and/or kV according to patient size, use of iterative reconstruction technique. CONTRAST: Isovue 370 VOLUME: 100 mL RADIATION DOSE SUMMARY: CTDlvol: 11.99 mGy DLP: 922.24 mGycm COMPARISON: CT abdomen and pelvis January 14, 2025. FINDINGS: CHEST: Lines and tubes: Unremarkable. Mediastinum: Unremarkable. Heart: No cardiomegaly. Thoracic Aorta: No thoracic aortic aneurysm or dissection. Lungs and Airways: The lungs are normally expanded and clear. Pleura: No pleural effusion or pneumothorax. Bones: No acute bony abnormalities. ABDOMEN AND PELVIS: Liver: Unremarkable. Gallbladder: Unremarkable. No biliary dilation. Spleen: Geographical enhancement of the spleen. Pancreas: Normal size without evidence of mass surrounding inflammation or ductal dilation. Adrenals: Unremarkable. Kidneys: Normal renal sizes. No hydronephrosis. Bladder: Unremarkable. Reproductive Organs: Unremarkable. Bowel: No bowel wall thickening. No bowel obstruction. Vasculature: The abdominal aorta and IVC are normal. Peritoneum / Retroperitoneum: No free air or free fluid. Bones: No acute bony abnormalities. CT/CTA Chst, Abd, Pel W and/or WO IMPRESSION: Unremarkable CTA of the chest abdomen and pelvis without aneurysm or dissection . Geographic enhancement of the spleen which can be due to early arterial phase. Further evaluation with ultrasound may be performed if clinically warranted. Otherwise, no acute abdominopelvic abnormal ities. Reading Location: [id number]
[2025-06-28 09:58] LABS: AST(SGOT) 31 U/L (<=37); Alanine Aminotransfer ALT/SGPT 49 U/L (<=46); Albumin, Serum 4.8 g/dL (3.5-5.0); Alkaline Phosphatase 32 U/L (40-129); Anion Gap 10 (5-15); BUN 17 mg/dL (4-19); BUN/Creat Ratio 19.4 RATIO (10-20); Bilirubin, Direct 0.23 mg/dL (0.00-0.30); Calcium,Total 9.6 mg/dL (7.6-11.0); Carbon Dioxide 26.3 mmol/L (21.0-32.0); Chloride 101 mmol/L (98-108); Estimated Creatinine Clearance 135.32 ml/min (50-250); Globulin 2.7 g/dL (2.2-4.2); Glucose 93 mg/dL (70-99); Lipase 24 U/L (13-75); Potassium 4.4 mmol/L (3.3-5.1)
[2025-06-28 10:03] VITALS: BP 146/73; PULSE 74; RESP 18; TEMP 37.2; O2SAT 98
--- NOTE | 2025-06-28 10:21 | CM.ED ---
Social Work Date of referral: 06/28/25 Reason for referral: Advanced Care Directives (ACD's) not on file. Referred by: Social Work Identification Patient provided consent to social work visit. Kitchen Food Assembler requested a copy of ACD's which patient agreed to fax over. Patient's did provide health and social care teacher with a copy of a wallet card that identified patient's healthcare power of claim attorney as well as the law firm where ACD's are on file. roundhouse worker made a copy of the card and placed in patient's chart. Radha Castellanos, WELFARE ELIGIBILITY INTERVIEWER, EMAIL ENGINEER
[2025-06-28 10:32] LABS: Mucous, Urine 0 SEEN /hpf (<or=2+); Red Blood Cells-Urine 0 SEEN /hpf (0-5); Squamous Epithelial Cells - UA 0 SEEN /hpf (0-5)
[2025-06-28 10:33] LABS: Color, Urine Yellow (Yellow); Glucose, Dipstick Normal (Normal); Ketone-Dipstick 15 mg/dl (Negative); Leukocyte Esterase-Dipstick Negative /ul (Negative); Nitrite-Dipstick Negative (Negative); Occult Blood-Urine Negative /ul (Negative); Protein-Dipstick 15 mg/dl (Negative); Urine Bilirubin Dipstick Negative (Negative)
[2025-06-28 11:00] VITALS: BP 150/90; PULSE 72; RESP 18; TEMP 37.2; O2SAT 98
[2025-06-28 11:08] LABS: Specific Gravity, Urine 1.015 (1.002-1.030)
[2025-06-28] MEDS: Ketorolac 30 MG/ML Syringe IV (11:22)
[2025-06-28 12:00] VITALS: BP 112/52; PULSE 75; RESP 18; TEMP 37.2; O2SAT 98
[2025-06-28 12:17] VITALS: BP 112/52; PULSE 75; RESP 18; TEMP 36.4; O2SAT 98
== END 2025-06-28 12:26 | disposition home or self-care (01) ==
PROVIDERS: Emergency Provider Emergency Medicine; PCP Family Medicine; Visit Provider Emergency Medicine
DX: R10.12 Left upper quadrant pain (principal)
CPT/HCPCS: 71275; 74174; 80048; 80076; 81001; 83690; 85025; 96374; 96375; 99283; Q9967; A4216; J2405

== ENCOUNTER 2025-08-19 06:18 | Day surgery (SDC) | payer BC, SELFPAY ==
--- NOTE | 2025-08-11 12:04 | PAT.ANE_ITS ---
Pre-Assessment Diagnosis/Proposed Procedure Planned Operative Procedure(s): colonoscopy/egd Anesthesia History Anesthesia History - event staff member: Anesthesia History - event staff member Hx Hospitalization No 08/11/25 10:19 Any Problems With Anesthesia No 08/11/25 10:19 Cholinesterase deficiency No 08/11/25 10:19 You/Your Family Experience No 08/11/25 10:19 fever (hyperthermia) with Relationship Recent Exposure to Contagious Disease Does patient have nerve No 08/11/25 10:19 stimulator Patient instructed to have device shut off --Does patient have Pacemaker or ICD? When Was Last Pacemaker Check QUESTION #4 FULL TEXT: You/Your Family Experience fever (hyperthermia) with Anesthesia Last Oral Intake Last Oral intake: Last Oral Intake NPO since Meds taken in AM with sips of water? Meds patient instructed to take am of surgery PONV PONV - event staff member: PONV - event staff member Female No 08/11/25 10:19 HX of Motion Sickness No 08/11/25 10:19 HX of N/V After Surgery No 08/11/25 10:19 Non-Smoker No 08/11/25 10:19 Duration of Surgery greater No 08/11/25 10:19 than 60 minutes Number of Risk Factors PONV Score Height & Weight Height & Weight: Anesthesia: Height & Weight Height 6 ft 07/14/25 09:20 Respiratory Assessment Respiratory Assessment - event staff member: Respiratory Tract Infection Hx - event staff member Hx Respiratory Tract Infection No 08/11/25 10:19 STOP Sleep Apnea STOP Sleep Apnea - event staff member: STOP Sleep Apnea - event staff member Hx Hypertension No 08/11/25 10:19 Hx Sleep Apnea No 08/11/25 10:19 CPAP BIPAP Do you snore loudly (louder No 08/11/25 10:19 than talking or can be heard Do you often feel tired/ No 08/11/25 10:19 fatigued/ sleepy during daytime? Has anyone observed you stop No 08/11/25 10:19 breathing during sleep? STOP Results Negative 08/11/25 10:19 QUESTION #5 FULL TEXT : Do you snore loudly (louder than talking or can be heard through closed doors)? 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 Specify any problems Hx of Preganancy in last 3 N/A 08/11/25 10:19 Months Nurse Filling Out Transfusion [facility] 08/11/25 10:19 & Questions: Date: 08/11/25 08/11/25 10:19 Time: 08/11/25 10:19 Patient unable to answer at this time (ie. confused, unrespo /Reproduction History /Reproductive History - event staff member: /Reproductive Hx- event staff member Hx Now Gestational Age (in weeks): EDC: Hx Hx Para Hx Section SAB Does the father of the baby or his family experience fever w Father of the baby Malignant Hypertension history comment PFSH Medical History (Updated 08/11/25 @ 10:25 by Dana Ortiz) Wears contact lenses Wears glasses Anxiety Alcohol use Blood per rectum Palpitations Normal colonoscopy GERD (gastroesophageal reflux disease) IBS (irritable bowel syndrome) Migraines Seasonal allergies Splenic infarct Home Medications ?Medication ?Instructions ?Recorded ?Last Taken ?Type lactobacillus combination no.9 4 4,000 mmu cells PO DA MATILDA 01/08/25 Unknown History billion cell capsule (Adult 50 Plus Probiotic) multivitamin 1 tab PO QAM 01/08/25 Unknow n History psyllium husk 0.4 gram capsule 0.4 g PO ONCE 01/08/25 Unknown History (Daily Fiber) magnesium citrate calm powder PO DAILY 07/14/25 Unknow n History sodium sul 1.479 gram-potas ch See Rx Instructions PO PER PKG DIR 07/14/25 Unknown Rx 0.188 gram-magnes sul 0.225 gram #24 tabs tablet (Sutab) Allergy/AdvReac Type Severity Reaction Status Date / Time sulfamethoxazole (From Allergy Hives Verified 08/11/25 10:17 Bactrim) trimethoprim (From Bactrim) Allergy Hives Verified 08/11/25 10:17 Family History Grandfather Myocardial infarction, Onset Age: 50 Cancer Hypertension Hyperlipidemia Grandmother Breast cancer CVA (cerebral vascular accident) Hypertension Father Mitral valve prolapse Surgical History (Updated 08/11/25 @ 10:25 by Dana Ortiz) Status post myringotomy with tube placement of both ears History of colonoscopy Hx of wisdom tooth extraction S/P tonsillectomy and adenoidectomy Social History Smoking Status: Never smoker alcohol intake: current alcohol intake frequency: a few times a month Alcohol type: beer substance use type: does not use what type of physical activity do you participate in: running, weight training and other details: martial arts training frequency: daily Audit: Pertinent Findings Pertinent Findings EKG Perinent findings: 01/14/2025. Sinus bradycardia 56 bpm. Right axis deviation. Echo (EF%) pertinent findings: 02/26/2025. EF 55%. No major valvular abnormalities. Consult pertinent findings: Cardiology 05/05/2025. Splenic infarct. Chronic. Negative cardiac workup with echocardiogram. 14-day event monitoring unremarkable. History of palpitations. Resolved. Unremarkable 14-day event monitor. Recommendation Anesthesia Recommendation Anesthesia recommendation: OPTIMIZED for anesthesia
[2025-08-19] VITALS (7 sets, daily range): BP systolic 97–117; BP diastolic 58–68; PULSE 54–60; RESP 12–18; TEMP 36.1–36.6; O2SAT 98–100; BMI 25.7
--- OUTSIDE RECORDS SUMMARY | 2025-08-19 06:20 | XMS RPT_ITS | CCD ---
Author Organization [facility] Care Team Providers Care Director Of Intercollegiate Athletics Name Role Phone TONY ARIAS Unavailable Unavailable [...] Salud Watson DO Primary Care Provider [phone] Dr. Salud Watson DO Referring Provider [phone] ShirleySalud núñez Primary Care Unavailable Beto, Gabrielle Attending Unavailable Shirley, Salud Primary Care Unavailable Beto, Gabrielle Referring Unavailable Beto, Gabrielle Attending Unavailable Shirley, Salud Primary Care Unavailable Isckarus, Patrice Referring Unavailable IsckarusPatrice Attending Unavailable Shirley, Salud Primary Care Unavailable Beto, Gabrielle Referring Unavailable Beto, Gabrielle Attending Unavailable Shirley, Salud Primary Care Unavailable Beto, Gabrielle Attending Unavailable Beto, Gabrielle Referring Unavailable Shirley, Salud Primary Care Unavailable Karon Manley Attending Unavailable Shirley, Salud Primary Care Unavailable Shreya Mcmillan Attending Unavailable Shriley, Salud Primary Care Unavailable Shirley, Salud Referring Unavailable Beto, Gabrielle Attending Unavailable Shirley, Salud Primary Care Unavailable Shirley, Salud Referring Unavailable Isckarus, Allynour Attending Unavailable Shirley, Salud Primary Care Unavailable Shirley, Salud Referring Unavailable Beto, Gabrielle Attending Unavailable Roof ACOUSTICAL TILE DRILL PRESS OPERATOR, Corky H Attending Unavailable Shirley, Salud Primary Care Unavailable Beto, Gabrielle Consulting Unavailable Roof ACOUSTICAL TILE DRILL PRESS OPERATOR, Corky H Referring Unavailable Shirley, Salud Primary Care Unavailable Shirley, Salud Referring Unavailable Shirley, Salud Attending Unavailable Shirley, Salud Primary Care Unavailable Michael Oakley Attending Unavailable Shirley, Salud Primary Care Unavailable Michael Oakley Attending Unavailable Shirley, Salud Primary Care Unavailable José Miguel Darby Attending Unavailable Shirley, Salud Primary Care Unavailable Beto, Gabrielle Attending Unavailable Beto, Gabrielle Referring Unavailable Shirley, Salud Primary Care Unavailable Shirley, Salud Attending Unavailable Shirley OLSSalud Referring Unavailable Allergies Allergy Classification Reported Allergen(s) Allergy Type Date of Onset Reaction(s) Facility Sulfamethoxazole / Trimethoprim (1 source) Sulfamethoxazole / Trimethoprim Drug Allergy 1 [facility] (8 sources) Sulfamethoxazole Drug Allergy 5 [facility] (8 sources) Trimethoprim Drug Allergy 5 [facility] (1 source) Sulfamethoxazole Drug Allergy 5 [facility] (1 source) Trimethoprim Drug Allergy 5 [facility] Medications Current Medications Medication [...] Translations: [Cardiac arrhythmia, unspecified] Onset: 02-26-2025 Chronic Essential hypertension (1 source) Essential hypertension; Translations: [...] infarction; Translations: [Infarction of spleen] 12-30-2024 Episodic Residual codes; unclassified (8 sources) History of palpitations; Translations: [Personal history of other specified conditions] 01-20-2025 Episodic Unclassified (6 sources) for hematology Past or Other Problems Problem Classification Problem Date Documented Da te Episodic/Chronic Abdominal pain (9 sources) Abdominal pain; Translations: [Unspecified abdominal pain] Onset: 12-26-2024 12-30-2024 Episodic Cardiac dysrhythmias (6 sources) Palpitations; Translations: [Palpitations] Onset: 01-28-2025 01-20-2025 Episodic Other gastrointestinal disorders (1 source) Personal history of other diseases of the digestive system; Translations: [Personal history of other diseases of the digestive system] Onset: 01-20-2025 Episodic Other hematologic conditions (2 sources) Infarction of spleen; Translations: [Infarction of spleen] Onset: 01-20-2025 Episodic Residual codes; unclassified (2 sources) Personal history of other specified conditions; Translations: [Personal history of other specified conditions] Onset: 01-20-2025 Episodic Unclassified (4 sources) Other general symptoms and signs; Translations: [OTHER GENERAL SYMPTOMS AND SIGNS] Onset: 09-08-2017 Episodic Results Test Name Value Interpretation Reference Range Facility Basic Metabolic Profile (BMP )on 06-28-2025 BUN/CRE 19.4 RATIO Normal 10-20 [facility] Comment on above: Performed By: #### L 501.2450, L500.3400, L100.0100, L500.2500 #### [facility] [address] [place], [place], [id number] Calcium [Mass/Vol] 9.6 mg/dL Normal 7.6-11.0 [facility] Comment on above: Performed By: #### L 501.2450, L500.3400, L100.0100, L500.2500 #### [facility] [address] [place], [address] Chloride [Moles/Vol] 101 mmol/L Normal 98-108 [facility] Comment on above: Performed By: #### L 501.2450, L500.3400, L100.0100, L500.2500 #### [facility] [address] [place], [address] CO2 [Moles/Vol] 26.3 mmol/L Normal 21.0-32.0 [facility] Comment on above: Performed By: #### L 501.2450, L500.3400, L100.0100, L500.2500 #### [facility] [address] [place], [address] Creatinine [Mass/Vol] 0.90 mg/dL Normal 0.70-1.20 [facility] Comment on above: Performed By: #### L 501.2450, L500.3400, L100.0100, L500.2500 #### [facility] [address] [place], [address] ECRCL 135.32 ml/min Normal 50-250 [facility] Comment on above: Performed By: #### L 501.2450, L500.3400, L100.0100, L500.2500 #### [facility] [address] [place], [address] GAP 10 Normal 5-15 [facility] Comment on above: Performed By: #### L 501.2450, L500.3400, L100.0100, L500.2500 #### [facility] [address] [place], [address] GFR/1.73 sq M.predicted among non-blacks MDRD (S/P/Bld) [Vol rate/Area] 120 mL/min/{1.73_m2} Normal >60 [facility] Comment on above: Result Comment: mL/m in/1.73m2 CKD-EPI Creatinine Equation (2020) Performed By: #### L 501.2450, L500.3400, L100.0100, L500.2500 #### [facility] [address] [place], [address] Glucose [Mass/Vol] 93 mg/dL Normal 70-99 [facility] Comment on above: Performed By: #### L 501.2450, L500.3400, L100.0100, L500.2500 #### [facility] [address] [place], [address] Potassium [Moles/Vol] 4.4 mmol/L Normal 3.3-5.1 [facility] Comment on above: Performed By: #### L 501.2450, L500.3400, L100.0100, L500.2500 #### [facility] [address] [place], [address] Sodium [Moles/Vol] 138 mmol/L Normal 133-145 [facility] Comment on above: Performed By: #### L 501.2450, L500.3400, L100.0100, L500.2500 #### [facility] [address] [place], [address] Urea nitrogen [Mass/Vol] 17 mg/dL Normal 4-19 [facility] Comment on above: Performed By: #### L 501.2450, L500.3400, L100.0100, L500.2500 #### [facility] [address] [place], [address] CBC W/Diff, Automatedon 11-0 8-2024 Absolute Lymph 2.06 X10 3/uL Normal 0.83-4.51 [facility] Comment on above: Performed By: #### L 501.2450, L500.3400, L100.0100, L500.2500 #### [facility] [address] [place], [address] Absolute Neut 11.7 X10 3/uL High 2.0-7.7 [facility] Comment on above: Performed By: #### L 501.2450, L500.3400, L100.0100, L500.2500 #### [facility] [address] [place], [address] Basophils/100 WBC (Bld) 0.4 % Normal 0-1 [facility] Comment on above: Performed By: #### L 501.2450, L500.3400, L100.0100, L500.2500 #### [facility] [address] [place], [address] Eosinophils/100 WBC (Bld) 1.0 % Normal 0-5 [facility] Comment on above: Performed By: #### L 501.2450, L500.3400, L100.0100, L500.2500 #### [facility] [address] [place], [address] Erythrocyte distribution width (RBC) [Ratio] 13.9 % Normal 11.6-14.6 [facility] Comment on above: Performed By: #### L 501.2450, L500.3400, L100.0100, L500.2500 #### [facility] [address] [place], [address] Hematocrit (Bld) [Volume fraction] 48.4 % Normal 40-54 [facility] Comment on above: Performed By: #### L 501.2450, L500.3400, L100.0100, L500.2500 #### [facility] [address] [place], [address] Hemoglobin (Bld) [Mass/Vol] 16.6 g/dL High 13.0-16.5 [facility] Comment on above: Performed By: #### L 501.2450, L500.3400, L100.0100, L500.2500 #### [facility] [address] [place], [address] IG% 0.800 Normal 0.0-0.9 [facility] Comment on above: Result Comment: IG% - Immature Granulocytes (promyelocytes, myelocytes and metamyelocytes) > 1% indicates that a LEFT SHIFT is Present. Performed By: #### L 501.2450, L500.3400, L100.0100, L500.2500 #### [facility] [address] [place], [address] Lymphocytes/100 WBC (Bld) 13.2 % Low 19-41 [facility] Comment on above: Performed By: #### L 501.2450, L500.3400, L100.0100, L500.2500 #### [facility] [address] [place], [address] MCH (RBC) [Entitic mass] 28.2 pg Normal 27.0-32.0 [facility] Comment on above: Performed By: #### L 501.2450, L500.3400, L100.0100, L500.2500 #### [facility] [address] [place], [address] MCHC (RBC) [Mass/Vol] 34.3 g/dL Normal 32-36 [facility] Comment on above: Performed By: #### L 501.2450, L500.3400, L100.0100, L500.2500 #### [facility] [address] [place], [address] MCV (RBC) [Entitic vol] 82.2 fL Normal 80-94 [facility] Comment on above: Performed By: #### L 501.2450, L500.3400, L100.0100, L500.2500 #### [facility] [address] [place], [address] Monocytes/100 WBC (Bld) 9.3 % Normal 0-10 [facility] Comment on above: Performed By: #### L 501.2450, L500.3400, L100.0100, L500.2500 #### [facility] [address] [place], [address] Neutrophils/100 WBC (Bld) 75.3 % High 47-70 [facility] Comment on above: Performed By: #### L 501.2450, L500.3400, L100.0100, L500.2500 #### [facility] [address] [place], [address] Nucleated RBC (Bld) [#/Vol] 0 10*3/uL Normal 0-5 [facility] Comment on above: Performed By: #### L 501.2450, L500.3400, L100.0100, L500.2500 #### [facility] [address] [place], [address] Platelet mean volume (Bld) [Entitic vol] 9.3 fL Normal 6.2-12.0 [facility] Comment on above: Performed By: #### L 501.2450, L500.3400, L100.0100, L500.2500 #### [facility] [address] [place], [address] Platelets (Bld) [#/Vol] 529 10*3/uL High 150-450 [facility] Comment on above: Performed By: #### L 501.2450, L500.3400, L100.0100, L500.2500 #### [facility] [address] [place], [address] RBC (Bld) [#/Vol] 5.89 10*6/uL Normal 4.6-6.2 [facility] Comment on above: Performed By: #### L 501.2450, L500.3400, L100.0100, L500.2500 #### [facility] [address] [place], [address] RDW SD 41.3 fl Normal 35.1-43.9 [facility] Comment on above: Performed By: #### L 501.2450, L500.3400, L100.0100, L500.2500 #### [facility] [address] [place], [address] WBC (Bld) [#/Vol] 15.6 10*3/uL High 4.4-11.0 [facility] Comment on above: Performed By: #### L 501.2450, L500.3400, L100.0100, L500.2500 #### [facility] [address] [place], [address] CTA Chst, Abd, Pel W and/or WOon 06-28-2025 CTA Chst, Abd, Pel W and/or WO [facility] Services [address] [place] [address] CTA Chst, Abd, Pel W and/or WO MR#: [id number] Acct: [id number] Name: JOSE M CORRAL Rep #: [id number] : 1995 M 29 From: Danni Velázquez MD PCP: Dr. Salud Watsno DO Status: [facility] ER Study: CTA Chst, Abd, Pel W and/or WO Date of Exam: 08/28/24 Exam# [id number] Ordering Dr: Michael Oakley DO PROCEDURE: CTA CHST, ABD, PEL W AND/OR WO 06/28/2025 REASON FOR EXAM: RECENT SPLENIC INFARCT LUQ LLL PAIN TECHNIQUE: Procedure Code: CTCTA.CHAP.2 Modality: CT Procedure: CTA CHST, ABD, PEL W AND/OR WO Coronal and Sagittal reconstruction series were provided. One or more dose reduction techniques were used (e.g., Automated exposure control, adjustment of the mA and/or kV according to patient size, use of iterative reconstruction technique. CONTRAST: Isovue 370 VOLUME: 100 mL RADIATION DOSE SUMMARY: CTDlvol: 11.99 mGy DLP: 922.24 mGycm COMPARISON: CT abdomen and pelvis January 14, 2025. FINDINGS: CHEST: Lines and tubes: Unremarkable. Mediastinum: Unremarkable. Heart: No cardiomegaly. Thoracic Aorta: No thoracic aortic aneurysm or dissection. Lungs and Airways: The lungs are normally expanded and clear. Pleura: No pleural effusion or pneumothorax. Bones: No acute bony abnormalities. ABDOMEN AND PELVIS: Liver: Unremarkable. Gallbladder: Unremarkable. No biliary dilation. Spleen: Geographical enhancement of the spleen. Pancreas: Normal size without evidence of mass surrounding inflammation or ductal dilation. Adrenals: Unremarkable. Kidneys: Normal renal sizes. No hydronephrosis. Bladder: Unremarkable. Reproductive Organs: Unremarkable. Bowel: No bowel wall thickening. No bowel obstruction. Vasculature: The abdominal aorta and IVC are normal. Peritoneum / Retroperitoneum: No free air or free fluid. Bones: No acute bony abnormalities. CT/CTA Chst, Abd, Pel W and/or WO IMPRESSION: Unremarkable CTA of the chest abdomen and pelvis without aneurysm or dissection. Geographic enhancement of the spleen which can be due to early arterial phase. Further evaluation with ultrasound may be performed if clinically warranted. Otherwise, no acute abdominopelvic abnormalities. Reading Location: [facility] CC: Dr. Michael Oakley DO; Dr. Salud Watson DO Psychotherapist Counselor: Signed Normal [facility] Emergency Department Summary on 06-28-2025 Emergency Department Summary [facility] Medical Records Department [address] [place] [id number] Emergency Department Summary 06/28/25 MR#: [id number] Acct: [id number] Name: JOSE M CORRAL Rep #: [id number] : 1995 29 From: Michael Oakley DO PCP: Dr. Salud Watson DO Status:DEP ER Location: ED HPI History of Present Illness Chief Complaint: Abd Pain Informant: patient and parent Narrative Narrative: 29-year-old male presenting to the emergency room with sudden onset of left upper quadrant abdominal pain. Patient had a diagnosis of idiopathic splenic infarct about 6 months ago. He was on 3 months of anticoagulants. No obvious cause was found. The patient states that he will occasionally have twinges of pain since then that has been able to go on about his daily activities including running and [employer]. Today he went to [employer] and returned home. He does not experience any pain. He was in the process of making pancakes for his daughter when he had sudden onset of left upper quadrant pain. He notes he has not had a bowel movement today. Had a normal bowel movement yesterday. Denies any fevers. He states that it feels mostly left upper quadrant left lower chest and radiates slightly to the flank. He denies urinary symptoms. No vomiting. He states the pain seems to take his breath away is hard for him to speak because of the pain. [facility] Medical History Palpitations Splenic infarct Normal colonoscopy GERD (gastroesophageal reflux disease) IBS (irritable bowel syndrome) Migraines Seasonal allergies Home Medications ???Medication ???Instructions ???Recorded ???Last Taken ???Type lactobacillus combination no.9 4 PO 01/08/25 Unknown History billion cell capsule (Adult 50 Plus Probiotic) magnesium 200 mg tablet 200 mg PO QDAY 01/08/25 Unknown Hi story multivitamin 1 tab PO QAM 01/08/25 Unknown Hist ory psyllium husk 0.4 gram capsule 0.4 g PO ONCE 01/08/25 Unknown His tory (Daily Fiber) ketorolac 10 mg tablet 10 mg PO Q8H PRN pain #15 tabs 04/14 Unknown Rx Allergy/AdvReac Type Severity Reaction Status Date / Time sulfamethoxazole (From Allergy Hives Verified 06/28/25 09:02 Bactrim) trimethoprim (From Bactrim) Allergy Hives Verified 06/28/25 09:02 Family History Grandfather Myocardial infarction, Onset Age: 50 Cancer Hypertension Hyperlipidemia Grandmother Breast cancer CVA (cerebral vascular accident) Hypertension Father Mitral valve prolapse Surgical History History of colonoscopy Hx of wisdom tooth extraction S/P tonsillectomy and adenoidectomy Social History Smoking Status: Never smoker alcohol intake: current alcohol intake frequency: a few times a month Alcohol type: beer substance use type: does not use what type of physical activity do you participate in: running, weight training and other details: [employer] arts training frequency: daily ROS ROS ED Constitutional Constitutional ED: Denies chills, fever(s) or weight loss Eyes Eyes: Denies change in vision or diplopia ENT ENT ED: Denies ear pain, rhinorrhea or sore throat Cardiovascular Cardiovascular: Denies chest pain, orthopnea, palpitations or racing heartbeat Respiratory/Chest Respiratory/Chest: Denies cough, dyspnea or orthopnea Gastrointestinal Gastrointestinal: Reports abdominal pain; Denies diarrhea, nausea or vomiting Genitourinary Genitourinary ED: Denies dysuria, hematuria or urinary frequency Musculoskeletal Musculoskeletal: Denies arthralgias or myalgias Integumentary Denies abscess or rash Neurologic Neurologic: Denies headache(s) or weakness Psychiatric Psychiatric: Denies anxiety, depression, suicidal ideation or suicidal thoughts Endocrine Endocrinology: Denies polydipsia, polyphagia or polyuria Allergic/Immunologic Allergic/Immunologic ED: Denies mouth swelling, tongue swelling or urticaria EXAM Physical Exam Narrative Exam Narrative: Patient appears uncomfortable holding the left upper quadrant left lower chest Const Vital Signs: 06/28/25 09:02 06/28/25 10:03 06/28/25 11:00 Temperature 97.8 F 99 F 99 F Temperature Source Oral Oral Oral Pulse Rate 75 74 72 Respiratory Rate 18 18 18 Blood Pressure 125/85 H 146/73 H 150/90 H Blood Pressure Mean 98 97 110 Pulse Ox 100 98 98 Oxygen Delivery Method Room Air 06/28/25 12:00 06/28/25 12:17 Temperature 99 F 97.5 F L Temperature Source Oral Pulse Rate 75 75 Respiratory Rate 18 18 Blood Pressure 112/52 L 112/52 L Blood Pressure Mean 72 72 Pulse Ox 98 98 Oxygen Delivery Method Ro (more content not included)... Normal [facility] Lipaseon 06-28-2025 Lipase [Catalytic activity/Vol] 24 U/L Normal 13-75 [facility] Comment on above: Result Comment: Eliu gutierrez note: LIPASE revised reference range effective 22. New Lipase methodology. Expected to produce lower values than the previous assay method. NEW Reference Range: 13 - 75 U/L Performed By: #### L 501.2450, L500.3400, L100.0100, L500.2500 #### [facility] [address] [place], [address] Liver Profileon 06-28-2025 Albumin [Mass/Vol] 4.8 g/dL Normal 3.5-5.0 [facility] Comment on above: Performed By: #### L 501.2450, L500.3400, L100.0100, L500.2500 #### [facility] [address] [place], [address] ALK PHOS 32 U/L Low 40-129 [facility] Comment on above: Performed By: #### L 501.2450, L500.3400, L100.0100, L500.2500 #### [facility] [address] [place], [address] ALT [Catalytic activity/Vol] 49 U/L High <=46 [facility] Comment on above: Performed By: #### L 501.2450, L500.3400, L100.0100, L500.2500 #### [facility] [address] [place], [address] AST [Catalytic activity/Vol] 31 U/L Normal <=37 [facility] Comment on above: Performed By: #### L 501.2450, L500.3400, L100.0100, L500.2500 #### [facility] [address] [place], [address] Bilirubin [Mass/Vol] 0.54 mg/dL Normal 0.00-1.30 [facility] Comment on above: Performed By: #### L 501.2450, L500.3400, L100.0100, L500.2500 #### [facility] [address] [place], [address] Bilirubin.direct [Mass/Vol] 0.23 mg/dL Normal 0.00-0.30 [facility] Comment on above: Performed By: #### L 501.2450, L500.3400, L100.0100, L500.2500 #### [facility] [address] [place], [address] Globulin (S) [Mass/Vol] 2.7 g/dL Normal 2.2-4.2 [facility] Comment on above: Performed By: #### L 501.2450, L500.3400, L100.0100, L500.2500 #### [facility] [address] [place], [address] T PROT 7.5 g/dL Normal 5.9-8.4 [facility] Comment on above: Performed By: #### L 501.2450, L500.3400, L100.0100, L500.2500 #### [facility] [address] [place], [address] Urinalysis, Completeon 06-28 BACTERIA 0 SEEN Normal None Seen [facility] Comment on above: Order Comment: CLEAN CATCH Performed By: #### L 501.2450, L500.3400, L100.0100, L500.2500 #### [facility] [address] [place], [address] EPI,SQUAMOUS 0 SEEN Normal 0-5 [facility] Comment on above: Order Comment: CLEAN CATCH Performed By: #### L 501.2450, L500.3400, L100.0100, L500.2500 #### [facility] [address] [place], [address] Mucus Ql (Urine sed) 0 SEEN Normal [facility] Comment on above: Order Comment: CLEAN CATCH Performed By: #### L 501.2450, L500.3400, L100.0100, L500.2500 #### [facility] [address] [place], [address] RBC 0 SEEN Normal 0-5 [facility] Comment on above: Order Comment: CLEAN CATCH Performed By: #### L 501.2450, L500.3400, L100.0100, L500.2500 #### [facility] [address] [place], [address] WBC 0 SEEN Normal 0-5 [facility] Comment on above: Order Comment: CLEAN CATCH Performed By: #### L 501.2450, L500.3400, L100.0100, L500.2500 #### [facility] [address] [place], [address] Cardiology Visit Reporton Cardiology Visit Report [facility] [address] [place] [address] OFFICE VISIT Date of Service: 05/05/25 MR#: [id number] Acct: [id number] Name: JOSE M CORRAL Rep #: [id number] : 1995 Provider: Dr. Gabrielle Pérez MD Age/Sex: 29/M Location: [facility] Status: Signed HPI HPI History of Present [...] Source Monitor Intake Visit Reasons: 3 M Clam Picker Required: No Accompanied by: Self Allergies sulfamethoxazole [...] in the past year?: Yes (r/t rogers) PFSH Medical History Palpitations Splenic infarct Normal colonoscopy [...] in: running, weight training and other details: [employer] arts training frequency: daily ROS Const Const: [...] Devices Hav (more content not included)... Normal [facility] Echo Completeon 02-26-2025 Echo Complete [facility] [address] [place] [address] Echo Complete 02/26/25 0744 MR#: [id number] Acct: [id number] Name: JOSE M CORRALREST Rep #: [id number] : 1995 29 From: Gabrielle Pérez MD Attending Dr: Dr. Gabrielle Pérez MD Status: REG CLI Ordering Dr: Gabrielle Pérez MD Date: 02/26/25 Location: [facility] Sex: M C Admitted: Reason For Study [...] By: Alida Sampson, EVELYNCS, RVT 02/26/25924 Date Gabrielle Pérez MD CC: Dr. Gabrielle Pérez MD; Dr. Salud Watson DO Date Dictated: 02/26/25743 Date Transcribed: 02/26/25924 Psychotherapist Counselor: Signed Normal [facility] Echocardiogram study reportO rdered By: Gabrielle Pérez on 02-26-2025 Study report [facility] [address] [place] [address] Echo Complete 02/26/25743 MR#: [id number] Acct: [id number] Name: JOSE M CORRAL Rep #:[id number] : 1995 From: Gabrielle Pérez MD Attending Dr: Dr. Gabrielle Pérez MD Status: REG CLI Ordering Dr: Gabrielle Pérez MD Date: Location: [facility] Sex: M C Admitted: Reason For Study [...] Gabrielle Pérez MD; Dr. Salud Watson DO ~ Date Dictated: 02/26/25743 Date Transcribed: 02/26/25924 Psychotherapist Counselor: Signed [facility] Work Phone: Calculated very low density lipoprotein (VLDL) cholesterol measurementOrdered By: Gabrielle Pérez on 02-04-2025 Calculated very low density lipoprotein (VLDL) cholesterol measurement 15 mg/dL 5-40 [facility] D-Dimer Quantitative (DVT/PE )on 02-04-2025 D-DIMER QUANT 0.27 FEU/ug/m Normal 0.27-0.49 [facility] Comment on above: Result Comment: NORM AL D-Dimer level (<0.50) indicates no DVT or PE. Performed By: #### L 300.8000 #### [facility] [address] [facility] [place], [place], [address] LDL calc ser/plasOrdered By: Gabrielle Pérez on 02-04-2025 Cholesterol in LDL [Mass/Vol] 122 mg/dL [facility] Comment on above: Rfzwwldqzt=261-466 m g/dL & Higher Oyjn=461 mg/dL or greater Lipid Profileon 02-04-2025 CHOL:HDL 2.58 Normal [facility] Comment on above: Performed By: #### L 500.4100 #### [facility] [address] [place], [place], [id number] Cholesterol [Mass/Vol] 225 mg/dL High <=200 [facility] Comment on above: Result Comment: Chol esterol level, Desirable <200 mg/dL Borderline high cholesterol 200-239 mg/dL High cholesterol >=240 mg/dL Recommendations of the NCEP Adult Treatment Panel for the following risk-cutoff thresholds for the [place] population. Performed By: #### L 500.4100 #### [facility] [address] [facility] [place], [place], [id number] Cholesterol in HDL [Mass/Vol] 87 mg/dL Normal [facility] Comment on above: Result Comment: Ya onal Cholesterol Education Program (NCEP) guidelines: <40 mg/dL: Low HDL-cholesterol (major risk factor for CHD) >= 60 mg/dL: High HDL-cholesterol (negative risk factor for CHD) HDL-cholesterol is affected by a number of factors, e.g. smoking, exercise, hormones, sex and age. Performed By: #### L 500.4100 #### [facility] [address] [place], [address] Cholesterol in LDL [Mass/Vol] 122 mg/dL Normal [facility] Comment on above: Result Comment: Bord sytzmt=945-403 mg/dL Higher Kabv=789 mg/dL or greater Performed By: #### L 500.4100 #### [facility] [address] [place], [address] Cholesterol in VLDL [Mass/Vol] 15 mg/dL Normal 5-40 [facility] Comment on above: Performed By: #### L 500.4100 #### [facility] [address] [place], [address] Triglyceride [Mass/Vol] 77 mg/dL Normal [facility] Comment on above: Result Comment: The drugs N-Acetylcysteine and Metamizole may falsely depress this assay. Normal range: <150 mg/dL Borderline High: 150-199 mg/dL High: 200-499 mg/dL Very High: >500 mg/dL Performed By: #### L 500.4100 #### [facility] [address] [place], [address] Screening total cholesterol/ high density lipoprotein (HDL) cholesterol ratioOrdered By: Gabrielle Pérez on 02-04-2025 Cholesterol.total/Choles terol in HDL [Mass ratio] 2.58 {ratio} [facility] Serum or plasma cholesterol in HDL measurement (mass/volume)Ordered By: Gabrielle Pérez on 02-04-2025 Cholesterol in HDL [Mass/Vol] 87 mg/dL >40 [facility] Comment on above: National Cholesterol Education Program (NCEP) guidelines:<40 mg/dL: Low HDL-cholesterol (major risk factor for CHD)>= 60 mg/dL: High HDL-cholesterol (negative risk factor for CHD)HDL-cholesterol is affected by a number of factors, e.g. smoking, exercise, hormones, sex and age. Serum or plasma cholesterol measurement (mass/volume)Ordered By: Gabrielle Pérez on 02-04-2025 Cholesterol [Mass/Vol] 225 mg/dL High <201 [facility] Comment on above: Cholesterol level, D esirable <200 mg/dLBorderline high cholesterol 200-239 mg/dLHigh cholesterol >=240 mg/dLRecommendations of the NCEP Adult Treatment Panel for the following risk-cutoff thresholds for the [place] population. Triglycerides measurementOrd ered By: Gabrielle Pérez on 02-04-2025 Triglyceride [Mass/Vol] 77 mg/dL <199 [facility] Comment on above: The drugs N-Acetylcy steine and Metamizole may falsely depress this assay. Normal range: <150 mg/dLBorderline High: 150-199 mg/dLHigh: 200-499 mg/dLVery High: >500 mg/dL L3410.9992on 01-22-2025 [facility] Mis. COMMENT Normal . [facility] Comment on above: Order Comment: [id number] ANTIPHOSPHOLIPID SYNDROME Result Comment: Test Ordered: [id number] Antiphospholipid Syndrome Comp Specimen Comment: A courtesy copy of this report has been sent to [phone] APTT 30.1 sec UY Reference Range: . This test has not been validated for monitoring unfractionated heparin therapy. aPTT-based therapeutic ranges for unfractionated heparin therapy have not been established. Consider ordering Heparin anti-Xa (unfractionated). 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 Testing Not [...] developed and its performance characteristics determined by [employer]. It has not been cleared or approved [...] repeat testing may be indicated. Please contact [facility] if further clarification is needed. Performed at: [facility] [address] [id number] Finish Inspector: Anthony Cotnreras MD, Phone: [phone] Performed at: [address] [id number] Finish Inspector: Sudhir Gonzalez PhD, Phone: [phone] Performed By: #### L 3410.9992 #### [facility] [address] [place], [place], [address] Cardiology Visit Reporton Cardiology Visit Report [facility] [address] [place], [place] [address] OFFICE VISIT Date of Service: 01/20/25 MR#: [id number] Acct: [id number] Name: JOSE M CORRAL Rep #: [id number] : 1995 Provider: Dr. Gabrielle Pérez MD Age/Sex: 29/M Location: [facility] Status: Signed HPI HPI History of Present [...] heart disease. 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 At that [...] Source NIBP Intake Visit Reasons: SPLENIC INFRACTION Clam Picker Required: No Accompanied by: Is patient in [...] Info Supplem (more content not included)... Normal [facility] Urinalysis, Completeon 01-15 EPI,SQUAMOUS 0-5 SEEN Normal 0-5 [facility] Comment on above: Order Comment: CLEAN CATCH Performed By: #### L 400.0001 #### [facility] [address] [facility] [place], [address] 12 Lead EKGon 01-14-2025 12 Lead EKG [facility] Cardi[facility] Services [address] [place] [address] 12 Lead EKG 01/14/25 2318 MR#: [id number] Acct: [id number] Name: ELLISJOSE MASA MOREL Rep #: [id number] : 1995 29 From: Jose Bowling MD [...] axis Borderline ECG Confirmed by JOSE BOWLING ([id number]), desk editor DANYEL MONTGOMERY ([id number]) on 01/20/2025 8:10:14 AM Referred By: Confirmed By: JOSE BOWLING 01/20/25 0810 Date Jose Bowling MD CC: Dr. Salud Watson, DO; Dr. José Miguel Darby DO Signed Normal [facility] Absolute lymphocyte countOrd ered By: José Miguel Darby on 01-14-2025 Lymphocytes Auto (Unsp spec) [#/Vol] 2.21 10*3/uL 0.83-4.51 [facility] Absolute neutrophil countOrd ered By: José Miguel Darby on 01-14-2025 Neutrophils (Bld) [#/Vol] 5.4 10*3/uL 2.0-7.7 [facility] Anion gap in Serum or Plasma Ordered By: José Miguel Darby on 01-14-2025 Anion gap [Moles/Vol] 13 mmol/L 5-15 [facility] Automated lymphocyte count a s percentage of total leukocytesOrdered By: José Miguel Darby on 01-14-2025 Lymphocytes/100 WBC Auto (Unsp spec) 25.5 % 19-41 [facility] BUN/creatinine ratioOrdered By: José Miguel Darby on 01-14-2025 Urea nitrogen/Creatinine [Mass ratio] 25.1 mg/mg High 10-20 [facility] Basophil percentageOrdered B y: José Miguel Darby on 01-14-2025 Basophils/100 WBC (Bld) 0.7 % 0-1 [facility] Bilirubin Test strip Ql (U)O rdered By: José Miguel Darby on 01-14-2025 Bilirubin Ql (U) Negative Negative [facility] Bilirubin, totalOrdered By: José Miguel Darby on 01-14-2025 Bilirubin [Mass/Vol] 0.39 mg/dL 0.00-1.30 [facility] CBC W/Diff, Automatedon 12-20 Absolute Lymph 2.21 X10 3/uL Normal 0.83-4.51 [facility] Comment on above: Performed By: #### L 100.0100 #### [facility] [address] [place], [address] Absolute Neut 5.4 X10 3/uL Normal 2.0-7.7 [facility] Comment on above: Performed By: #### L 100.0100 #### [facility] [address] [place], [address] Basophils/100 WBC (Bld) 0.7 % Normal 0-1 [facility] Comment on above: Performed By: #### L 100.0100 #### [facility] [address] [place], [address] Eosinophils/100 WBC (Bld) 3.6 % Normal 0-5 [facility] Comment on above: Performed By: #### L 100.0100 #### [facility] [address] [place], [address] Erythrocyte distribution width (RBC) [Ratio] 13.6 % Normal 11.6-14.6 [facility] Comment on above: Performed By: #### L 100.0100 #### [facility] [address] [place], [address] Hematocrit (Bld) [Volume fraction] 46.1 % Normal 40-54 [facility] Comment on above: Performed By: #### L 100.0100 #### [facility] [address] [place], [address] Hemoglobin (Bld) [Mass/Vol] 16.3 g/dL Normal 13.0-16.5 [facility] Comment on above: Performed By: #### L 100.0100 #### [facility] [address] [place], [address] IG% 0.300 Normal 0.0-0.9 [facility] Comment on above: Result Comment: IG% - Immature Granulocytes (promyelocytes, myelocytes and metamyelocytes) > 1% indicates that a LEFT SHIFT is Present. Performed By: #### L 100.0100 #### [facility] [address] [place], [address] Lymphocytes/100 WBC (Bld) 25.5 % Normal 19-41 [facility] Comment on above: Performed By: #### L 100.0100 #### [facility] [address] [place], [address] MCH (RBC) [Entitic mass] 29.0 pg Normal 27.0-32.0 [facility] Comment on above: Performed By: #### L 100.0100 #### [facility] [address] [place], [address] MCHC (RBC) [Mass/Vol] 35.4 g/dL Normal 32-36 [facility] Comment on above: Performed By: #### L 100.0100 #### [facility] [address] [place], [address] MCV (RBC) [Entitic vol] 81.9 fL Normal 80-94 [facility] Comment on above: Performed By: #### L 100.0100 #### [facility] [address] [place], [address] Monocytes/100 WBC (Bld) 7.2 % Normal 0-10 [facility] Comment on above: Performed By: #### L 100.0100 #### [facility] [address] [place], [address] Neutrophils/100 WBC (Bld) 62.7 % Normal 47-70 [facility] Comment on above: Performed By: #### L 100.0100 #### [facility] [address] [place], [address] Nucleated RBC (Bld) [#/Vol] 0 10*3/uL Normal 0-5 [facility] Comment on above: Performed By: #### L 100.0100 #### [facility] [address] [place], [address] Platelet mean volume (Bld) [Entitic vol] 9.0 fL Normal 6.2-12.0 [facility] Comment on above: Performed By: #### L 100.0100 #### [facility] [address] [place], [address] Platelets (Bld) [#/Vol] 337 10*3/uL Normal 150-450 [facility] Comment on above: Performed By: #### L 100.0100 #### [facility] [address] [place], [address] RBC (Bld) [#/Vol] 5.63 10*6/uL Normal 4.6-6.2 [facility] Comment on above: Performed By: #### L 100.0100 #### [facility] [address] [place], [address] RDW SD 39.9 fl Normal 35.1-43.9 [facility] Comment on above: Performed By: #### L 100.0100 #### [facility] [address] [place], [address] WBC (Bld) [#/Vol] 8.7 10*3/uL Normal 4.4-11.0 [facility] Comment on above: Performed By: #### L 100.0100 #### [facility] [address] [place], [address] CTA Abd/Pelvis W/WO Contrast on 01-14-2025 CTA Abd/Pelvis W/WO Contrast [facility] Imaging Services [address] [place] [address] CTA Abd/Pelvis W/WO Contrast MR#: [id number] Acct: [id number] Name: ELLISJOSE MASA MOREL Rep #: [id number] : 1995 M 29 From: Kel Dyer DO PCP: Dr. Salud Watson DO Status: REG ER Study: CTA Abd/Pelvis W/WO Contrast Date of Exam: Exam# [id number] Ordering Dr: José Miguel Darby DO PROCEDURE: [...] Watson DO; Dr. José Miguel Darby DO Psychotherapist Counselor: Signed Normal [facility] Carbon dioxide, total [Moles /volume] in Central venous bloodOrdered By: José Miguel Darby on 01-14-2025 CO2 [Moles/Vol] 24.7 mmol/L 21.0-32.0 [facility] Chloride assayOrdered By: Anabel paty Darby on 01-14-2025 Chloride [Moles/Vol] 101 mmol/L 98-108 [facility] Comprehensive Metabolic Prof ilon 01-14-2025 Albumin [Mass/Vol] 4.8 g/dL Normal 3.5-5.0 [facility] Comment on above: Performed By: #### L 501.2450, L500.3400, L100.0100, L500.2500 #### [facility] [address] [place], [address] Albumin/Globulin [Mass ratio] 1.9 {ratio} Normal 0.9-2.4 [facility] Comment on above: Performed By: #### L 501.2450, L500.3400, L100.0100, L500.2500 #### [facility] [address] [place], [address] ALK PHOS 37 U/L Low 40-129 [facility] Comment on above: Performed By: #### L 501.2450, L500.3400, L100.0100, L500.2500 #### [facility] [address] [place], [address] ALT [Catalytic activity/Vol] 41 U/L Normal <=46 [facility] Comment on above: Performed By: #### L 501.2450, L500.3400, L100.0100, L500.2500 #### [facility] [address] [place], [address] AST [Catalytic activity/Vol] 28 U/L Normal <=37 [facility] Comment on above: Performed By: #### L 501.2450, L500.3400, L100.0100, L500.2500 #### [facility] [address] [place], [address] Bilirubin [Mass/Vol] 0.39 mg/dL Normal 0.00-1.30 [facility] Comment on above: Performed By: #### L 501.2450, L500.3400, L100.0100, L500.2500 #### [facility] [address] [place], [address] BUN/CRE 25.1 RATIO High 10-20 [facility] Comment on above: Performed By: #### L 501.2450, L500.3400, L100.0100, L500.2500 #### [facility] [address] [place], [address] Calcium [Mass/Vol] 9.5 mg/dL Normal 7.6-11.0 [facility] Comment on above: Performed By: #### L 501.2450, L500.3400, L100.0100, L500.2500 #### [facility] [address] [place], [address] Chloride [Moles/Vol] 101 mmol/L Normal 98-108 [facility] Comment on above: Performed By: #### L 501.2450, L500.3400, L100.0100, L500.2500 #### [facility] [address] [place], [address] CO2 [Moles/Vol] 24.7 mmol/L Normal 21.0-32.0 [facility] Comment on above: Performed By: #### L 501.2450, L500.3400, L100.0100, L500.2500 #### [facility] [address] [place], [address] Creatinine [Mass/Vol] 1.13 mg/dL Normal 0.70-1.20 [facility] Comment on above: Performed By: #### L 501.2450, L500.3400, L100.0100, L500.2500 #### [facility] [address] [place], [address] ECRCL 107.78 ml/min Normal 50-250 [facility] Comment on above: Performed By: #### L 501.2450, L500.3400, L100.0100, L500.2500 #### [facility] [address] [place], [address] GAP 13 Normal 5-15 [facility] Comment on above: Performed By: #### L 501.2450, L500.3400, L100.0100, L500.2500 #### [facility] [address] [place], [address] GFR/1.73 sq M.predicted among non-blacks MDRD (S/P/Bld) [Vol rate/Area] 91 mL/min/{1.73_m2} Normal >60 [facility] Comment on above: Result Comment: mL/m in/1.73m2 CKD-EPI Creatinine Equation (2020) Performed By: #### L 501.2450, L500.3400, L100.0100, L500.2500 #### [facility] [address] [place], [address] Globulin (S) [Mass/Vol] 2.5 g/dL Normal 2.2-4.2 [facility] Comment on above: Performed By: #### L 501.2450, L500.3400, L100.0100, L500.2500 #### [facility] [address] [place], [address] Glucose [Mass/Vol] 90 mg/dL Normal 70-99 [facility] Comment on above: Performed By: #### L 501.2450, L500.3400, L100.0100, L500.2500 #### [facility] [address] [place], [address] Potassium [Moles/Vol] 4.0 mmol/L Normal 3.3-5.1 [facility] Comment on above: Performed By: #### L 501.2450, L500.3400, L100.0100, L500.2500 #### [facility] [address] [place] [place], [address] Sodium [Moles/Vol] 139 mmol/L Normal 133-145 [facility] Comment on above: Performed By: #### L 501.2450, L500.3400, L100.0100, L500.2500 #### [facility] [address] [place], [address] T PROT 7.3 g/dL Normal 5.9-8.4 [facility] Comment on above: Performed By: #### L 501.2450, L500.3400, L100.0100, L500.2500 #### [facility] [address] [place], [address] Urea nitrogen [Mass/Vol] 28 mg/dL High 4-19 [facility] Comment on above: Performed By: #### L 501.2450, L500.3400, L100.0100, L500.2500 #### [facility] [address] [place], [address] Emergency Department Summary on 01-14-2025 Emergency Department Summary [facility] Medical Records Department [address] [place] [address] Emergency Department Summary 01/14/25 MR#: [id number] Acct: [id number] Name: JOSE M CORRAL ADRIEL Rep #: [id number] : 1995 29 From: José Miguel Darby [...] reviewed, Vital signs reviewed Constitutional: please see [facility] HENT: MMM Eyes: Pupils equal [...] noted in the left upper quadrant spleen [facility] Narrative: The patient was initially hemodynamically stable, afebrile and nontoxic-appearing. Abdominal exam was overall benign with very mild subjectiv (more content not included)... Normal [facility] Eosinophil percentageOrdered By: José Miguel Darby on 01-14-2025 Eosinophils/100 WBC (Bld) 3.6 % 0-5 [facility] Erythrocyte distribution wid th ratioOrdered By: José Miguel Darby on 01-14-2025 Erythrocyte distribution width (RBC) [Ratio] 13.6 % 11.6-14.6 [facility] Erythrocyte distribution wid th standard deviationOrdered By: José Miguel Darby on 01-14-2025 Erythrocyte distribution width (RBC) [Ratio] 39.9 fl 35.1-43.9 [facility] Glomerular filtration rate ( GFR) estimation/1.73 sq m using serum, plasma, or whole bOrdered By: José Miguel Darby on 01-14-2025 GFR/1.73 sq M.predicted among non-blacks MDRD (S/P/Bld) [Vol rate/Area] 91 mL/min/{1.73_m2} >60 [facility] Comment on above: mL/min/1.73m2 CKD-EP I Creatinine Equation (2020) Hematocrit Auto (Bld) [Volum e fraction]Ordered By: José Miguel Darby on 01-14-2025 Hematocrit (Bld) [Volume fraction] 46.1 % 40-54 [facility] Hemoglobin measurementOrdere d By: José Miguel Darby on 01-14-2025 Hemoglobin (Bld) [Mass/Vol] 16.3 g/dL 13.0-16.5 [facility] Immature granulocytes/100 WB C Auto (Bld)Ordered By: José Miguel Darby on 01-14-2025 Immature granulocytes/100 WBC (Bld) 0.300 % 0.0-0.9 [facility] Comment on above: IG% - Immature Granu locytes (promyelocytes, myelocytes and metamyelocytes) > 1% indicates that a LEFT SHIFT is Present. Ketones Test strip Ql (U)Ord ered By: José Miguel Darby on 01-14-2025 Ketones Ql (U) Negative Negative [facility] Laboratory - Chemistry and C hemistry - challengeOrdered By: José Miguel Darby on 01-14-2025 AST [Catalytic activity/Vol] 28 U/L <38 [facility] Lactic Acidon 01-14-2025 Lactate [Moles/Vol] 1.0 mmol/L Normal 0.0-2.0 [facility] Comment on above: Order Comment: Y Performed By: #### L 501.2450, L500.3400, L100.0100, L500.2500 #### [facility] [address] [place], [place], [id number] Lactic acid measurementOrder ed By: José Miguel Darby on 01-14-2025 Lactate [Moles/Vol] 1.0 mmol/L 0.0-2.0 [facility] Lipaseon 01-14-2025 Lipase [Catalytic activity/Vol] 28 U/L Normal 13-75 [facility] Comment on above: Result Comment: Eliu gutierrez note: LIPASE revised reference range effective 22. New Lipase methodology. Expected to produce lower values than the previous assay method. NEW Reference Range: 13 - 75 U/L Performed By: #### L 501.2450, L500.3400, L100.0100, L500.2500 #### [facility] [address] [place], [address] Lipase measurementOrdered By : José Miguel Darby on 01-14-2025 Lipase [Catalytic activity/Vol] 28 U/L 13-75 [facility] Comment on above: Please note:LIPASE r evised reference range effective 22. New Lipase methodology. Expected to produce lower values than the previous assay method. NEW Reference Range: 13 - 75 U/L MCV (mean corpuscular volume ) determinationOrdered By: José Miguel Darby on 01-14-2025 MCV (RBC) [Entitic vol] 81.9 fL 80-94 [facility] Mean corpuscular hemoglobin (MCH) determinationOrdered By: José Miguel Darby on 01-14-2025 MCH (RBC) [Entitic mass] 29.0 pg 27.0-32.0 [facility] Mean corpuscular hemoglobin concentration (MCHC) determinationOrdered By: José Miguel Darby on 01-14-2025 MCHC (RBC) [Mass/Vol] 35.4 g/dL 32-36 [facility] Mean platelet volume determi nationOrdered By: José Miguel Darby on 01-14-2025 Platelet mean volume (Bld) [Entitic vol] 9.0 fL 6.2-12.0 [facility] Microscopic analysis of urin e for red blood cells (RBC)Ordered By: José Miguel Darby on 01-14-2025 Microscopic analysis of urine for red blood cells (RBC) 0 SEEN /hpf 0-5 [facility] Monocyte percentageOrdered B y: José Miguel Darby on 01-14-2025 Monocytes/100 WBC (Bld) 7.2 % 0-10 [facility] Mucus LM Ql (Urine sed)Order ed By: José Miguel Darby on 01-14-2025 Mucus Ql (Urine sed) 0 SEEN /hpf [facility] Neutrophil percentageOrdered By: José Miguel Darby on 01-14-2025 Neutrophils/100 WBC (Bld) 62.7 % 47-70 [facility] Nitrite Test strip Ql (U)Ord ered By: José Miguel Darby on 01-14-2025 Nitrite Ql (U) Negative Negative [facility] Nucleated red blood cell per centageOrdered By: José Miguel Darby on 01-14-2025 Nucleated RBC/100 WBC (Bld) [Ratio] 0 % 0-5 [facility] Center Platelet countOrdered By: Anabel Darby on 01-14-2025 Platelets (Bld) [#/Vol] 337 10*3/uL 150-450 [facility] Potassium measurement (mass/ volume)Ordered By: José Miguel Darby on 01-14-2025 Potassium (Unsp spec) [Mass/Vol] 4.0 mmol/L 3.3-5.1 [facility] Protein Test strip Ql (U)Ord ered By: José Miguel Darby on 01-14-2025 Protein Ql (U) 15 mg/dl High Negative [facility] RBC Auto (Bld) [#/Vol]Ordere d By: José Miguel Darby on 01-14-2025 RBC (Bld) [#/Vol] 5.63 10*6/uL 4.6-6.2 [facility] Serum creatinine measurement (mass/volume)Ordered By: José Miguel Darby on 01-14-2025 Creatinine [Mass/Vol] 1.13 mg/dL 0.70-1.20 [facility] Serum globulin measurementOr dered By: José Miguel Darby on 01-14-2025 Globulin (S) [Mass/Vol] 2.5 g/dL 2.2-4.2 [facility] Serum glucose measurement (m ass/volume)Ordered By: José Miguel Darby on 01-14-2025 Glucose [Mass/Vol] 90 mg/dL 70-99 [facility] Serum or plasma alanine real otransferase (ALT) measurementOrdered By: José Miguel Darby on 01-14-2025 ALT [Catalytic activity/Vol] 41 U/L <47 [facility] Serum or plasma albumin bimal urement (mass/volume)Ordered By: José Miguel Darby on 01-14-2025 Albumin [Mass/Vol] 4.8 g/dL 3.5-5.0 [facility] Serum or plasma albumin/glob ulin mass ratioOrdered By: José Miguel Darby on 01-14-2025 Albumin/Globulin [Mass ratio] 1.9 {ratio} 0.9-2.4 [facility] Serum or plasma alkaline amado sphatase measurementOrdered By: José Miguel Darby on 01-14-2025 ALP [Catalytic activity/Vol] 37 U/L Low 40-129 [facility] Serum or plasma calcium bimal urement (mass/volume)Ordered By: José Miguel Darby on 01-14-2025 Calcium [Mass/Vol] 9.5 mg/dL 7.6-11.0 [facility] Serum or plasma urea nitroge n measurement (mass/volume)Ordered By: José Miguel Darby on 01-14-2025 Urea nitrogen [Mass/Vol] 28 mg/dL High 4-19 [facility] Sodium levelOrdered By: Violeta Darby on 01-14-2025 Sodium [Moles/Vol] 139 mmol/L 133-145 [facility] Squamous epithelial cells de tection in urine sediment by light microscopyOrdered By: José Miguel Darby on 01-14-2025 Epithelial cells.squamous LM Ql (Urine sed) 0-5 SEEN /hpf 0-5 [facility] Total proteinOrdered By: Naty Darby on 01-14-2025 Protein [Mass/Vol] 7.3 g/dL 5.9-8.4 [facility] Urinalysis, Completeon 01-14 Clarity (U) Clear Normal Clear [facility] Comment on above: Order Comment: CLEAN CATCH Performed By: #### L 400.0001 #### [facility] [place], [address] Color (U) Straw Normal Yellow [facility] Comment on above: Order Comment: CLEAN CATCH Performed By: #### L 400.0001 #### [facility] [address] [place], [address] BILIRUBIN URINE Negative Normal Negative [facility] Comment on above: Order Comment: CLEAN CATCH Performed By: #### L 400.0001 #### [facility] [address] [facility] [address] GLUCOSE, UR Normal Normal Normal [facility] Comment on above: Order Comment: CLEAN CATCH Performed By: #### L 400.0001 #### [facility] [address] [place] [id number] KETONE UR Negative Normal Negative [facility] Comment on above: Order Comment: CLEAN CATCH Performed By: #### L 400.0001 #### [facility] [address] [place] [id number] LEUK ESTERASE Negative Normal Negative [facility] Comment on above: Order Comment: CLEAN CATCH Performed By: #### L 400.0001 #### [facility] [address] [place] [id number] Nitrite Ql (U) Negative Normal Negative [facility] Comment on above: Order Comment: CLEAN CATCH Performed By: #### L 400.0001 #### [facility] [address] [facility] [address] OCCULT BLOOD-UR Negative Normal Negative [facility] Comment on above: Order Comment: CLEAN CATCH Performed By: #### L 400.0001 #### [facility] [address] [place], [address] pH UR 6.5 Normal 5.0 - 8.0 [facility] Comment on above: Order Comment: CLEAN CATCH Performed By: #### L 400.0001 #### [facility] [address] [facility] [address] PROT DIPSTX 15 mg/dl Abnormal Negative [facility] Comment on above: Order Comment: CLEAN CATCH Performed By: #### L 400.0001 #### [facility] [address] [place], [address] SP.GR. DIPSTX 1.010 Normal 1.002-1.03 0 [facility] Comment on above: Order Comment: CLEAN CATCH Performed By: #### L 400.0001 #### [facility] [address] [place], [address] UROBILI Normal Normal Normal [facility] Comment on above: Order Comment: CLEAN CATCH Performed By: #### L 400.0001 #### [facility] [address] [place], [address] BACTERIA 0 SEEN Normal None Seen [facility] Comment on above: Order Comment: CLEAN CATCH Performed By: #### L 400.0001 #### [facility] [address] [place], [address] Mucus Ql (Urine sed) 0 SEEN Normal [facility] Comment on above: Order Comment: CLEAN CATCH Performed By: #### L 400.0001 #### [facility] [address] [place], [address] RBC 0 SEEN Normal 0-5 [facility] Comment on above: Order Comment: CLEAN CATCH Performed By: #### L 400.0001 #### [facility] [address] [place], [address] WBC 0 SEEN Normal 0-5 [facility] Comment on above: Order Comment: CLEAN CATCH Performed By: #### L 400.0001 #### [facility] [address] [place], [address] Urine clarityOrdered By: Naty Darby on 01-14-2025 Clarity (U) Clear Clear [facility] Urine color determinationOrd ered By: José Miguel Darby on 01-14-2025 Color (U) Straw Yellow [facility] Urine glucose detectionOrder ed By: José Miguel Darby on 01-14-2025 Glucose Ql (U) Normal mg/dl Normal [facility] Urine leukocyte esterase det ection by dipstickOrdered By: José Miguel Darby on 01-14-2025 Leukocyte esterase Test strip Ql (U) Negative Negative [facility] Urine pHOrdered By: José Miguel warren on 01-14-2025 pH (U) 6.5 [pH] 5.0 - 8.0 [facility] Urine sediment bacteria coun t by microscopy (number/high power field)Ordered By: José Miguel Darby on 01-14-2025 Bacteria LM.HPF (Urine sed) [#/Area] 0 /[HPF] None Seen [facility] Urine specific gravity measu rementOrdered By: José Miguel Darby on 01-14-2025 Specific gravity (U) [Rel density] 1.010 1.002-1.03 0 [facility] Urine urobilinogen measureme ntOrdered By: José Miguel Darby on 01-14-2025 Urobilinogen Ql (U) Normal mg/dl Normal [facility] White blood cell (WBC) count Ordered By: José Miguel Darby on 01-14-2025 WBC (Bld) [#/Vol] 8.7 10*3/uL 4.4-11.0 [facility] White blood cell countOrdere d By: José Miguel Darby on 01-14-2025 White blood cell count 0 SEEN /hpf 0-5 [facility] L3410.9992on 01-10-2025 [facility] Misc. COMMENT Normal . [facility] Comment on above: Order Comment: [id number] 0AT- PLASMA - BLUE TOP - FROZEN Result Comment: Test Ordered: [id number] Antithrombin Activity Antithrombin Activity 100 % Reference Range: 75-135 Direct Xa inhibitor anticoagulants such as rivaroxaban, apixaban and edoxaban will lead to spuriously elevated antithrombin activity levels possibly masking a deficiency. Performed at: [facility] [address] [id number] Finish Inspector: Arie Murillo MD, Phone: [phone] Performed at: CB - [facility] [address] [id number] Finish Inspector: Sudhir Gonzalez PhD, Phone: [phone] Performed By: #### L 934.5979 #### [facility] [address] [place], [address] Oncology Visit Reporton 12-20 Oncology Visit Report [facility] [address] [place] [address] OFFICE VISIT Date of Service: 01/08/25 1005 MR#: [id number] Acct: [id number] Name: JOSE M CORRAL Rep #: [id number] : 1995 From: Patrice Patel MD Age/Sex: 29/M [place] [facility] [place]: Signed with Addenda ADDENDUM by Dr. [...] Splenic infarct: Status: Acute Orders: [place] [facility] Medications: Discontinued rivaroxaban (Xarelto DVT-PE Treatment [...] was an child but he outgrew that. [facility] Medical History (Updated 01/08/25 @ 10:42 by [...] Social History (Updated 01/08/25 @ 10:12 by Shryea Lopez Smoking Status: Never smoker alcohol intake: current [...] Respiratory/Chest Respiratory/ (more content not included)... Normal [facility] ANCAon 12-31-2024 Atypical pANCA <1:20 Normal Neg:<1:20 [facility] Comment on above: Result Comment: The atypical pANCA pattern has been observed in a significant percentage of patients with ulcerative colitis, primary sclerosing cholangitis and autoimmune hepatitis. Performed By: #### L 300.8000 #### [facility] [address] [place], [address] Cytoplasmic Ab <1:20 Normal Neg:<1:20 [facility] Comment on above: Performed By: #### L 300.8000 #### [facility] [address] [place], [address] Perinuclear Ab. <1:20 Normal Neg:<1:20 [facility] Comment on above: Result Comment: The presence of positive fluorescence exhibiting P-ANCA or C-ANCA patterns alone is not specific for the diagnosis of Anamaria's Granulomatosis (WG) or microscopic polyangiitis. Decisions about treatment should not be based solely on ANCA IFA results. The International ANCA Group Consensus recommends follow up testing of positive sera with both NH- 3 and MPO-ANCA enzyme immunoassays. As many as 5% serum samples are positive only by EIA. Ref. AM J Clin Pathol 1999;111:507-513. Performed By: #### L 300.8000 #### [facility] [address] [place], [address] CMV Acute Antibody IgMon CMV Ab, IgM < 30.0 Normal 0.0-29.9 [facility] Comment on above: Result Comment: Nega tive <30.0 Equivocal 30.0 - 34.9 Positive >34.9 A positive result is generally indicative of acute infection, reactivation or persistent IgM production. Performed By: #### L 300.8000 #### [facility] [address] [place], [address] EBV Acute VCA IgMon 01-01-20 25 EBV Ab VCA, IgM < 36.0 Normal 0.0-35.9 [facility] Comment on above: Result Comment: Nega tive <36.0 Equivocal 36.0 - 43.9 Positive >43.9 Performed By: #### L 300.8000 #### [facility] [address] [place], [address] Fact V Leiden Mutationon FACTOR V LEIDEN Comment Normal . [facility] Comment on above: Result Comment: Resu lt: c.1601G>A (p.Uja568Wjk) - Not Detected This result is not associated with an increased risk for venous thromboembolism. See Additional Clinical Information and Comments. Additional Clinical Information: Venous thromboembolism is a multifactorial disease influenced by genetic, environmental, and circumstantial risk factors. The c.1601G>A (p. Bdw703Fzt) variant in the F5 gene, commonly referred [...] c.*97G>A variant and Factor V Leiden (PMID: 78163952). Additional risk factors include but are not [...] health care providers to discuss results at [phone] ([phone]). Test Details: Variant Analyzed: c.1601G>A (p. Bui305Aid), referred to as Factor V Leiden Methods/Limitations: [...] developed and its performance characteristics determined by [employer]. It has not been cleared or approved by the Food and Drug Administration. References: Savage Bennett, Cecelia PEDRO, Galen R, Vanita WW, Aaron JH; ACMG Professional Practice and Guidelines Committee. Addendum: [employer] consensus statement on factor V Leiden mutation testing. [employer]. 2020Oct 23. doi: 10.1038/s44922-624-08921-i. PMID: 94662276. Hannah CONTRERAS. Factor V Leiden Thrombophilia. 1998January 01 (Updated 2017Aug 24). In: Carlitos MP, Vipin HH, Jake RA, et al., editors. George(R) (Internet). [place] ([place]): [facility]; 9531-9816. Available from: https://www.ncbi.nlm.nih.gov/books/KZU8933/ Chris Bennett, Cecelia PEDRO, Kole X, Price B, Cresencio EB, Aleah P, Abimbola CS; [employer] Laboratory Ingot Weigher Committee. Venous thromboembolism laboratory testing (factor V Leiden and factor II c.*97G>A), 2018 update: a technical standard of the [employer] and Genomics (ACMG). [employer]. 2018 Jul;20(12):0890-7814. doi: 10.1038/[id number]-f. Epub 2017May 25. PMID: 58634199. Performed By: #### L 300.8000 #### [facility] [address] [place], [place], [address] Reviewed By Comment Normal . [facility] Comment on above: Result Comment: Tech nical Component performed at [facility] RT Professional Component performed by: Blade Alves, PhD, [facility] BPTGD4, [facility], [address] [place] [address] Performed By: #### L 300.8000 #### [facility] [address] [place], [place], [address] Factor II, DNA Analysison FACTOR II, DNA Comment Normal . [facility] Comment on above: Result Comment: [...] the F2 gene and a c.1601G>A (p. Jin116Pxq) variant in the F5 gene (commonly referred to as Factor V Leiden) have an approximately 20- fold increased risk for venous thromboembolism. Risks are likely to be even higher in more complex genotype combinations involving the F2 c.*97G>A variant and Factor V Leiden (PMID: 93785755). Additional risk factors include but are not [...] health care providers to discuss results at [phone] (0718). Test Details: Variant analyzed: c.*97G>A, previously referred to as [id number] Methods/Limitations: DNA analysis of the F2 gene [...] developed and its performance characteristics determined by [employer]. It has not been cleared or approved by the Food and Drug Administration. References: Savage Bennett, Cecelia PEDRO, Galen R, Vanita WW, Aaron JH; ACMG Professional Practice and Guidelines Committee. Addendum: [employer] [employer] consensus statement on factor V Leiden mutation testing. [employer]. 2020Oct 23. doi: 10.1038/h82516-679-37238-z. PMID: 21378925. Hannah CONTRERAS. Prothrombin Thrombophilia. 2005Mar 14 [Updated 2020Sep 24]. In: Carlitos MP, Vipin HH, Jake RA, et al., editors. George(R) [Internet]. [place] ([place]): [facility]; 0014-8595. Available from: https://www.ncbi.nlm.nih.gov/books/QWI0622/ Chris Bennett, Cecelia PEDRO, Kole X, Price B, Cresencio EB, Aleah P, Abimbola CS; [employer] Laboratory Ingot Weigher Committee. Venous thromboembolism laboratory testing (factor V Leiden and factor II c.*97G>A), 2018 update: a technical standard of the [employer] and Gen[employer] (ACMG). [employer]. 2018 Jul;20(12):0886-7802. doi: 10.1038/m64947-335-4231-a. Epub 2017May 25. PMID: 51637213. Performed By: #### L 300.8000 #### [facility] [address] [place], [address] L3410.9992on 12-31-2024 [facility] COMMENT Normal . [facility] Comment on above: Order Comment: 97470 5SERUM RF TICKBORNE AB Result Comment: Test Ordered: [id number] Tick-borne Disease Ab Profile Test(s) 820330-Rqlrtdy microti IgG was developed and its performance characteristics determined by [facility]. It has not been cleared or approved [...] babesiosis, anaplasmosis, and/or ehrlichiosis, respectively. Performed at: [address] [id number] Finish Inspector: Sudhir Gonzalez PhD, Phone: [phone] Performed at: [address] [id number] Finish Inspector: Arie Murillo MD, Phone: [phone] Performed By: #### L 501.2450, L500.3400, L100.0100, L500.2500 #### [facility] [address] [place], [address] Protein C, Functionalon 12-19 PROTEIN C,FUNC 131 Normal 73-180 [facility] Comment on above: Result Comment: Perf ormed at: - [facility] [id number] Finish Inspector: Sudhir Gonzalez PhD, Phone: [phone] Performed at: [facility] [place]St[place] [id number] [place], [place] [id number] Finish Inspector: Monie Riddle [facility], Phone: [phone] Performed at: [address] [id number] Finish Inspector: Arie Murillo MD, Phone: [phone] Performed By: #### L 300.8000 #### [facility] [address] [place], [address] Protein S, Functionalon 12-19 PROTEIN S, FUNC 90 Normal 63-140 [facility] Comment on above: Result Comment: Prot ein S activity may be falsely increased (masking an abnormal, low result) in patients receiving direct Xa inhibitor (e.g., rivaroxaban, apixaban, edoxaban) or a direct thrombin inhibitor (e.g., dabigatran) anticoagulant treatment due to assay interference by these drugs. Performed By: #### L 300.8000 #### [facility] [address] [place], [address] Blood or tissue coagulation factor II targeted mutation analysis by molecular geneticOrdered By: Salud Watson on 12-25-2024 F2 gene targeted mutation analysis [employer] (Bld/Tiss) Comment . [facility] Comment on above: Result: c.*97G>A [...] in theF2 gene and a c.1601G>A (p. Gxb448Qar) variant in the F5 gene(commonly referred to as Factor V Leiden) have an approximately 20-fold increased risk for venous thromboembolism. Risks are likely keith even higher in more complex genotype combinations involving theF2 c.*97G>A variant and Factor V Leiden (PMID: 23588287). Additionalrisk factors include but are not limited [...] for health care providers to discussresults at [phone] (2654).Test Details:Variant analyzed: c.*97G>A, previously referred to as [id number]/Limitations:DNA analysis of the F2 gene (NM_000506.5) was [...] was developed and its performance characteristics determinedby [employer]. It has not been cleared or approved by the Food and DrugAdministration.References:Saavge Bennett, Cecelia PEDRO, Galen R, Vanita WW, Aaron JH; ACMG ProfessionalPractice and Guidelines Committee. Addendum: [employer] [employer] consensus statement on factor V Leiden mutationtesting. [employer]. 2020Oct 23. doi: 10.1038/[id number]-m.PMID: 49092106.Hannah CONTRERAS. Prothrombin Thrombophilia. 2005Mar 14[Updated 2020Sep 24]. In: Carlitos MP, Vipin HH, Jake RA, et al.,editors. George(R) [Internet]. [place] ([place]): [facility]; 8050-2017. Available from:https://www.ncbi.nlm.nih.gov/books/RWO1060/Chris S, Cecelia PEDRO, Kole X, Price B, Cresencio EB, Aleah P, Abimbola CS;ACMG Laboratory Ingot Weigher Committee. Venous thromboembolismlaboratory testing (factor V Leiden and factor II c.*97G>A),2018 update: a technical standard of the [employer] MedicalGenetics and Genomics (ACMG). [employer]. 2018 Jul;20(12):7838-1338.doi: 10.1038/i24274-123-0195-w. Epub 2017May 25. PMID: 51380372. CRPon 12-25-2024 C-REACTIVE PROT < 3.00 Normal 0.0-3.0 [facility] Comment on above: Performed By: #### L 300.8000 #### [facility] [address] [place], [address] Erythrocyte Sed Rateon 12-25 SED RATE 3 mm/hr Normal 0-20 [facility] Comment on above: Performed By: #### L 300.8000 #### [facility] [address] [place], [address] Erythrocyte sedimentation ra teOrdered By: Salud Watson on 12-25-2024 ESR (Bld) [Velocity] 3 mm/h 0-20 [facility] Functional protein C measure mentOrdered By: Salud Watson on 12-25-2024 Protein C actual/normal Chromogenic method (PPP) [Rel catalytic activity/Vol] 131 % 73-180 [facility] Comment on above: Performed at: [facility] [address] [id number] Director: Sudhir Gonzalez PhD, Phone: [phone] at: [facility] [id number] [place], [place] [id number] Director: Monie [facility], Phone: [phone] at: BN - [facility] [address] [id number] Director: Arie Murillo MD, Phone: [phone] Platelet poor plasma protein S actual/normal ratio (relative time)Ordered By: Salud Watson on 12-25-2024 Protein S actual/normal Coag (PPP) [Relative time] 90 % 63-140 [facility] Comment on above: Protein S activity m ay be falsely increased (masking anabnormal, low result) in patients receiving direct Xainhibitor (e.g., rivaroxaban, apixaban, edoxaban) or adirect thrombin inhibitor (e.g., dabigatran) anticoagulanttreatment due to assay interference by these drugs. Serum Conrado Chauhan virus cap luann IgM antibody assay (units/volume)Ordered By: Salud Watson on 12-25-2024 EBV capsid IgM Qn (S) [arb'U]/mL 0.0-35.9 [facility] Comment on above: Negative <36.0 Equiv ocal 36.0 - 43.9 Positive >43.9 Serum classic neutrophil cyt oplasmic antibody assay (units/volume)Ordered By: Salud Watson on 12-25-2024 Neutrophil cytoplasmic Ab.classic Qn (S) <1:20 titer Neg:<1:20 [facility] Serum or plasma C reactive p rotein measurement (mass/volume)Ordered By: Salud Watson on 12-25-2024 CRP [Mass/Vol] mg/L 0.0-3.0 [facility] Serum or plasma cytomegalovi sophie (CMV) IgM antibody assay (units/volume)Ordered By: Salud LatifShirley on 12-25-2024 CMV IgM Qn < 30.0 AU/mL 0.0-29.9 [facility] Comment on above: Negative <30.0 Equiv ocal 30.0 - 34.9 Positive >34.9A positive result is generally indicative of acuteinfection, reactivation or persistent IgM production. Serum perinuclear neutrophil cytoplasmic antibody titer by immunofluorescenceOrdered By: Salud Watson on 12-25-2024 Neutrophil cytoplasmic Ab.perinuclear IF (S) [Titer] <1:20 titer Neg:<1:20 [facility] Comment on above: The presence of posi tive fluorescence exhibiting P-ANCA orC-ANCA patterns alone is not specific for the diagnosis ofWegener's Granulomatosis (WG) or microscopic polyangiitis.Decisions about treatment should not be based solely onANCA IFA results. The International ANCA Group Consensusrecommends follow up testing of positive sera with both NH-3 and MPO-ANCA enzyme immunoassays. As many as 5% serumsamples are positive only by EIA. Ref. AM J Clin Qscvjn0980;111:507-513. 12 Lead EKGon 12-21-2024 12 Lead EKG [facility] [address] [place] [address] 12 Lead EKG 12/21/24 1850 MR#: [id number] Acct: [id number] Name: JOSE M CORRAL Rep #: [id number] : 1995 29 From: Damian Hernandez MD Attending Dr: Dr. Michael Oakley, Status: DEP ER Ordering Dr: Michael Oakley [...] axis Probably normal Confirmed by Damian Hernandez ([id number]), desk editor DANYEL MONTGOMERY ([id number]) on 12/27/2024 1:00:32 PM Referred By: RADHA Confirmed By: Damian Hernandez 12/27/24 1300 Date Damian Hernandez MD CC: Dr. Michael Oakley DO; Dr. Salud Watson DO Signed Normal [facility] Abdomen/Pelvis W IV Cont ONL Yon 12-21-2024 Abdomen/Pelvis W IV Cont ONLY [facility] Imaging Services [address] [place], [place] [id number] Abdomen/Pelvis W IV Cont ONLY MR#: [id number] Acct: [id number] Name: JOSE M CORRAL Rep #: [id number] : 1995 29 From: Meño antonio MD PCP: Dr. Salud Watson DO Status: REG ER Study: Abdomen/Pelvis W IV Cont ONLY Date of Exam: Exam# [id number] Ordering Dr: Michael Oakley DO PROCEDURE: ABDOMEN/PELVIS [...] with sequela of splenic infarcts. [facility] CC: Dr. Michael Oakley DO; Dr. Salud Watson DO Psychotherapist Counselor: Signed Normal [facility] Abdomen/Pelvis W IV Cont ONLY [facility] Imaging Services [address] [place], [place] [id number] Abdomen/Pelvis W IV Cont ONLY MR#: [id number] Acct: [id number] Name: JOSE M CORRAL Rep #: [id number] : 1995 M 29 From: Meño antonio MD PCP: Dr. Salud Watson DO Status: [facility] ER Study: Abdomen/Pelvis W IV Cont ONLY Date of Exam: Exam# [id number] Ordering Dr: Michael Oakley DO PROCEDURE: ABDOMEN/PELVIS [...] the abdomen may be considered. [facility] CC: Dr. Michael Oakley, DO; Dr. Salud Watson, DO Psychotherapist Counselor: Signed Normal [facility] Absolute lymphocyte countOrd ered By: Michael Oakley on 12-21-2024 Lymphocytes Auto (Unsp spec) [#/Vol] 1.67 10*3/uL 0.83-4.51 [facility] Absolute neutrophil countOrd ered By: Michael Oakley on 12-21-2024 Neutrophils (Bld) [#/Vol] 8.5 10*3/uL High 2.0-7.7 [facility] Activated partial thrombopla stin time (aPTT) in platelet poor plasma by coagulation aOrdered By: Michael Oakley on 12-21-2024 aPTT Coag (PPP) [Time] 31.2 s 24.1-36.2 [facility] Amorphous sediment detection in urine sediment by light microscopyOrdered By: Michael Oakley on 12-21-2024 Amorphous sediment LM Ql (Urine sed) 1+ [facility] Anion gap in Serum or Plasma Ordered By: Michael Oakley on 12-21-2024 Anion gap [Moles/Vol] 11 mmol/L 5-15 [facility] Automated lymphocyte count a s percentage of total leukocytesOrdered By: Michael Oakley on 12-21-2024 Lymphocytes/100 WBC Auto (Unsp spec) 14.7 % Low 19-41 [facility] BUN/creatinine ratioOrdered By: Michael Oakley on 12-21-2024 Urea nitrogen/Creatinine [Mass ratio] 24.2 mg/mg High 10-20 [facility] Basic Metabolic Profile (BMP )on 12-21-2024 BUN/CRE 24.2 RATIO High 10-20 [facility] Comment on above: Performed By: #### L 501.2450, L500.3400, L100.0100, L500.2500 #### [facility] [address] [place], [address] Calcium [Mass/Vol] 9.6 mg/dL Normal 7.6-11.0 [facility] Comment on above: Performed By: #### L 501.2450, L500.3400, L100.0100, L500.2500 #### [facility] [address] [place], [address] Chloride [Moles/Vol] 103 mmol/L Normal 98-108 [facility] Comment on above: Performed By: #### L 501.2450, L500.3400, L100.0100, L500.2500 #### [facility] [address] [place], [address] CO2 [Moles/Vol] 25.0 mmol/L Normal 21.0-32.0 [facility] Comment on above: Performed By: #### L 501.2450, L500.3400, L100.0100, L500.2500 #### [facility] [address] [place], [address] Creatinine [Mass/Vol] 0.88 mg/dL Normal 0.70-1.20 [facility] Comment on above: Performed By: #### L 501.2450, L500.3400, L100.0100, L500.2500 #### [facility] [address] [place], [address] ECRCL 138.40 ml/min Normal 50-250 [facility] Comment on above: Performed By: #### L 501.2450, L500.3400, L100.0100, L500.2500 #### [facility] [address] [place], [address] GAP 11 Normal 5-15 [facility] Comment on above: Performed By: #### L 501.2450, L500.3400, L100.0100, L500.2500 #### [facility] [address] [place], [address] GFR/1.73 sq M.predicted among non-blacks MDRD (S/P/Bld) [Vol rate/Area] 121 mL/min/{1.73_m2} Normal >60 [facility] Comment on above: Result Comment: mL/m in/1.73m2 CKD-EPI Creatinine Equation (2020) Performed By: #### L 501.2450, L500.3400, L100.0100, L500.2500 #### [facility] [address] [place], [address] Glucose [Mass/Vol] 107 mg/dL High 70-99 [facility] Comment on above: Performed By: #### L 501.2450, L500.3400, L100.0100, L500.2500 #### [facility] [address] [place], [address] Potassium [Moles/Vol] 4.2 mmol/L Normal 3.3-5.1 [facility] Comment on above: Performed By: #### L 501.2450, L500.3400, L100.0100, L500.2500 #### [facility] [address] [place], [address] Sodium [Moles/Vol] 139 mmol/L Normal 133-145 [facility] Comment on above: Performed By: #### L 501.2450, L500.3400, L100.0100, L500.2500 #### [facility] [address] [place], [address] Urea nitrogen [Mass/Vol] 21 mg/dL High 4-19 [facility] Comment on above: Performed By: #### L 501.2450, L500.3400, L100.0100, L500.2500 #### [facility] [address] [place] [place], [address] Basophil percentageOrdered B y: Michael Oakley on 12-21-2024 Basophils/100 WBC (Bld) 0.7 % 0-1 [facility] Bilirubin Test strip Ql (U)O rdered By: Michael Oakley on 12-21-2024 Bilirubin Ql (U) Negative Negative [facility] Bilirubin directOrdered By: Michael Oakley on 12-21-2024 Bilirubin.direct [Mass/Vol] 0.19 mg/dL 0.00-0.30 [facility] Bilirubin, totalOrdered By: Michael Oakley on 12-21-2024 Bilirubin [Mass/Vol] 0.43 mg/dL 0.00-1.30 [facility] CBC W/Diff, Automatedon Absolute Lymph 1.67 X10 3/uL Normal 0.83-4.51 [facility] Comment on above: Performed By: #### L 501.2450, L500.3400, L100.0100, L500.2500 #### [facility] [address] [place], [address] Absolute Neut 8.5 X10 3/uL High 2.0-7.7 [facility] Comment on above: Performed By: #### L 501.2450, L500.3400, L100.0100, L500.2500 #### [facility] [address] [place], [address] Basophils/100 WBC (Bld) 0.7 % Normal 0-1 [facility] Comment on above: Performed By: #### L 501.2450, L500.3400, L100.0100, L500.2500 #### [facility] [address] [place], [address] Eosinophils/100 WBC (Bld) 1.5 % Normal 0-5 [facility] Comment on above: Performed By: #### L 501.2450, L500.3400, L100.0100, L500.2500 #### [facility] [address] [place], [address] Erythrocyte distribution width (RBC) [Ratio] 13.6 % Normal 11.6-14.6 [facility] Comment on above: Performed By: #### L 501.2450, L500.3400, L100.0100, L500.2500 #### [facility] [address] [place], [address] Hematocrit (Bld) [Volume fraction] 45.9 % Normal 40-54 [facility] Comment on above: Performed By: #### L 501.2450, L500.3400, L100.0100, L500.2500 #### [facility] [address] [place], [address] Hemoglobin (Bld) [Mass/Vol] 16.4 g/dL Normal 13.0-16.5 [facility] Comment on above: Performed By: #### L 501.2450, L500.3400, L100.0100, L500.2500 #### [facility] [address] [place], [address] IG% 0.300 Normal 0.0-0.9 [facility] Comment on above: Result Comment: IG% - Immature Granulocytes (promyelocytes, myelocytes and metamyelocytes) > 1% indicates that a LEFT SHIFT is Present. Performed By: #### L 501.2450, L500.3400, L100.0100, L500.2500 #### [facility] [address] [place], [address] Lymphocytes/100 WBC (Bld) 14.7 % Low 19-41 [facility] Comment on above: Performed By: #### L 501.2450, L500.3400, L100.0100, L500.2500 #### [facility] [address] [place], [address] MCH (RBC) [Entitic mass] 29.2 pg Normal 27.0-32.0 [facility] Comment on above: Performed By: #### L 501.2450, L500.3400, L100.0100, L500.2500 #### [facility] [address] [place], [address] MCHC (RBC) [Mass/Vol] 35.7 g/dL Normal 32-36 [facility] Comment on above: Performed By: #### L 501.2450, L500.3400, L100.0100, L500.2500 #### [facility] [address] [place], [address] MCV (RBC) [Entitic vol] 81.8 fL Normal 80-94 [facility] Comment on above: Performed By: #### L 501.2450, L500.3400, L100.0100, L500.2500 #### [facility] [address] [place], [address] Monocytes/100 WBC (Bld) 8.0 % Normal 0-10 [facility] Comment on above: Performed By: #### L 501.2450, L500.3400, L100.0100, L500.2500 #### [facility] [address] [place], [address] Neutrophils/100 WBC (Bld) 74.8 % High 47-70 [facility] Comment on above: Performed By: #### L 501.2450, L500.3400, L100.0100, L500.2500 #### [facility] [address] [place], [address] Nucleated RBC (Bld) [#/Vol] 0 10*3/uL Normal 0-5 [facility] Comment on above: Performed By: #### L 501.2450, L500.3400, L100.0100, L500.2500 #### [facility] [address] [place], [address] Platelet mean volume (Bld) [Entitic vol] 9.1 fL Normal 6.2-12.0 [facility] Comment on above: Performed By: #### L 501.2450, L500.3400, L100.0100, L500.2500 #### [facility] [address] [place], [address] Platelets (Bld) [#/Vol] 359 10*3/uL Normal 150-450 [facility] Comment on above: Performed By: #### L 501.2450, L500.3400, L100.0100, L500.2500 #### [facility] [address] [place], [address] RBC (Bld) [#/Vol] 5.61 10*6/uL Normal 4.6-6.2 [facility] Comment on above: Performed By: #### L 501.2450, L500.3400, L100.0100, L500.2500 #### [facility] [address] [place], [address] RDW SD 40.2 fl Normal 35.1-43.9 [facility] Comment on above: Performed By: #### L 501.2450, L500.3400, L100.0100, L500.2500 #### [facility] [address] [place], [address] WBC (Bld) [#/Vol] 11.4 10*3/uL High 4.4-11.0 [facility] Comment on above: Performed By: #### L 501.2450, L500.3400, L100.0100, L500.2500 #### [facility] [address] [place], [address] Carbon dioxide, total [Moles /volume] in Central venous bloodOrdered By: Michael Oakley on 12-21-2024 CO2 [Moles/Vol] 25.0 mmol/L 21.0-32.0 [facility] Chloride assayOrdered By: Remington Oakley on 12-21-2024 Chloride [Moles/Vol] 103 mmol/L 98-108 [facility] Emergency Department Summary on 12-21-2024 Emergency Department Summary [facility] Medical Records Department [address] [place] [address] Emergency Department Summary 12/21/24 MR#: [id number] Acct: [id number] Name: JOSE M CORRAL Rep #: [id number] : 1995 29 From: Michael Oakley DO PCP: Dr. Salud Watson, Status:[facility] ER Location: ED ADDENDUM by Dr. Ted [...] Cosigner Signature (if applicable): cc: Dr. Salud Watson DO * Signed HPI History of Present Illness Chief Complaint: Flank Pain Informant: patient and spouse/S.O. Narrative Narrative: 29-year-old male presenting to the emergency room with left flank and left upper quadrant pain. Patient states that he went to [facility] this morning. He does not recall [...] drug use. He is not having any [facility] Home Medications ???Medication ???Instructions ???Recorded ???Last [...] Temperature Sharla (more content not included)... Normal [facility] Eosinophil percentageOrdered By: Michael Oakley on 12-21-2024 Eosinophils/100 WBC (Bld) 1.5 % 0-5 [facility] Erythrocyte distribution wid th ratioOrdered By: Michael Oakley on 12-21-2024 Erythrocyte distribution width (RBC) [Ratio] 13.6 % 11.6-14.6 [facility] Erythrocyte distribution wid th standard deviationOrdered By: Michael Oakley on 12-21-2024 Erythrocyte distribution width (RBC) [Ratio] 40.2 fl 35.1-43.9 [facility] Glomerular filtration rate ( GFR) estimation/1.73 sq m using serum, plasma, or whole bOrdered By: Michael Oakley on 12-21-2024 GFR/1.73 sq M.predicted among non-blacks MDRD (S/P/Bld) [Vol rate/Area] 121 mL/min/{1.73_m2} >60 [facility] Comment on above: mL/min/1.73m2 CKD-EP I Creatinine Equation (2020) Hematocrit Auto (Bld) [Volum e fraction]Ordered By: Michael Oakley on 12-21-2024 Hematocrit (Bld) [Volume fraction] 45.9 % 40-54 [facility] Hemoglobin measurementOrdere d By: Michael Oakley on 12-21-2024 Hemoglobin (Bld) [Mass/Vol] 16.4 g/dL 13.0-16.5 [facility] Immature granulocytes/100 WB C Auto (Bld)Ordered By: Michael Oakley on 12-21-2024 Immature granulocytes/100 WBC (Bld) 0.300 % 0.0-0.9 [facility] Comment on above: IG% - Immature Granu locytes (promyelocytes, myelocytes and metamyelocytes) > 1% indicates that a LEFT SHIFT is Present. International normalized rat io (INR) calculationOrdered By: Michael Oakley on 12-21-2024 INR Coag (Bld) [Relative time] 1.1 {INR} [facility] Ketones Test strip Ql (U)Ord ered By: Michael Oakley on 12-21-2024 Ketones Ql (U) Negative Negative [facility] - Chemistry and C hemistry - challengeOrdered By: Michael Oakley on 12-21-2024 AST [Catalytic activity/Vol] 47 U/L High <38 [facility] Lipaseon 12-21-2024 Lipase [Catalytic activity/Vol] 22 U/L Normal 13-75 [facility] Comment on above: Result Comment: Eliu gutierrez note: LIPASE revised reference range effective 22. New Lipase methodology. Expected to produce lower values than the previous assay method. NEW Reference Range: 13 - 75 U/L Performed By: #### L 501.2450, L500.3400, L100.0100, L500.2500 #### [facility] [address] [place], [address] Lipase measurementOrdered By : Michael Oakley on 12-21-2024 Lipase [Catalytic activity/Vol] 22 U/L 13-75 [facility] Comment on above: Please note:LIPASE r evised reference range effective 22. New Lipase methodology. Expected to produce lower values than the previous assay method. NEW Reference Range: 13 - 75 U/L Liver Profileon 12-21-2024 Albumin [Mass/Vol] 4.8 g/dL Normal 3.5-5.0 [facility] Comment on above: Performed By: #### L 501.2450, L500.3400, L100.0100, L500.2500 #### [facility] [address] [place], [address] ALK PHOS 39 U/L Low 40-129 [facility] Comment on above: Performed By: #### L 501.2450, L500.3400, L100.0100, L500.2500 #### [facility] [address] [place], [address] ALT [Catalytic activity/Vol] 47 U/L Normal <=46 [facility] Comment on above: Performed By: #### L 501.2450, L500.3400, L100.0100, L500.2500 #### [facility] [address] [place], [address] AST [Catalytic activity/Vol] 47 U/L High <=37 [facility] Comment on above: Performed By: #### L 501.2450, L500.3400, L100.0100, L500.2500 #### [facility] [address] [place], [address] Bilirubin [Mass/Vol] 0.43 mg/dL Normal 0.00-1.30 [facility] Comment on above: Performed By: #### L 501.2450, L500.3400, L100.0100, L500.2500 #### [facility] [address] [place], [address] Bilirubin.direct [Mass/Vol] 0.19 mg/dL Normal 0.00-0.30 [facility] Comment on above: Performed By: #### L 501.2450, L500.3400, L100.0100, L500.2500 #### [facility] [address] [place], [address] Globulin (S) [Mass/Vol] 2.8 g/dL Normal 2.2-4.2 [facility] Comment on above: Performed By: #### L 501.2450, L500.3400, L100.0100, L500.2500 #### [facility] [address] [place], [address] T PROT 7.5 g/dL Normal 5.9-8.4 [facility] Comment on above: Performed By: #### L 501.2450, L500.3400, L100.0100, L500.2500 #### [facility] [address] [place], [address] MCV (mean corpuscular volume ) determinationOrdered By: Michael Oakley on 12-21-2024 MCV (RBC) [Entitic vol] 81.8 fL 80-94 [facility] Mean corpuscular hemoglobin (MCH) determinationOrdered By: Michael Oakley on 12-21-2024 MCH (RBC) [Entitic mass] 29.2 pg 27.0-32.0 [facility] Mean corpuscular hemoglobin concentration (MCHC) determinationOrdered By: Michael Oakley on 12-21-2024 MCHC (RBC) [Mass/Vol] 35.7 g/dL 32-36 [facility] Mean platelet volume determi nationOrdered By: Michael Oakley on 12-21-2024 Platelet mean volume (Bld) [Entitic vol] 9.1 fL 6.2-12.0 [facility] Microscopic analysis of urin e for red blood cells (RBC)Ordered By: Michael Oakley on 12-21-2024 Microscopic analysis of urine for red blood cells (RBC) 0 SEEN /hpf 0-5 [facility] Monocyte percentageOrdered B y: Michael Oakley on 12-21-2024 Monocytes/100 WBC (Bld) 8.0 % 0-10 [facility] Mucus LM Ql (Urine sed)Order ed By: Michael Oakley on 12-21-2024 Mucus Ql (Urine sed) 0 SEEN /hpf [facility] Neutrophil percentageOrdered By: Michael Oakley on 12-21-2024 Neutrophils/100 WBC (Bld) 74.8 % High 47-70 [facility] Nitrite Test strip Ql (U)Ord ered By: Michael Oakley on 12-21-2024 Nitrite Ql (U) Negative Negative [facility] Nucleated red blood cell per centageOrdered By: Michael Oakley on 12-21-2024 Nucleated RBC/100 WBC (Bld) [Ratio] 0 % 0-5 [facility] Partial Thromboplast Timeon 12-21-2024 aPTT Coag (Bld) [Time] 31.2 s Normal 24.1-36.2 [facility] Comment on above: Performed By: #### L 501.2450, L500.3400, L100.0100, L500.2500 #### [facility] [address] [place] [address]. [place], [place], [address] Platelet countOrdered By: Remington Oakley on 12-21-2024 Platelets (Bld) [#/Vol] 359 10*3/uL 150-450 [facility] Potassium measurement (mass/ volume)Ordered By: Michael Oakley on 12-21-2024 Potassium (Unsp spec) [Mass/Vol] 4.2 mmol/L 3.3-5.1 [facility] Protein Test strip Ql (U)Ord ered By: Michael Oakley on 12-21-2024 Protein Ql (U) 15 mg/dl High Negative [facility] Prothrombin Time w/INRon INR Coag (PPP) [Relative time] 1.1 {INR} Normal [facility] Comment on above: Performed By: #### L 501.2450, L500.3400, L100.0100, L500.2500 #### [facility] [address] [place], [address] PT Coag (PPP) [Time] 14.0 s Normal 11.7-14.9 [facility] Comment on above: Performed By: #### L 501.2450, L500.3400, L100.0100, L500.2500 #### [facility] [address] [place], [address] INR Normal [facility] Comment on above: Result Comment: PER TERESSA DUPLICATE Performed By: #### L 501.2450, L500.3400, L100.0100, L500.2500 #### [facility] [address] [place], [address] PROTIME Normal 11.7-14.9 [facility] Comment on above: Result Comment: PER TERESSA DUPLICATE Performed By: #### L 501.2450, L500.3400, L100.0100, L500.2500 #### [facility] [address] [place], [address] Prothrombin timeOrdered By: Michael Oakley on 12-21-2024 PT Coag (PPP) [Time] 14.0 s 11.7-14.9 [facility] RBC Auto (Bld) [#/Vol]Ordere d By: Michael Oakley on 12-21-2024 RBC (Bld) [#/Vol] 5.61 10*6/uL 4.6-6.2 [facility] Serum creatinine measurement (mass/volume)Ordered By: Michael Oakley on 12-21-2024 Creatinine [Mass/Vol] 0.88 mg/dL 0.70-1.20 [facility] Serum globulin measurementOr dered By: Michael Oakley on 12-21-2024 Globulin (S) [Mass/Vol] 2.8 g/dL 2.2-4.2 [facility] Serum glucose measurement (m ass/volume)Ordered By: Michael Oakley on 12-21-2024 Glucose [Mass/Vol] 107 mg/dL High 70-99 [facility] Serum or plasma alanine real otransferase (ALT) measurementOrdered By: Michael Oakley on 12-21-2024 ALT [Catalytic activity/Vol] 47 U/L <47 [facility] Serum or plasma albumin bimal urement (mass/volume)Ordered By: Michael Oakley on 12-21-2024 Albumin [Mass/Vol] 4.8 g/dL 3.5-5.0 [facility] Serum or plasma alkaline amado sphatase measurementOrdered By: Michael Oakley on 12-21-2024 ALP [Catalytic activity/Vol] 39 U/L Low 40-129 [facility] Serum or plasma calcium bimal urement (mass/volume)Ordered By: Michael Oakley on 12-21-2024 Calcium [Mass/Vol] 9.6 mg/dL 7.6-11.0 [facility] Serum or plasma urea nitroge n measurement (mass/volume)Ordered By: Michael Oakley on 12-21-2024 Urea nitrogen [Mass/Vol] 21 mg/dL High 4-19 [facility] Sodium levelOrdered By: Keith Oakley on 12-21-2024 Sodium [Moles/Vol] 139 mmol/L 133-145 [facility] Squamous epithelial cells de tection in urine sediment by light microscopyOrdered By: Michael Oakley on 12-21-2024 Epithelial cells.squamous LM Ql (Urine sed) 0 SEEN /hpf 0-5 [facility] Total proteinOrdered By: Yuan Oakley on 12-21-2024 Protein [Mass/Vol] 7.5 g/dL 5.9-8.4 [facility] Urinalysis, Completeon 12-21 AMORPHOUS 1+ Normal [facility] Comment on above: Order Comment: CLEAN CATCH Performed By: #### L 400.0001 #### [facility] [address] [place], [address] BACTERIA 3+ /hpf Normal None Seen [facility] Comment on above: Order Comment: CLEAN CATCH Performed By: #### L 400.0001 #### [facility] [address] [place], [address] EPI,SQUAMOUS 0 SEEN Normal 0-5 [facility] Comment on above: Order Comment: CLEAN CATCH Performed By: #### L 400.0001 #### [facility] [address] [place], [address] Mucus Ql (Urine sed) 0 SEEN Normal [facility] Comment on above: Order Comment: CLEAN CATCH Performed By: #### L 400.0001 #### [facility] [address] [place], [address] RBC 0 SEEN Normal 0-[address] [place] [address] Comment on above: Order Comment: CLEAN CATCH Performed By: #### L 400.0001 #### [facility] [address] [place], [address] WBC 0 SEEN Normal 0-[address] [place] [address] Comment on above: Order Comment: CLEAN CATCH Performed By: #### L 400.0001 #### [facility] [address] [place], [address] Urine clarityOrdered By: Yuan Oakley on 12-21-2024 Clarity (U) Sl. Cloudy Clear [facility] Urine color determinationOrd ered By: Michael Oakley on 12-21-2024 Color (U) Straw Yellow [facility] Urine glucose detectionOrder ed By: Michael Oakley on 12-21-2024 Glucose Ql (U) Normal mg/dl Normal [facility] Urine leukocyte esterase det ection by dipstickOrdered By: Michael Oakley on 12-21-2024 Leukocyte esterase Test strip Ql (U) Negative Negative [facility] Urine pHOrdered By: Michael rincon on 12-21-2024 pH (U) 7.0 [pH] 5.0 - 8.0 [facility] Urine sediment bacteria coun t by microscopy (number/high power field)Ordered By: Michael Oakley on 12-21-2024 Bacteria LM.HPF (Urine sed) [#/Area] 3 /[HPF] None Seen [facility] Urine specific gravity measu rementOrdered By: Michael Oakley on 12-21-2024 Specific gravity (U) [Rel density] 1.010 1.002-1.03 0 [facility] Urine urobilinogen measureme ntOrdered By: Michael Oakley on 12-21-2024 Urobilinogen Ql (U) Normal mg/dl Normal [facility] White blood cell (WBC) count Ordered By: Michael Oakley on 12-21-2024 WBC (Bld) [#/Vol] 11.4 10*3/uL High 4.4-11.0 [facility] White blood cell countOrdere d By: Michael Oakley on 12-21-2024 White blood cell count 0 SEEN /hpf 0-5 [facility] - Microbiology an d Antimicrobial susceptibilityon 12-30-2021 SARS-CoV-2 (COVID-19) RNA SOY+probe Ql (Unsp spec) Not detected Not Detect [facility] Work Phone: Comment on above: [...] Sandro Rascon MD 03/06/21 Final result Normal [facility] XR FOOT LEFT (MIN 3 VIEWS)Or dered By: Milka Magaly on 03-06-2021 Chip fracture off th e base of the first distal phalanx which appears nonacute. [facility] Phone: LEFT FOOT X-RAY THRE E VIEWS HISTORY: Pain. COMPARISON: None. FINDINGS: There is a chip fracture off of the base of the first distal phalanx which appears well-corticated. The there is no evidence of dislocation. There are no degenerative changes. [facility]: Matti, Mhpn Incoming Radiant Results From [employer] - 03/06/2021 3:12 PM EDT LEFT FOOT X-RAY THREE VIEWS HISTORY: Pain. COMPARISON: None. FINDINGS: There is a chip fracture off of the base of the first distal phalanx which appears well-corticated. The there is no evidence of dislocation. There are no degenerative changes. IMPRESSION: Chip fracture off the base of the first distal phalanx which appears nonacute. 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 This result added by HARLEY on 09/08/2017 20:02. The previous result was: FLUB RNA (Final) Positive for Influenza B Normal [facility] Comment on above: Performed By: #### 3 1018 ####[facility] Vital Signs Date Time Vital Sign Value Performing Clinician Facility 05-05-2025 14:09-0400 Body height 182.[address] Salud Watson DO Work Phone: [facility] 05-05-2025 14:09-0400 Body mass index (BMI) [Ratio] 26.2 kg/m2 Dr. Salud Watson DO Work Phone: [facility] 05-05-2025 14:09-0400 Body weight 87.[address] Salud Watson DO Work Phone: [facility] 05-05-2025 14:09-0400 Diastolic blood pressure 76 mm[Hg] Dr. Salud Watson DO Work Phone: [facility] 05-05-2025 14:09-0400 Heart rate 77 /min Dr. Salud Watson DO Work Phone: [facility] 05-05-2025 14:09-0400 Respiratory rate 16 /min Dr. Salud Watson DO Work Phone: [facility] 05-05-2025 14:09-0400 Systolic blood pressure 121 mm[Hg] Dr. Salud Watson DO Work Phone: [facility] 01-20-2025 08:06-0400 Body height 182.[address] Salud Watson DO Work Phone: [facility] 01-20-2025 08:06-0400 Body mass index (BMI) [Ratio] 26.9 kg/m2 Dr. Salud Watson DO Work Phone: [facility] 01-20-2025 08:06-0400 Body weight 90.[address] Salud Watson DO Work Phone: [facility] 01-20-2025 08:06-0400 Diastolic blood pressure 70 mm[Hg] Dr. Salud Watson DO Work Phone: [facility] 01-20-2025 08:06-0400 Heart rate 79 /min Dr. Salud Watson DO Work Phone: [facility] 01-20-2025 08:06-0400 Respiratory rate 16 /min Dr. Salud Watson DO Work Phone: [facility] 01-20-2025 08:06-0400 Systolic blood pressure 119 mm[Hg] Dr. Salud Watson DO Work Phone: [facility] 01-15-2025 00:52-0400 Heart rate 78 /min Dr. Salud Watson DO Work Phone: [facility] 01-15-2025 00:52-0400 Respiratory rate 18 /min Dr. Salud Watson DO Work Phone: [facility] 01-15-2025 00:52-0400 SaO2% (BldA) [Mass fraction] 98 % Dr. Salud Watson DO Work Phone: [facility] 01-14-2025 23:26-0400 Diastolic blood pressure 87 mm[Hg] Dr. Salud Watson DO Work Phone: [facility] 01-14-2025 23:26-0400 Systolic blood pressure 120 mm[Hg] Dr. Salud Watson DO Work Phone: [facility] 01-14-2025 21:05-0400 Body height 182.[address] Salud Watson DO Work Phone: [facility] 01-14-2025 21:05-0400 Body mass index (BMI) [Ratio] 26 kg/m2 Dr. Salud Watson DO Work Phone: [facility] 01-14-2025 21:05-0400 Body temperature 97 [degF] Dr. Salud Watson DO Work Phone: [facility] 01-14-2025 21:05-0400 Body weight 87.[address] Salud Watson DO Work Phone: [facility] 01-08-2025 10:16-0400 Body height 182.[address] Salud Watson DO Work Phone: [facility] 01-08-2025 10:12-0400 Body mass index (BMI) [Ratio] 26.3 kg/m2 Dr. Salud Watson DO Work Phone: [facility] 01-08-2025 10:12-0400 Body temperature 97.6 [degF] Dr. Salud Watson DO Work Phone: [facility] 01-08-2025 10:12-0400 Body weight 88.[address] Salud Watson DO Work Phone: [facility] 01-08-2025 10:12-0400 Diastolic blood pressure 79 mm[Hg] Dr. Salud Watson DO Work Phone: [facility] 01-08-2025 10:12-0400 Heart rate 77 /min Dr. Salud Watson DO Work Phone: [facility] 01-08-2025 10:12-0400 Respiratory rate 16 /min Dr. Salud Watson DO Work Phone: [facility] 01-08-2025 10:12-0400 SaO2% (BldA) [Mass fraction] 96 % Dr. Salud Watson DO Work Phone: [facility] 01-08-2025 10:12-0400 Systolic blood pressure 129 mm[Hg] Dr. Salud Watson DO Work Phone: [facility] 12-22-2024 00:19-0400 Body temperature 98.2 [degF] Dr. Salud Watson DO Work Phone: [facility] 12-22-2024 00:19-0400 Diastolic blood pressure 57 mm[Hg] Dr. Salud Watson DO Work Phone: [facility] 12-22-2024 00:19-0400 Heart rate 68 /min Dr. Salud Watson DO Work Phone: [facility] 12-22-2024 00:19-0400 Respiratory rate 18 /min Dr. Salud Watson DO Work Phone: [facility] 12-22-2024 00:19-0400 SaO2% (BldA) [Mass fraction] 96 % Dr. Salud Watson DO Work Phone: [facility] 12-22-2024 00:19-0400 Systolic blood pressure 129 mm[Hg] Dr. Salud Watson DO Work Phone: [facility] 12-21-2024 16:02-0400 Body height 182.[address] Salud Watson DO Work Phone: [facility] 12-21-2024 16:02-0400 Body mass index (BMI) [Ratio] 25.6 kg/m2 Dr. Salud Watson DO Work Phone: [facility] 12-21-2024 16:02-0400 Body weight 85.[address] Salud Watson DO Work Phone: [facility] 03-06-2021 13:17-0400 Body temperature 98.91 [degF] Milka Camarillo MD Work Phone: [facility] Work Phone: 03-06-2021 13:17-0400 Diastolic blood pressure 83 mm[Hg] Milka Camarillo MD Work Phone: [facility] Work Phone: 03-06-2021 13:17-0400 Heart rate 61 /min Milka Camarillo MD Work Phone: [facility] Work Phone: 03-06-2021 13:17-0400 Respiratory rate 18 /min Milka Camarillo MD Work Phone: [facility] Work Phone: 03-06-2021 13:17-0400 SaO2% (BldA) [Mass fraction] 99 % Milka Camarillo MD Work Phone: [facility] Work Phone: 03-06-2021 13:17-0400 Systolic blood pressure 145 mm[Hg] Milka Camarillo MD Work Phone: [facility] Work Phone: Encounters Encounter Date Encounter Type Care Provider Facility Start: 06-28-2025 End: 06-28-2025 Emergency department patient visit [facility] Facility:[facility] Start: 05-05-2025 End: 05-05-[address] Gabrielle Pérez MD -[facility] Work Phone: Start: 05-05-2025 End: 05-05-[address] Salud Watson DO Work Phone: -[facility] Start: 02-27-2025 Non-patient / Non-visit Karon PURCELL -[facility] Work Phone: Start: 02-27-2025 ambulatory [facility] Facility: [facility] Start: 02-26-2025 Non-patient / Non-visit Dr. Gabrielle jon MD -[facility] Start: 02-26-2025 End: 02-26-[address] Salud Watson DO Work Phone: -Cardiovascular Services Start: 02-26-2025 End: 02-26-[address] 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 Salud Watson DO Work Phone: [facility] Work Phone: Start: 02-04-2025 End: 02-04-2025 ambulatory Corky Win Nichol Facility:[facility] Start: 01-31-2025 ambulatory [facility] Facility: [facility] Start: 01-28-[address] Gabrielle Pérez MD -[facility] Work Phone: Start: 01-28-2025 ambulatory [facility] Facility: [facility] Start: 01-28-2025 Non-patient / Non-visit Dr. Gabrielle jon MD -[facility] Work Phone: Start: 01-20-2025 End: 01-20-[address] Gabrielle Péerz MD -[facility] Work Phone: Start: 01-20-2025 End: 01-20-[address] Salud Watson DO Work Phone: [facility] Work Phone: Start: 01-14-2025 End: 01-15-2025 Emergency department patient visit Dr. Salud Watson DO Work Phone: -Emergency Department Work Phone: Start: 01-08-[address] Aren Patel MD -[facility] Start: 01-08-2025 End: 01-08-[address] Patrice Patel MD -[facility] Work Phone: Start: 01-08-2025 End: 01-08-[address] Salud Watson DO Work Phone: [facility] Work Phone: Start: 01-06-2025 Non-patient / Non-visit Shreya guerrero -[facility] Work Phone: Start: 01-06-2025 ambulatory Salud Watson Facility: [facility] Start: 12-25-2024 End: 12-25-[address] Salud Watson DO Work Phone: [facility] Work Phone: Start: 12-25-2024 End: 12-25-[address] Salud Watson DO -Laboratory Work Phone: Start: 12-25-2024 End: 12-25-2024 ambulatory Salud Watson Facility:[facility] Start: 12-21-2024 End: 12-22-2024 Emergency department patient visit Dr. Michael Oakley DO -Emergency Department Work Phone: Start: 12-30-2021 End: 12-30-2021 Patient encounter procedure [facility]-Laboratory, Specimen Start: 03-06-2021 End: 03-06-2021 Emergency department patient visit MILKA CAMARILLO [facility] Start: 03-06-2021 End: 03-06-2021 Emergency department patient visit Milka Camarillo MD Work Phone: [facility] ED Comment on above: Laceration of left f oot, initial encounter (Primary Dx); Essential hypertension Start: 09-08-2017 End: 09-09-2017 Ambulatory TONY ARIAS Facility:[facility] Procedures Date Procedure Procedure Detail Performing [...] Work Phone: Comment on above: Test Ordered: 357034 Antithrombin Activi tyAntithrombin Activity 100 % Reference Range: 75-135Direct Xa inhibitor anticoagulants such as rivaroxaban,apixaban and edoxaban will lead to spuriously elevatedantithrombin activity levels possibly masking a deficiency.Performed at: - [facility] [id number] Director: Arie Murillo MD, Phone: [phone] at: [address] [id number] Director: Sudhir Gonzalez PhD, Phone: [phone] Test Ordered: [id number] Antiphospholipid Syndrome CompSpecimen Comment: A courtesy copy of this report has been sent to [phone] 30.1 sec UY Reference Range: .This test has not been validated for monitoringunfractionated heparin therapy. aPTT-based therapeuticranges for unfractionated heparin therapy have not beenestablished. Consider ordering Heparin anti-Xa(unfractionated).Reference Range:18 years and older: 22.9 - 30.2APTT 1:1 ACOUSTICAL TILE DRILL PRESS OPERATOR sec UY Reference Range: .Testing Not IndicatedThis test was developed and its performance characteristicsdetermined by [employer]. It has not been cleared or approvedby the US Food and Drug Administration.APTT 1:1 Saline sec UY Reference Range: .Testing Not IndicatedThis test was developed and its performance characteristicsdetermined by [employer]. It has not been cleared or approvedby [...] was developed and its performance characteristicsdetermined by [employer]. It has not been cleared or approvedby [...] time, repeat testing may be indicated.Please contact [facility] if furtherclarification is needed.Performed at: - [facility] [id number] Director: Anthony Contreras MD, Phone: [phone] at: [facility] [address] [id number] Director: Sudhir Gonzalez PhD, Phone: [phone] Start: 12-25-[address] Salud Watson DO Work Phone: Comment on above: The atypical pANCA pattern has been obse rved in asignificant percentage of patients with ulcerative colitis,primary sclerosing cholangitis and autoimmune hepatitis. Start: 12-25-[address] Salud matt DO Work Phone: Comment on above: Result: c.1601G>A (p.Xll899Vpw) - Not De tectedThis result is not associated with an increased risk for venousthromboembolism. See Additional Clinical Information andComments.Additional Clinical Information:Venous thromboembolism is a multifactorial diseaseinfluenced by genetic, environmental, and circumstantialrisk factors. The c.1601G>A (p. Iae096Syh) variant in theF5 gene, commonly referred to [...] F2 c.*97G>Avariant and Factor V Leiden (PMID: 35745488). Additionalrisk factors include but are not limited [...] for health careproviders to discuss results at [phone]).Test Details:Variant Analyzed: c.1601G>A (p. Sfi209Mxq), referred toas Factor V LeidenMethods/Limitations:DNA analysis of [...] was developed and its performance characteristicsdetermined by [employer]. It has not been cleared orapproved by the Food and Drug Administration.References:Savage Bennett, Cecelia PEDRO, Galen R, Vanita WW, Aaron QUINN; ACMGProfessional Practice and Guidelines Committee. Addendum:[employer] [employer] consensus statement onfactor V Leiden mutation testing. [employer]. 2020Oct 23.doi: 10.1038/o47823-579-38091-v. PMID: 39574281.Hannah CONTRERAS. Factor V Leiden Thrombophilia. 1998January 01(Updated 2017Aug 24). In: Carlitos MP, Vipin HH, Jake RA,et al., editors. George(R) (Internet). [place] ([place]):[facility]; [phone]. Availablefrom: https://www.ncbi.nlm.nih.gov/books/OZP7782/Chris Bennett, Cecelia PEDRO, Kole X, Price B, Cresencio EB, Aleah P,Abimbola CS; ACMG Laboratory Ingot Weigher Committee.Venous thromboembolism laboratory testing (factor V Leidenand factor II c.*97G>A), 2018 update: a technical standardof the [employer] [employer] and Genomics(ACMG). [employer]. 2017;20(12):9216-9636. doi:10.1038/e84472-453-3218-t. Epub 2017May 25. PMID: 48449409. Start: 12-25-[address] Salud Watson DO Work Phone: Comment on above: Test Ordered: [id number] Tick-borne Disease Ab ProfileTest(s) 051837-Ogepwqo microti IgGwas developed and its performance characteristicsdetermined by [facility]. It has not been cleared or approvedby [...] to 14 days isrecommended.Babesia microti IgG <1:10 Reference Range: Neg:<1:10E. chaffeensis IgG Negative Reference Range: Neg:<1:64A. phagocytophilum IgG Negative Reference Range: Neg:<1:64Result Comments: Comment Reference Range: .Antibody titers may be negative in the first 7-10 days ofillness. A four-fold rise in IgG antibody titers forBabesia microti, Anaplasma phagocytophilum, and/orEhrlichia chaffeensis in paired samples (acute andconvalescent) supports the diagnosis of babesiosis,anaplasmosis, and/or ehrlichiosis, respectively.Performed at: [address] [id number] Director: Sudhir Gonzalez PhD, Phone: [phone] at: [address] [id number] Director: Arie Murillo MD, Phone: [phone] Start: 12-21-2024 Computed tomography of abdomen and [...] Start: 01-20-2025 Evaluation of diagnostic study results [facility] Start: 01-08-2025 End: 01-08-2025 Procedure [facility] Start: 12-25-2024 Cytomegalovirus IgM antibody assay [facility] Start: 12-25-2024 Factor V Leiden genotype [facility] Start: 12-25-2024 Procedure [facility] Start: 12-25-2024 Protein S function estimate [facility] Start: 12-25-2024 Targeted analysis for gene mutation [facility] Start: 12-25-2024 [facility] Start: 04-21-2021 Influenza vaccination Flu vaccine (#1) [facility] Phone: Start: 03-12-2017 Hepatitis A vaccine (2 of 2 - 2-dose series) Hepatitis A vaccine (2 of 2 - 2-dose series) [facility] Phone: Start: 2016 DTaP/Tdap/Td vaccine (1 - Tdap) DTaP/Tdap/Td vaccine (1 - Tdap) [facility] Phone: Start: 2012 HIV screening HIV screen [facility] Phone: Start: 2009 COVID-19 Vaccine (1) COVID-19 Vaccine (1) [facility] Phone: Start: 2008 HPV vaccine (1 - Male 2-dose series) HPV vaccine (1 - Male 2-dose series) [facility] Phone: Start: 1998 Varicella vaccine (1 of 2 - 2-dose childhood series) Varicella vaccine (1 of 2 - 2-dose childhood series) [facility] Phone: Start: 1997 Hepatitis C screening Hepatitis C screen [facility] Work Phone: Conrado Chauhan virus c apsid IgM Ab [Units/volume] in Serum [facility] F5 gene mutations fo und [Identifier] in Blood or Tissue by Molecular genetics method Nominal [facility] Neutrophil cytoplasm ic Ab.classic [Units/volume] in Serum [facility] P-ANCA measurement [facility] Patient Education Abdominal Pain [facility] Work Phone: Patient referral [facility] Work Phone: Protein C [Units/vol ume] in Platelet poor plasma by Coagulation assay [facility] Protein S, functional assay [facility] Payers Date Payer Category Payer Self-pay [id number] 2016 [facility] [id number] 2016 Unknown [id number] 2014 Unknown [id number] 1997 Unknown [id number] 2.16.84 0.1.992835.3.579.2.174 Unknown [id number] 2.16.8 40.1.858768.3.579.2.462 Unknown [id number] 2.16.8 40.1.075763.3.579.2.462 Unknown [id number] 2.16.8 40.1.225239.3.579.2.462 Unknown [id number] 2.16.8 40.1.770626.3.579.2.462 Unknown [id number] 2.16.8 40.1.628240.3.579.2.462 Unknown [id number] 2.16.8 40.1.360579.3.579.2.462 Unknown [id number] 2.16.8 40.1.342853.3.579.2.462 Unknown [id number] 2.16.8 40.1.183273.3.579.2.462 Unknown [id number] 2.16.8 40.1.068585.3.579.2.462 Unknown [id number] 2.16.8 40.1.871593.3.579.2.462 Unknown [id number] 2.16.8 40.1.704723.3.579.2.462 Unknown [id number] 2.16.8 40.1.082504.3.579.2.462 Unknown [id number] 2.16.8 40.1.568350.3.579.2.462 Unknown [id number] 2.16.8 40.1.137317.3.579.2.462 Unknown [id number] 2.16.8 40.1.906163.3.579.2.462 Unknown [id number] 2.16.8 40.1.877319.3.579.2.462 Unknown [id number] 2.16.8 40.1.061000.3.579.2.462 Social History Date Type Detail Facility [facility] Phone: Start: 1995 Sex Assigned At Not on file [facility] Phone: Exposure to SARS-CoV -2 (event) Not sure [facility] Start: 03-03-2018 [facility] Work Phone: Start: 1995 Sex Assigned At Male W [facility] Start: 12-21-2024 End: 01-14-2025 Tobacco smoking status NHIS Never smoked tobacco (finding) [facility] Mental Status Date Assessment Result Facility 01-14-2025 Cognitive function Level Of Cons ciousness Awake;Alert;Appropriate;Follow s Commands [facility] Work Phone: Clinical Notes 01-08-2025 to 01-20-2025 Note Date & Type Note Facility 01-20-2025 Progress note [facility] 01-20-2025 Progress note Note Date/Time January 20, 2025 9:04am [facility] [address] [place] [address] OFFICE VISIT Date of Service: 01/20/25 MR#: [id number] Acct: [id number] Name: JOSE M CORRAL Rep #: [id number] : 1995 Provider: Dr. Florentin Pérez MD Age/Sex: 29/M [facility] Status: Signed HPI HPI History of Present [...] heart disease. 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 At that [...] Source NIBP Intake Visit Reasons: SPLENIC INFRACTION Clam Picker Required: No Accompanied by: Is patient in [...] Date (if applicable) CC: Dr. Salud Watson, ~ [employer] Work Phone: 1(248) 783-438905-28-2025 Discharge summary [facility] Medical Records Department [address] [place] [address] Emergency Department Summary 01/14/25 MR#: [id number] Acct: [id number] Name: JOSE M CORRAL Rep #:[id number] : 1995 29 From: José Miguel Driver PCP: Dr. Salud Watosn, Status:REG ER Location: ED HPI History of [...] Oxygen Delivery Method Room Air Room Air [facility] Narrative Medical decision making narrative: HISTORY OF [...] reviewed, Vital signs reviewed Constitutional: please see [facility] HENT: MMM Eyes: Pupils equal [...] Discharge home This note was generated with Mysafeplaceation software. It may contain incorrectwords, spelling, and [...] % (Auto) 62.7 Lymph % (Auto) 25.5 Cuming % (Auto) 7.2 Eos % (Auto) 3.6 [...] Clarity Clear Urine pH 6.5 Ur Specific Russell 1.010 Urine Protein 15 H Urine Glucose [...] for further outpatient evaluationand management. Print Language: Angolan Disposition Disposition: Home, Self Care What to do if you have Problems For any increased pain, shortness of breath, bleeding, nausea or vomiting, chestpain, or any unexpected problems, contact your Primary Care Provider. Call [facility] ([phone]) or report tothe closest Emergency Room. Call 911 if necessary. 01/15/25 0044 Cosigner Signature (if applicable): CC: Dr. Salud Watson DO ~ Signed [facility]05-27-2025 Radiology Diagnostic study note [facility] Imaging Services [address] [place] [address] CTA Abd/Pelvis W/WO Contrast MR#: [id number] Acct: [id number] Name: JOSE M CORRAL Rep #: [id number] : 1995 M 29 From: Billy Dyer DO PCP: Dr. Salud Watson DO Status: REG ER Study:CTA Abd/Pelvis W/WO Contrast Date of Ex am: 01/14/25 Exam# [id number] Ordering Dr: Lon Darby DO PROCEDURE: CTA [...] DO; Dr. José Miguel Darby DO ~ Psychotherapist Counselor: Signed [facility]05-27-2025 Discharge summary Author José Miguel Darby [facility] Note Date/Time January 15, 2025 12:44 am [facility] Medical Records Department [address] [place] [address] Emergency Department Summary 01/14/25 MR#: [id number] Acct: [id number] Name: JOSE M CORRAL ADRIEL Rep #:[id number] : 1995 29 From: José Miguel Driver [...] positives: Abdominal/flank pain Pertinent negatives: As per [facility] PHYSICAL EXAM: Nursing triage notes reviewed, Vital signs reviewed Constitutional: please see [facility] HENT: MMM Eyes: Pupils equal [...] MEDICAL DECISION MAKING: Chief Complaint: please see [facility] External records reviewed: Reviewed prior imaging studies: [...] noted in the left upper quadrant spleen [facility] Narrative: The patient was initially [...] Discharge home This note was generated with [employer] dictation software. It may contain incorrectwords, spelling, [...] % (Auto) 62.7 Lymph % (Auto) 25.5 Cuming % (Auto) 7.2 Eos % (Auto) 3.6 [...] Clarity Clear Urine pH 6.5 Ur Specific Russell 1.010 Urine Protein 15 H Urine Glucose [...] for further outpatient evaluationand management. Print Language: Angolan Disposition Disposition: Home, Self Care What to do if you have Problems For any increased pain, shortness of breath, bleeding, nausea or vomiting, chestpain, or any unexpected problems, contact your Primary Care Provider. Call [facility] ([phone]) or report to the closest Emergency Room. Call 911 if necessary. 01/15/25 0044 <Electronically signed by José Miguel Darby DO> Cosigner Signature (if applicable): CC: Dr. 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 * Crutch Instructions: General Info (Angolan) * Lacerations: Stitches (Angolan) * RICE: General Info (Angolan) [facility] Discharge instructions Additional Instructions Thank [...] care physician for further outpatient evaluation and management.[facility] Work Phone: Reason for referral (narrative)No reason for referral [facility] Summary Purpose Family History [...] No March 03, 2018 6:18pm Power of Merchant Seaman No March 03 6:18pm Advance Directive Response Recorded Date/ Time Do you have a Healthcare Power of Merchant Seaman? No December 21, 2024 4:40pm Advance Directive Response Recorded Date/ Time Do you have a Healthcare Power of Merchant Seaman? No December 21, 2024 4:40pm Do you have a Healthcare Power of Merchant Seaman? Yes January 14, 2025 10:11pm Advance Directive Response Recorded Date/ Time Do you have a Healthcare Power of Merchant Seaman? Yes January 14, 2025 10:11pm Chief Complaint [...] section and content) DATE CREATED AUTHOR 02/12/2018 [facility] DATE CREATED AUTHOR AUTHOR'S ORGANIZ ATION 03/07/2021 [facility] DATE CREATED AUTHOR AUTHOR'S ORGANIZ ATION 06/29/2025 [facility] Reason for Visit (unrecogniz ed section and [...] Care Provider Active Start: January 06, 2025 Musasidra Hipolito Attending Provider Active Start: January 06, 2025 [...] 2025 End: February 04, 2025 Corky Gandara ACOUSTICAL TILE DRILL PRESS OPERATOR, ACOUSTICAL TILE DRILL PRESS OPERATOR-C Attending Provider Active S tart: February 04, 2025 End: February 04, 2025 Corky Gandara ACOUSTICAL TILE DRILL PRESS OPERATOR, ACOUSTICAL TILE DRILL PRESS OPERATOR-C Referring Provider Active S tart: February 04, [...] 2025 End: February 04, 2025 Corky Gandara ACOUSTICAL TILE DRILL PRESS OPERATOR, ACOUSTICAL TILE DRILL PRESS OPERATOR-C Attending Provider Active S tart: February 04, 2025 End: February 04, 2025 Corky Gandara ACOUSTICAL TILE DRILL PRESS OPERATOR, ACOUSTICAL TILE DRILL PRESS OPERATOR-C Referring Provider Active S tart: February 04, [...] Start: February 27, 2025 Karon Manley NP, ACOUSTICAL TILE DRILL PRESS OPERATOR-C Attending Provider Active Start: February 27, 2025 [...] 2025 End: February 04, 2025 Corky Gandara ACOUSTICAL TILE DRILL PRESS OPERATOR, ACOUSTICAL TILE DRILL PRESS OPERATOR-C Attending Provider Active S tart: February 04, 2025 End: February 04, 2025 Corky Gandara ACOUSTICAL TILE DRILL PRESS OPERATOR, ACOUSTICAL TILE DRILL PRESS OPERATOR-C Referring Provider Active S tart: February 04, [...] Start: February 27, 2025 Karon Manley NP, ACOUSTICAL TILE DRILL PRESS OPERATOR-C Attending Provider Active Start: February 27, 2025 [...] BE BASED ON THE PRIMARY CLINICAL RECORDS. Float: [employer] provides no warranty or guarantee of the accuracy or completeness of information in this document.
[2025-08-19] MEDS: Lactated Ringers 1,000 ML 15 ML IV (06:50)
--- NOTE | 2025-08-19 07:07 | PCM.PRE.AN2 ---
ASA Classification* ASA Classification ASA Classification: 2 Assessment & Plan Anesthesia* Anesthesia Assessment Anesthesia Assessment: Discussed sedation and/or anesthesia options, risks, benefits, and alternatives with patient/parents/legal guardian/POA. Questions invited. The patient/parents/legal guardian/POA seems to understand and agrees to proceed with anesthesia plan. Reviewed the physical assessment, medical history, allergy history and patient home medications list prior to surgery/procedure/anesthetic and documented any changes. Performed airway and anesthesia risk assessments. Anesthesia Type Anesthesia Type: MAC History Source History Obtained from:: Patient and Chart Anesthesia Focused Assessment* Temperature: 97.8 F Pulse Rate: 60 Blood Pressure: 117/66 Respiratory Rate: 18 Pulse Ox: 98 Oxygen Delivery Method: Room Air Airway Assessment Mouth opens: >3 cm Mallampati Score: I Teeth Condition: Intact Neck Range of motion (ROM): Full ROM Labs Anesthesia Preop lab: CBC WBC, (4.4-11.0) 15.6 K/mm3 H 06/28/25, 09:12 RBC, (4.6-6.2) 5.89 M/mm3 06/28/25, 09:12 Hgb, (13.0-16.5) 16.6 g/dL H 06/28/25, 09:12 Hct, (40-54) 48.4 % 06/28/25, 09:12 Plt Count, (150-450) 529 K/mm3 H 06/28/25, 09:12 CHEMISTRY Potassium, (3.3-5.1) 4.4 mmol/L 06/28/25, 09:12 Sodium, (133-145) 138 mmol/L 06/28/25, 09:12 BUN, (4-19) 17 mg/dL 06/28/25, 09:12 Creatinine, (0.70-1.20) 0.90 mg/dL 06/28/25, 09:12 Glucose, (70-99) 93 mg/dL 06/28/25, 09:12 TSH, (0.358-3.74) 1.31 uIU/mL 10/24/17, 14:28 COAG PT, (11.7-14.9) 14.0 SECONDS 12/21/24, 16:35 Pre-Assessment Diagnosis/Proposed Procedure Planned Operative Procedure(s): colonoscopy/egd Anesthesia History Anesthesia History - precision lens polisher: Anesthesia History - precision lens polisher Hx Hospitalization No 08/11/25 10:19 Any Problems With Anesthesia No 08/11/25 10:19 Cholinesterase deficiency No 08/11/25 10:19 You/Your Family Experience No 08/11/25 10:19 fever (hyperthermia) with Relationship Recent Exposure to Contagious No 08/19/25 06:41 Disease Does patient have nerve No 08/11/25 10:19 stimulator Patient instructed to have device shut off --Does patient have Pacemaker No 08/19/25 06:41 or ICD? When Was Last Pacemaker Check QUESTION #4 FULL TEXT: You/Your Family Experience fever (hyperthermia) with Anesthesia Last Oral Intake Last Oral intake: Last Oral Intake NPO since 23:30 08/19/25 06:41 Meds taken in AM with sips of No 08/19/25 06:41 water? Meds patient instructed to take am of surgery PONV PONV - precision lens polisher: PONV - precision lens polisher Female No 08/11/25 10:19 HX of Motion Sickness No 08/11/25 10:19 HX of N/V After Surgery No 08/11/25 10:19 Non-Smoker No 08/11/25 10:19 Duration of Surgery greater No 08/11/25 10:19 than 60 minutes Number of Risk Factors PONV Score Height & Weight Height & Weight: Anesthesia: Height & Weight Height 6 ft 08/19/25 06:41 Weight: 86 kg 08/19/25 06:41 Body Mass Index (BMI) 25.7 08/19/25 06:41 Respiratory Assessment Respiratory Assessment - precision lens polisher: Respiratory Tract Infection Hx - precision lens polisher Hx Respiratory Tract Infection No 08/11/25 10:19 Any additional information?: Yes Hx Respiratory Tract Infection: Yes History of Anesthesia Respiratory Infection details: Slight cold over the weekend. Sniffles now. STOP Sleep Apnea STOP Sleep Apnea - precision lens polisher: STOP Sleep Apnea - precision lens polisher Hx Hypertension No 08/11/25 10:19 Hx Sleep Apnea No 08/11/25 10:19 CPAP BIPAP Do you snore loudly (louder No 08/11/25 10:19 than talking or can be heard Do you often feel tired/ No 08/11/25 10:19 fatigued/ sleepy during daytime? Has anyone observed you stop No 08/11/25 10:19 breathing during sleep? STOP Results Negative 08/11/25 10:19 QUESTION #5 FULL TEXT : Do you snore loudly (louder than talking or can be heard through closed doors)? Tobacco Use History Tobacco Use History - precision lens polisher: Tobacco Use History - precision lens polisher Tobacco Use Smoking Status Never smoker 08/11/25 10:19 Hx Tobacco Use No 08/11/25 10:19 Years Smoking Packs Smoked per Day Smoking Cessation Date was within the last 15 years Hx Smoking Cessation Date Hx Smoking Cessation Counseling Hematologic Medial History Hematologic Hx - precision lens polisher: Hematologic Medical Hx - documentation engineer Hx of Blood Transfusion No 08/11/25 10:19 Hx of Transfusion in last 3 No 08/11/25 10:19 Months Date of Last Transfusion (if within last 3 months) Ever experience any problems No 08/11/25 10:19 with transfusion(s)? Specify any problems Hx of Preganancy in last 3 N/A 08/11/25 10:19 Months Nurse Filling Out Transfusion PETERSON 08/11/25 10:19 & Questions: Date: 08/11/25 08/11/25 10:19 Time: 10:08/11/25 10:19 Patient unable to answer at this time (ie. confused, unrespo /Reproduction History /Reproductive History - precision lens polisher: /Reproductive Hx- precision lens polisher Hx Now Gestational Age (in weeks): EDC: Hx Hx Para Hx Section SAB Does the father of the baby or his family experience fever w Father of the baby Malignant Hypertension history comment Active Medications Active Medications: Current Medications Generic Name Dose Route Start Last Admin Trade Name Freq PRN Reason Stop Dose Admin Lactated Ringer's 1,000 mls @ 15 mls/hr 08/19/25 06:30 08/19/25 06:50 IV 15 mls/hr .Q48H MALLORIE Administration PFSH Medical History Wears contact lenses Wears glasses Anxiety Alcohol use Blood per rectum Palpitations Normal colonoscopy GERD (gastroesophageal reflux disease) IBS (irritable bowel syndrome) Migraines Seasonal allergies Splenic infarct Home Medications ?Medication ?Instructions ?Recorded ?Last Taken ?Type lactobacillus combination no.9 4 4,000 mmu cells PO DAILY 01/08/25 08/16/25 History billion cell capsule (Adult 50 Plus Probiotic) multivitamin 1 tab PO QAM 01/08/25 08/16/25 History psyllium husk 0.4 gram capsule 0.4 g PO ONCE 01/08/25 08/16/25 History (Daily Fiber) magnesium citrate calm powder PO DAILY 07/14/25 08/16/25 History sodium sul 1.479 gram-potas ch See Rx Instructions PO PER PKG DIR 07/14/25 08/18/25 Rx 0.188 gram-magnes sul 0.225 gram #24 tabs tablet (Sutab) Allergy/AdvReac Type Severity Reaction Status Date / Time sulfamethoxazole (From Allergy Hives Verified 08/19/25 06:40 Bactrim) trimethoprim (From Bactrim) Allergy Hives Verified 08/19/25 06:40 Family History Grandfather Myocardial infarction, Onset Age: 50 Cancer Hypertension Hyperlipidemia Grandmother Breast cancer CVA (cerebral vascular accident) Hypertension Father Mitral valve prolapse Surgical History Status post myringotomy with tube placement of both ears History of colonoscopy Hx of wisdom tooth extraction S/P tonsillectomy and adenoidectomy Social History Smoking Status: Never smoker alcohol intake: current alcohol intake frequency: a few times a month Alcohol type: beer substance use type: does not use what type of physical activity do you participate in: running, weight training and other details: martial arts training frequency: daily Review of Systems (Anesthesia) ROS Narrative System reviewed and no additional complaints, except as documented.
--- NOTE | 2025-08-19 07:29 | PCM.HP.STD ---
HPI - General General Date of Admission: 08/19/25 Date of Service: 08/19/25 Chief Complaint: EGD and colonoscopy HPI Narrative The patient is a 29-year-old otherwise healthy male who presents today for 2 main complaints. 1 complaint being occasional bright red blood per rectum. It sounds as though he has had this problem off and on since high school. He does admit to having some harder bowel movements. He has been trying to soften his stools. He does occasionally note some discomfort and pain with bowel movements. His more pressing complaint has been periodic episodes of very sharp left upper abdominal and left lateral chest pain. He has noticed that these episodes of pain typically occur when he has completed [employer] class. This pain apparently has been extremely intense to the point where he has gone to the emergency room and received pain medication. Eventually this pain subsides after a few hours. He has undergone numerous CAT scans and really no definitive source for the pain has been identified. He does describe it as feeling as though something is stuck in his abdomen. He feels that it is deep within his body and not just a superficial muscular thing. On one of his CAT scans it was noted that he may have some splenic infarcts. He has been placed on Eliquis which she is now off of. He states that this always seems to occur after juIdomoou. He states that he is active otherwise and other activities really do not cause the problem [facility] Medical History Wears contact lenses Wears glasses Anxiety Alcohol use Blood per rectum Palpitations Normal colonoscopy GERD (gastroesophageal reflux disease) IBS (irritable bowel syndrome) Migraines Seasonal allergies Splenic infarct Home Medications ?Medication ?Instructions ?Recorded ?Last Taken ?Type lactobacillus combination no.9 4 4,000 mmu cells PO DAILY 01/08/25 08/16/25 History billion cell capsule (Adult 50 Plus Probiotic) multivitamin 1 tab PO QAM 01/08/25 08/16/25 History psyllium husk 0.4 gram capsule 0.4 g PO ONCE 01/08/25 08/16/25 History (Daily Fiber) magnesium citrate calm powder PO DAILY 07/14/25 08/16/25 History sodium sul 1.479 gram-potas ch See Rx Instructions PO PER PKG DIR 07/14/25 08/18/25 Rx 0.188 gram-magnes sul 0.225 gram #24 tabs tablet (Sutab) Allergy/AdvReac Type Severity Reaction Status Date / Time sulfamethoxazole (From Allergy Hives Verified 08/19/25 06:40 Bactrim) trimethoprim (From Bactrim) Allergy Hives Verified 08/19/25 06:40 Family History Grandfather Myocardial infarction, Onset Age: 50 Cancer Hypertension Hyperlipidemia Grandmother Breast cancer CVA (cerebral vascular accident) Hypertension Father Mitral valve prolapse Surgical History Status post myringotomy with tube placement of both ears History of colonoscopy Hx of wisdom tooth extraction S/P tonsillectomy and adenoidectomy Social History Smoking Status: Never smoker alcohol intake: current alcohol intake frequency: a few times a month Alcohol type: beer substance use type: does not use what type of physical activity do you participate in: running, weight training and other details: martial arts training frequency: daily Patient's Goals Of Care . What would you like to achieve or improve as a result of your hospital stay?: . Vital Signs Vital Signs Vital Signs: 08/19/25 06:41 08/19/25 06:41 08/19/25 06:41 Temperature 97.8 F Temperature Source Temporal Pulse Rate 60 Respiratory Rate 18 Respiratory Pattern Normal Blood Pressure 117/66 Blood Pressure Mean 83 Blood Pressure Source Monitor Blood Pressure Position Semi-Fowlers Blood Pressure Location Right Arm Baseline BP 117/66 Pulse Ox 98 Oxygen Delivery Method Room Air 08/19/25 07:14 Temperature 97.8 F Temperature Source Pulse Rate 60 Respiratory Rate 18 Respiratory Pattern Blood Pressure 117/66 Blood Pressure Mean Blood Pressure Source Blood Pressure Position Blood Pressure Location Baseline BP Pulse Ox 98 Oxygen Delivery Method Room Air Weight Weight: 189 lb 9.561 oz Body Mass Index (BMI) 25.7 Physical Exam Const alert, oriented x3 and no apparent distress Assessment & Plan Assessment/Plan (1) Blood per rectum: PLAN: Plan EGD and colonoscopy planned for today.
--- NOTE | 2025-08-19 07:30 | EGD_PTH ---
PATIENT: JOSE M CORRAL LOC: EN U#:[id number] AGE/SX: 29/M ROOM: RE08/19/[address]: Dr. Jim Ortez MD : 1995 BED: DIS: 08/19/2025 SPEC #: [id number] RECD: 08/19/25 12:07 STATUS: BRII REQ #: [id number] NATALIYA: 08/19/25 07:[address]: Jim Ortez DEPT: SURGICAL PATHOLOGY RECD BY: Jodi Galeana ENTERED: 08/19/25 14:09 SP TYPE: EGD BIOPSY OT DR: Dr. Joseluis Watson DO Tissues: A - Gastric mucous membrane B - Gastric mucous membrane C - Esophagus, NOS Procedures: Immunohistochemical Stains Surgery Specimen Level IV HEADER OPERATION: Colonoscopy, EGD with biopsies PRE-OP DIAGNOSIS: Blood per rectum TISSUE SUBMITTED: A. Antrum, B. Gastric body, C. GE junction MICROSCOPIC DIAGNOSIS A. Stomach, antrum, biopsy: - Antral/transitional mucosa with features of reactive gastropathy. - IHC for H pylori is pending and will be reported in an addendum. B. Stomach, body, biopsy: - Oxyntic mucosa with features of reactive gastropathy. - Negative for Helicobacter-like organisms (H&E). C. Esophagus, GE junction, biopsy: - Squamous mucosa with reactive changes. - Negative for eosinophils. - No columnar mucosa seen. MICROSCOPIC DESCRIPTION Slides are reviewed. GROSS DESCRIPTION A. Received is one container labeled with the patient name and designated antrum. The specimen consists of one irregular fragment of light silvestre soft tissue that measures 0.4 x 0.3 x 0.1 cm. The specimen is totally submitted in one cassette. B. Received is one container labeled with the patient name and designated gastric body. The specimen consists of one irregular fragment of light silvestre soft tissue that measures 0.4 x 0.3 x 0.2 cm. The specimen is totally submitted in one cassette. C. Received is one container labeled with the patient name and designated GE junction. The specimen consists of one irregular fragment of light silvestre soft tissue that measures 0.3 x 0.2 x 0.1 cm. The specimen is totally submitted in one cassette. 08/19/2025 CPT:[id number] ADDENDUM ADDENDUM ADDENDUM ADDENDUM ADDENDUM ADDENDUM ADDENDUM ADDENDUM ADDENDUM ADDENDUM ADDENDUM 08/22/2025 10:38 ADDENDUM 08/22/2025 10:38 ADDENDUM 08/22/2025 10:38 ADDENDUM 08/22/2025 10:38 ADDENDUM 08/22/2025 10:38 This addendum is to report the IHC for H pylori on part A: A. IHC negative for H. pylori organisms. All matched controls reacted appropriately. These tests were developed and their performance characteristics determined by [facility]. They may not have been cleared or approved by the U.S. Food and Drug Administration. The FDA has determined that such clearance or approval is not necessary. The above immunohistochemical markers are viewed by the Pathologist.
[2025-08-19] MEDS: Lidocaine 1% (5 ml sdv) 5 ML Vial IV (07:57)
--- NOTE | 2025-08-19 08:48 | PCM.POST.ANE ---
Anesthesia: Postop Eval I Current Vital Signs Temperature: 97.6 F Pulse Rate: 54 Blood Pressure: 114/58 Respiratory Rate: 12 Pulse Ox: 99 Oxygen Delivery Method: Room Air Assessment Airway patent: Yes Spontaneous unlabored respirations: Yes Mental status: Awake and Calm nausea: No Vomiting: No Anesthesia Complication: No Fluid Hydration Crystalloid volume administer (ml): 800 Total IV fluid infused: 800 Progress Note Anesthesia document: Postop Eval 1 completed: Yes
--- NOTE | 2025-08-19 08:49 | OP.EGD_ITS ---
Patient Name: Aisf Kirby Procedure Date: 08/19/2025 7:55 AM Date of : 1995 Age: 29 Procedure: Upper GI endoscopy Indications: Abdominal pain in the left upper quadrant Providers: Jim Ortez MD Referring MD: Joseluis Watson Medicines: Monitored Anesthesia Care Patient Profile: Refer to note in patient chart for documentation of history and physical. Patient has symptoms of chronic left upper quadrant abdominal pain. Complications: No immediate complications. Estimated blood loss: Minimal. Procedure: Pre-Anesthesia Assessment: - Prior to the procedure, a History and Physical was performed, and patient medications and allergies were reviewed. The patient's tolerance of previous anesthesia was also reviewed. The risks and benefits of the procedure and the sedation options and risks were discussed with the patient. All questions were answered, and informed consent was obtained. Prior Anticoagulants: The patient has taken no anticoagulant or antiplatelet agents. ASA Grade Assessment: I - A normal, healthy patient. After reviewing the risks and benefits, the patient was deemed in satisfactory condition to undergo the procedure. After obtaining informed consent, the endoscope was passed under direct vision. Throughout the procedure, the patient's blood pressure, pulse, and oxygen saturations were monitored continuously. The Endoscope was introduced through the mouth, and advanced to the second part of duodenum. The upper GI endoscopy was accomplished without difficulty. The patient tolerated the procedure well. Moderate Sedation: See the other procedure note for documentation of moderate sedation with intraservice time. Scope In: 8:04:28 AM Scope Out: 8:13:25 AM Total Procedure Duration Time 0 hours 8 minutes 57 seconds Findings: Scattered mild inflammation characterized by erythema was found in the stomach. Biopsies were taken with a cold forceps for histology. Verification of patient identification for the specimen was done by the nurse using the patient's name, date and medical record number. Estimated blood loss was minimal. No other significant abnormalities were identified in a careful examination of the stomach. The examined esophagus was normal. Mucosa was biopsied with a cold forceps for histology randomly at the gastroesophageal junction. Verification of patient identification for the specimen was done by the nurse using the patient's name, date and medical record number. Estimated blood loss was minimal. The exam was otherwise without abnormality. Impression: - Chronic gastritis. Biopsied. - Normal esophagus. Biopsied. - The examination was otherwise normal. Recommendation: - Discharge patient to home (ambulatory). - High fiber diet indefinitely. - Return to my office PRN. - Continue present medications. Procedure Code(s): --- Professional --- 41571, Esophagogastroduodenoscopy, flexible, transoral; with biopsy, single or multiple Diagnosis Code(s): --- Professional --- R10.12, Left upper quadrant pain K29.50, Unspecified chronic gastritis without bleeding CPT copyright 2021 [employer]. All rights reserved. The codes documented in this report are preliminary and upon operator specialist communications review may be revised to meet current compliance requirements. Jim Ortez MD 08/19/2025 8:49:06 AM This report has been signed electronically. Number of Addenda: 0 Note Initiated On: 08/19/2025 7:55 AM
--- NOTE | 2025-08-19 08:49 | OP.PROVAT_ITS ---
08/19/2025 Joseluis Watson [address] [place] [address] Re : Upper GI endoscopy procedure for [facility] Dear Dr. Watson This procedure was performed on Tuesday, August 19, 2025. My impressions and recommendations are as follows: Impressions : - Chronic gastritis. Biopsied. - Normal esophagus. Biopsied. - The examination was otherwise normal. Recommendations : - Discharge patient to home (ambulatory). - High fiber diet indefinitely. - Return to my office PRN. - Continue present medications. My findings are described in the full procedure note, which is enclosed. If I can be of further assistance, please feel free to contact me at . Sincerely, Jim Ortez MD 08/19/2025 8:49:06 AM This report has been signed electronically.
--- NOTE | 2025-08-19 08:51 | OP.PROVAT_ITS ---
08/19/2025 Joseluis Watson [address] [place] [address] Re : Colonoscopy procedure for [facility] Dear Dr. Watson This procedure was performed on Tuesday, August 19, 2025. My impressions and recommendations are as follows: Impressions : - Internal hemorrhoids. - The examination was otherwise normal. - No specimens collected. Recommendations : - Discharge patient to home (ambulatory). - High fiber diet. - Repeat colonoscopy in 10 years for screening purposes. - Return to my office PRN. - Continue present medications. My findings are described in the full procedure note, which is enclosed. If I can be of further assistance, please feel free to contact me at . Sincerely, Jim Ortez MD 08/19/2025 8:51:14 AM This report has been signed electronically.
--- NOTE | 2025-08-19 08:51 | OP.COLON_ITS ---
Patient Name: Asif Kirby Procedure Date: 08/19/2025 8:15 AM Date of : 1995 Age: 29 Procedure: Colonoscopy Indications: Abdominal pain in the left upper quadrant Providers: Jim Ortez MD Referring MD: Joseluis Watson Medicines: Monitored Anesthesia Care Patient Profile: Refer to note in patient chart for documentation of history and physical. Patient has symptoms of chronic left upper quadrant abdominal pain. Last Colonoscopy: none. The patient's first colonoscopy is today. Complications: No immediate complications. Estimated blood loss: None. Procedure: Pre-Anesthesia Assessment: - Prior to the procedure, a History and Physical was performed, and patient medications and allergies were reviewed. The patient's tolerance of previous anesthesia was also reviewed. The risks and benefits of the procedure and the sedation options and risks were discussed with the patient. All questions were answered, and informed consent was obtained. Prior Anticoagulants: The patient has taken no anticoagulant or antiplatelet agents. ASA Grade Assessment: I - A normal, healthy patient. After reviewing the risks and benefits, the patient was deemed in satisfactory condition to undergo the procedure. After I obtained informed consent, the scope was passed under direct vision. Throughout the procedure, the patient's blood pressure, pulse, and oxygen saturations were monitored continuously. The colonoscope was introduced through the anus and advanced to the cecum, identified by appendiceal orifice and ileocecal valve. The ileocecal valve, appendiceal orifice, and rectum were photographed. The entire colon was well visualized. Moderate Sedation: See the other procedure note for documentation of moderate sedation with intraservice time. Scope In: 8:17:09 AM Scope Withdrawal Time 0 hours 7 minutes 53 seconds Scope Out: 8:39:25 AM Total Procedure Duration Time 0 hours 22 minutes 16 seconds Findings: The perianal and digital rectal examinations were normal. Internal hemorrhoids were found during retroflexion. The hemorrhoids were moderate. The exam was otherwise without abnormality. Impression: - Internal hemorrhoids. - The examination was otherwise normal. - No specimens collected. Recommendation: - Discharge patient to home (ambulatory). - High fiber diet. - Repeat colonoscopy in 10 years for screening purposes. - Return to my office PRN. - Continue present medications. Procedure Code(s): --- Professional --- 04522, Colonoscopy, flexible; diagnostic, including collection of specimen(s) by brushing or washing, when performed (separate procedure) Diagnosis Code(s): --- Professional --- R10.12, Left upper quadrant pain K64.8, Other hemorrhoids CPT copyright 2021 [employer]. All rights reserved. The codes documented in this report are preliminary and upon vice president quality improvement review may be revised to meet current compliance requirements. Jim Ortez MD 08/19/2025 8:51:14 AM This report has been signed electronically. Number of Addenda: 0 Note Initiated On: 08/19/2025 8:15 AM
--- NOTE | 2025-08-19 08:58 | SUR.PHASEI ---
PROPOFOL INFILTRATED IN RIGHT FOREARM PER BAG PRESS OPERATOR, WARM COMPRESS APPLIED.
--- NOTE | 2025-08-19 12:25 | POSTOPAN2_ITS ---
Anesthesia Postop Eval I Sum Postop Eval Completion status Anesthesia document: Postop Eval 1 completed: Yes Anesthesia Postop Eval I Summary Anesthesia Postop Eval I Summary: Anesthesia Postop Eval I: Assessment Summary Airway patent Yes 08/19/25 08:50 MED SURG RN.SHOF Spontaneous unlabored Yes 08/19/25 08:50 MED SURG RN.SHOF respirations Mental status Awake,Calm 08/19/25 08:50 MED SURG RN.SHOF nausea No 08/19/25 08:50 MED SURG RN.SHOF Vomiting No 08/19/25 08:50 MED SURG RN.SHOF Anesthesia Postop Eval I: Fluid Summary Crystalloid volume administer 800 08/19/25 08:50 MED SURG RN.SHOF (ml) Colloids volume administered ( ml) Blood Product volume administered (ml) Total IV fluid infused 800 08/19/25 08:50 MED SURG RN.SHOF Anesthesia Postop Eval I: Summary Notes Anesthesia Complication No 08/19/25 08:50 MED SURG RN.SHOF Anesthesia Complication Comment: Post-operative progress note Anesthesia: Postop Eval II Evaluation Mental status: Awake and Calm Pain Level: 0 nausea: No Vomiting: No Complications Anesthesia Complication: No
--- NOTE | 2025-08-19 12:25 | PCM.POSTANE2 ---
Anesthesia Postop Eval I Sum Postop Eval Completion status Anesthesia document: Postop Eval 1 completed: Yes Anesthesia Postop Eval I Summary Anesthesia Postop Eval I Summary: Anesthesia Postop Eval I: Assessment Summary Airway patent Yes 08/19/25 08:50 FISHING GAME [email or web address] Spontaneous unlabored Yes 08/19/25 08:50 [employer]ING GAME [employer].SHOF respirations Mental status Awake,Calm 08/19/25 08:50 [employer]ING GAME W[employer].SHOF nausea No 08/19/25 08:50 [employer]ING GAME W[employer].SHOF Vomiting No 08/19/25 08:50 FISHING GAME W[employer].SHOF Anesthesia Postop Eval I: Fluid Summary Crystalloid volume administer 800 08/19/25 08:50 [employer]ING GAME WARD[employer].SHOF (ml) Colloids volume administered ( ml) Blood Product volume administered (ml) Total IV fluid infused 800 08/19/25 08:50 FISHING GAME WARDEN.SHOF Anesthesia Postop Eval I: Summary Notes Anesthesia Complication No 08/19/25 08:50 FISHING GAME WARD[employer].SHOF Anesthesia Complication Comment: Post-operative progress note Anesthesia: Postop Eval II Evaluation Mental status: Awake and Calm Pain Level: 0 nausea: No Vomiting: No Complications Anesthesia Complication: No
== END 2025-08-19 09:30 | disposition home or self-care (01) ==
LOC: EN 06:19 → AC 06:20
PROVIDERS: PCP Family Medicine; Referring Provider Family Medicine; Visit Provider Surgery
PROC: 0DJD8ZZ Inspection of Lower Intestinal Tract, Via Natural or Artificial Opening Endoscopic (ICD-10-PCS; CPT 45378; principal; 2025-08-19 07:25)
DX: K29.50 Unspecified chronic gastritis without bleeding (principal); K64.8 Other hemorrhoids; K21.9 Gastro-esophageal reflux disease without esophagitis; K62.5 Hemorrhage of anus and rectum
CPT/HCPCS: 45378; 43239; 88305; 88342; J2405